=== PATIENT | female | born 1940 | race African-American/Black ===

== ENCOUNTER 2018-02-11 11:47 | Inpatient (IN) | payer MEDICARE, MEDICAID ==
[~2018-02-11] VITALS: Ht 162.6 cm; Wt 61.2 kg
[~2018-02-11 11:47] MED LIST: GLUCOPHAGE500 MG PO; XANAX XR3 MG PO
[2018-02-11] MEDS ORDERED: NS 1000ml 1,900 ML IVLG ONE (12:15)
[2018-02-11] MEDS ORDERED: Isovue-300 100ml vial INJ PRN (12:15)
[2018-02-11] MEDS ORDERED: Morphine Sulfate 4mg/ml Inj IVP ONE (12:45)
[2018-02-11 13:02] LABS: EOSINOPHILS % (AUTO) 1.1 % (0.0-3.0); HEMATOCRIT 33.3 % (37.0-47.0); HEMOGLOBIN 11.1 G/DL (12.0-16.0); LYMPHOCYTES % (AUTO) 20.1 % (20.0-45.0); MEAN CORPUSCULAR VOLUME 91 FL (80-99); NEUTROPHILS % (AUTO) 67.8 % (45.0-75.0); PLATELET COUNT 332 K/UL (150-450); RED BLOOD COUNT 3.66 M/UL (4.20-5.40); RED CELL DISTRIBUTION WIDTH 12.5 % (11.6-14.8); WHITE BLOOD COUNT 11.3 K/UL (4.8-10.8)
[2018-02-11 13:02] LABS: APPEARANCE,URINE CLEAR; BILIRUBIN, URINE NEGATIVE (NEGATIVE); GLUCOSE, URINE (UA) NEGATIVE (NEGATIVE); KETONES,URINE NEGATIVE (NEGATIVE); LEUKOCYTE ESTERASE ,URINE 1+ (NEGATIVE); NITRITE,URINE NEGATIVE (NEGATIVE); PH,URINE 6.5 (4.5-8.0); PROTEIN,URINE NEGATIVE (NEGATIVE); UROBILINOGEN,URINE 8 MG/DL (0.0-1.0)
--- NOTE | 2018-02-11 13:02 | Diagnostic Imaging Report ---
Indication: Dyspnea Comparison: 09/27/2013 A single view chest radiograph was obtained. Findings: Cardiomediastinal appearance is within normal limits for age. Pulmonary vascularity is appropriate. The diaphragmatic contour is smooth and costophrenic angles are sharp. No pleural effusions are identified. The bones are osteopenic. Impression: No acute findings
[2018-02-11 13:07] LABS: ANION GAP 6 mmol/L (5-15); BLOOD UREA NITROGEN 7 mg/dL (7-18); CALCIUM 9.2 MG/DL (8.5-10.1); CARBON DIOXIDE 32 MMOL/L (21-32); CHLORIDE 100 MMOL/L (98-107); CREATININE 0.8 MG/DL (0.55-1.30); POTASSIUM 3.2 MMOL/L (3.5-5.1); SODIUM 138 MMOL/L (136-145)
[2018-02-11 13:15] LABS: COLOR,URINE YELLOW
[2018-02-11 13:20] LABS: ALANINE AMINOTRANSFERASE 57 U/L (12-78); ALBUMIN 2.5 G/DL (3.4-5.0); ALBUMIN/GLOBULIN RATIO 0.5 (1.0-2.7); ALKALINE PHOSPHATASE 63 U/L (46-116); ASPARTATE AMINO TRANSFERASE 73 U/L (15-37); BILIRUBIN,TOTAL 1.5 MG/DL (0.2-1.0); CKMB 0.5 NG/ML (0.0-3.6); CREATINE KINASE 182 U/L (26-308)
[2018-02-11 13:22] LABS: BILIRUBIN,DIRECT 0.6 MG/DL (0.0-0.3)
[2018-02-11 14:36] VITALS: BP 117/60
--- NOTE | 2018-02-11 14:38 | Diagnostic Imaging Report ---
Indication: Abdominal pain Technique: Continuous helical transaxial imaging of the abdomen and pelvis was obtained from the lung bases to the pubic symphysis during intravenous contrast administration. Coronal 2-D reformats were also obtained. Study obtained in a Siemens sensation [address] Automatic Exposure Control was utilized. Total Dose length Product (DLP): 609.[address] Dose Index Volume (CTDIvol): 13.45 mGy Comparison: 02/25/2010 Findings: The lung bases are clear. There is a small stone in the lower pole the right kidney demonstrated. Aorta is moderately calcified. Cholecystectomy noted. The body and tail the pancreas is markedly atrophic. The head and uncinate process appear relatively normal in volume. There is no definite mass identified. Generally this configuration is concerning for carcinoma involving the head of the pancreas. However the configuration is unchanged from the last study performed 02/25/2010 and there is no identification of a mass. Mild periportal edema is noted nonspecific. There is no adrenal mass. The spleen is unremarkable. There is no adenopathy appreciated. Moderate formed stool noted within the colon. No free fluid seen. The uterus is not identified. There is a right total hip prosthesis. Resultant streak artifact limits evaluation. IMPRESSION: No acute findings appreciated. 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 Correlate clinically. Query if patient has had prior partial pancreatectomy. Atherosclerotic disease Status post cholecystectomy. Periportal edema nonspecific Obscured pelvis due to right hip prosthesis. Moderate fecal retention Apparent hysterectomy Tiny nonobstructive stone in the lower pole the right kidney. The CT scanner at [facility] is accredited by the [employer] and the scans are performed using dose optimization techniques as appropriate to a performed exam including Automatic Exposure control.
--- NOTE | 2018-02-11 15:13 | Emergency Room Report ---
History of Present Illness General Chief Complaint: Fever Source: Patient, EMS Present Illness HPI This patient presents from a halfway facility. She is status post right hip replacement after a hip fracture. She presents from the [facility] for uncontrolled right hip pain. There is also concern of fever at the halfway facility. Patient states that this fever comes and goes. She primarily has pain in her right hip. She denies cough or congestion. She denies headache or neck pain. She denies abdominal pain. She has no other complaints. Allergies: Coded Allergies: No Known Allergies (Verified , 06/27/09) Patient History Past Medical History: see triage record, old chart reviewed, DM, GA, CAD, CHF, psych hx Social History: Denies: smoking, alcohol use, drug use Reviewed Nursing Documentation: PMH: Agreed; PSxH: Agreed Nursing Documentation-PMH Past Medical History: No History, Except For Hx Cardiac Problems: Yes Hx Hypertension: Yes Hx Diabetes: Yes - 2000 Hx Cancer: No Hx Gastrointestinal Problems: Yes Hx Neurological Problems: No Review of Systems All Other Systems: negative except mentioned in HPI Physical Exam Vital Signs Date Time Temp Pulse Resp B/P (MAP) Pulse Ox O2 Delivery O2 Flow Rate FiO2 02/11/18 11:53 98.7 78 20 109/65 95 Room Air 98.8 Sp02 EP Interpretation: reviewed, normal General Appearance: no apparent distress, alert, GCS 15, non-toxic Head: normocephalic, atraumatic Eyes: bilateral eye normal inspection, bilateral eye PERRL ENT: hearing grossly normal, normal pharynx, no angioedema, normal voice Neck: full range of motion, supple/symm/no masses Respiratory: chest non-tender, lungs clear, normal breath sounds, no respiratory distress, no retraction, no accessory muscle use, speaking full sentences Cardiovascular #1: regular rate, rhythm, no edema Gastrointestinal: normal bowel sounds, non tender, soft, non-distended, no guarding, no rebound Rectal: deferred Musculoskeletal: other - Pain w/ ROM of R. hip. No obvious swelling or erythema. Neurologic: alert, oriented x3, responsive, motor strength/tone normal, sensory intact, speech normal Psychiatric: judgement/insight normal, memory normal, mood/affect normal, no suicidal/homicidal ideation Skin: normal color, no rash, warm/dry, well hydrated Medical Decision Making Diagnostic Impression: Primary Impression: Post-operative pain ER Course This patient has uncontrolled right hip pain. Possibly this is post op pain. There is report that this patient had fever at the halfway facility. However, the patient does not have a fever here in the emergency department. If the patient is spiking fever it is a possibility she could have an post op infection. However, there has not been any fever here in the emergency department. CT of the abdomen and pelvis shows no acute findings. This patient is admitted for further evaluation and postoperative pain control. Laboratory Tests Test 02/11/18 12:30 02/11/18 12:40 White Blood Count 11.3 K/UL (4.8-10.8) H Red Blood Count 3.66 M/UL (4.20-5.40) L Hemoglobin 11.1 G/DL (12.0-16.0) L Hematocrit 33.3 % (37.0-47.0) L Mean Corpuscular Volume 91 FL (80-99) Mean Corpuscular Hemoglobin 30.3 PG (27.0-31.0) Mean Corpuscular Hemoglobin Concent 33.3 G/DL (32.0-36.0) Red Cell Distribution Width 12.5 % (11.6-14.8) Platelet Count 332 K/UL (150-450) Mean Platelet Volume 6.0 FL (6.5-10.1) L Neutrophils (%) (Auto) 67.8 % (45.0-75.0) Lymphocytes (%) (Auto) 20.1 % (20.0-45.0) Monocytes (%) (Auto) 10.0 % (1.0-10.0) Eosinophils (%) (Auto) 1.1 % (0.0-3.0) Basophils (%) (Auto) 1.0 % (0.0-2.0) Sodium Level 138 MMOL/L (136-145) Potassium Level 3.2 MMOL/L (3.5-5.1) L Chloride Level 100 MMOL/L (98-107) Carbon Dioxide Level 32 MMOL/L (21-32) Anion Gap 6 mmol/L (5-15) Blood Urea Nitrogen 7 mg/dL (7-18) Creatinine 0.8 MG/DL (0.55-1.30) Estimate Glomerular Filtration Rate mL/min (>60) Glucose Level 128 MG/DL (74-106) H Lactic Acid Level 1.70 mmol/L (0.66-2.22) Calcium Level 9.2 MG/DL (8.5-10.1) Total Bilirubin 1.5 MG/DL (0.2-1.0) H Direct Bilirubin 0.6 MG/DL (0.0-0.3) H Aspartate Amino Transferase (AST) 73 U/L (15-37) H Alanine Aminotransferase (ALT) 57 U/L (12-78) Alkaline Phosphatase 63 U/L (46-116) Total Creatine Kinase 182 U/L (26-308) Creatine Kinase MB 0.5 NG/ML (0.0-3.6) Creatine Kinase MB Relative Index 0.2 Troponin I 0.000 ng/mL (0.000-0.056) Total Protein 8.0 G/DL (6.4-8.2) Albumin 2.5 G/DL (3.4-5.0) L Globulin 5.5 g/dL Albumin/Globulin Ratio 0.5 (1.0-2.7) L Urine Color Yellow Urine Appearance Clear Urine pH 6.5 (4.5-8.0) Urine Specific [place] 1.005 (1.005-1.035) Urine Protein Negative (NEGATIVE) Urine Glucose (UA) Negative (NEGATIVE) Urine Ketones Negative (NEGATIVE) Urine Occult Blood 1+ (NEGATIVE) H Urine Nitrite Negative (NEGATIVE) Urine Bilirubin Negative (NEGATIVE) Urine Urobilinogen 8 MG/DL (0.0-1.0) H Urine Leukocyte Esterase 1+ (NEGATIVE) H Urine RBC 2-4 /HPF (0 - 2) H Urine WBC 2-4 /HPF (0 - 2) Urine Squamous Epithelial Cells Few /LPF (NONE/OCC) Urine Bacteria Occasional /HPF (NONE) EKG Diagnostic Results Rate: normal Rhythm: NSR ST Segments: no acute changes Rhythm Strip Diag. Results EP Interpretation: yes Rate: 70's Rhythm: NSR, no PVC's, no ectopy Chest X-Ray Diagnostic Results Chest X-Ray Diagnostic Results : Chest X-Ray Ordered: Yes # of Views/Limited/Complete: 1 View Indication: Other EP Interpretation: Yes Interpretation: no consolidation, no effusion, no pneumothorax, no acute cardiopulmonary disease Impression: No acute disease Electronically Signed by: Ventura CT/MRI/US Diagnostic Results CT/MRI/US Diagnostic Results : Imaging Test Ordered: CT abd/pelvis Impression No acute findings. See official report. Last Vital Signs Date Time Temp Pulse Resp B/P (MAP) Pulse Ox O2 Delivery O2 Flow Rate FiO2 02/11/18 14:36 98.7 82 18 117/60 99 Room Air 98.7 Disposition: ADMITTED INPATIENT Condition: Stable Referrals: Phan Nix DO (PCP) NOÉ VENTURA D.O. February 11, 2018 15:13
[2018-02-11] MEDS ORDERED: Albuterol/Ipratropium 3ml neb HHN PRN (15:26)
[2018-02-11] MEDS ORDERED: Nitroglycerin Subl 0.4mg tab SL PRN (15:36)
[2018-02-11] MEDS: NovoLOG Insulin Flexpen SUBQ SCH ×2 (16:30→21:00)
[2018-02-11] MEDS ORDERED: Cefepime HCl 2 GM in D5W 110 ML IV SCH (17:00)
--- NOTE | 2018-02-11 17:51 | Consultation ---
History of Present Illness General Date patient seen: February 11, 2018 Chief Complaint: Fever Present Illness HPI 77 year old female with hx of HTN, DM, Hep C and Cirrhosis, [facility] for uncontrolled right hip pain. She is status post right hip replacement after a hip fracture. She also had an episode of fever at the prison facility. Patient states that this fever comes and goes. She is admitted for further evaluation. she looks comfortable and only c/o hip pain. Allergies: Coded Allergies: No Known Allergies (Verified , 06/27/09) Medication History Scheduled Amlodipine Besylate* (Amlodipine Besylate*), 10 MG ORAL DAILY, (Reported) Brimonidine Tartrate* (Alphagan*), 1 DROP BOTH EYES BID, (Reported) Buspirone HCl* (Buspirone HCl*), 10 MG ORAL THREE TIMES A DAY, (Reported) Citalopram Hydrobromide* (Celexa*), 40 MG ORAL DAILY, (Reported) Docusate Sodium* (Colace*), 100 MG ORAL DAILY, (Reported) Insulin Regular, Human (Humulin R), 0 SUBQ AC+HS, (Reported) Metformin Hcl* (Glucophage*), 500 MG PO BID, (Reported) Multivitamins* (Multivitamins*), 1 TAB ORAL DAILY, (Reported) Sennosides/Docusate Sodium (Senna Laxative Tablet), 2 EACH PO QHS, (Reported) Timolol Maleate (Timolol Maleate), 1 DROP BOTH EYES TWICE A DAY, (Reported) Scheduled PRN Bisacodyl (Dulcolax), 10 MG RC DAILY PRN for Constipation, (Reported) Hydrocodone Bit/Acetaminophen 5-325* ([place]ola 5-325*), 1 TAB ORAL Q4H PRN for For Pain, (Reported) Hydroxyzine Pamoate* (Vistaril*), 25 MG ORAL TID PRN for Restlessness, (Reported ) Ibuprofen* (Motrin*), 600 MG ORAL Q6H PRN for For Pain, (Reported) Magnesium Hydroxide* (Milk Of Magnesia*), 30 ML ORAL DAILY PRN for Constipation, (Reported) Na Phos,M-B/Na Phos,Di-Ba* (Fleet Enema*), 133 ML RECTAL every 2 days PRN for Constipation, (Reported) Miscellaneous Medications Alprazolam (Xanax Xr), 3 MG PO, (Reported) Patient History Healthcare decision maker Resuscitation status Advanced Directive on File Past Medical/Surgical History Past Medical/Surgical History: (1) 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 (2) Peptic ulcer disease Review of Systems All Other Systems: negative except mentioned in HPI Physical Exam General Appearance: WD/WN Lines, tubes and drains: peripheral, central line HEENT: normocephalic, atraumatic Neck: non-tender, normal alignment Respiratory/Chest: chest wall non-tender, lungs clear, normal breath sounds Breasts: no masses Cardiovascular/Chest: normal peripheral pulses Genitourinary/Rectal: normal genital exam, normal rectal exam Extremities: normal range of motion Last 24 Hour Vital Signs Date Time Temp Pulse Resp B/P (MAP) Pulse Ox O2 Delivery O2 Flow Rate FiO2 02/11/18 15:13 98.7 82 18 117/60 99 Room Air 98.7 02/11/18 14:36 98.7 82 18 117/60 99 Room Air 98.7 02/11/18 14:21 98.7 02/11/18 12:47 98.7 02/11/18 11:53 98.7 78 20 109/65 95 Room Air 98.8 Laboratory Tests Test 02/11/18 12:30 02/11/18 12:40 White Blood Count 11.3 K/UL (4.8-10.8) H Red Blood Count 3.66 M/UL (4.20-5.40) L Hemoglobin 11.1 G/DL (12.0-16.0) L Hematocrit 33.3 % (37.0-47.0) L Mean Corpuscular Volume 91 FL (80-99) Mean Corpuscular Hemoglobin 30.3 PG (27.0-31.0) Mean Corpuscular Hemoglobin Concent 33.3 G/DL (32.0-36.0) Red Cell Distribution Width 12.5 % (11.6-14.8) Platelet Count 332 K/UL (150-450) Mean Platelet Volume 6.0 FL (6.5-10.1) L Neutrophils (%) (Auto) 67.8 % (45.0-75.0) Lymphocytes (%) (Auto) 20.1 % (20.0-45.0) Monocytes (%) (Auto) 10.0 % (1.0-10.0) Eosinophils (%) (Auto) 1.1 % (0.0-3.0) Basophils (%) (Auto) 1.0 % (0.0-2.0) Sodium Level 138 MMOL/L (136-145) Potassium Level 3.2 MMOL/L (3.5-5.1) L Chloride Level 100 MMOL/L (98-107) Carbon Dioxide Level 32 MMOL/L (21-32) Anion Gap 6 mmol/L (5-15) Blood Urea Nitrogen 7 mg/dL (7-18) Creatinine 0.8 MG/DL (0.55-1.30) Estimat Glomerular Filtration Rate mL/min (>60) Glucose Level 128 MG/DL (74-106) H Lactic Acid Level 1.70 mmol/L (0.66-2.22) Calcium Level 9.2 MG/DL (8.5-10.1) Total Bilirubin 1.5 MG/DL (0.2-1.0) H Direct Bilirubin 0.6 MG/DL (0.0-0.3) H Aspartate Amino Transf (AST/SGOT) 73 U/L (15-37) H Alanine Aminotransferase (ALT/SGPT) 57 U/L (12-78) Alkaline Phosphatase 63 U/L (46-116) Total Creatine Kinase 182 U/L (26-308) Creatine Kinase MB 0.5 NG/ML (0.0-3.6) Creatine Kinase MB Relative Index 0.2 Troponin I 0.000 ng/mL (0.000-0.056) Total Protein 8.0 G/DL (6.4-8.2) Albumin 2.5 G/DL (3.4-5.0) L Globulin 5.5 g/dL Albumin/Globulin Ratio 0.5 (1.0-2.7) L Urine Color Yellow Urine Appearance Clear Urine pH 6.5 (4.5-8.0) Urine Specific [place] 1.005 (1.005-1.035) Urine Protein Negative (NEGATIVE) Urine Glucose (UA) Negative (NEGATIVE) Urine Ketones Negative (NEGATIVE) Urine Occult Blood 1+ (NEGATIVE) H Urine Nitrite Negative (NEGATIVE) Urine Bilirubin Negative (NEGATIVE) Urine Urobilinogen 8 MG/DL (0.0-1.0) H Urine Leukocyte Esterase 1+ (NEGATIVE) H Urine RBC 2-4 /HPF (0 - 2) H Urine WBC 2-4 /HPF (0 - 2) Urine Squamous Epithelial Cells Few /LPF (NONE/OCC) Urine Bacteria Occasional /HPF (NONE) Height (Feet): 5 Height (Inches): 5.00 Weight (Pounds): 140 Medications Current Medications Medications (Trade) Dose Ordered Sig/Darwin Route PRN Reason Start Time Stop Time Status Last Admin Dose Admin Acetaminophen (Tylenol) 650 mg Q4H PRN ORAL fever (TEMP>100.3) 02/11/18 15:36 03/13/18 15:35 Albuterol/ Ipratropium (Albuterol/ Ipratropium) 3 ml EVERY 4 HOURS PRN HHN Shortness of Breath 02/11/18 15:26 02/16/18 15:25 Cefepime HCl 2 gm/ Dextrose 110 ml @ 220 mls/hr Q12H IV 02/11/18 17:00 02/18/18 16:59 02/11/18 17:29 Dextrose (Dextrose 50%) 25 ml STAT PRN IV Hypoglycemia BS 60-69mg/dl 02/11/18 15:38 03/13/18 15:37 Dextrose (Dextrose 50%) 50 ml STAT PRN IV Hypoglycemia BS less than 60mg 02/11/18 15:38 03/13/18 15:37 Heparin Sodium (Porcine) (Heparin 5000 units/ml) 5,000 units EVERY 12 HOURS SUBQ 02/11/18 21:00 03/13/18 20:59 Insulin Aspart (NovoLOG) BEFORE MEALS AND HS SUBQ 02/11/18 16:30 03/13/18 16:29 Iopamidol (Isovue-300 100ml) 100 ml NOW PRN INJ Radiology Procedure 02/11/18 12:15 Nitroglycerin (Ntg) 0.4 mg STAT PRN SL Prn Chest Pain 02/11/18 15:36 03/13/18 15:35 Ondansetron HCl (Zofran) 4 mg Q6H PRN IVP Nausea & Vomiting 02/11/18 15:36 03/13/18 15:35 Polyethylene Glycol (Miralax) 17 gm DAILYPRN PRN ORAL Constipation 5/10/18 15:36 03/13/18 15:35 Potassium Chloride (K-Dur) 20 meq ONCE ORAL 02/11/18 17:30 02/11/18 19:00 02/11/18 17:41 Temazepam (Restoril) 15 mg HSPRN PRN ORAL Insomnia 02/11/18 21:00 02/18/18 20:59 Vancomycin HCl (Vanco rx to dose) 1 ea DAILY PRN MISC VANCO RX 02/11/18 15:45 03/13/18 15:44 Vancomycin HCl 1 gm/Dextrose 275 ml @ 183.3 mls/ hr Q24H IVPB 02/11/18 18:00 02/16/18 17:59 Assessment/Plan Problem List: (1) Fever ICD Codes: R50.9 - Fever, unspecified SNOMED: 086647429 (2) 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
[2018-02-11] MEDS: Miralax 17gm pkt ORAL PRN (17:58)
[2018-02-11] MEDS ORDERED: Vancomycin 1 GM in D5W 275 ML IVPB SCH (18:00)
[2018-02-11] MEDS ORDERED: HYDROcodone/Acetamin 10/325 tab ORAL PRN ×2 (18:02→20:30)
--- NOTE | 2018-02-11 18:04 | Consultation ---
History of Present Illness General Date patient seen: February 11, 2018 Time patient seen: 17:51 Chief Complaint: Fever Present Illness HPI 77 y/o F with hx of DM2, CAD/[place], CHF, HTN, SNF resident, s/p R hip replacement after hip fracture presents to ED on 02/11 with uncontrolled R hip pain and report of fever at SNF. Denies cough, congestion, SMITH, neck pain, abd pain. Afebrile here. Mild leukocytosis to 11. CXR and CTabd/p neg Allergies: Coded Allergies: No Known Allergies (Verified , 06/27/09) Medication History Scheduled Metformin Hcl* (Glucophage*), 500 MG PO BID, (Reported) Miscellaneous Medications Alprazolam (Xanax Xr), 3 MG PO, (Reported) Patient History Healthcare decision maker Resuscitation status Advanced Directive on File Patient History Narrative Pmhx: as above Shx: Denies: smoking, alcohol use, drug use Fhx: non contributory Review of Systems All Other Systems: negative except mentioned in HPI Physical Exam Physical Exam Narrative General Appearance: no apparent distress, alert HEENT: normocephalic, atraumatic, bilateral eye PERRL, normal pharynx Neck: full range of motion, supple/symm/no masses Respiratory: chest non-tender, lungs clear, normal breath sounds, no respiratory distress, no retraction, no accessory muscle use, speaking full sentences Cardiovascular regular rate, rhythm, no edema Gastrointestinal: normal bowel sounds, non tender, soft, non-distended, no guarding, no rebound Musculoskeletal: other - Pain w/ ROM of R. hip. No obvious swelling or erythema. R hip surgical incision healing, no signs of ifnection, no drainage Skin: normal color, no rash, warm/dry, well hydrated Last 24 Hour Vital Signs Date Time Temp Pulse Resp B/P (MAP) Pulse Ox O2 Delivery O2 Flow Rate FiO2 02/11/18 15:13 98.7 82 18 117/60 99 Room Air 98.7 02/11/18 14:36 98.7 82 18 117/60 99 Room Air 98.7 02/11/18 14:21 98.7 02/11/18 12:47 98.7 02/11/18 11:53 98.7 78 20 109/65 95 Room Air 98.8 Laboratory Tests Test 02/11/18 12:30 02/11/18 12:40 White Blood Count 11.3 K/UL (4.8-10.8) H Red Blood Count 3.66 M/UL (4.20-5.40) L Hemoglobin 11.1 G/DL (12.0-16.0) L Hematocrit 33.3 % (37.0-47.0) L Mean Corpuscular Volume 91 FL (80-99) Mean Corpuscular Hemoglobin 30.3 PG (27.0-31.0) Mean Corpuscular Hemoglobin Concent 33.3 G/DL (32.0-36.0) Red Cell Distribution Width 12.5 % (11.6-14.8) Platelet Count 332 K/UL (150-450) Mean Platelet Volume 6.0 FL (6.5-10.1) L Neutrophils (%) (Auto) 67.8 % (45.0-75.0) Lymphocytes (%) (Auto) 20.1 % (20.0-45.0) Monocytes (%) (Auto) 10.0 % (1.0-10.0) Eosinophils (%) (Auto) 1.1 % (0.0-3.0) Basophils (%) (Auto) 1.0 % (0.0-2.0) Sodium Level 138 MMOL/L (136-145) Potassium Level 3.2 MMOL/L (3.5-5.1) L Chloride Level 100 MMOL/L (98-107) Carbon Dioxide Level 32 MMOL/L (21-32) Anion Gap 6 mmol/L (5-15) Blood Urea Nitrogen 7 mg/dL (7-18) Creatinine 0.8 MG/DL (0.55-1.30) Estimat Glomerular Filtration Rate mL/min (>60) Glucose Level 128 MG/DL (74-106) H Lactic Acid Level 1.70 mmol/L (0.66-2.22) Calcium Level 9.2 MG/DL (8.5-10.1) Total Bilirubin 1.5 MG/DL (0.2-1.0) H Direct Bilirubin 0.6 MG/DL (0.0-0.3) H Aspartate Amino Transf (AST/SGOT) 73 U/L (15-37) H Alanine Aminotransferase (ALT/SGPT) 57 U/L (12-78) Alkaline Phosphatase 63 U/L (46-116) Total Creatine Kinase 182 U/L (26-308) Creatine Kinase MB 0.5 NG/ML (0.0-3.6) Creatine Kinase MB Relative Index 0.2 Troponin I 0.000 ng/mL (0.000-0.056) Total Protein 8.0 G/DL (6.4-8.2) Albumin 2.5 G/DL (3.4-5.0) L Globulin 5.5 g/dL Albumin/Globulin Ratio 0.5 (1.0-2.7) L Urine Color Yellow Urine Appearance Clear Urine pH 6.5 (4.5-8.0) Urine Specific [place] 1.005 (1.005-1.035) Urine Protein Negative (NEGATIVE) Urine Glucose (UA) Negative (NEGATIVE) Urine Ketones Negative (NEGATIVE) Urine Occult Blood 1+ (NEGATIVE) H Urine Nitrite Negative (NEGATIVE) Urine Bilirubin Negative (NEGATIVE) Urine Urobilinogen 8 MG/DL (0.0-1.0) H Urine Leukocyte Esterase 1+ (NEGATIVE) H Urine RBC 2-4 /HPF (0 - 2) H Urine WBC 2-4 /HPF (0 - 2) Urine Squamous Epithelial Cells Few /LPF (NONE/OCC) Urine Bacteria Occasional /HPF (NONE) Height (Feet): 5 Height (Inches): 5.00 Weight (Pounds): 140 Medications Current Medications Medications (Trade) Dose Ordered Sig/Darwin Route PRN Reason Start Time Stop Time Status Last Admin Dose Admin Acetaminophen (Tylenol) 650 mg Q4H PRN ORAL fever (TEMP>100.3) 02/11/18 15:36 03/13/18 15:35 Albuterol/ Ipratropium (Albuterol/ Ipratropium) 3 ml EVERY 4 HOURS PRN HHN Shortness of Breath 02/11/18 15:26 02/16/18 15:25 Cefepime HCl 2 gm/ Dextrose 110 ml @ 220 mls/hr Q12H IV 02/11/18 17:00 02/18/18 16:59 02/11/18 17:29 Dextrose (Dextrose 50%) 25 ml STAT PRN IV Hypoglycemia BS 60-69mg/dl 02/11/18 15:38 03/13/18 15:37 Dextrose (Dextrose 50%) 50 ml STAT PRN IV Hypoglycemia BS less than 60mg 02/11/18 15:38 03/13/18 15:37 Heparin Sodium (Porcine) (Heparin 5000 units/ml) 5,000 units EVERY 12 HOURS SUBQ 02/11/18 21:00 03/13/18 20:59 Insulin Aspart (NovoLOG) BEFORE MEALS AND HS SUBQ 02/11/18 16:30 03/13/18 16:29 Iopamidol (Isovue-300 100ml) 100 ml NOW PRN INJ Radiology Procedure 02/11/18 12:15 Nitroglycerin (Ntg) 0.4 mg STAT PRN SL Prn Chest Pain 02/11/18 15:36 03/13/18 15:35 Ondansetron HCl (Zofran) 4 mg Q6H PRN IVP Nausea & Vomiting 02/11/18 15:36 03/13/18 15:35 Polyethylene Glycol (Miralax) 17 gm DAILYPRN PRN ORAL Constipation 02/11/18 15:36 03/13/18 15:35 Potassium Chloride (K-Dur) 20 meq ONCE ORAL 02/11/18 17:30 02/11/18 19:00 02/11/18 17:41 Temazepam (Restoril) 15 mg HSPRN PRN ORAL Insomnia 02/11/18 21:00 02/18/18 20:59 Vancomycin HCl (Vanco rx to dose) 1 ea DAILY PRN MISC VANCO RX 02/11/18 15:45 03/13/18 15:44 Vancomycin HCl 1 gm/Dextrose 275 ml @ 183.3 mls/ hr Q24H IVPB 02/11/18 18:00 02/16/18 17:59 Assessment/Plan Assessment/Plan Abx: IV Vancomycin 02/11- Cefepime 02/11- Assessment: R hip pain Reported fever, none here Mild leukocytosis- suspect reactive- no signs or evidence of infection. Monitor for Surgical site infection. -CT abd/p: No acute findings appreciated. 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 Correlate clinically. Query if patient has had prior partial pancreatectomy. Atherosclerotic disease. Status post cholecystectomy. Periportal edema nonspecific. Obscured pelvis due to right hip prosthesis. Moderate fecal retention. Apparent hysterectomy. Tiny nonobstructive stone in the lower pole the right kidney. -CXR no acute findings -u/a wbc 2-4, nit neg, leuk +2 -Bcx p DM2 CAD/[place] CHF HTN SNF resident s/p R hip replacement after hip fracture Plan: -D/c empiriv IV Vanco and Cefepime #1 and monitor off abx; resume if febrile, worsening leukocytosis -V duplex BLE, R hip xray -may need CT or MRI imaging if persistent paint -f/u cx -Monitor CBC/BMP, temperatures -aspiration precautions -wound care/prevention per hospital protocol. Thank you for this consultation. Will continue to follow along with you. Discussed with Chelsea Escobar M.D. February 11, 2018 18:04
[2018-02-11 20:00] VITALS: BP 141/72
[2018-02-11] MEDS ORDERED: Morphine Sulfate 4mg/ml Inj IVP PRN (20:12)
[2018-02-11] MEDS: Morphine Sulfate 4mg/ml Inj IVP PRN (20:37)
[2018-02-11] MEDS: Heparin 5000 units/ml inj SUBQ SCH (21:00)
--- NOTE | 2018-02-11 21:15 | History and Physical Report ---
DATE OF ADMISSION: 02/11/2018 TIME SEN: At 3 p.m. CONSULTANTS: 1. Dr. De La Fuente. 2. Jt Morin M.D. 3. Marcela Carvajal M.D. 4. Shannon Pang M.D. CHIEF COMPLAINT: Fever, status post hip surgery, hip pain. BRIEF HISTORY: This is a 77-year-old female, who recently was hospitalized for right hip fracture and who has had surgery, this is about a week ago. The patient was discharged back to [facility], but currently developed some fever and acute pain in the right leg, came to [place], diagnosed as above, being admitted to the medical floor for further treatment. Currently, calm in bed, right hip pain moderate. No complaint. PAST MEDICAL HISTORY: Right hip fracture, status post surgery, diabetes, and hypertension. PAST SURGICAL HISTORY: Right hip. MEDICATIONS: Vancomycin, cefepime, insulin, Tylenol, Zofran, temazepam, and nitroglycerin. ALLERGIES: Denies. SOCIAL HISTORY: No smoking. No alcohol. No intravenous drug abuse. FAMILY HISTORY: Noncontributory. REVIEW OF SYSTEMS: No chest pain. Slight short of breath. No nausea, vomiting, or diarrhea. PHYSICAL EXAMINATION: GENERAL: Calm in bed, oriented x3, in slight distress. VITAL SIGNS: Temperature is 98 degrees, pulse 82, respiratory rate 18, and blood pressure 117/60. CARDIOVASCULAR: No murmur. LUNGS: Distant and clear. ABDOMEN: Bowel sounds positive. Nontender. Nondistended. EXTREMITIES: No cyanosis, clubbing, or edema. NEUROLOGIC: The patient moves all extremities, slightly weak . LABORATORY DATA: Labs at this time show white count 11.3, hemoglobin and hematocrit 11/33, otherwise CBC is normal. BMP shows potassium 3.2 and glucose 128, otherwise normal. Troponin 0.00. Albumin 2.5. Urinalysis show 1+ leukocyte esterase, otherwise normal. ASSESSMENT: 1. Fever. 2. UTI. 3. Shortness of breath. 4. Acute pain. 5. Anemia. 6. Right hip pain. 7. Diabetes. 8. Hypertension. 9. Depression. PLAN: 1. Continue previous medications. 2. Antibiotics per Infectious Disease. 3. OT/PT. 4. Dietary evaluation. 5. CBC and BMP in the morning. 6. Blood pressure, blood sugar, and pain control. 7. Dietary followup. 8. Dr. De La Fuente, Dr. Morin, Dr. Pang, Dr. Carvajal, and Dr. Torres to consult. 9. We will continue to follow this patient. Phan Nix D.O. DR: DOV JOB#: [id number] CC:
[2018-02-11 22:34] LABS: APPEARANCE,URINE CLEAR; BILIRUBIN, URINE NEGATIVE (NEGATIVE); GLUCOSE, URINE (UA) NEGATIVE (NEGATIVE); KETONES,URINE 3+ (NEGATIVE); LEUKOCYTE ESTERASE ,URINE NEGATIVE (NEGATIVE); NITRITE,URINE NEGATIVE (NEGATIVE); PH,URINE 6 (4.5-8.0); PROTEIN,URINE NEGATIVE (NEGATIVE); UROBILINOGEN,URINE 1 MG/DL (0.0-1.0)
[2018-02-11 22:35] LABS: COLOR,URINE YELLOW
[2018-02-12] MEDS ORDERED: TIMOPTIC 0.5%1 DROP BOTH EYES (00:20)
[2018-02-12] MEDS ORDERED: IBUPROFEN600 MG ORAL (00:20)
[2018-02-12] MEDS ORDERED: HUMULIN R100 UNIT/1 SUBQ (00:20)
[2018-02-12] MEDS ORDERED: MILK OF MA400 MG/51 ORAL (00:20)
[2018-02-12] MEDS ORDERED: FLEET ENEMA133 ML RECTAL (00:20)
[2018-02-12] MEDS ORDERED: VISTARIL50 MG ORAL (00:20)
[2018-02-12] MEDS ORDERED: MULTIVITAMINS1 EAC2 ORAL (00:20)
[2018-02-12] MEDS ORDERED: AMLODIPINE BESY10 MG ORAL (00:20)
[2018-02-12] MEDS ORDERED: COLACE100 MG ORAL (00:20)
[2018-02-12] MEDS ORDERED: BRIMONIDINE TART5 ML BOTH EYES (00:20)
[2018-02-12] MEDS ORDERED: BUSPIRONE HCL5 M2 ORAL (00:20)
[2018-02-12] MEDS ORDERED: DULCOLAX10 MG RC (00:20)
[2018-02-12] MEDS ORDERED: NORCO 5-325 TA1 EACH ORAL (00:20)
[2018-02-12] MEDS ORDERED: SENNA LAXATIVE1 EAC1 PO (00:20)
[2018-02-12] MEDS ORDERED: CELEXA20 MG ORAL (00:20)
[2018-02-12 00:51] VITALS: BP 134/66
[2018-02-12] MEDS: Morphine Sulfate 4mg/ml Inj IVP PRN ×5 (01:05→21:37)
[2018-02-12 04:00] VITALS: BP 125/68
[2018-02-12] MEDS ORDERED: LORazepam 0.5mg tab ORAL PRN (04:15)
[2018-02-12] MEDS: NovoLOG Insulin Flexpen SUBQ SCH ×4 (05:58→21:00)
[2018-02-12 08:00] VITALS: BP 114/64
[2018-02-12 08:31] LABS: BASOPHILS % (AUTO) 0.9 % (0.0-2.0); EOSINOPHILS % (AUTO) 1.6 % (0.0-3.0); HEMATOCRIT 28.7 % (37.0-47.0); LYMPHOCYTES % (AUTO) 17.4 % (20.0-45.0); MEAN CORPUSCULAR VOLUME 91 FL (80-99); MONOCYTES % (AUTO) 9.1 % (1.0-10.0); NEUTROPHILS % (AUTO) 70.9 % (45.0-75.0); PLATELET COUNT 260 K/UL (150-450); RED BLOOD COUNT 3.15 M/UL (4.20-5.40); RED CELL DISTRIBUTION WIDTH 12.3 % (11.6-14.8); WHITE BLOOD COUNT 10.3 K/UL (4.8-10.8)
[2018-02-12] MEDS: Citalopram 20mg Tab ORAL SCH (08:49)
[2018-02-12] MEDS: BusPIRone 5mg Tab ORAL SCH ×3 (08:50→18:02)
[2018-02-12] MEDS: Heparin 5000 units/ml inj SUBQ SCH ×2 (08:52→21:45)
[2018-02-12 09:07] LABS: ALANINE AMINOTRANSFERASE 47 U/L (12-78); ALBUMIN 2.2 G/DL (3.4-5.0); ALBUMIN/GLOBULIN RATIO 0.4 (1.0-2.7); ALKALINE PHOSPHATASE 58 U/L (46-116); ANION GAP 11 mmol/L (5-15); ASPARTATE AMINO TRANSFERASE 65 U/L (15-37); BILIRUBIN,TOTAL 1.1 MG/DL (0.2-1.0); BLOOD UREA NITROGEN 8 mg/dL (7-18); CALCIUM 8.5 MG/DL (8.5-10.1); CARBON DIOXIDE 24 MMOL/L (21-32); CHLORIDE 102 MMOL/L (98-107); CREATININE 0.7 MG/DL (0.55-1.30); POTASSIUM 3.2 MMOL/L (3.5-5.1); SODIUM 137 MMOL/L (136-145)
[2018-02-12 09:13] LABS: BILIRUBIN,DIRECT 0.4 MG/DL (0.0-0.3)
--- NOTE | 2018-02-12 09:40 | Consultation ---
History of Present Illness General Date patient seen: February 12, 2018 Chief Complaint: Present Illness Allergies: Coded Allergies: No Known Allergies (Verified , 06/27/09) Medication History Scheduled Amlodipine Besylate* (Amlodipine Besylate*), 10 MG ORAL DAILY, (Reported) Brimonidine Tartrate* (Alphagan*), 1 DROP BOTH EYES BID, (Reported) Buspirone HCl* (Buspirone HCl*), 10 MG ORAL THREE TIMES A DAY, (Reported) Citalopram Hydrobromide* (Celexa*), 40 MG ORAL DAILY, (Reported) Docusate Sodium* (Colace*), 100 MG ORAL DAILY, (Reported) Insulin Regular, Human (Humulin R), 0 SUBQ AC+HS, (Reported) Metformin Hcl* (Glucophage*), 500 MG PO BID, (Reported) Multivitamins* (Multivitamins*), 1 TAB ORAL DAILY, (Reported) Sennosides/Docusate Sodium (Senna Laxative Tablet), 2 EACH PO QHS, (Reported) Timolol Maleate (Timolol Maleate), 1 DROP BOTH EYES TWICE A DAY, (Reported) Scheduled PRN Bisacodyl (Dulcolax), 10 MG RC DAILY PRN for Constipation, (Reported) Hydrocodone Bit/Acetaminophen 5-325* (Cooks 5-325*), 1 TAB ORAL Q4H PRN for For Pain, (Reported) Hydroxyzine Pamoate* (Vistaril*), 25 MG ORAL TID PRN for Restlessness, (Reported ) Ibuprofen* (Motrin*), 600 MG ORAL Q6H PRN for For Pain, (Reported) Magnesium Hydroxide* (Milk Of Magnesia*), 30 ML ORAL DAILY PRN for Constipation, (Reported) Na Phos,M-B/Na Phos,Di-Ba* (Fleet Enema*), 133 ML RECTAL every 2 days PRN for Constipation, (Reported) Miscellaneous Medications Alprazolam (Xanax Xr), 3 MG PO, (Reported) Patient History Healthcare decision maker Resuscitation status Full Code Advanced Directive on File No Physical Exam Last 24 Hour Vital Signs Date Time Temp Pulse Resp B/P (MAP) Pulse Ox O2 Delivery O2 Flow Rate FiO2 02/12/18 08:00 98.8 85 16 114/64 98 Room Air 98.8 02/12/18 05:53 98.0 02/12/18 04:00 98.4 82 20 125/68 96 Room Air 98.4 02/12/18 01:35 98.0 02/12/18 01:05 98.0 02/12/18 00:51 98.0 76 24 134/66 98 Room Air 98.0 02/11/18 20:00 98.9 92 20 141/72 97 Room Air 98.9 02/11/18 19:12 98.7 02/11/18 15:13 98.7 82 18 117/60 99 Room Air 98.7 02/11/18 14:36 98.7 82 18 117/60 99 Room Air 98.7 02/11/18 14:21 98.7 02/11/18 12:47 98.7 02/11/18 11:53 98.7 78 20 109/65 95 Room Air 98.8 Intake and Output 02/11/18 02/12/18 19:00 07:00 Intake Total 100 ml Output Total 400 ml 1150 ml Balance -400 ml -1050 ml Intake Oral 100 ml Output Urine Total 400 ml 1150 ml # Bowel Movements 1 Laboratory Tests Test 02/11/18 12:30 02/11/18 12:40 02/11/18 22:00 02/12/18 07:15 White Blood Count 11.3 K/UL (4.8-10.8) H 10.3 K/UL (4.8-10.8) Red Blood Count 3.66 M/UL (4.20-5.40) L 3.15 M/UL (4.20-5.40) L Hemoglobin 11.1 G/DL (12.0-16.0) L 10.0 G/DL (12.0-16.0) L Hematocrit 33.3 % (37.0-47.0) L 28.7 % (37.0-47.0) L Mean Corpuscular Volume 91 FL (80-99) 91 FL (80-99) Mean Corpuscular Hemoglobin 30.3 PG (27.0-31.0) 31.7 PG (27.0-31.0) H Mean Corpuscular Hemoglobin Concent 33.3 G/DL (32.0-36.0) 34.8 G/DL (32.0-36.0) Red Cell Distribution Width 12.5 % (11.6-14.8) 12.3 % (11.6-14.8) Platelet Count 332 K/UL (150-450) 260 K/UL (150-450) Mean Platelet Volume 6.0 FL (6.5-10.1) L 5.9 FL (6.5-10.1) L Neutrophils (%) (Auto) 67.8 % (45.0-75.0) 70.9 % (45.0-75.0) Lymphocytes (%) (Auto) 20.1 % (20.0-45.0) 17.4 % (20.0-45.0) L Monocytes (%) (Auto) 10.0 % (1.0-10.0) 9.1 % (1.0-10.0) Eosinophils (%) (Auto) 1.1 % (0.0-3.0) 1.6 % (0.0-3.0) Basophils (%) (Auto) 1.0 % (0.0-2.0) 0.9 % (0.0-2.0) Sodium Level 138 MMOL/L (136-145) 137 MMOL/L (136-145) Potassium Level 3.2 MMOL/L (3.5-5.1) L 3.2 MMOL/L (3.5-5.1) L Chloride Level 100 MMOL/L (98-107) 102 MMOL/L (98-107) Carbon Dioxide Level 32 MMOL/L (21-32) 24 MMOL/L (21-32) Anion Gap 6 mmol/L (5-15) 11 mmol/L (5-15) Blood Urea Nitrogen 7 mg/dL (7-18) 8 mg/dL (7-18) Creatinine 0.8 MG/DL (0.55-1.30) 0.7 MG/DL (0.55-1.30) Estimat Glomerular Filtration Rate mL/min (>60) mL/min (>60) Glucose Level 128 MG/DL (74-106) H 100 MG/DL (74-106) Lactic Acid Level 1.70 mmol/L (0.66-2.22) Calcium Level 9.2 MG/DL (8.5-10.1) 8.5 MG/DL (8.5-10.1) Total Bilirubin 1.5 MG/DL (0.2-1.0) H 1.1 MG/DL (0.2-1.0) H Direct Bilirubin 0.6 MG/DL (0.0-0.3) H 0.4 MG/DL (0.0-0.3) H Aspartate Amino Transf (AST/SGOT) 73 U/L (15-37) H 65 U/L (15-37) H Alanine Aminotransferase (ALT/SGPT) 57 U/L (12-78) 47 U/L (12-78) Alkaline Phosphatase 63 U/L (46-116) 58 U/L (46-116) Total Creatine Kinase 182 U/L (26-308) Creatine Kinase MB 0.5 NG/ML (0.0-3.6) Creatine Kinase MB Relative Index 0.2 Troponin I 0.000 ng/mL (0.000-0.056) Total Protein 8.0 G/DL (6.4-8.2) 7.2 G/DL (6.4-8.2) Albumin 2.5 G/DL (3.4-5.0) L 2.2 G/DL (3.4-5.0) L Globulin 5.5 g/dL 5.0 g/dL Albumin/Globulin Ratio 0.5 (1.0-2.7) L 0.4 (1.0-2.7) L Urine Color Yellow Yellow Urine Appearance Clear Clear Urine pH 6.5 (4.5-8.0) 6 (4.5-8.0) Urine Specific [place] 1.005 (1.005-1.035) 1.005 (1.005-1.035) Urine Protein Negative (NEGATIVE) Negative (NEGATIVE) Urine Glucose (UA) Negative (NEGATIVE) Negative (NEGATIVE) Urine Ketones Negative (NEGATIVE) 3+ (NEGATIVE) H Urine Occult Blood 1+ (NEGATIVE) H 1+ (NEGATIVE) H Urine Nitrite Negative (NEGATIVE) Negative (NEGATIVE) Urine Bilirubin Negative (NEGATIVE) Negative (NEGATIVE) Urine Urobilinogen 8 MG/DL (0.0-1.0) H 1 MG/DL (0.0-1.0) H Urine Leukocyte Esterase 1+ (NEGATIVE) H Negative (NEGATIVE) Urine RBC 2-4 /HPF (0 - 2) H 2-4 /HPF (0 - 2) H Urine WBC 2-4 /HPF (0 - 2) 0-2 /HPF (0 - 2) Urine Squamous Epithelial Cells Few /LPF (NONE/OCC) None /LPF (NONE/OCC) Urine Bacteria Occasional /HPF (NONE) None /HPF (NONE) Height (Feet): 5 Height (Inches): 4.00 Weight (Pounds): 135 Medications Current Medications Medications (Trade) Dose Ordered Sig/Darwin Route PRN Reason Start Time Stop Time Status Last Admin Dose Admin Acetaminophen (Tylenol) 650 mg Q4H PRN ORAL fever (TEMP>100.3) 02/11/18 15:36 03/13/18 15:35 Acetaminophen/ Hydrocodone Bitart (Cooks 10) 1 tab EVERY 6 HOURS PRN ORAL Severe Breakthru Pain (>7) 02/11/18 20:40 02/18/18 20:39 Albuterol/ Ipratropium (Albuterol/ Ipratropium) 3 ml EVERY 4 HOURS PRN HHN Shortness of Breath 02/11/18 15:26 02/16/18 15:25 Buspirone HCl (Buspar) 10 mg THREE TIMES A DAY ORAL 02/12/18 09:00 03/14/18 08:59 02/12/18 08:50 Citalopram Hydrobromide (celeXA) 20 mg DAILY ORAL 02/12/18 09:00 03/14/18 08:59 02/12/18 08:49 Dextrose (Dextrose 50%) 25 ml STAT PRN IV Hypoglycemia BS 60-69mg/dl 02/11/18 15:38 03/13/18 15:37 Dextrose (Dextrose 50%) 50 ml STAT PRN IV Hypoglycemia BS less than 60mg 02/11/18 15:38 03/13/18 15:37 Gabapentin (Neurontin) 100 mg QHS ORAL 02/12/18 21:00 03/14/18 20:59 UNV Heparin Sodium (Porcine) (Heparin 5000 units/ml) 5,000 units EVERY 12 HOURS SUBQ 02/11/18 21:00 03/13/18 20:59 02/12/18 08:52 Insulin Aspart (NovoLOG) BEFORE MEALS AND HS SUBQ 02/11/18 16:30 03/13/18 16:29 Iopamidol (Isovue-300 100ml) 100 ml NOW PRN INJ Radiology Procedure 02/11/18 12:15 Lidocaine (Lidoderm 5% PATCH) 1 patch DAILY TDERMAL 02/12/18 09:15 03/14/18 09:14 UNV Lorazepam (Ativan) 0.5 mg Q6H PRN ORAL For Anxiety 02/12/18 04:15 02/19/18 04:14 02/12/18 04:35 Morphine Sulfate (Morphine Sulfate) 4 mg Q4H PRN IVP For Pain (PAIN SCALE 7-10) 02/11/18 20:30 02/18/18 20:11 02/12/18 05:53 Nitroglycerin (Ntg) 0.4 mg STAT PRN SL Prn Chest Pain 02/11/18 15:36 03/13/18 15:35 Ondansetron HCl (Zofran) 4 mg Q6H PRN IVP Nausea & Vomiting 02/11/18 15:36 03/13/18 15:35 Polyethylene Glycol (Miralax) 17 gm DAILYPRN PRN ORAL Constipation 02/11/18 15:36 03/13/18 15:35 02/11/18 17:58 Temazepam (Restoril) 15 mg HSPRN PRN ORAL Insomnia 02/11/18 21:00 02/18/18 20:59 Assessment/Plan Assessment/Plan (1) Right hip pain (2) Right hip fracture (3) S/p right hip replacement dictated XIMENA RICHARDSON February 12, 2018 09:40
[2018-02-12] MEDS ORDERED: Albuterol/Ipratropium 3ml neb HHN PRN ×2 (10:45)
--- NOTE | 2018-02-12 11:06 | Diagnostic Imaging Report ---
Indications: hip pain Findings: Two views of the right hip were obtained. A noncemented right hip bipolar hemiarthroplasty demonstrated. Alignment appears satisfactory on the single projection. Overlying skin deena noted. IMPRESSION: Status post of right hip replacement
[2018-02-12 12:00] VITALS: BP 127/72
--- NOTE | 2018-02-12 13:21 | Pulmonology Progress Note ---
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 (3) Peptic ulcer disease (4) Dehydration (5) Post-operative pain Assessment/Plan afebrile so far all cultures are pending check pt/ptt pain control symptomatic treatment Subjective ROS Limited/Unobtainable: No Constitutional: Reports: no symptoms HEENT: Repors: no symptoms Respiratory: Reports: no symptoms Allergies: Coded Allergies: No Known Allergies (Verified , 06/27/09) Objective Last 24 Hour Vital Signs Date Time Temp Pulse Resp B/P (MAP) Pulse Ox O2 Delivery O2 Flow Rate FiO2 02/12/18 12:00 98.6 89 17 127/72 95 Room Air 98.6 02/12/18 08:00 98.8 85 16 114/64 98 Room Air 98.8 02/12/18 05:53 98.0 02/12/18 04:00 98.4 82 20 125/68 96 Room Air 98.4 02/12/18 01:35 98.0 02/12/18 01:05 98.0 02/12/18 00:51 98.0 76 24 134/66 98 Room Air 98.0 02/11/18 20:00 98.9 92 20 141/72 97 Room Air 98.9 02/11/18 19:12 98.7 02/11/18 15:13 98.7 82 18 117/60 99 Room Air 98.7 02/11/18 14:36 98.7 82 18 117/60 99 Room Air 98.7 02/11/18 14:21 98.7 Intake and Output 02/11/18 02/12/18 19:00 07:00 Intake Total 100 ml Output Total 400 ml 1150 ml Balance -400 ml -1050 ml Intake Oral 100 ml Output Urine Total 400 ml 1150 ml # Bowel Movements 1 General Appearance: WD/WN HEENT: normocephalic, atraumatic Respiratory/Chest: chest wall non-tender, lungs clear Breasts: no masses Cardiovascular: normal peripheral pulses, normal rate Abdomen: normal bowel sounds, soft, non tender Genitourinary: normal external genitalia Extremities: no cyanosis Skin: no rash Laboratory Tests 02/11/18 22:00: Urine Color Yellow, Urine Appearance Clear, Urine pH 6, Urine Specific [place] 1.005, Urine Protein Negative, Urine Glucose (UA) Negative, Urine Ketones 3+H, Urine Occult Blood 1+H, Urine Nitrite Negative, Urine Bilirubin Negative, Urine Urobilinogen 1H, Urine Leukocyte Esterase Negative, Urine RBC 2-4H, Urine WBC 0- 2, Urine Squamous Epithelial Cells None, Urine Bacteria None 02/12/18 07:15: White Blood Count 10.3, Red Blood Count 3.15L, Hemoglobin 10.0L, Hematocrit 28.7L, Mean Corpuscular Volume 91, Mean Corpuscular Hemoglobin 31.7H, Mean Corpuscular Hemoglobin Concent 34.8, Red Cell Distribution Width 12.3, Platelet Count 260, Mean Platelet Volume 5.9L, Neutrophils (%) (Auto) 70.9, Lymphocytes ( %) (Auto) 17.4L, Monocytes (%) (Auto) 9.1, Eosinophils (%) (Auto) 1.6, Basophils (%) (Auto) 0.9, Sodium Level 137, Potassium Level 3.2L, Chloride Level 102, Carbon Dioxide Level 24, Anion Gap 11, Blood Urea Nitrogen 8, Creatinine 0.7, Estimat Glomerular Filtration Rate , Glucose Level 100, Calcium Level 8.5, Total Bilirubin 1.1H, Direct Bilirubin 0.4H, Aspartate Amino Transf ( AST/SGOT) 65H, Alanine Aminotransferase (ALT/SGPT) 47, Alkaline Phosphatase 58, Total Protein 7.2, Albumin 2.2L, Globulin 5.0, Albumin/Globulin Ratio 0.4L Current Medications Medications (Trade) Dose Ordered Sig/Darwin Route PRN Reason Start Time Stop Time Status Last Admin Dose Admin Acetaminophen (Tylenol) 650 mg Q4H PRN ORAL fever (TEMP>100.3) 02/11/18 15:36 03/13/18 15:35 Acetaminophen/ Hydrocodone Bitart ([place] [address]) 1 tab EVERY 6 HOURS PRN ORAL Severe Breakthru Pain (>7) 02/11/18 20:40 02/18/18 20:39 Albuterol/ Ipratropium (Albuterol/ Ipratropium) 3 ml Q4H PRN HHN Shortness of Breath 02/12/18 10:45 02/17/18 10:44 Buspirone HCl (Buspar) 10 mg THREE TIMES A DAY ORAL 02/12/18 09:00 03/14/18 08:59 02/12/18 08:50 Citalopram Hydrobromide (celeXA) 20 mg DAILY ORAL 02/12/18 09:00 03/14/18 08:59 02/12/18 08:49 Dextrose (Dextrose 50%) 25 ml STAT PRN IV Hypoglycemia BS 60-69mg/dl 02/11/18 15:38 03/13/18 15:37 Dextrose (Dextrose 50%) 50 ml STAT PRN IV Hypoglycemia BS less than 60mg 02/11/18 15:38 03/13/18 15:37 Gabapentin (Neurontin) 100 mg QHS ORAL 02/12/18 21:00 03/14/18 20:59 Heparin Sodium (Porcine) (Heparin 5000 units/ml) 5,000 units EVERY 12 HOURS SUBQ 02/11/18 21:00 03/13/18 20:59 02/12/18 08:52 Insulin Aspart (NovoLOG) BEFORE MEALS AND HS SUBQ 02/11/18 16:30 03/13/18 16:29 Iopamidol (Isovue-300 100ml) 100 ml NOW PRN INJ Radiology Procedure 02/11/18 12:15 Lidocaine (Lidoderm 5% PATCH) 1 patch DAILY TDERMAL 02/12/18 11:00 03/14/18 10:59 02/12/18 11:31 Lorazepam (Ativan) 0.5 mg Q6H PRN ORAL For Anxiety 02/12/18 04:15 02/19/18 04:14 02/12/18 04:35 Morphine Sulfate (Morphine Sulfate) 4 mg Q4H PRN IVP For Pain (PAIN SCALE 7-10) 02/11/18 20:30 02/18/18 20:11 02/12/18 10:54 Nitroglycerin (Ntg) 0.4 mg STAT PRN SL Prn Chest Pain 02/11/18 15:36 03/13/18 15:35 Ondansetron HCl (Zofran) 4 mg Q6H PRN IVP Nausea & Vomiting 02/11/18 15:36 03/13/18 15:35 Polyethylene Glycol (Miralax) 17 gm DAILYPRN PRN ORAL Constipation 02/11/18 15:36 03/13/18 15:35 02/11/18 17:58 Temazepam (Restoril) 15 mg HSPRN PRN ORAL Insomnia 02/11/18 21:00 02/18/18 20:59 Shannon Pang MD February 12, 2018 13:21
--- NOTE | 2018-02-12 13:33 | General Progress Note ---
Assessment/Plan Problem List: (1) UTI (urinary tract infection) ICD Codes: N39.0 - Urinary tract infection, site not specified SNOMED: 11258525 (2) Anemia ICD Codes: D64.9 - Anemia, unspecified SNOMED: 037120269 (3) SOB (shortness of breath) ICD Codes: R06.02 - Shortness of breath SNOMED: 188219432 (4) HTN (hypertension) ICD Codes: I10 - Essential (primary) hypertension SNOMED: 45824004 (5) Diabetes ICD Codes: E11.9 - Type 2 diabetes mellitus without complications SNOMED: 61409044 (6) Depressed ICD Codes: F32.9 - Major depressive disorder, single episode, unspecified SNOMED: 84914253 (7) Post-operative pain ICD Codes: G89.18 - Other acute postprocedural pain SNOMED: 065099874 (8) Dehydration (9) Fever ICD Codes: R50.9 - Fever, unspecified SNOMED: 581692521 Status: unchanged Assessment/Plan ot pt diet abx pain control cbc bmp am Subjective Constitutional: Reports: weakness Allergies: Coded Allergies: No Known Allergies (Verified , 06/27/09) All Systems: reviewed and negative except above Subjective eating calm in bed Objective Last 24 Hour Vital Signs Date Time Temp Pulse Resp B/P (MAP) Pulse Ox O2 Delivery O2 Flow Rate FiO2 02/12/18 12:00 98.6 89 17 127/72 95 Room Air 98.6 02/12/18 08:00 98.8 85 16 114/64 98 Room Air 98.8 02/12/18 05:53 98.0 02/12/18 04:00 98.4 82 20 125/68 96 Room Air 98.4 02/12/18 01:35 98.0 02/12/18 01:05 98.0 02/12/18 00:51 98.0 76 24 134/66 98 Room Air 98.0 02/11/18 20:00 98.9 92 20 141/72 97 Room Air 98.9 02/11/18 19:12 98.7 02/11/18 15:13 98.7 82 18 117/60 99 Room Air 98.7 02/11/18 14:36 98.7 82 18 117/60 99 Room Air 98.7 5/10/18 14:21 98.7 Intake and Output 02/11/18 02/12/18 19:00 07:00 Intake Total 100 ml Output Total 400 ml 1150 ml Balance -400 ml -1050 ml Intake Oral 100 ml Output Urine Total 400 ml 1150 ml # Bowel Movements 1 Laboratory Tests 02/11/18 22:00: Urine Color Yellow, Urine Appearance Clear, Urine pH 6, Urine Specific [place] 1.005, Urine Protein Negative, Urine Glucose (UA) Negative, Urine Ketones 3+H, Urine Occult Blood 1+H, Urine Nitrite Negative, Urine Bilirubin Negative, Urine Urobilinogen 1H, Urine Leukocyte Esterase Negative, Urine RBC 2-4H, Urine WBC 0- 2, Urine Squamous Epithelial Cells None, Urine Bacteria None 02/12/18 07:15: White Blood Count 10.3, Red Blood Count 3.15L, Hemoglobin 10.0L, Hematocrit 28.7L, Mean Corpuscular Volume 91, Mean Corpuscular Hemoglobin 31.7H, Mean Corpuscular Hemoglobin Concent 34.8, Red Cell Distribution Width 12.3, Platelet Count 260, Mean Platelet Volume 5.9L, Neutrophils (%) (Auto) 70.9, Lymphocytes ( %) (Auto) 17.4L, Monocytes (%) (Auto) 9.1, Eosinophils (%) (Auto) 1.6, Basophils (%) (Auto) 0.9, Sodium Level 137, Potassium Level 3.2L, Chloride Level 102, Carbon Dioxide Level 24, Anion Gap 11, Blood Urea Nitrogen 8, Creatinine 0.7, Estimat Glomerular Filtration Rate , Glucose Level 100, Calcium Level 8.5, Total Bilirubin 1.1H, Direct Bilirubin 0.4H, Aspartate Amino Transf ( AST/SGOT) 65H, Alanine Aminotransferase (ALT/SGPT) 47, Alkaline Phosphatase 58, Total Protein 7.2, Albumin 2.2L, Globulin 5.0, Albumin/Globulin Ratio 0.4L Height (Feet): 5 Height (Inches): 4.00 Weight (Pounds): 135 General Appearance: lethargic EENT: normal ENT inspection Neck: normal alignment Cardiovascular: normal peripheral pulses, normal rate, regular rhythm Respiratory/Chest: chest wall non-tender, lungs clear, normal breath sounds Abdomen: normal bowel sounds, non tender, soft Extremities: normal inspection Edema: no edema noted Arm (L), no edema noted Arm (R), no edema noted Leg (L), no edema noted Leg (R), no edema noted Pedal (L), no edema noted Pedal (R), no edema noted Generalized Neurologic: responsive, motor weakness Skin: normal pigmentation, warm/dry Phan Nix February 12, 2018 13:33
[2018-02-12] MEDS ORDERED: Ascorbic Acid 500mg tab ORAL SCH (14:45)
[2018-02-12 16:00] VITALS: BP 104/62
--- NOTE | 2018-02-12 16:00 | Consultation ---
DATE OF CONSULTATION: 02/12/2018 HISTORY OF PRESENT ILLNESS: This is a 77-year-old female patient. She is in the hospital at [facility]. The reason why she is in the hospital at [facility] is fever, status post hip surgery. Now, she has hip pain. Her attending has requested daily psychiatric consultation because she has increased depression and anxiety, worsened by stress of her medical illness. [facility] to get evaluated for both hip pain as well as anxiety and depression. MEDICAL HISTORY: Right hip fracture, status post surgery, diabetes, hypertension. ALLERGIES: No known drug allergies. SOCIAL HISTORY: Lives in Care Home. SUBSTANCE ABUSE HISTORY: Denies drug or alcohol use. FAMILY PSYCHIATRIC HISTORY: Denies. PSYCHIATRIC HISTORY: Major depressive disorder. MENTAL STATUS EXAMINATION: This is a 77-year-old female, appearance disheveled. Attitude irritable, agitated. Affect guarded and restricted. Intellect poor. Mood depressed, anxious. Motor activity, psychomotor agitation. Attention span is poor. Orientation x2. Speech is pressured. Thought process, disorganized and illogical. Thought content, auditory hallucinations and paranoid delusions. Insight and judgment is poor. DIAGNOSIS: Major depressive disorder, mild, recurrent, without psychotic features. PLAN: Plan for this patient treated with Celexa 20 mg a day, BuSpar 10 mg 2 times a day, and Ativan 0.5 mg every 6 hours p.r.n. anxiety and agitation. A 20 minutes of supportive psychotherapy was provided. Chart reviewed and discussed with staff. Seen and assessed in her room. I would like to thank, Dr. Phan Nix, for this interesting consultation. Juany Sullivan M.D. DR: DENISSE JOB#: [id number] CC:
[2018-02-12] MEDS ORDERED: metFORMIN 500mg tab ORAL SCH (16:30)
[2018-02-12] MEDS: Brimonidine 0.2% Opth Sol BOTH EYES SCH (17:49)
[2018-02-12] MEDS: Docusate 100mg cap ORAL SCH (17:58)
[2018-02-12] MEDS: Timolol 0.5% Op Soln 2.5ml BOTH EYES SCH (17:58)
--- NOTE | 2018-02-12 18:58 | Infectious Diseases Prog Note ---
Assessment/Plan Assessment/Plan Abx: IV Vancomycin 02/11- Cefepime 02/11- Assessment: R hip pain -xray R hip: A noncemented right hip bipolar hemiarthroplasty demonstrated. Alignment appears satisfactory on the single projection. Overlying skin deena noted. Reported fever, none here Mild leukocytosis- suspect reactive; resolved- no signs or evidence of infection. Monitor for Surgical site infection. -CT abd/p: No acute findings appreciated. 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 Correlate clinically. Query if patient has had prior partial pancreatectomy. Atherosclerotic disease. Status post cholecystectomy. Periportal edema nonspecific. Obscured pelvis due to right hip prosthesis. Moderate fecal retention. Apparent hysterectomy. Tiny nonobstructive stone in the lower pole the right kidney. -CXR no acute findings -u/a wbc 2-4, nit neg, leuk +2 -Bcx p DM2 CAD/[place] CHF HTN SNF resident s/p R hip replacement after hip fracture Plan: -Continue to monitor off abx; resume if febrile, worsening leukocytosis -02/11 SP IV Vanco and Cefepime #1 -f/u V duplex BLE -may need CT or MRI imaging if persistent pain -f/u cx -Monitor CBC/BMP, temperatures -aspiration precautions -wound care/prevention per hospital protocol. Thank you for this consultation. Will continue to follow along with you. Discussed with RN. Subjective Allergies: Coded Allergies: No Known Allergies (Verified , 06/27/09) Subjective afebrile leukocytosis resolved Objective Vital Signs Last 24 Hour Vital Signs Date Time Temp Pulse Resp B/P (MAP) Pulse Ox O2 Delivery O2 Flow Rate FiO2 02/12/18 16:00 97.8 89 18 104/62 99 Room Air 97.8 02/12/18 12:00 98.6 89 17 127/72 95 Room Air 98.6 02/12/18 08:00 98.8 85 16 114/64 98 Room Air 98.8 02/12/18 05:53 98.0 02/12/18 04:00 98.4 82 20 125/68 96 Room Air 98.4 02/12/18 01:35 98.0 02/12/18 01:05 98.0 02/12/18 00:51 98.0 76 24 134/66 98 Room Air 98.0 02/11/18 20:00 98.9 92 20 141/72 97 Room Air 98.9 02/11/18 19:12 98.7 Height (Feet): 5 Height (Inches): 4.00 Weight (Pounds): 135 Objective General Appearance: no apparent distress, alert HEENT: normocephalic, atraumatic, bilateral eye PERRL, normal pharynx Neck: full range of motion, supple/symm/no masses Respiratory: chest non-tender, lungs clear, normal breath sounds, no respiratory distress, no retraction, no accessory muscle use, speaking full sentences Cardiovascular regular rate, rhythm, no edema Gastrointestinal: normal bowel sounds, non tender, soft, non-distended, no guarding, no rebound Musculoskeletal: other - Pain w/ ROM of R. hip. No obvious swelling or erythema. R hip surgical incision healing, no signs of ifnection, no drainage Skin: normal color, no rash, warm/dry, well hydrated Laboratory Tests Test 02/11/18 22:00 02/12/18 07:15 Urine Color Yellow Urine Appearance Clear Urine pH 6 (4.5-8.0) Urine Specific [place] 1.005 (1.005-1.035) Urine Protein Negative (NEGATIVE) Urine Glucose (UA) Negative (NEGATIVE) Urine Ketones 3+ (NEGATIVE) H Urine Occult Blood 1+ (NEGATIVE) H Urine Nitrite Negative (NEGATIVE) Urine Bilirubin Negative (NEGATIVE) Urine Urobilinogen 1 MG/DL (0.0-1.0) H Urine Leukocyte Esterase Negative (NEGATIVE) Urine RBC 2-4 /HPF (0 - 2) H Urine WBC 0-2 /HPF (0 - 2) Urine Squamous Epithelial Cells None /LPF (NONE/OCC) Urine Bacteria None /HPF (NONE) White Blood Count 10.3 K/UL (4.8-10.8) Red Blood Count 3.15 M/UL (4.20-5.40) L Hemoglobin 10.0 G/DL (12.0-16.0) L Hematocrit 28.7 % (37.0-47.0) L Mean Corpuscular Volume 91 FL (80-99) Mean Corpuscular Hemoglobin 31.7 PG (27.0-31.0) H Mean Corpuscular Hemoglobin Concent 34.8 G/DL (32.0-36.0) Red Cell Distribution Width 12.3 % (11.6-14.8) Platelet Count 260 K/UL (150-450) Mean Platelet Volume 5.9 FL (6.5-10.1) L Neutrophils (%) (Auto) 70.9 % (45.0-75.0) Lymphocytes (%) (Auto) 17.4 % (20.0-45.0) L Monocytes (%) (Auto) 9.1 % (1.0-10.0) Eosinophils (%) (Auto) 1.6 % (0.0-3.0) Basophils (%) (Auto) 0.9 % (0.0-2.0) Sodium Level 137 MMOL/L (136-145) Potassium Level 3.2 MMOL/L (3.5-5.1) L Chloride Level 102 MMOL/L (98-107) Carbon Dioxide Level 24 MMOL/L (21-32) Anion Gap 11 mmol/L (5-15) Blood Urea Nitrogen 8 mg/dL (7-18) Creatinine 0.7 MG/DL (0.55-1.30) Estimat Glomerular Filtration Rate mL/min (>60) Glucose Level 100 MG/DL (74-106) Calcium Level 8.5 MG/DL (8.5-10.1) Total Bilirubin 1.1 MG/DL (0.2-1.0) H Direct Bilirubin 0.4 MG/DL (0.0-0.3) H Aspartate Amino Transf (AST/SGOT) 65 U/L (15-37) H Alanine Aminotransferase (ALT/SGPT) 47 U/L (12-78) Alkaline Phosphatase 58 U/L (46-116) Total Protein 7.2 G/DL (6.4-8.2) Albumin 2.2 G/DL (3.4-5.0) L Globulin 5.0 g/dL Albumin/Globulin Ratio 0.4 (1.0-2.7) L Current Medications Medications (Trade) Dose Ordered Sig/Darwin Route PRN Reason Start Time Stop Time Status Last Admin Dose Admin Acetaminophen (Tylenol) 650 mg Q4H PRN ORAL fever (TEMP>100.3) 02/11/18 15:36 03/13/18 15:35 Acetaminophen/ Hydrocodone Bitart ([place] 10) 1 tab EVERY 6 HOURS PRN ORAL Severe Breakthru Pain (>7) 02/11/18 20:40 02/18/18 20:39 Albuterol/ Ipratropium (Albuterol/ Ipratropium) 3 ml Q4H PRN HHN Shortness of Breath 02/12/18 10:45 02/17/18 10:44 Ascorbic Acid (Vitamin C) 500 mg DAILY ORAL 02/13/18 09:00 03/15/18 08:59 Brimonidine Tartrate (Alphagan) 1 drop BID BOTH EYES 02/12/18 18:00 03/14/18 17:59 02/12/18 17:49 Buspirone HCl (Buspar) 10 mg THREE TIMES A DAY ORAL 02/12/18 18:00 03/14/18 17:59 02/12/18 18:02 Citalopram Hydrobromide (celeXA) 20 mg DAILY ORAL 02/12/18 09:00 03/14/18 08:59 02/12/18 08:49 Dextrose (Dextrose 50%) 25 ml STAT PRN IV Hypoglycemia BS 60-69mg/dl 02/11/18 15:38 03/13/18 15:37 Dextrose (Dextrose 50%) 50 ml STAT PRN IV Hypoglycemia BS less than 60mg 02/11/18 15:38 03/13/18 15:37 Docusate Sodium (Colace) 100 mg TWICE A DAY ORAL 02/12/18 18:00 03/14/18 17:59 02/12/18 17:58 Gabapentin (Neurontin) 100 mg QHS ORAL 02/12/18 21:00 03/14/18 20:59 Heparin Sodium (Porcine) (Heparin 5000 units/ml) 5,000 units EVERY 12 HOURS SUBQ 02/11/18 21:00 03/13/18 20:59 02/12/18 08:52 Insulin Aspart (NovoLOG) BEFORE MEALS AND HS SUBQ 02/11/18 16:30 03/13/18 16:29 Lidocaine (Lidoderm 5% PATCH) 1 patch DAILY TDERMAL 02/12/18 11:00 03/14/18 10:59 02/12/18 11:31 Lorazepam (Ativan) 0.5 mg Q6H PRN ORAL For Anxiety 02/12/18 04:15 02/19/18 04:14 02/12/18 04:35 Metformin HCl (Glucophage) 500 mg BIAC ORAL 02/12/18 16:30 03/14/18 16:29 02/12/18 17:11 Morphine Sulfate (Morphine Sulfate) 4 mg Q4H PRN IVP For Pain (PAIN SCALE 7-10) 02/11/18 20:30 02/18/18 20:11 02/12/18 14:57 Multivitamins (Multivitamins) 1 tab DAILY ORAL 02/13/18 09:00 03/15/18 08:59 Nitroglycerin (Ntg) 0.4 mg STAT PRN SL Prn Chest Pain 02/11/18 15:36 03/13/18 15:35 Ondansetron HCl (Zofran) 4 mg Q6H PRN IVP Nausea & Vomiting 02/11/18 15:36 03/13/18 15:35 Polyethylene Glycol (Miralax) 17 gm DAILYPRN PRN ORAL Constipation 02/11/18 15:36 03/13/18 15:35 02/11/18 17:58 Temazepam (Restoril) 15 mg HSPRN PRN ORAL Insomnia 02/11/18 21:00 02/18/18 20:59 Timolol Maleate (Timoptic 0.5% Op Soln) 1 drop TWICE A DAY BOTH EYES 02/12/18 18:00 03/14/18 17:59 02/12/18 17:58 Chelsea Nolasco M.D. February 12, 2018 18:58
[2018-02-12 19:59] VITALS: BP 110/57
--- NOTE | 2018-02-12 21:30 | Consultation ---
DATE OF CONSULTATION: 02/12/2018 ORTHOPEDIC CONSULTATION CONSULTING PHYSICIAN: Lai De La Fuente M.D. CHIEF COMPLAINT: Right hip pain. HISTORY OF PRESENT ILLNESS: The patient is a pleasant female who I believe [facility] where she was diagnosed with right femoral neck fracture. She underwent right hip hemiarthroplasty and discharged to rehab. Yesterday, the rehab sent in for IV medication. Therefore, she was readmitted here for further care and recommendation due to intractable hip pain. PAST MEDICAL HISTORY: Reviewed per the intake chart. SURGICAL HISTORY: Reviewed per the intake chart. MEDICATION: Reviewed per the intake chart. PHYSICAL EXAMINATION: GENERAL: The patient is alert. She is resting comfortably at this time in bed. SKIN: Incision is clean, dry, and intact. EXTREMITIES: Posterior calf is soft. No palpable cord. DIAGNOSTIC DATA: CT scan of right hip series reviewed and showing implant in good position, hemiarthroplasty in place with slight increase in leg length. ASSESSMENT: 1. Status post right hip hemiarthroplasty. 2. Right hip pain. DISCUSSION: At this point, it was primarily normal postoperative pain. The patient has no signs of infection, dislocation, periprosthetic infection, arm fracture that would explain her symptomatology. At this point, I recommend adequate pain medication and to be weightbearing as tolerated. We will continue to monitor from clinical point of view and see how she does. Lai De La Fuente M.D. DR: Epifanio JOB#: [id number] CC: BRITNEY
--- NOTE | 2018-02-12 21:30 | Consultation ---
DATE OF CONSULTATION: 02/12/2018 PAIN MANAGEMENT CONSULTATION CONSULTING PHYSICIAN: Filemon Carvajal M.D. REFERRING PHYSICIAN: Phan Nix D.O. PHYSICIAN ROBOTICS TECHNICIAN: Livan Contreras CHIEF COMPLAINT: Right hip pain. HISTORY OF PRESENT ILLNESS: This is a 77-year-old female, who is being seen on the Med/Surg floor of [facility] for initial comprehensive pain management consultation. The patient reports that she had been residing in a half-way facility at [facility], was found on the floor in her bathroom after a slip and fall, was taken to another hospital where she had a right hip replacement and then was sent back to [facility] complaining of severe pain in her right hip and was taking Keystone 5mg with minimal pain relief. She was sent back to the hospital due to fever and severe pain. We were consulted so that the patient would have adequate pain control while here in the hospital. The patient is going to be seen by orthopedic surgeon. She is complaining of right foot weakness and acute footdrop. PAST MEDICAL HISTORY: Right hip fracture, diabetes mellitus, hypertension, and legally blind. PAST SURGICAL HISTORY: Right hip replacement. MEDICATIONS: Amlodipine, Algh[place]han, buspirone, Celexa, Colace, Humulin, Glucophage, multivitamin, senna, tramadol, Dulcolax, Keystone, Vistaril, and Motrin. ALLERGIES: No known drug allergies. SOCIAL HISTORY: Denies smoking tobacco, drinking alcohol, or IV drug abuse. REVIEW OF SYSTEMS: Denies rash, fever, chills, sweating, dizziness, drowsiness, blurred vision, sore throat, or change in her weight. No shortness of breath or chest pain. No nausea, vomiting, diarrhea, or blood in the stool or urine. No bowel or bladder incontinence. No dysuria. She is complaining of right hip pain. PHYSICAL EXAMINATION: GENERAL: Alert, awake, and oriented x3. VITAL SIGNS: Blood pressure 114/64, heart rate is 85, oxygen saturation 98%, respirations 16, and temperature 98.8 degrees Fahrenheit. HEENT: PERRLA. NECK: Range of motion is full in all directions. No tenderness to paracervical muscles. No adenopathy. LUNGS: Decreased breath sounds bilaterally. HEART: Regular. ABDOMEN: Benign. BACK: Range of motion is decreased in flexion and extension with tenderness to paraspinal muscles. No tenderness to trapezius or rhomboid muscles. EXTREMITIES: Upper extremities range of motion is full in all directions. Motor is intact. No cyanosis. No clubbing. No edema. Sensory is intact. Reflexes are not obtainable. No adenopathy. Lower extremity range of motion is decreased due to the patient's pain and condition. Right hip tenderness to palpation with bandages noted. Right footdrop seen. The left lower extremity range of motion is full in all directions. No cyanosis. No clubbing. No edema. Sensory is intact. Reflexes are not obtainable. No adenopathy. ASSESSMENT AND PLAN: This is a 77-year-old female with right hip pain and right hip fracture, status post right hip replacement. The patient will be continued on morphine 4 mg IV every 4 hours as needed for severe pain and Keystone 10/325 one tablet every 6 hours as needed for severe breakthrough pain. We will start the patient on Neurontin 100 mg capsule for nighttime. Lidoderm patch to be applied to the right hip at the site of pain 12 hours on and 12 hours off. The patient is going to be seen by an orthopedic surgeon, possible PT. The patient was discussed with Dr. Carvajal and Dr. Carvajal concurred. We will follow the patient. Thank you very much for the courtesy of this consultation. Filemon Carvajal M.D. KELLI Contreras DR: DYAN JOB#: [id number] CC: BRITNEY
[2018-02-13] VITALS: BP 114/63
--- NOTE | 2018-02-13 00:16 | Consultation ---
DATE OF CONSULTATION: 02/12/2018 ENDOCRINOLOGIC CONSULTATION CONSULTING PHYSICIAN: Abundio Nassar M.D. REFERRING PHYSICIAN: Phan Nix D.O. REASON FOR CONSULTATION: Diabetes management. HISTORY OF PRESENT ILLNESS: The patient is a pleasant 77-year-old female with history of type 2 diabetes. [facility]. She is status post right hip replacement after hip fracture and she presented from SNF for uncontrolled right hip pain and there was a concern of fever at the prison facility as well. PAST MEDICAL HISTORY: 1. Type 2 diabetes. 2. Hypertension. 3. Hepatitis C. 4. Cirrhosis. 5. Hip fracture. MEDICATIONS: Reviewed and reconciled. ALLERGIES TO MEDICATIONS: None. FAMILY HISTORY: Diabetes. SOCIAL HISTORY: No smoking, alcohol, or drug use. PHYSICAL EXAMINATION: GENERAL: She is legally blind. VITAL SIGNS: Blood pressure is 127/72, pulse 89, temperature 98.6, and respirations of 17. HEAD AND NECK: The patient is legally blind. Neck, no jugular venous distention. HEART: Regular. LUNGS: Clear. ABDOMEN: Positive bowel sounds. EXTREMITIES: No clubbing, cyanosis, or edema. LABORATORY VALUES: Sodium 137, potassium 3.2, chloride 102, bicarbonate 24, BUN 8, creatinine 0.7, and glucose of 100. WBC 10, hemoglobin 10, hematocrit 28.7, and platelets of 260. DIAGNOSES: 1. Hip pain after surgery, rule out infection. 2. Diabetes, out of control. 3. Hypertension. PLAN: 1. Resume metformin 500 mg b.i.d. 2. NovoLog insulin sliding scale before meals and at bedtime. 3. Blood glucose monitor before meals and at bedtime. 4. Further adjustment according to blood glucose values. 5. I will follow the patient closely during the hospital stay. Thank you, Dr. Nix, for the courtesy of this consultation. Abundio Nassar M.D. DR: ALL JOB#: [id number] CC:
[2018-02-13 04:00] VITALS: BP 124/62
[2018-02-13] MEDS: HYDROcodone/Acetamin 10/325 tab ORAL PRN (06:18)
[2018-02-13] MEDS: NovoLOG Insulin Flexpen SUBQ SCH ×4 (06:20→21:00)
[2018-02-13] MEDS ORDERED: metFORMIN 500mg tab ORAL SCH (06:30)
[2018-02-13] MEDS: Morphine Sulfate 4mg/ml Inj IVP PRN ×4 (06:45→20:57)
--- NOTE | 2018-02-13 07:39 | General Progress Note ---
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 SNOMED: 892177015 (2) Post-operative pain ICD Codes: G89.18 - Other acute postprocedural pain SNOMED: 544238133 (3) Diabetes ICD Codes: E11.9 - Type 2 diabetes mellitus without complications SNOMED: 71412759 (4) HTN (hypertension) ICD Codes: I10 - Essential (primary) hypertension SNOMED: 74046566 Assessment/Plan continue Metformin therapy continue NISS Subjective Allergies: Coded Allergies: No Known Allergies (Verified , 06/27/09) All Systems: reviewed and negative except above Subjective events noted Objective Last 24 Hour Vital Signs Date Time Temp Pulse Resp B/P (MAP) Pulse Ox O2 Delivery O2 Flow Rate FiO2 02/13/18 04:00 98.9 76 19 124/62 100 Room Air 98.9 02/13/18 00:00 99.2 82 18 114/63 98 99.2 02/12/18 22:07 97.9 02/12/18 21:37 97.9 02/12/18 19:59 97.9 78 18 110/57 99 97.9 02/12/18 16:00 97.8 89 18 104/62 99 Room Air 97.8 02/12/18 12:00 98.6 89 17 127/72 95 Room Air 98.6 02/12/18 08:00 98.8 85 16 114/64 98 Room Air 98.8 Intake and Output 02/12/18 02/13/18 19:00 07:00 Intake Total 240 ml Balance 240 ml Intake Oral 240 ml # Bowel Movements 1 Height (Feet): 5 Height (Inches): 4.00 Weight (Pounds): 135 General Appearance: no apparent distress Neck: normal alignment Cardiovascular: normal rate Respiratory/Chest: lungs clear Abdomen: normal bowel sounds Pelvis: normal external exam Objective Current Medications Medications (Trade) Dose Ordered Sig/Darwin Route PRN Reason Start Time Stop Time Status Last Admin Dose Admin Acetaminophen (Tylenol) 650 mg Q4H PRN ORAL fever (TEMP>100.3) 02/11/18 15:36 03/13/18 15:35 Acetaminophen/ Hydrocodone Bitart ([place] 10/325) 1 tab EVERY 6 HOURS PRN ORAL Severe Breakthru Pain (>7) 02/11/18 20:40 02/18/18 20:39 02/13/18 06:18 Albuterol/ Ipratropium (Albuterol/ Ipratropium) 3 ml Q4H PRN HHN Shortness of Breath 02/12/18 10:45 02/17/18 10:44 Ascorbic Acid (Vitamin C) 500 mg DAILY ORAL 02/13/18 09:00 03/15/18 08:59 Brimonidine Tartrate (Alphagan) 1 drop BID BOTH EYES 02/12/18 18:00 03/14/18 17:59 02/12/18 17:49 Buspirone HCl (Buspar) 10 mg THREE TIMES A DAY ORAL 02/12/18 18:00 03/14/18 17:59 02/12/18 18:02 Citalopram Hydrobromide (celeXA) 20 mg DAILY ORAL 02/12/18 09:00 03/14/18 08:59 02/12/18 08:49 Dextrose (Dextrose 50%) 25 ml STAT PRN IV Hypoglycemia BS 60-69mg/dl 02/11/18 15:38 03/13/18 15:37 Dextrose (Dextrose 50%) 50 ml STAT PRN IV Hypoglycemia BS less than 60mg 02/11/18 15:38 03/13/18 15:37 Docusate Sodium (Colace) 100 mg TWICE A DAY ORAL 02/12/18 18:00 03/14/18 17:59 02/12/18 17:58 Gabapentin (Neurontin) 100 mg QHS ORAL 02/12/18 21:00 03/14/18 20:59 02/12/18 21:37 Heparin Sodium (Porcine) (Heparin 5000 units/ml) 5,000 units EVERY 12 HOURS SUBQ 02/11/18 21:00 03/13/18 20:59 02/12/18 21:45 Insulin Aspart (NovoLOG) BEFORE MEALS AND HS SUBQ 02/11/18 16:30 03/13/18 16:29 Lidocaine (Lidoderm 5% PATCH) 1 patch DAILY TDERMAL 02/12/18 11:00 03/14/18 10:59 02/12/18 11:31 Lorazepam (Ativan) 0.5 mg Q6H PRN ORAL For Anxiety 02/12/18 04:15 02/19/18 04:14 02/12/18 04:35 Metformin HCl (Glucophage) 500 mg BIAC ORAL 02/13/18 06:30 03/15/18 06:29 02/13/18 06:45 Morphine Sulfate (Morphine Sulfate) 4 mg Q4H PRN IVP For Pain (PAIN SCALE 7-10) 02/11/18 20:30 02/18/18 20:11 02/13/18 06:45 Multivitamins (Multivitamins) 1 tab DAILY ORAL 02/13/18 09:00 03/15/18 08:59 Nitroglycerin (Ntg) 0.4 mg STAT PRN SL Prn Chest Pain 02/11/18 15:36 03/13/18 15:35 Ondansetron HCl (Zofran) 4 mg Q6H PRN IVP Nausea & Vomiting 02/11/18 15:36 03/13/18 15:35 Polyethylene Glycol (Miralax) 17 gm DAILYPRN PRN ORAL Constipation 02/11/18 15:36 03/13/18 15:35 02/11/18 17:58 Temazepam (Restoril) 15 mg HSPRN PRN ORAL Insomnia 02/11/18 21:00 02/18/18 20:59 Timolol Maleate (Timoptic 0.5% Op Soln) 1 drop TWICE A DAY BOTH EYES 02/12/18 18:00 03/14/18 17:59 02/12/18 17:58 Item Value Date Time Bedside Blood Glucose 117 mg/dl 02/13/18 0630 Bedside Blood Glucose 139 mg/dl H 02/12/18 2100 Bedside Blood Glucose 149 mg/dl H 02/12/18 1630 Bedside Blood Glucose 124 mg/dl H 02/12/18 1130 LAYLA AVERY February 13, 2018 07:39
[2018-02-13 08:00] VITALS: BP 102/62
--- NOTE | 2018-02-13 08:20 | General Progress Note ---
Assessment/Plan Problem List: (1) UTI (urinary tract infection) ICD Codes: N39.0 - Urinary tract infection, site not specified SNOMED: 83054463 (2) Anemia ICD Codes: D64.9 - Anemia, unspecified SNOMED: 360809781 (3) SOB (shortness of breath) ICD Codes: R06.02 - Shortness of breath SNOMED: 455974558 (4) HTN (hypertension) ICD Codes: I10 - Essential (primary) hypertension SNOMED: 95746547 (5) Diabetes ICD Codes: E11.9 - Type 2 diabetes mellitus without complications SNOMED: 19095325 (6) Depressed ICD Codes: F32.9 - Major depressive disorder, single episode, unspecified SNOMED: 41935371 (7) Post-operative pain ICD Codes: G89.18 - Other acute postprocedural pain SNOMED: 828108083 (8) Dehydration (9) Fever ICD Codes: R50.9 - Fever, unspecified SNOMED: 539343010 Status: unchanged Assessment/Plan ot pt diet abx pain control cbc bmp am dc plan if clear Subjective Constitutional: Reports: weakness Allergies: Coded Allergies: No Known Allergies (Verified , 06/27/09) All Systems: reviewed and negative except above Subjective sleepy calm in bed Objective Last 24 Hour Vital Signs Date Time Temp Pulse Resp B/P (MAP) Pulse Ox O2 Delivery O2 Flow Rate FiO2 02/13/18 04:00 98.9 76 19 124/62 100 Room Air 98.9 02/13/18 00:00 99.2 82 18 114/63 98 99.2 02/12/18 22:07 97.9 02/12/18 21:37 97.9 02/12/18 19:59 97.9 78 18 110/57 99 97.9 02/12/18 16:00 97.8 89 18 104/62 99 Room Air 97.8 02/12/18 12:00 98.6 89 17 127/72 95 Room Air 98.6 Intake and Output 02/12/18 02/13/18 19:00 07:00 Intake Total 240 ml Balance 240 ml Intake Oral 240 ml # Bowel Movements 1 Height (Feet): 5 Height (Inches): 4.00 Weight (Pounds): 135 General Appearance: lethargic EENT: normal ENT inspection Neck: normal alignment Cardiovascular: normal peripheral pulses, normal rate, regular rhythm Respiratory/Chest: chest wall non-tender, lungs clear, normal breath sounds Abdomen: normal bowel sounds, non tender, soft Extremities: normal inspection Edema: no edema noted Arm (L), no edema noted Arm (R), no edema noted Leg (L), no edema noted Leg (R), no edema noted Pedal (L), no edema noted Pedal (R), no edema noted Generalized Neurologic: motor weakness Skin: normal pigmentation, warm/dry Phan Nix DO February 13, 2018 08:20
[2018-02-13] MEDS: Brimonidine 0.2% Opth Sol BOTH EYES SCH ×2 (08:34→17:55)
[2018-02-13] MEDS: Citalopram 20mg Tab ORAL SCH (08:34)
[2018-02-13] MEDS ORDERED: Ascorbic Acid 500mg tab ORAL SCH (09:00)
[2018-02-13] MEDS: Timolol 0.5% Op Soln 2.5ml BOTH EYES SCH ×2 (10:48→18:05)
--- NOTE | 2018-02-13 11:18 | Infectious Diseases Prog Note ---
Assessment/Plan Assessment/Plan Assessment: afebrile Reported fever, none here Mild leukocytosis- suspect reactive; resolved- no signs or evidence of infection. Monitor for Surgical site infection. -CT abd/p: No acute findings appreciated. 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 Correlate clinically. Query if patient has had prior partial pancreatectomy. Atherosclerotic disease. Status post cholecystectomy. Periportal edema nonspecific. Obscured pelvis due to right hip prosthesis. Moderate fecal retention. Apparent hysterectomy. Tiny nonobstructive stone in the lower pole the right kidney. -CXR no acute findings -u/a wbc 2-4, nit neg, leuk +2 -Bcx p hx of Hep C R hip pain -xray R hip: A noncemented right hip bipolar hemiarthroplasty demonstrated. Alignment appears satisfactory on the single projection. Overlying skin deena noted. DM2 CAD/SC CHF HTN SNF resident s/p R hip replacement after hip fracture Plan: -Continue to monitor off abx; resume if febrile, worsening leukocytosis -/10 SP IV Vanco and Cefepime #1 -f/u V duplex BLE -may need CT or MRI imaging if persistent pain -f/u cx -Monitor CBC/BMP, temperatures -aspiration precautions -wound care/prevention per hospital protocol. Subjective Allergies: Coded Allergies: No Known Allergies (Verified , 06/27/09) Subjective afebrile Objective Vital Signs Last 24 Hour Vital Signs Date Time Temp Pulse Resp B/P (MAP) Pulse Ox O2 Delivery O2 Flow Rate FiO2 02/13/18 08:27 82 18 Room Air 02/13/18 08:00 97.1 86 20 102/62 99 Room Air 97.1 02/13/18 04:00 98.9 76 19 124/62 100 Room Air 98.9 02/13/18 00:00 99.2 82 18 114/63 98 99.2 02/12/18 22:07 97.9 02/12/18 21:37 97.9 02/12/18 19:59 97.9 78 18 110/57 99 97.9 02/12/18 16:00 97.8 89 18 104/62 99 Room Air 97.8 02/12/18 12:00 98.6 89 17 127/72 95 Room Air 98.6 Height (Feet): 5 Height (Inches): 4.00 Weight (Pounds): 135 HEENT: anicteric Respiratory/Chest: no respiratory distress Cardiovascular: regularly irregular Abdomen: soft, non tender Microbiology Date/Time Source Procedure Growth Status 02/11/18 12:40 Blood Blood Culture - Preliminary NO GROWTH AFTER 24 HOURS Resulted 02/11/18 12:30 Blood Blood Culture - Preliminary NO GROWTH AFTER 24 HOURS Resulted 02/11/18 14:30 Rectum VRE Culture - Final NO VANCOMYCIN RESISTANT ENTEROCOCCUS ... Complete Current Medications Medications (Trade) Dose Ordered Sig/Darwin Route PRN Reason Start Time Stop Time Status Last Admin Dose Admin Acetaminophen (Tylenol) 650 mg Q4H PRN ORAL fever (TEMP>100.3) 02/11/18 15:36 03/13/18 15:35 Acetaminophen/ Hydrocodone Bitart ([place] 10) 1 tab EVERY 6 HOURS PRN ORAL Severe Breakthru Pain (>7) 02/11/18 20:40 02/18/18 20:39 02/13/18 06:18 Albuterol/ Ipratropium (Albuterol/ Ipratropium) 3 ml Q4H PRN HHN Shortness of Breath 02/12/18 10:45 02/17/18 10:44 Ascorbic Acid (Vitamin C) 500 mg DAILY ORAL 02/13/18 09:00 03/15/18 08:59 02/13/18 08:34 Brimonidine Tartrate (Alphagan) 1 drop BID BOTH EYES 02/12/18 18:00 03/14/18 17:59 02/13/18 08:34 Buspirone HCl (Buspar) 10 mg THREE TIMES A DAY ORAL 02/12/18 18:00 03/14/18 17:59 02/12/18 18:02 Citalopram Hydrobromide (celeXA) 20 mg DAILY ORAL 02/12/18 09:00 03/14/18 08:59 02/13/18 08:34 Dextrose (Dextrose 50%) 25 ml STAT PRN IV Hypoglycemia BS 60-69mg/dl 02/11/18 15:38 03/13/18 15:37 Dextrose (Dextrose 50%) 50 ml STAT PRN IV Hypoglycemia BS less than 60mg 02/11/18 15:38 03/13/18 15:37 Docusate Sodium (Colace) 100 mg TWICE A DAY ORAL 02/12/18 18:00 03/14/18 17:59 02/12/18 17:58 Gabapentin (Neurontin) 100 mg QHS ORAL 02/12/18 21:00 03/14/18 20:59 02/12/18 21:37 Heparin Sodium (Porcine) (Heparin 5000 units/ml) 5,000 units EVERY 12 HOURS SUBQ 02/11/18 21:00 03/13/18 20:59 02/12/18 21:45 Insulin Aspart (NovoLOG) BEFORE MEALS AND HS SUBQ 02/11/18 16:30 03/13/18 16:29 Lidocaine (Lidoderm 5% PATCH) 1 patch DAILY TDERMAL 02/12/18 11:00 03/14/18 10:59 02/12/18 11:31 Lorazepam (Ativan) 0.5 mg Q6H PRN ORAL For Anxiety 02/12/18 04:15 02/19/18 04:14 02/12/18 04:35 Metformin HCl (Glucophage) 500 mg BIAC ORAL 02/13/18 06:30 03/15/18 06:29 02/13/18 06:45 Morphine Sulfate (Morphine Sulfate) 4 mg Q4H PRN IVP For Pain (PAIN SCALE 7-10) 02/11/18 20:30 02/18/18 20:11 02/13/18 06:45 Multivitamins (Multivitamins) 1 tab DAILY ORAL 02/13/18 09:00 03/15/18 08:59 02/13/18 08:34 Nitroglycerin (Ntg) 0.4 mg STAT PRN SL Prn Chest Pain 02/11/18 15:36 03/13/18 15:35 Ondansetron HCl (Zofran) 4 mg Q6H PRN IVP Nausea & Vomiting 02/11/18 15:36 03/13/18 15:35 Polyethylene Glycol (Miralax) 17 gm DAILYPRN PRN ORAL Constipation 02/11/18 15:36 03/13/18 15:35 02/11/18 17:58 Temazepam (Restoril) 15 mg HSPRN PRN ORAL Insomnia 02/11/18 21:00 02/18/18 20:59 Timolol Maleate (Timoptic 0.5% Op Soln) 1 drop TWICE A DAY BOTH EYES 02/12/18 18:00 03/14/18 17:59 02/13/18 10:48 Jt Morin MD February 13, 2018 11:18
[2018-02-13] MEDS: Docusate 100mg cap ORAL SCH ×2 (11:35→17:55)
[2018-02-13] MEDS: BusPIRone 5mg Tab ORAL SCH ×3 (11:36→17:55)
[2018-02-13] MEDS: Heparin 5000 units/ml inj SUBQ SCH ×2 (11:36→20:58)
[2018-02-13 12:00] VITALS: BP 108/65
[2018-02-13 12:32] LABS: BASOPHILS % (AUTO) 1.7 % (0.0-2.0); EOSINOPHILS % (AUTO) 1.9 % (0.0-3.0); HEMATOCRIT 30.5 % (37.0-47.0); HEMOGLOBIN 10.5 G/DL (12.0-16.0); LYMPHOCYTES % (AUTO) 21.8 % (20.0-45.0); MEAN CORPUSCULAR VOLUME 91 FL (80-99); NEUTROPHILS % (AUTO) 63.6 % (45.0-75.0); PLATELET COUNT 359 K/UL (150-450); RED BLOOD COUNT 3.35 M/UL (4.20-5.40); RED CELL DISTRIBUTION WIDTH 12.5 % (11.6-14.8); WHITE BLOOD COUNT 7.6 K/UL (4.8-10.8)
[2018-02-13 12:38] LABS: ANION GAP 7 mmol/L (5-15); BLOOD UREA NITROGEN 11 mg/dL (7-18); CALCIUM 9.1 MG/DL (8.5-10.1); CARBON DIOXIDE 30 MMOL/L (21-32); CHLORIDE 98 MMOL/L (98-107); CREATININE 0.9 MG/DL (0.55-1.30); POTASSIUM 3.5 MMOL/L (3.5-5.1); SODIUM 135 MMOL/L (136-145)
[2018-02-13 16:02] VITALS: BP 132/67
[2018-02-13] MEDS: metFORMIN 500mg tab ORAL SCH (16:28)
--- NOTE | 2018-02-13 17:15 | Progress Note ---
DATE: 02/13/2018 ADDENDUM The patient has been seen. 18 to 20 minutes of supportive psychotherapy provided. Juany Sullivan M.D. DR: DENISSE JOB#: [id number] CC:
[2018-02-13 20:00] VITALS: BP 115/63
--- NOTE | 2018-02-13 21:45 | Consultation ---
DATE OF CONSULTATION: 02/12/2018 PSYCHOTHERAPY CONSULTATION PROGRESS NOTE TREATING ATTENDING PHYSICIAN: Phan Nix D.O. HISTORY OF PRESENT ILLNESS: The patient is a 77-year-old female patient, admitted to the hospital for intractable hip pain. The patient was referred for psychotherapeutic services as she has been feeling depressed and slightly anxious. The patient was assessed by this clinician. The patient states that she has been having difficulty with her depression and anxiety and there is significant pain. She states that she has , however, the anxiety and depression fluctuate as a result of pain. She denies suicidal or homicidal thoughts of ideation. There are no auditory or visual hallucinations. PAST MEDICAL HISTORY: History of right hip fracture, status post surgery and diabetes. ALLERGIES: The patient has no known drug allergies. SUBSTANCE ABUSE HISTORY: There is no indication of alcohol use, illicit substance use, or smoking cigarettes. PSYCHIATRIC HISTORY: The patient has a history of depression and has been treated with psychotropic medications in the past. SOCIAL HISTORY: The patient is currently from [facility]. A 77-year-old female patient. . Financially sustained through [employer]. MENTAL STATUS EXAMINATION: The patient is alert and oriented to person and place. Mood is dysphoric. Affect blunted. Thought process, disorganized. Thought content, pain. She has poor attention and concentration. Poor insight, judgment, and impulse control. Denies suicidal or homicidal thoughts of ideation. DIAGNOSES: Sumner I Major depressive disorder, mild, recurrent, without psychotic features. Sumner II Deferred. Sumner III Per History and Physical. Sumner IV Psychosocial stressors are moderate. PLAN: This clinician assessed this patient. Provided the patient with reality orientation, supportive psychotherapy, and coping skills. Continue with behavioral management. This clinician has reviewed the patient's chart and discussed with the treatment team regarding treatment. Gricelda Hernandez PsyD. DR: MARQUEZ JOB#: [id number] CC:
--- NOTE | 2018-02-13 22:06 | Pulmonology Progress Note ---
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 (3) Peptic ulcer disease (4) Dehydration (5) Post-operative pain Assessment/Plan afebrile so far check electrolytes check pt/ptt pain control symptomatic treatment Subjective ROS Limited/Unobtainable: No Allergies: Coded Allergies: No Known Allergies (Verified , 06/27/09) Objective Last 24 Hour Vital Signs Date Time Temp Pulse Resp B/P (MAP) Pulse Ox O2 Delivery O2 Flow Rate FiO2 02/13/18 20:00 98.7 77 19 115/63 100 Room Air 98.7 02/13/18 16:02 97.7 75 20 132/67 96 Room Air 97.7 02/13/18 12:00 98.6 71 21 108/65 97 Room Air 98.6 02/13/18 08:27 82 18 Room Air 02/13/18 08:00 97.1 86 20 102/62 99 Room Air 97.1 02/13/18 04:00 98.9 76 19 124/62 100 Room Air 98.9 02/13/18 00:00 99.2 82 18 114/63 98 99.2 02/12/18 22:07 97.9 Intake and Output 02/12/18 02/13/18 19:00 07:00 Intake Total 240 ml Balance 240 ml Intake Oral 240 ml # Bowel Movements 1 General Appearance: no acute distress HEENT: normocephalic Respiratory/Chest: chest wall non-tender, lungs clear Breasts: no masses Cardiovascular: normal peripheral pulses, regularly irregular Abdomen: normal bowel sounds, soft, non tender Genitourinary: normal external genitalia Extremities: no clubbing Skin: no rash Microbiology Date/Time Source Procedure Growth Status 02/11/18 12:40 Blood Blood Culture - Preliminary NO GROWTH AFTER 24 HOURS Resulted 02/11/18 12:30 Blood Blood Culture - Preliminary NO GROWTH AFTER 24 HOURS Resulted 02/11/18 14:30 Rectum VRE Culture - Final NO VANCOMYCIN RESISTANT ENTEROCOCCUS ... Complete Laboratory Tests 02/13/18 12:10: White Blood Count 7.6, Red Blood Count 3.35L, Hemoglobin 10.5L, Hematocrit 30.5L , Mean Corpuscular Volume 91, Mean Corpuscular Hemoglobin 31.4H, Mean Corpuscular Hemoglobin Concent 34.5, Red Cell Distribution Width 12.5, Platelet Count 359, Mean Platelet Volume 6.2L, Neutrophils (%) (Auto) 63.6, Lymphocytes ( %) (Auto) 21.8, Monocytes (%) (Auto) 11.0H, Eosinophils (%) (Auto) 1.9, Basophils (%) (Auto) 1.7, Sodium Level 135L, Potassium Level 3.5, Chloride Level 98, Carbon Dioxide Level 30, Anion Gap 7, Blood Urea Nitrogen 11, Creatinine 0.9, Estimat Glomerular Filtration Rate , Glucose Level 124H, Calcium Level 9.1 Current Medications Medications (Trade) Dose Ordered Sig/Darwin Route PRN Reason Start Time Stop Time Status Last Admin Dose Admin Acetaminophen (Tylenol) 650 mg Q4H PRN ORAL fever (TEMP>100.3) 02/11/18 15:36 03/13/18 15:35 Acetaminophen/ Hydrocodone Bitart ([place] 10325) 1 tab EVERY 6 HOURS PRN ORAL Severe Breakthru Pain (>7) 02/11/18 20:40 02/18/18 20:39 02/13/18 06:18 Albuterol/ Ipratropium (Albuterol/ Ipratropium) 3 ml Q4H PRN HHN Shortness of Breath 02/12/18 10:45 02/17/18 10:44 Ascorbic Acid (Vitamin C) 500 mg DAILY ORAL 02/14/18 09:00 03/15/18 08:59 Brimonidine Tartrate (Alphagan) 1 drop BID BOTH EYES 02/12/18 18:00 03/14/18 17:59 02/13/18 17:55 Buspirone HCl (Buspar) 10 mg THREE TIMES A DAY ORAL 02/13/18 18:00 03/14/18 17:59 02/13/18 17:55 Citalopram Hydrobromide (celeXA) 20 mg DAILY ORAL 02/14/18 09:00 03/15/18 08:59 Dextrose (Dextrose 50%) 25 ml STAT PRN IV Hypoglycemia BS 60-69mg/dl 02/11/18 15:38 03/13/18 15:37 Dextrose (Dextrose 50%) 50 ml STAT PRN IV Hypoglycemia BS less than 60mg 02/11/18 15:38 03/13/18 15:37 Docusate Sodium (Colace) 100 mg TWICE A DAY ORAL 02/13/18 18:00 03/14/18 17:59 02/13/18 17:55 Gabapentin (Neurontin) 100 mg QHS ORAL 02/13/18 21:00 03/14/18 20:59 02/13/18 20:56 Heparin Sodium (Porcine) (Heparin 5000 units/ml) 5,000 units EVERY 12 HOURS SUBQ 02/13/18 21:00 03/14/18 20:59 02/13/18 20:58 Insulin Aspart (NovoLOG) BEFORE MEALS AND HS SUBQ 02/11/18 16:30 03/13/18 16:29 Lidocaine (Lidoderm 5% PATCH) 1 patch DAILY TDERMAL 02/14/18 09:00 03/14/18 08:59 Lorazepam (Ativan) 0.5 mg Q6H PRN ORAL For Anxiety 02/12/18 04:15 02/19/18 04:14 02/12/18 04:35 Metformin HCl (Glucophage) 500 mg BIAC ORAL 02/13/18 16:30 03/15/18 16:29 02/13/18 16:28 Morphine Sulfate (Morphine Sulfate) 4 mg Q4H PRN IVP For Pain (PAIN SCALE 7-10) 02/11/18 20:30 02/18/18 20:11 02/13/18 20:57 Multivitamins (Multivitamins) 1 tab DAILY ORAL 02/14/18 09:00 03/15/18 08:59 Nitroglycerin (Ntg) 0.4 mg STAT PRN SL Prn Chest Pain 02/11/18 15:36 03/13/18 15:35 Ondansetron HCl (Zofran) 4 mg Q6H PRN IVP Nausea & Vomiting 02/11/18 15:36 03/13/18 15:35 Polyethylene Glycol (Miralax) 17 gm DAILYPRN PRN ORAL Constipation 02/11/18 15:36 03/13/18 15:35 02/11/18 17:58 Temazepam (Restoril) 15 mg HSPRN PRN ORAL Insomnia 02/11/18 21:00 02/18/18 20:59 Timolol Maleate (Timoptic 0.5% Op Soln) 1 drop TWICE A DAY BOTH EYES 02/12/18 18:00 03/14/18 17:59 02/13/18 18:05 Shannon Pang MD February 13, 2018 22:06
--- NOTE | 2018-02-13 23:45 | Progress Note ---
DATE: 02/13/2018 HISTORY OF PRESENT ILLNESS: The patient is a 77-year-old female patient, still complaining of intractable pain and she has extreme mood lability and anxiety. Her mood lability is worsened by the stress of her chronic pain disorder. She neurologic condition where her pain could be extreme. This is causing high levels of anxiety, depression, and mood lability worsened by the stress of her medical illness and that is why, her attending has been continuing to request daily psychiatric followup. MEDICAL PROBLEMS: She states she has complaints of intractable pain severe pain. MENTAL STATUS EXAMINATION: This is a 77-year-old female. Appearance is disheveled. Attitude, irritable and agitated. Affect guarded and restricted. Intellect poor. Mood, depressed and anxious. Motor activity, psychomotor agitation. Attention span is poor. Orientation x2. Speech is low volume and slurred. Speech is pressured. Thought process, disorganized. Thought content, slight paranoia. Insight and judgment are poor. DIAGNOSIS: Major depressive disorder, mild, recurrent, without anxiety disorder. PLAN: Plan for this patient is to treat her with a medication regimen consisting of Celexa 20 mg daily, BuSpar 10 mg three times a day, Ativan 0.5 mg every 6 hours p.r.n. Chart reviewed and discussed with staff. Seen and assessed at bedside. The patient will continue to be followed throughout her hospital course. Juany Sullivan M.D. DR: DENISSE JOB#: [id number] CC:
[2018-02-14] VITALS: BP 105/58
[2018-02-14 04:00] VITALS: BP 118/62
[2018-02-14] MEDS: Morphine Sulfate 4mg/ml Inj IVP PRN ×5 (04:19→21:21)
[2018-02-14] MEDS: NovoLOG Insulin Flexpen SUBQ SCH ×4 (06:00→21:17)
[2018-02-14] MEDS: metFORMIN 500mg tab ORAL SCH ×2 (06:00→16:45)
--- NOTE | 2018-02-14 06:48 | General Progress Note ---
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 SNOMED: 367214622 (2) Post-operative pain ICD Codes: G89.18 - Other acute postprocedural pain SNOMED: 441527637 (3) Diabetes ICD Codes: E11.9 - Type 2 diabetes mellitus without complications SNOMED: 41854927 (4) HTN (hypertension) ICD Codes: I10 - Essential (primary) hypertension SNOMED: 09049483 Assessment/Plan continue Metformin therapy continue NISS Subjective Allergies: Coded Allergies: No Known Allergies (Verified , 06/27/09) All Systems: reviewed and negative except above Subjective events noted Objective Last 24 Hour Vital Signs Date Time Temp Pulse Resp B/P (MAP) Pulse Ox O2 Delivery O2 Flow Rate FiO2 02/14/18 04:00 98.4 73 19 118/62 98 Room Air 98.4 02/14/18 00:00 98.6 74 19 105/58 96 Room Air 98.6 02/13/18 20:00 98.7 77 19 115/63 100 Room Air 98.7 02/13/18 16:02 97.7 75 20 132/67 96 Room Air 97.7 02/13/18 12:00 98.6 71 21 108/65 97 Room Air 98.6 02/13/18 08:27 82 18 Room Air 02/13/18 08:00 97.1 86 20 102/62 99 Room Air 97.1 Intake and Output 02/13/18 02/14/18 19:00 07:00 Intake Total 720 ml Output Total 800 ml Balance -80 ml Intake Oral 720 ml Output Urine Total 800 ml Laboratory Tests 02/13/18 12:10: White Blood Count 7.6, Red Blood Count 3.35L, Hemoglobin 10.5L, Hematocrit 30.5L , Mean Corpuscular Volume 91, Mean Corpuscular Hemoglobin 31.4H, Mean Corpuscular Hemoglobin Concent 34.5, Red Cell Distribution Width 12.5, Platelet Count 359, Mean Platelet Volume 6.2L, Neutrophils (%) (Auto) 63.6, Lymphocytes ( %) (Auto) 21.8, Monocytes (%) (Auto) 11.0H, Eosinophils (%) (Auto) 1.9, Basophils (%) (Auto) 1.7, Sodium Level 135L, Potassium Level 3.5, Chloride Level 98, Carbon Dioxide Level 30, Anion Gap 7, Blood Urea Nitrogen 11, Creatinine 0.9, Estimat Glomerular Filtration Rate , Glucose Level 124H, Calcium Level 9.1 Height (Feet): 5 Height (Inches): 4.00 Weight (Pounds): 135 General Appearance: no apparent distress EENT: pale conjunctivae Neck: normal alignment Cardiovascular: normal rate Respiratory/Chest: normal breath sounds Abdomen: normal bowel sounds Objective Current Medications Medications (Trade) Dose Ordered Sig/Darwin Route PRN Reason Start Time Stop Time Status Last Admin Dose Admin Acetaminophen (Tylenol) 650 mg Q4H PRN ORAL fever (TEMP>100.3) 02/11/18 15:36 03/13/18 15:35 Acetaminophen/ Hydrocodone Bitart ([place] 10) 1 tab EVERY 6 HOURS PRN ORAL Severe Breakthru Pain (>7) 02/11/18 20:40 02/18/18 20:39 02/13/18 06:18 Albuterol/ Ipratropium (Albuterol/ Ipratropium) 3 ml Q4H PRN HHN Shortness of Breath 02/12/18 10:45 02/17/18 10:44 Ascorbic Acid (Vitamin C) 500 mg DAILY ORAL 02/14/18 09:00 03/15/18 08:59 Brimonidine Tartrate (Alphagan) 1 drop BID BOTH EYES 02/12/18 18:00 03/14/18 17:59 02/13/18 17:55 Buspirone HCl (Buspar) 10 mg THREE TIMES A DAY ORAL 02/13/18 18:00 03/14/18 17:59 02/13/18 17:55 Citalopram Hydrobromide (celeXA) 20 mg DAILY ORAL 02/14/18 09:00 03/15/18 08:59 Dextrose (Dextrose 50%) 25 ml STAT PRN IV Hypoglycemia BS 60-69mg/dl 02/11/18 15:38 03/13/18 15:37 Dextrose (Dextrose 50%) 50 ml STAT PRN IV Hypoglycemia BS less than 60mg 02/11/18 15:38 03/13/18 15:37 Docusate Sodium (Colace) 100 mg TWICE A DAY ORAL 02/13/18 18:00 03/14/18 17:59 02/13/18 17:55 Gabapentin (Neurontin) 100 mg QHS ORAL 02/13/18 21:00 03/14/18 20:59 02/13/18 20:56 Heparin Sodium (Porcine) (Heparin 5000 units/ml) 5,000 units EVERY 12 HOURS SUBQ 02/13/18 21:00 03/14/18 20:59 02/13/18 20:58 Insulin Aspart (NovoLOG) BEFORE MEALS AND HS SUBQ 02/11/18 16:30 03/13/18 16:29 Lidocaine (Lidoderm 5% PATCH) 1 patch DAILY TDERMAL 02/14/18 09:00 03/14/18 08:59 Lorazepam (Ativan) 0.5 mg Q6H PRN ORAL For Anxiety 02/12/18 04:15 02/19/18 04:14 02/12/18 04:35 Metformin HCl (Glucophage) 500 mg BIAC ORAL 02/13/18 16:30 03/15/18 16:29 02/14/18 06:00 Morphine Sulfate (Morphine Sulfate) 4 mg Q4H PRN IVP For Pain (PAIN SCALE 7-10) 02/11/18 20:30 02/18/18 20:11 02/14/18 04:19 Multivitamins (Multivitamins) 1 tab DAILY ORAL 02/14/18 09:00 03/15/18 08:59 Nitroglycerin (Ntg) 0.4 mg STAT PRN SL Prn Chest Pain 02/11/18 15:36 03/13/18 15:35 Ondansetron HCl (Zofran) 4 mg Q6H PRN IVP Nausea & Vomiting 02/11/18 15:36 03/13/18 15:35 Polyethylene Glycol (Miralax) 17 gm DAILYPRN PRN ORAL Constipation 02/11/18 15:36 03/13/18 15:35 02/11/18 17:58 Temazepam (Restoril) 15 mg HSPRN PRN ORAL Insomnia 02/11/18 21:00 02/18/18 20:59 02/13/18 22:54 Timolol Maleate (Timoptic 0.5% Op Soln) 1 drop TWICE A DAY BOTH EYES 02/12/18 18:00 03/14/18 17:59 5/12/18 18:05 Item Value Date Time Bedside Blood Glucose 114 mg/dl 02/14/18 0600 Bedside Blood Glucose 138 mg/dl H 02/13/18 2100 Bedside Blood Glucose 114 mg/dl 02/13/18 1626 Bedside Blood Glucose 144 mg/dl H 02/13/18 1130 Bedside Blood Glucose 117 mg/dl 02/13/18 0630 LAYLA AVERY February 14, 2018 06:48
[2018-02-14 08:00] VITALS: BP 111/64
--- NOTE | 2018-02-14 08:37 | General Progress Note ---
Assessment/Plan Problem List: (1) UTI (urinary tract infection) ICD Codes: N39.0 - Urinary tract infection, site not specified SNOMED: 73051426 (2) Anemia ICD Codes: D64.9 - Anemia, unspecified SNOMED: 604756558 (3) SOB (shortness of breath) ICD Codes: R06.02 - Shortness of breath SNOMED: 907191081 (4) HTN (hypertension) ICD Codes: I10 - Essential (primary) hypertension SNOMED: 71889009 (5) Diabetes ICD Codes: E11.9 - Type 2 diabetes mellitus without complications SNOMED: 83730877 (6) Depressed ICD Codes: F32.9 - Major depressive disorder, single episode, unspecified SNOMED: 92219974 (7) Post-operative pain ICD Codes: G89.18 - Other acute postprocedural pain SNOMED: 807581880 (8) Dehydration (9) Fever ICD Codes: R50.9 - Fever, unspecified SNOMED: 359734657 Status: unchanged Assessment/Plan ot pt diet abx pain control cbc bmp am dc plan if clear Subjective Constitutional: Reports: weakness Allergies: Coded Allergies: No Known Allergies (Verified , 06/27/09) All Systems: reviewed and negative except above Subjective sleepy calm in bed Objective Last 24 Hour Vital Signs Date Time Temp Pulse Resp B/P (MAP) Pulse Ox O2 Delivery O2 Flow Rate FiO2 02/14/18 04:00 98.4 73 19 118/62 98 Room Air 98.4 02/14/18 00:00 98.6 74 19 105/58 96 Room Air 98.6 02/13/18 20:00 98.7 77 19 115/63 100 Room Air 98.7 02/13/18 16:02 97.7 75 20 132/67 96 Room Air 97.7 02/13/18 12:00 98.6 71 21 108/65 97 Room Air 98.6 Intake and Output 02/13/18 02/14/18 19:00 07:00 Intake Total 720 ml 250 ml Output Total 800 ml 1150 ml Balance -80 ml -900 ml Intake Oral 720 ml 250 ml Output Urine Total 800 ml 1150 ml Laboratory Tests 02/13/18 12:10: White Blood Count 7.6, Red Blood Count 3.35L, Hemoglobin 10.5L, Hematocrit 30.5L , Mean Corpuscular Volume 91, Mean Corpuscular Hemoglobin 31.4H, Mean Corpuscular Hemoglobin Concent 34.5, Red Cell Distribution Width 12.5, Platelet Count 359, Mean Platelet Volume 6.2L, Neutrophils (%) (Auto) 63.6, Lymphocytes ( %) (Auto) 21.8, Monocytes (%) (Auto) 11.0H, Eosinophils (%) (Auto) 1.9, Basophils (%) (Auto) 1.7, Sodium Level 135L, Potassium Level 3.5, Chloride Level 98, Carbon Dioxide Level 30, Anion Gap 7, Blood Urea Nitrogen 11, Creatinine 0.9, Estimat Glomerular Filtration Rate , Glucose Level 124H, Calcium Level 9.1 Height (Feet): 5 Height (Inches): 4.00 Weight (Pounds): 135 General Appearance: lethargic EENT: normal ENT inspection Neck: normal alignment Cardiovascular: normal peripheral pulses, normal rate, regular rhythm Respiratory/Chest: chest wall non-tender, lungs clear, normal breath sounds Abdomen: normal bowel sounds, non tender, soft Extremities: normal inspection Edema: no edema noted Arm (L), no edema noted Arm (R), no edema noted Leg (L), no edema noted Leg (R), no edema noted Pedal (L), no edema noted Pedal (R), no edema noted Generalized Neurologic: motor weakness Skin: normal pigmentation, warm/dry Phan Nix DO February 14, 2018 08:37
[2018-02-14] MEDS: BusPIRone 5mg Tab ORAL SCH ×3 (09:00→18:17)
[2018-02-14] MEDS: Ascorbic Acid 500mg tab ORAL SCH (09:00)
[2018-02-14] MEDS: Brimonidine 0.2% Opth Sol BOTH EYES SCH ×2 (09:00→18:17)
[2018-02-14] MEDS ORDERED: Citalopram 20mg Tab ORAL SCH (09:00)
[2018-02-14] MEDS: Docusate 100mg cap ORAL SCH ×2 (09:00→18:17)
[2018-02-14] MEDS: Heparin 5000 units/ml inj SUBQ SCH ×2 (09:03→21:16)
[2018-02-14] MEDS: Citalopram Hydrobromide 10mg Tab ORAL SCH (09:47)
[2018-02-14] MEDS: Timolol 0.5% Op Soln 2.5ml BOTH EYES SCH ×2 (09:47→18:21)
--- NOTE | 2018-02-14 10:42 | General Progress Note ---
Assessment/Plan Assessment/Plan (1) Right hip pain (2) Right hip fracture (3) S/p right hip replacement Patient to be continued on Morphine and [place] Neurontin increased to 100mg TID. We will order Xray of Lumbar spine. D/w Dr. Carvajal and he concurred. Subjective Date patient seen: February 14, 2018 Time patient seen: 10:00 - am Allergies: Coded Allergies: No Known Allergies (Verified , 06/27/09) Subjective REVIEW OF SYSTEMS: Denies rash, fever, chills, sweating, dizziness, drowsiness, blurred vision, sore throat, or change in her weight. No shortness of breath or chest pain. No nausea, vomiting, diarrhea, or blood in the stool or urine. No bowel or bladder incontinence. No dysuria. She is complaining of right hip pain. SUBJECTIVE: Continues to c/o pain and reports that the Morphine had helped to reduce her pain. She will be seen by Neuro due to right foot drop. Has been seen by Dr. De La Fuente. Objective Last 24 Hour Vital Signs Date Time Temp Pulse Resp B/P (MAP) Pulse Ox O2 Delivery O2 Flow Rate FiO2 02/14/18 08:00 98.7 79 19 111/64 99 Room Air 98.7 02/14/18 04:00 98.4 73 19 118/62 98 Room Air 98.4 02/14/18 00:00 98.6 74 19 105/58 96 Room Air 98.6 02/13/18 20:00 98.7 77 19 115/63 100 Room Air 98.7 02/13/18 16:02 97.7 75 20 132/67 96 Room Air 97.7 02/13/18 12:00 98.6 71 21 108/65 97 Room Air 98.6 Intake and Output 02/13/18 02/14/18 19:00 07:00 Intake Total 720 ml 250 ml Output Total 800 ml 1150 ml Balance -80 ml -900 ml Intake Oral 720 ml 250 ml Output Urine Total 800 ml 1150 ml Laboratory Tests 02/13/18 12:10: White Blood Count 7.6, Red Blood Count 3.35L, Hemoglobin 10.5L, Hematocrit 30.5L , Mean Corpuscular Volume 91, Mean Corpuscular Hemoglobin 31.4H, Mean Corpuscular Hemoglobin Concent 34.5, Red Cell Distribution Width 12.5, Platelet Count 359, Mean Platelet Volume 6.2L, Neutrophils (%) (Auto) 63.6, Lymphocytes ( %) (Auto) 21.8, Monocytes (%) (Auto) 11.0H, Eosinophils (%) (Auto) 1.9, Basophils (%) (Auto) 1.7, Sodium Level 135L, Potassium Level 3.5, Chloride Level 98, Carbon Dioxide Level 30, Anion Gap 7, Blood Urea Nitrogen 11, Creatinine 0.9, Estimat Glomerular Filtration Rate , Glucose Level 124H, Calcium Level 9.1 Height (Feet): 5 Height (Inches): 4.00 Weight (Pounds): 135 Objective GENERAL: Alert, awake, and oriented x3. HEENT: PERRLA. NECK: Range of motion is full in all directions. No tenderness to paracervical muscles. No adenopathy. LUNGS: Decreased breath sounds bilaterally. HEART: Regular. ABDOMEN: Benign. BACK: Range of motion is decreased in flexion and extension with tenderness to paraspinal muscles. No tenderness to trapezius or rhomboid muscles. EXTREMITIES: Upper extremities range of motion is full in all directions. Motor is intact. No cyanosis. No clubbing. No edema. Sensory is intact. Reflexes are not obtainable. No adenopathy. Lower extremity range of motion is decreased due to the patient's pain and condition. Right hip tenderness to palpation with bandages noted. Right footdrop seen. The left lower extremity range of motion is full in all directions. No cyanosis. No clubbing. No edema. Sensory is intact. Reflexes are not obtainable. No adenopathy. XIMENA RICHARDSON February 14, 2018 10:42
[2018-02-14 11:25] LABS: BASOPHILS % (AUTO) 1.6 % (0.0-2.0); EOSINOPHILS % (AUTO) 1.8 % (0.0-3.0); HEMATOCRIT 27.9 % (37.0-47.0); HEMOGLOBIN 9.3 G/DL (12.0-16.0); LYMPHOCYTES % (AUTO) 21.8 % (20.0-45.0); MEAN CORPUSCULAR VOLUME 92 FL (80-99); MONOCYTES % (AUTO) 10.9 % (1.0-10.0); NEUTROPHILS % (AUTO) 63.9 % (45.0-75.0); PLATELET COUNT 343 K/UL (150-450); RED BLOOD COUNT 3.03 M/UL (4.20-5.40); RED CELL DISTRIBUTION WIDTH 12.8 % (11.6-14.8); WHITE BLOOD COUNT 7.3 K/UL (4.8-10.8)
[2018-02-14 11:36] LABS: ANION GAP 5 mmol/L (5-15); BLOOD UREA NITROGEN 11 mg/dL (7-18); CALCIUM 8.7 MG/DL (8.5-10.1); CARBON DIOXIDE 30 MMOL/L (21-32); CHLORIDE 100 MMOL/L (98-107); CREATININE 0.9 MG/DL (0.55-1.30); POTASSIUM 3.5 MMOL/L (3.5-5.1); SODIUM 135 MMOL/L (136-145)
[2018-02-14 12:00] VITALS: BP 102/51
[2018-02-14 16:00] VITALS: BP 110/70
[2018-02-14] MEDS: Miralax 17gm pkt ORAL PRN (18:17)
[2018-02-14 20:00] VITALS: BP 114/59
[2018-02-15] VITALS: BP 114/53
--- NOTE | 2018-02-15 00:45 | Progress Note ---
DATE: 02/14/2018 NOTE: POOR AUDIO SUBJECTIVE: The patient is a 77-year-old female patient with intractable pain. patient anxiety and depression. MENTAL STATUS EXAMINATION: This is a 77-year-old female. She is depressed and confused. Denies auditory or visual hallucinations or delusions. Thought process, linear and goal directed. depression and anxiety. Insight and judgment is fair. DIAGNOSIS: Major depressive disorder, mild, recurrent, without psychotic features. PLAN: Plan is to treat her with Celexa 20 mg a day, BuSpar 10 mg three times a day, and Ativan 0.5 mg q.6 h. p.r.n. An 18 to 20 minutes of supportive psychotherapy provided. Juany Sullivan M.D. DR: SUSAN JOB#: [id number] CC:
[2018-02-15 04:00] VITALS: BP 118/65
[2018-02-15] MEDS: Morphine Sulfate 4mg/ml Inj IVP PRN ×5 (05:07→22:05)
[2018-02-15] MEDS: metFORMIN 500mg tab ORAL SCH ×2 (05:08→16:30)
[2018-02-15] MEDS: NovoLOG Insulin Flexpen SUBQ SCH ×4 (06:30→20:34)
[2018-02-15 08:00] VITALS: BP 108/60
--- NOTE | 2018-02-15 08:00 | Progress Note ---
DATE: 02/15/2018 NOTE: "POOR AUDIO QUALITY" SUBJECTIVE: The patient is a 77-year-old female patient. She is status post hip pain. She has high levels of depression and anxiety pain and that is why, her attending has requested daily psychiatric consultation. MENTAL STATUS EXAMINATION: This is a 77-year-old female. Appearance is disheveled. Attitude irritable, agitated. Affect guarded and restricted. Intellect poor. Mood depressed, anxious. Motor activity, psychomotor agitation. Attention span is poor. Orientation x2. Speech is pressured. Thought process, disorganized and illogical. Thought content, auditory hallucinations and paranoid delusions. Insight and judgment is poor. DIAGNOSIS: Major depressive disorder, mild, recurrent, without psychotic features, rule out generalized anxiety disorder. PLAN: Continue treatment with antianxiety medications to help reduce depression and anxiety, 18-20 minutes of supportive psychotherapy provided. Chart reviewed and discussed with staff. Juany Sullivan M.D. : Pavithra JOB#: [id number] CC:
--- NOTE | 2018-02-15 08:11 | Physician Query ---
--------- THIS DOCUMENT IS A PERMANENT PART OF THE MEDICAL RECORD --------- PLEASE COMPLETE DOCUMENT BEFORE SIGNING Dear Dr. Nix Date: 02/15/2018 [employer] Name: Luis Cadena [employer] Phone No.: Exercise your independent professional judgment when responding to the query. Questions asked do not imply a particular answer is desired or expected. We greatly appreciate your clarification on this issue. CLINICAL DOCUMENTATION STATES: "Dehydration" documented in progress notes (02/12) CLINICAL FINDINGS SHOW: Albumin level since admission: 02/11/2018: Albumin 2.5 : Albumin 2.2 (Reference range 3.4-5.0) Please select the most appropriate option: [] Mild [] Moderate [] Protein/Calorie Malnutrition [] Protein Malnutrition >Serum albumin 2.8 to 3.4 g/dL or Pre-albumin 5 to 7 mg/dl (3) >Inadequate nutritional intake (1, 2, 3, 4) >NPO > 5 days >Weight loss: 5% in 1 month or 7.5% in 3 months or 10% in 6 months (1,3,4) >BMI 16 to 18.4 or Weight <90 of ideal body weight (1,2,3,4) [] Severe Malnutrition (Protein/Calorie) [] Severe Protein Malnutrition >Serum Albumin < 2.8 g/dL (1,2) >Lymphocytes < 1500/uL (2) >Inadequate nutritional intake3 , high stress e.g. major trauma, sepsis, pancreatitis, loco etc. >Decubitus ulcers (1,2) , skin breakdown(2), easy hair pluckability >Weight <80% standard for height (2) >Triceps skin fold <3 mm2 >Mid-arm muscle circumference <25 cm2 >Creatinine-height index <60% standard (2) _ [] Hypoalbuminemia [] Emancipated w/ Malnutrition [] Kwashi[place]or (rare in [place]) [] Marasmus [] Other [] Unable to determine [] Not Applicable Condition Present on Admission: [] Yes [] No [ ] Unable to determine Please also document in your Progress Notes and/or Discharge Summary and indicate if the condition was present on admission. M.D. References: 1 [facility] Board. (2007). Nutritional support strategy for protein -energy malnutrition in the elderly. Clinical Practice Guidelines. 2 Ashwin Kapadia (2011). Malnutrition and nutritional assessment. In Bruno Jimenez (18th Ed.) Royal's Principle of Internal Medicine ([phone]) [place], [place]: [facility] 3 Whitney Miller. (2001). Clinical Nutrition: Protein-energy malnutrition in the inpatient. [employer] Journal, vol. 165 no. 10 (pp. 6912- 4994 ). 4 Dave Gallo (2012). Geriactric Nutrition: Nutritional Issues in Older Adults. [email or web address]
[2018-02-15] MEDS: Docusate 100mg cap ORAL SCH ×2 (08:32→18:17)
[2018-02-15] MEDS: BusPIRone 5mg Tab ORAL SCH ×3 (08:33→18:17)
[2018-02-15] MEDS: Citalopram Hydrobromide 10mg Tab ORAL SCH (08:34)
[2018-02-15] MEDS: Ascorbic Acid 500mg tab ORAL SCH (08:34)
--- NOTE | 2018-02-15 08:45 | General Progress Note ---
Assessment/Plan Assessment/Plan (1) Right hip pain (2) Right hip fracture (3) S/p right hip replacement Patient to be continued on Neurontin Morphine and [place] Xray of Lumbar spine pending. D/w Dr. Carvajal and he concurred. Subjective Date patient seen: February 15, 2018 Time patient seen: 07:30 - am Allergies: Coded Allergies: No Known Allergies (Verified , 06/27/09) Subjective REVIEW OF SYSTEMS: Denies rash, fever, chills, sweating, dizziness, drowsiness, blurred vision, sore throat, or change in her weight. No shortness of breath or chest pain. No nausea, vomiting, diarrhea, or blood in the stool or urine. No bowel or bladder incontinence. No dysuria. She is complaining of right hip pain. SUBJECTIVE: Patient is in bed and c/o pain with movement tolerated on the Morphine and [place]. Xray pending. Objective Last 24 Hour Vital Signs Date Time Temp Pulse Resp B/P (MAP) Pulse Ox O2 Delivery O2 Flow Rate FiO2 02/15/18 04:00 97.6 72 29 118/65 100 Room Air 97.6 02/15/18 00:00 99.1 74 19 114/53 100 Room Air 99.1 02/14/18 20:01 77 18 Room Air 21 02/14/18 20:00 99.5 76 19 114/59 98 Room Air 99.5 02/14/18 16:00 99.0 82 18 110/70 97 Room Air 99.0 02/14/18 12:00 97.8 76 18 102/51 97 Room Air 97.8 02/14/18 10:23 69 16 Room Air Intake and Output 02/14/18 02/15/18 19:00 07:00 Output Total 1000 ml Balance -1000 ml Output Urine Total 1000 ml Laboratory Tests 02/14/18 10:50: White Blood Count 7.3, Red Blood Count 3.03L, Hemoglobin 9.3L, Hematocrit 27.9L , Mean Corpuscular Volume 92, Mean Corpuscular Hemoglobin 30.7, Mean Corpuscular Hemoglobin Concent 33.4, Red Cell Distribution Width 12.8, Platelet Count 343, Mean Platelet Volume 6.0L, Neutrophils (%) (Auto) 63.9, Lymphocytes ( %) (Auto) 21.8, Monocytes (%) (Auto) 10.9H, Eosinophils (%) (Auto) 1.8, Basophils (%) (Auto) 1.6, Sodium Level 135L, Potassium Level 3.5, Chloride Level 100, Carbon Dioxide Level 30, Anion Gap 5, Blood Urea Nitrogen 11, Creatinine 0.9, Estimat Glomerular Filtration Rate , Glucose Level 158H, Calcium Level 8.7 Height (Feet): 5 Height (Inches): 4.00 Weight (Pounds): 135 Objective GENERAL: Alert, awake, and oriented x3. HEENT: PERRLA. NECK: Range of motion is full in all directions. No tenderness to paracervical muscles. No adenopathy. LUNGS: Decreased breath sounds bilaterally. HEART: Regular. ABDOMEN: Benign. BACK: Range of motion is decreased in flexion and extension with tenderness to paraspinal muscles. No tenderness to trapezius or rhomboid muscles. EXTREMITIES: Upper extremities range of motion is full in all directions. Motor is intact. No cyanosis. No clubbing. No edema. Sensory is intact. Reflexes are not obtainable. No adenopathy. Lower extremity range of motion is decreased due to the patient's pain and condition. Right hip tenderness to palpation with bandages noted. Right footdrop seen. The left lower extremity range of motion is full in all directions. No cyanosis. No clubbing. No edema. Sensory is intact. Reflexes are not obtainable. No adenopathy. XIMENA RICHARDSON February 15, 2018 08:45
[2018-02-15] MEDS: Heparin 5000 units/ml inj SUBQ SCH ×2 (08:52→20:36)
[2018-02-15] MEDS: Brimonidine 0.2% Opth Sol BOTH EYES SCH ×2 (09:12→18:19)
[2018-02-15] MEDS: Timolol 0.5% Op Soln 2.5ml BOTH EYES SCH ×2 (09:12→18:19)
--- NOTE | 2018-02-15 10:18 | Infectious Diseases Prog Note ---
Assessment/Plan Assessment/Plan Assessment: afebrile Reported fever, none here Mild leukocytosis- suspect reactive; resolved- no signs or evidence of infection. Monitor for Surgical site infection. -CT abd/p: No acute findings appreciated. 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 Correlate clinically. Query if patient has had prior partial pancreatectomy. Atherosclerotic disease. Status post cholecystectomy. Periportal edema nonspecific. Obscured pelvis due to right hip prosthesis. Moderate fecal retention. Apparent hysterectomy. Tiny nonobstructive stone in the lower pole the right kidney. -CXR no acute findings -u/a wbc 2-4, nit neg, leuk +2 -Bcx p hx of Hep C R hip pain -xray R hip: A noncemented right hip bipolar hemiarthroplasty demonstrated. Alignment appears satisfactory on the single projection. Overlying skin deena noted. DM2 CAD/PA CHF HTN SNF resident s/p R hip replacement after hip fracture Plan: -Continue to monitor off abx; resume if febrile, worsening leukocytosis -5/10 SP IV Vanco and Cefepime #1 -f/u V duplex BLE -may need CT or MRI imaging if persistent pain -f/u cx -Monitor CBC/BMP, temperatures -aspiration precautions -wound care/prevention per hospital protocol. Subjective Constitutional: Denies: no symptoms, fever, chills, fatigue, anorexia, drenching sweats, other Allergies: Coded Allergies: No Known Allergies (Verified , 06/27/09) Subjective afebrile Objective Vital Signs Last 24 Hour Vital Signs Date Time Temp Pulse Resp B/P (MAP) Pulse Ox O2 Delivery O2 Flow Rate FiO2 02/15/18 09:37 76 18 Room Air 21 02/15/18 09:04 97.8 02/15/18 08:00 97.8 77 15 108/60 99 Room Air 97.8 02/15/18 04:00 97.6 72 29 118/65 100 Room Air 97.6 02/15/18 00:00 99.1 74 19 114/53 100 Room Air 99.1 02/14/18 20:01 77 18 Room Air 21 02/14/18 20:00 99.5 76 19 114/59 98 Room Air 99.5 02/14/18 16:00 99.0 82 18 110/70 97 Room Air 99.0 02/14/18 12:00 97.8 76 18 102/51 97 Room Air 97.8 02/14/18 10:23 69 16 Room Air Height (Feet): 5 Height (Inches): 4.00 Weight (Pounds): 135 HEENT: anicteric Respiratory/Chest: normal breath sounds Cardiovascular: regular rhythm Abdomen: no organomegaly Laboratory Tests Test 02/14/18 10:50 White Blood Count 7.3 K/UL (4.8-10.8) Red Blood Count 3.03 M/UL (4.20-5.40) L Hemoglobin 9.3 G/DL (12.0-16.0) L Hematocrit 27.9 % (37.0-47.0) L Mean Corpuscular Volume 92 FL (80-99) Mean Corpuscular Hemoglobin 30.7 PG (27.0-31.0) Mean Corpuscular Hemoglobin Concent 33.4 G/DL (32.0-36.0) Red Cell Distribution Width 12.8 % (11.6-14.8) Platelet Count 343 K/UL (150-450) Mean Platelet Volume 6.0 FL (6.5-10.1) L Neutrophils (%) (Auto) 63.9 % (45.0-75.0) Lymphocytes (%) (Auto) 21.8 % (20.0-45.0) Monocytes (%) (Auto) 10.9 % (1.0-10.0) H Eosinophils (%) (Auto) 1.8 % (0.0-3.0) Basophils (%) (Auto) 1.6 % (0.0-2.0) Sodium Level 135 MMOL/L (136-145) L Potassium Level 3.5 MMOL/L (3.5-5.1) Chloride Level 100 MMOL/L (98-107) Carbon Dioxide Level 30 MMOL/L (21-32) Anion Gap 5 mmol/L (5-15) Blood Urea Nitrogen 11 mg/dL (7-18) Creatinine 0.9 MG/DL (0.55-1.30) Estimat Glomerular Filtration Rate mL/min (>60) Glucose Level 158 MG/DL (74-106) H Calcium Level 8.7 MG/DL (8.5-10.1) Current Medications Medications (Trade) Dose Ordered Sig/Darwin Route PRN Reason Start Time Stop Time Status Last Admin Dose Admin Acetaminophen (Tylenol) 650 mg Q4H PRN ORAL fever (TEMP>100.3) 02/11/18 15:36 03/13/18 15:35 Acetaminophen/ Hydrocodone Bitart (Leggett ) 1 tab EVERY 6 HOURS PRN ORAL Severe Breakthru Pain (>7) 02/11/18 20:40 02/18/18 20:39 02/13/18 06:18 Albuterol/ Ipratropium (Albuterol/ Ipratropium) 3 ml Q4H PRN HHN Shortness of Breath 02/12/18 10:45 02/17/18 10:44 Ascorbic Acid (Vitamin C) 500 mg DAILY ORAL 02/14/18 09:00 03/15/18 08:59 02/15/18 08:34 Brimonidine Tartrate (Alphagan) 1 drop BID BOTH EYES 02/12/18 18:00 03/14/18 17:59 02/15/18 09:12 Buspirone HCl (Buspar) 10 mg THREE TIMES A DAY ORAL 02/13/18 18:00 03/14/18 17:59 02/15/18 08:33 Citalopram Hydrobromide (celeXA) 20 mg DAILY ORAL 02/14/18 10:00 03/16/18 09:59 02/15/18 08:34 Dextrose (Dextrose 50%) 25 ml STAT PRN IV Hypoglycemia BS 60-69mg/dl 02/11/18 15:38 03/13/18 15:37 Dextrose (Dextrose 50%) 50 ml STAT PRN IV Hypoglycemia BS less than 60mg 02/11/18 15:38 03/13/18 15:37 Docusate Sodium (Colace) 100 mg TWICE A DAY ORAL 02/13/18 18:00 03/14/18 17:59 02/15/18 08:32 Gabapentin (Neurontin) 100 mg TID ORAL 02/14/18 13:00 03/14/18 20:59 02/15/18 08:33 Heparin Sodium (Porcine) (Heparin 5000 units/ml) 5,000 units EVERY 12 HOURS SUBQ 02/13/18 21:00 03/14/18 20:59 02/15/18 08:52 Insulin Aspart (NovoLOG) BEFORE MEALS AND HS SUBQ 5/10/18 16:30 03/13/18 16:29 02/14/18 21:17 Lidocaine (Lidoderm 5% PATCH) 1 patch DAILY TDERMAL 02/14/18 09:00 03/14/18 08:59 02/15/18 08:35 Lorazepam (Ativan) 0.5 mg Q6H PRN ORAL For Anxiety 02/12/18 04:15 02/19/18 04:14 02/12/18 04:35 Metformin HCl (Glucophage) 500 mg BIAC ORAL 02/13/18 16:30 03/15/18 16:29 02/15/18 05:08 Morphine Sulfate (Morphine Sulfate) 4 mg Q4H PRN IVP For Pain (PAIN SCALE 7-10) 02/11/18 20:30 02/18/18 20:11 02/15/18 09:04 Multivitamins (Multivitamins) 1 tab DAILY ORAL 02/14/18 09:00 03/15/18 08:59 02/15/18 09:11 Nitroglycerin (Ntg) 0.4 mg STAT PRN SL Prn Chest Pain 02/11/18 15:36 03/13/18 15:35 Ondansetron HCl (Zofran) 4 mg Q6H PRN IVP Nausea & Vomiting 02/11/18 15:36 03/13/18 15:35 Polyethylene Glycol (Miralax) 17 gm DAILYPRN PRN ORAL Constipation 02/11/18 15:36 03/13/18 15:35 02/14/18 18:17 Temazepam (Restoril) 15 mg HSPRN PRN ORAL Insomnia 02/11/18 21:00 02/18/18 20:59 02/14/18 21:33 Timolol Maleate (Timoptic 0.5% Op Soln) 1 drop TWICE A DAY BOTH EYES 02/12/18 18:00 03/14/18 17:59 02/15/18 09:12 Jt Morin MD February 15, 2018 10:18
[2018-02-15 10:41] LABS: BASOPHILS % (AUTO) 0.9 % (0.0-2.0); HEMOGLOBIN 9.7 G/DL (12.0-16.0); LYMPHOCYTES % (AUTO) 21.3 % (20.0-45.0); MEAN CORPUSCULAR VOLUME 93 FL (80-99); MONOCYTES % (AUTO) 9.6 % (1.0-10.0); NEUTROPHILS % (AUTO) 66.3 % (45.0-75.0); PLATELET COUNT 382 K/UL (150-450); RED BLOOD COUNT 3.23 M/UL (4.20-5.40); RED CELL DISTRIBUTION WIDTH 13.1 % (11.6-14.8); WHITE BLOOD COUNT 7.8 K/UL (4.8-10.8)
[2018-02-15 11:05] LABS: ANION GAP 8 mmol/L (5-15); BLOOD UREA NITROGEN 10 mg/dL (7-18); CALCIUM 8.8 MG/DL (8.5-10.1); CARBON DIOXIDE 30 MMOL/L (21-32); CHLORIDE 100 MMOL/L (98-107); CREATININE 0.9 MG/DL (0.55-1.30); POTASSIUM 3.3 MMOL/L (3.5-5.1); SODIUM 138 MMOL/L (136-145)
[2018-02-15 12:00] VITALS: BP 90/50
--- NOTE | 2018-02-15 14:34 | Pulmonology Progress Note ---
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 (3) Peptic ulcer disease (4) Dehydration (5) Post-operative pain Assessment/Plan refused spinal xr yesterday, agreed today check electrolytes check pt/ptt pain control symptomatic treatment dc if xr negative Subjective ROS Limited/Unobtainable: No Constitutional: Reports: no symptoms HEENT: Repors: no symptoms Respiratory: Reports: no symptoms Allergies: Coded Allergies: No Known Allergies (Verified , 06/27/09) Objective Last 24 Hour Vital Signs Date Time Temp Pulse Resp B/P (MAP) Pulse Ox O2 Delivery O2 Flow Rate FiO2 02/15/18 13:41 97.5 02/15/18 13:11 97.5 02/15/18 12:00 97.5 69 14 90/50 98 Room Air 97.5 02/15/18 09:37 76 18 Room Air 21 02/15/18 09:04 97.8 02/15/18 08:00 97.8 77 15 108/60 99 Room Air 97.8 02/15/18 04:00 97.6 72 29 118/65 100 Room Air 97.6 02/15/18 00:00 99.1 74 19 114/53 100 Room Air 99.1 02/14/18 20:01 77 18 Room Air 21 02/14/18 20:00 99.5 76 19 114/59 98 Room Air 99.5 02/14/18 16:00 99.0 82 18 110/70 97 Room Air 99.0 Intake and Output 02/14/18 02/15/18 19:00 07:00 Output Total 1000 ml Balance -1000 ml Output Urine Total 1000 ml Objective General Appearance: no acute distress HEENT: normocephalic Respiratory/Chest: chest wall non-tender, lungs clear Breasts: no masses Cardiovascular: normal peripheral pulses, regularly irregular Abdomen: normal bowel sounds, soft, non tender Genitourinary: normal external genitalia Extremities: no clubbing Skin: no rash Laboratory Tests 02/15/18 10:10: White Blood Count 7.8, Red Blood Count 3.23L, Hemoglobin 9.7L, Hematocrit 30.0L , Mean Corpuscular Volume 93, Mean Corpuscular Hemoglobin 30.0, Mean Corpuscular Hemoglobin Concent 32.3, Red Cell Distribution Width 13.1, Platelet Count 382, Mean Platelet Volume 5.9L, Neutrophils (%) (Auto) 66.3, Lymphocytes ( %) (Auto) 21.3, Monocytes (%) (Auto) 9.6, Eosinophils (%) (Auto) 2.0, Basophils (%) (Auto) 0.9, Sodium Level 138, Potassium Level 3.3L, Chloride Level 100, Carbon Dioxide Level 30, Anion Gap 8, Blood Urea Nitrogen 10, Creatinine 0.9, Estimat Glomerular Filtration Rate , Glucose Level 134H, Calcium Level 8.8 Current Medications Medications (Trade) Dose Ordered Sig/Darwin Route PRN Reason Start Time Stop Time Status Last Admin Dose Admin Acetaminophen (Tylenol) 650 mg Q4H PRN ORAL fever (TEMP>100.3) 02/11/18 15:36 03/13/18 15:35 Acetaminophen/ Hydrocodone Bitart (Aroda 10) 1 tab EVERY 6 HOURS PRN ORAL Severe Breakthru Pain (>7) 02/11/18 20:40 02/18/18 20:39 02/13/18 06:18 Albuterol/ Ipratropium (Albuterol/ Ipratropium) 3 ml Q4H PRN HHN Shortness of Breath 02/12/18 10:45 02/17/18 10:44 Ascorbic Acid (Vitamin C) 500 mg DAILY ORAL 02/14/18 09:00 03/15/18 08:59 02/15/18 08:34 Brimonidine Tartrate (Alphagan) 1 drop BID BOTH EYES 02/12/18 18:00 03/14/18 17:59 02/15/18 09:12 Buspirone HCl (Buspar) 10 mg THREE TIMES A DAY ORAL 02/13/18 18:00 03/14/18 17:59 02/15/18 13:11 Citalopram Hydrobromide (celeXA) 20 mg DAILY ORAL 02/14/18 10:00 03/16/18 09:59 02/15/18 08:34 Dextrose (Dextrose 50%) 25 ml STAT PRN IV Hypoglycemia BS 60-69mg/dl 02/11/18 15:38 03/13/18 15:37 Dextrose (Dextrose 50%) 50 ml STAT PRN IV Hypoglycemia BS less than 60mg 02/11/18 15:38 03/13/18 15:37 Docusate Sodium (Colace) 100 mg TWICE A DAY ORAL 02/13/18 18:00 03/14/18 17:59 02/15/18 08:32 Gabapentin (Neurontin) 100 mg TID ORAL 02/14/18 13:00 03/14/18 20:59 02/15/18 13:10 Heparin Sodium (Porcine) (Heparin 5000 units/ml) 5,000 units EVERY 12 HOURS SUBQ 02/13/18 21:00 03/14/18 20:59 02/15/18 08:52 Insulin Aspart (NovoLOG) BEFORE MEALS AND HS SUBQ 02/11/18 16:30 03/13/18 16:29 02/14/18 21:17 Lidocaine (Lidoderm 5% PATCH) 1 patch DAILY TDERMAL 02/14/18 09:00 03/14/18 08:59 02/15/18 08:35 Lorazepam (Ativan) 0.5 mg Q6H PRN ORAL For Anxiety 02/12/18 04:15 02/19/18 04:14 02/12/18 04:35 Metformin HCl (Glucophage) 500 mg BIAC ORAL 02/13/18 16:30 03/15/18 16:29 02/15/18 05:08 Morphine Sulfate (Morphine Sulfate) 4 mg Q4H PRN IVP For Pain (PAIN SCALE 7-10) 02/11/18 20:30 02/18/18 20:11 02/15/18 13:11 Multivitamins (Multivitamins) 1 tab DAILY ORAL 02/14/18 09:00 03/15/18 08:59 02/15/18 09:11 Nitroglycerin (Ntg) 0.4 mg STAT PRN SL Prn Chest Pain 02/11/18 15:36 03/13/18 15:35 Ondansetron HCl (Zofran) 4 mg Q6H PRN IVP Nausea & Vomiting 02/11/18 15:36 03/13/18 15:35 Polyethylene Glycol (Miralax) 17 gm DAILYPRN PRN ORAL Constipation 02/11/18 15:36 03/13/18 15:35 02/14/18 18:17 Temazepam (Restoril) 15 mg HSPRN PRN ORAL Insomnia 02/11/18 21:00 02/18/18 20:59 02/14/18 21:33 Timolol Maleate (Timoptic 0.5% Op Soln) 1 drop TWICE A DAY BOTH EYES 02/12/18 18:00 03/14/18 17:59 02/15/18 09:12 Shannon Pang MD February 15, 2018 14:34
--- NOTE | 2018-02-15 15:01 | Diagnostic Imaging Report ---
Indication: Pain Technique: XRAY L Spine Ltd Comparison: Correlation made to images of the lumbar spine from CT of the abdomen and pelvis 02/11/2018 Findings: There are 5 nonrib-bearing lumbar-type vertebral bodies assuming 12 paired ribs. Lumbar lordosis is maintained. There is no evidence of acute fracture. No evidence suggest spondylolisthesis. There is very mild degenerative change. Some surgical clips noted projecting over the soft tissues of the hip. There is a right hip arthroplasty. IMPRESSION: No evidence of acute fracture or traumatic malalignment.
--- NOTE | 2018-02-15 15:50 | General Progress Note ---
Assessment/Plan Problem List: (1) UTI (urinary tract infection) ICD Codes: N39.0 - Urinary tract infection, site not specified SNOMED: 69094408 (2) Anemia ICD Codes: D64.9 - Anemia, unspecified SNOMED: 181339073 (3) SOB (shortness of breath) ICD Codes: R06.02 - Shortness of breath SNOMED: 096551900 (4) HTN (hypertension) ICD Codes: I10 - Essential (primary) hypertension SNOMED: 07283604 (5) Diabetes ICD Codes: E11.9 - Type 2 diabetes mellitus without complications SNOMED: 40048938 (6) Depressed ICD Codes: F32.9 - Major depressive disorder, single episode, unspecified SNOMED: 59073239 (7) Post-operative pain ICD Codes: G89.18 - Other acute postprocedural pain SNOMED: 618718449 (8) Dehydration (9) Fever ICD Codes: R50.9 - Fever, unspecified SNOMED: 080231058 Status: unchanged Assessment/Plan ot pt diet abx pain control dc plan if clear Subjective Constitutional: Reports: weakness Allergies: Coded Allergies: No Known Allergies (Verified , 06/27/09) All Systems: reviewed and negative except above Subjective sleepy calm in bed Objective Last 24 Hour Vital Signs Date Time Temp Pulse Resp B/P (MAP) Pulse Ox O2 Delivery O2 Flow Rate FiO2 02/15/18 13:41 97.5 02/15/18 13:11 97.5 02/15/18 12:00 97.5 69 14 90/50 98 Room Air 97.5 02/15/18 09:37 76 18 Room Air 21 02/15/18 09:04 97.8 02/15/18 08:00 97.8 77 15 108/60 99 Room Air 97.8 02/15/18 04:00 97.6 72 29 118/65 100 Room Air 97.6 02/15/18 00:00 99.1 74 19 114/53 100 Room Air 99.1 02/14/18 20:01 77 18 Room Air 21 02/14/18 20:00 99.5 76 19 114/59 98 Room Air 99.5 02/14/18 16:00 99.0 82 18 110/70 97 Room Air 99.0 Intake and Output 02/14/18 02/15/18 19:00 07:00 Output Total 1000 ml Balance -1000 ml Output Urine Total 1000 ml Laboratory Tests 02/15/18 10:10: White Blood Count 7.8, Red Blood Count 3.23L, Hemoglobin 9.7L, Hematocrit 30.0L , Mean Corpuscular Volume 93, Mean Corpuscular Hemoglobin 30.0, Mean Corpuscular Hemoglobin Concent 32.3, Red Cell Distribution Width 13.1, Platelet Count 382, Mean Platelet Volume 5.9L, Neutrophils (%) (Auto) 66.3, Lymphocytes ( %) (Auto) 21.3, Monocytes (%) (Auto) 9.6, Eosinophils (%) (Auto) 2.0, Basophils (%) (Auto) 0.9, Sodium Level 138, Potassium Level 3.3L, Chloride Level 100, Carbon Dioxide Level 30, Anion Gap 8, Blood Urea Nitrogen 10, Creatinine 0.9, Estimat Glomerular Filtration Rate , Glucose Level 134H, Calcium Level 8.8 Height (Feet): 5 Height (Inches): 4.00 Weight (Pounds): 135 General Appearance: lethargic EENT: normal ENT inspection Neck: normal alignment Cardiovascular: normal peripheral pulses, normal rate, regular rhythm Respiratory/Chest: chest wall non-tender, lungs clear, normal breath sounds Abdomen: normal bowel sounds, non tender, soft Extremities: normal inspection Edema: no edema noted Arm (L), no edema noted Arm (R), no edema noted Leg (L), no edema noted Leg (R), no edema noted Pedal (L), no edema noted Pedal (R), no edema noted Generalized Neurologic: responsive, motor weakness Skin: normal pigmentation, warm/dry Phan Nix DO February 15, 2018 15:50
[2018-02-15 16:00] VITALS: BP 136/66
[2018-02-15] MEDS ORDERED: ASCORBIC ACID500 MG ORAL (18:28)
[2018-02-15] MEDS ORDERED: CELEXA20 MG ORAL (18:29)
[2018-02-15] MEDS ORDERED: COLACE100 MG ORAL (18:30)
[2018-02-15] MEDS ORDERED: GABAPENTIN100 MG ORAL (18:30)
[2018-02-15] MEDS ORDERED: NOVOLOG100 UNIT/3 SUBQ (18:31)
[2018-02-15] MEDS ORDERED: LIDODERM700 M1 TOPIC (18:32)
[2018-02-15] MEDS ORDERED: METFORMIN HCL500 M1 ORAL (18:33)
[2018-02-15 20:00] VITALS: BP 115/56
[2018-02-15] MEDS: HYDROcodone/Acetamin 10/325 tab ORAL PRN (20:30)
[2018-02-15] MEDS: Miralax 17gm pkt ORAL PRN (20:30)
[2018-02-15] MEDS ORDERED: Lactulose 20gm/30ml UDC ORAL SCH (21:00)
[2018-02-15] MEDS ORDERED: Fleet's Enema 133ml RECTAL PRN (22:15)
[2018-02-15] MEDS ORDERED: FLEET ENEMA133 ML RECTAL (22:21)
--- NOTE | 2018-02-16 03:00 | Progress Note ---
DATE: 02/14/2018 NOTE: POOR AUDIO TREATING ATTENDING PHYSICIAN: Phan Nix D.O. SUBJECTIVE: The patient is a 77-year-old female patient. The patient has a history of depression. and is able to communicate . The patient is feeling slightly hopeless and depressed due to her current medical condition, however, states maintain positive attitude due to her current medical condition. MENTAL STATUS EXAMINATION: The patient is alert and oriented to person and place. Mood is dysphoric. Affect is blunted. Thought process is slightly disorganized with poor attention and concentration. PLAN: This clinician assessed this patient. Provided the patient with reality orientation, supportive psychotherapy. Encouraging the patient to participate in treatment milieu. Continue with behavioral management. This clinician has reviewed the patient's chart and discussed the treatment with treatment team. Gricelda Hernandez PsyD. DR: ERIC JOB#: [id number] CC:
--- NOTE | 2018-02-16 15:03 | Cardiology Report ---
APPROVED REPORT EKG Measurement Heart [id number] Normal sinus rhythm Nonspecific T wave abnormality Abnormal ECG
--- NOTE | 2018-02-17 05:01 | Progress Note ---
DATE: 02/15/2018 NOTE: POOR AUDIO PSYCHOTHERAPY CONSULTATION PROGRESS NOTE SUBJECTIVE: The patient is a 77-year-old female patient with a history of depression. The patient has been very helpless and dysphoric. Continues to remain in pain, however, has been very cooperative, states she has been laughable, but has bouts of confusion and disorganization, however, is redirectable and was able to . PLAN: This clinician assessed this patient and assessed the patient's mental status. Provide the patient with reality orientation and supportive psychotherapy. Encouraging the patient to participate in treatment milieu. Continue with behavioral management. This clinician has reviewed the patient's chart and discussed the treatment with treatment team. Gricelda Hernandez PsyD. DR: DEVON JOB#: [id number] CC:
--- NOTE | 2018-02-18 11:33 | Discharge Summary ---
Discharge Summary Discharge Summary Discharge Summary DATE OF ADMISSION: 02/11/2018 DATE OF DISCHARGE: 02/16/2018 CONSULTANTS: Dr. Shannon Hernandez [facility] H[facility] COURSE: Patient is a 77-year-old female, who was recently hospitalized for right hip fracture and had surgery, was discharged to [facility], developed fever and acute pain in the right leg. She was sent to ER for further evaluation. She has medical history significant for diabetes, coronary artery disease, CHF and hypertension. On evaluation at ED, patient had uncontrolled right hip pain. She was afebrile on evaluation. CT of the abdomen and pelvis showed no acute findings. Blood work showed WBC 11. Troponin was negative. EKG showed normal sinus rhythm with no acute changes. Chest x-ray showed no acute disease. She was evaluated for evaluation of fever. She underwent orthopedic evaluation. CT scan of the right hip series was reviewed, implant in good position, hemiarthroplasty in place with slight increase in leg length. There was no sign of infection, dislocation, periprosthetic infection. Recommend pain control and weightbearing as tolerated. She was seen by pain management and was given morphine 4 mg IV every 4 hours, [place] for severe breakthrough pain. She was started on Neurontin 100 mg daily at bedtime and Lidoderm patch topically. Neurontin was eventually increased to 3 times a day. Hip x-ray showed satisfactory alignment. Lumbar spine x-ray showed no acute evidence of fracture or traumatic malalignment. She has diabetes mellitus out of control. She was given insulin sliding scale and metformin 500 mg twice a day. She underwent psychiatric evaluation. She was diagnosed with major depressive disorder, mild and recurrent, without psychotic features. She was given Celexa 20 mg daily, BuSpar 10 mg 3 times a day and Ativan prn. She was given supportive psychotherapy. Patient had reported fever at the [facility]. No fever during hospitalization. She had mild leukocytosis, suspect reactive, resolved. There were no signs or evidence of infection. Surgical site with no infection. Urinalysis with 2-4 WBC, nitrite negative, leukocytes 2+. She was initially given IV vancomycin and cefepime at ED. She was seen by infectious disease specialist and was taken off antibiotic treatment and was monitored off antibiotics. Venous duplex of lower extremity was negative. Blood culture did not isolate any growth. Leukocytosis resolved. She was given potassium supplementation. She was eventually discharged back to [facility]. FINAL DIAGNOSES: Fever Postoperative pain Dehydration Recent right hip surgery Hypertension Diabetes mellitus out of control Major depressive disorder Hypokalemia Anemia Possible urinary tract infection Coronary artery disease CHF group home resident DISPOSITION: Patient was discharged to [facility]. DISCHARGE MEDICATIONS: Refer to Discharge Medication List. I have been assigned to dictate discharge summary on this account, and I was not involved in the patient's management. Gracy Ochoa NP February 18, 2018 11:33
--- NOTE | 2018-02-18 12:43 | Diagnostic Imaging Report ---
APPROVED REPORT CPT Code: 91255 Present Symptoms Comments: BILATERAL LEGS PAIN. BILATERAL: Imaging reveals a patent deep venous system bilaterally. There is no evidence of thrombus within the femoral, popliteal or tibial segments. The greater saphenous veins are also within normal limits. Doppler indicates normal spontaneous flow within these segments.
== END 2018-02-16 00:40 | DRG 948 ==
LOC: EDUNIT# 11:47 → EDBD 11:47 → EMR 13:02 → 4E 14:10 → EDBEDREQ 14:14 → 4E 15:28
DX: G89.18 Other acute postprocedural pain (principal); N39.0 Urinary tract infection, site not specified; F33.9 Major depressive disorder, recurrent, unspecified; M25.551 Pain in right hip; Z96.641 Presence of right artificial hip joint; D64.9 Anemia, unspecified; I11.0 Hypertensive heart disease with heart failure; I50.9 Heart failure, unspecified; B19.20 Unspecified viral hepatitis C without hepatic coma; R50.9 Fever, unspecified; E86.0 Dehydration; F32.9 Major depressive disorder, single episode, unspecified; E11.65 Type 2 diabetes mellitus with hyperglycemia; Z79.4 Long term (current) use of insulin; E87.6 Hypokalemia; I25.10 Atherosclerotic heart disease of native coronary artery without angina pectoris; I25.2 Old myocardial infarction; H54.8 Legal blindness, as defined in USA; K74.69 Other cirrhosis of liver; R06.02 Shortness of breath
CPT/HCPCS: 36415; 71045; 72020; 74177; 80048; 80053; 81001; 81003; 82248; 82550; 82553; 82962; 83605; 84484; 85025; 87040; 87081; 93005; 93970; 94664; 99285; J1815; J2405; J8499

== ENCOUNTER 2018-06-12 13:48 | Inpatient (IN) | payer MEDICARE, MEDICAID ==
[~2018-06-12] VITALS: Ht 162.6 cm; Wt 60.3 kg
[~2018-06-12 13:48] MED LIST changes: +AMLODIPINE BESY10 MG ORAL; +ASCORBIC ACID500 MG ORAL; +BRIMONIDINE TART5 ML BOTH EYES; +BUSPIRONE HCL5 M2 ORAL; +CELEXA20 MG ORAL; +COLACE100 MG ORAL; +DULCOLAX10 MG RC; +FLEET ENEMA133 ML RECTAL; +GABAPENTIN100 MG ORAL; +HUMULIN R100 UNIT/1 SUBQ; +IBUPROFEN600 MG ORAL; +LIDODERM700 M1 TOPIC; +METFORMIN HCL500 M1 ORAL; +MILK OF MA400 MG/51 ORAL; +MULTIVITAMINS1 EAC2 ORAL; +NORCO 5-325 TA1 EACH ORAL; +NOVOLOG100 UNIT/3 SUBQ; +SENNA LAXATIVE1 EAC1 PO; +TIMOPTIC 0.5%1 DROP BOTH EYES; +VISTARIL50 MG ORAL
[2018-06-12] MEDS ORDERED: Acetaminophen 650 MG SUPP RECTAL ONE (14:00)
--- NOTE | 2018-06-12 14:06 | Emergency Room Report ---
History of Present Illness General Chief Complaint: Fever Present Illness Allergies: Coded Allergies: No Known Allergies (Verified , 06/27/09) Patient History Past Medical History: see triage record, old chart reviewed Past Surgical History: other - reviewed per EMR Social History Narrative [facility] resident [facility] Now: No Nursing Documentation-[facility] Past Medical History: No History, Except For Hx Hypertension: Yes Hx Diabetes: Yes Hx Cancer: No Hx Neurological Problems: No Review of Systems All Other Systems: limited - frail patient gives limited hx Physical Exam Vital Signs Date Time Temp Pulse Resp B/P (MAP) Pulse Ox O2 Delivery O2 Flow Rate FiO2 06/12/18 13:42 102.0 94 16 113/58 91 Room Air 102.0 Sp02 EP Interpretation: reviewed, normal, abnormal General Appearance: no apparent distress, lethargic, other - very warm to touch , Chronically Ill Head: normocephalic, atraumatic Eyes: bilateral eye normal inspection, bilateral eye other - right eye opaque cataract left eye irregular large pupil ENT: hearing grossly normal, normal pharynx, no angioedema, normal voice, dry mucus membranes Neck: full range of motion, supple/symm/no masses Respiratory: no respiratory distress, no retraction, no accessory muscle use, decreased breath sounds, rales, speaking full sentences Cardiovascular #1: normal peripheral pulses, regular rate, rhythm, no edema, no gallop, no JVD, no murmur, no rub Cardiovascular #2: 2+ dorsalis pedis (R), 2+ dorsalis pedis (L) Gastrointestinal: normal bowel sounds, non tender, soft, non-distended, no guarding, no rebound Rectal: other - brown stool no decubitus ulcer Genitourinary: normal inspection, other - diaper full of stool Musculoskeletal: back normal Neurologic: responsive, speech normal Psychiatric: depressed affect Skin: normal color, no rash, warm/dry Medical Decision Making Diagnostic Impression: Primary Impression: UTI (urinary tract infection) Additional Impression: Fever ER Course ms. Brizuela presents with fever and reported hypoxia. repeat oxygen saturation 100 % on RA. No PNA on cxr. lactic 2. normal blood pressure. broad spectrum antibiotics initiated for UTI. Patient did tell nurse that she had abdominal pain. NO tenderness on examination. Do not suspect peritonitis. Dr. Nix PCP will admit EKG Diagnostic Results EKG Time: 14:02 Rate: normal, tachycardiac Rhythm: NSR Other Impression reate 96 bpm NSR nl axis nl intervals no ST elevation artifact present with wave baseline no gross ischemia Chest X-Ray Diagnostic Results Chest X-Ray Diagnostic Results : Chest X-Ray Ordered: Yes # of Views/Limited/Complete: 1 View Indication: Shortness of Breath PA Xray: Interpretation reviewed, by supervising MD Interpretation: no consolidation, no effusion, no pneumothorax Electronically Signed by: This image has been electronically signed by Dr. Yanelis Pro Last Vital Signs Date Time Temp Pulse Resp B/P (MAP) Pulse Ox O2 Delivery O2 Flow Rate FiO2 06/12/18 13:42 102.0 94 16 113/58 91 Room Air 102.0 Yanelis Pro MD Jun 12, 2018 14:06
[2018-06-12] MEDS: Cefepime HCl 2 GM in NS 110 ML IV SCH ×2 (14:27→22:00)
[2018-06-12 14:29] LABS: HEMOGLOBIN 13.3 G/DL (12.0-16.0); MEAN CORPUSCULAR VOLUME 93 FL (80-99); PLATELET COUNT 190 K/UL (150-450); RED BLOOD COUNT 4.28 M/UL (4.20-5.40); RED CELL DISTRIBUTION WIDTH 11.8 % (11.6-14.8); WHITE BLOOD COUNT 9.4 K/UL (4.8-10.8)
[2018-06-12 14:41] LABS: APPEARANCE,URINE SLIGHTLY CLOUDY; BILIRUBIN, URINE NEGATIVE (NEGATIVE); COLOR,URINE PALE YELLOW; GLUCOSE, URINE (UA) NEGATIVE (NEGATIVE); KETONES,URINE 2+ (NEGATIVE); LEUKOCYTE ESTERASE ,URINE 3+ (NEGATIVE); NITRITE,URINE POSITIVE (NEGATIVE); PH,URINE 6.5 (4.5-8.0); PROTEIN,URINE 1+ (NEGATIVE); UROBILINOGEN,URINE NORMAL MG/DL (0.0-1.0)
[2018-06-12 14:43] LABS: ANION GAP 9 mmol/L (5-15); BLOOD UREA NITROGEN 12 mg/dL (7-18); CALCIUM 10.1 MG/DL (8.5-10.1); CARBON DIOXIDE 28 MMOL/L (21-32); CHLORIDE 99 MMOL/L (98-107); CREATININE 1.1 MG/DL (0.55-1.30); POTASSIUM 3.7 MMOL/L (3.5-5.1); SODIUM 136 MMOL/L (136-145)
[2018-06-12 14:51] LABS: ALANINE AMINOTRANSFERASE 94 U/L (12-78); ALBUMIN 3.6 G/DL (3.4-5.0); ALBUMIN/GLOBULIN RATIO 0.7 (1.0-2.7); ALKALINE PHOSPHATASE 80 U/L (46-116); ASPARTATE AMINO TRANSFERASE 99 U/L (15-37)
--- NOTE | 2018-06-12 15:15 | Diagnostic Imaging Report ---
EXAM: XR Chest, 1 View CLINICAL HISTORY: SOB TECHNIQUE: Frontal view of the chest. COMPARISON: No relevant prior studies available. FINDINGS: Lungs: Minimal basilar scarring/atelectasis. No consolidation. Pleural space: Unremarkable. No pneumothorax. Heart: Unremarkable. No cardiomegaly. Mediastinum: Unremarkable. Bones/joints/soft tissues: Chest wall calcifications, potentially associated with breast implants IMPRESSION: Minimal basilar scarring/atelectasis. No consolidation.
[2018-06-12] MEDS ORDERED: Isovue-300 100ml vial INJ PRN (15:45)
[2018-06-12] MEDS ORDERED: Isovue-370 150ml vial INJ PRN (15:45)
[2018-06-12 16:04] VITALS: BP 147/79
[2018-06-12] MEDS ORDERED: LORAZEPAM1 MG ORAL (16:26)
[2018-06-12] MEDS ORDERED: CALCIUM 500 +1 EAC7 PO (16:28)
[2018-06-12] MEDS ORDERED: CRANBERRY400 MG PO (16:29)
[2018-06-12] MEDS ORDERED: DULCOLAX10 MG RC (16:29)
[2018-06-12] MEDS ORDERED: Fleet's Enema 133ml RECTAL PRN (16:45)
[2018-06-12] MEDS ORDERED: Albuterol/Ipratropium 3ml neb HHN PRN (16:45)
[2018-06-12] MEDS ORDERED: LEXAPRO5 MG ORAL (16:45)
[2018-06-12] MEDS ORDERED: Norco 5mg/325mg tab ORAL PRN (16:45)
[2018-06-12] MEDS ORDERED: Miralax 17gm pkt ORAL PRN (16:45)
[2018-06-12] MEDS ORDERED: TIMOPTIC 0.5%1 EACH OP (16:45)
[2018-06-12] MEDS ORDERED: Nitroglycerin Subl 0.4mg tab SL PRN (16:45)
[2018-06-12] MEDS ORDERED: Morphine Sulfate 2mg/ml Inj IVP PRN (16:45)
[2018-06-12] MEDS ORDERED: TRAMADOL HCL100 M2 ORAL (16:45)
[2018-06-12] MEDS ORDERED: VITAMIN C500 M1 ORAL (16:45)
[2018-06-12] MEDS ORDERED: ACETAMINOP160 MG/54 ORAL (16:45)
[2018-06-12] MEDS ORDERED: ACETAMINOPHEN500 MG ORAL (17:40)
[2018-06-12] MEDS ORDERED: ESCITALOPRAM OX10 MG ORAL (17:40)
[2018-06-12] MEDS ORDERED: ACETAMINOPHEN325 M1 ORAL (17:40)
[2018-06-12 17:48] VITALS: BP 136/79
[2018-06-12] MEDS ORDERED: Vancomycin 750mg/NS 250ml 250 ML IVPB SCH (18:00)
[2018-06-12] MEDS: Brimonidine 0.2% Opth Sol BOTH EYES SCH (18:00)
[2018-06-12] MEDS: Timolol 0.5% Op Soln 2.5ml BOTH EYES SCH (18:00)
[2018-06-12] MEDS: BusPIRone 5mg Tab ORAL SCH (18:32)
[2018-06-12 20:00] VITALS: BP 133/69
[2018-06-12] MEDS ORDERED: Cefepime HCl 2 GM in D5W 110 ML IV SCH (21:00)
[2018-06-12] MEDS: NovoLOG Insulin Flexpen SUBQ SCH (22:10)
[2018-06-12] MEDS: Heparin 5000 units/ml inj SUBQ SCH (22:11)
[2018-06-13] VITALS: BP 150/80
[2018-06-13 04:00] VITALS: BP 152/81
[2018-06-13] MEDS: NovoLOG Insulin Flexpen SUBQ SCH ×4 (06:30→21:07)
[2018-06-13 08:00] VITALS: BP 102/60
[2018-06-13 08:37] LABS: BASOPHILS % (AUTO) 0.2 % (0.0-2.0); HEMOGLOBIN 11.4 G/DL (12.0-16.0); LYMPHOCYTES % (AUTO) 10.4 % (20.0-45.0); MEAN CORPUSCULAR VOLUME 93 FL (80-99); MONOCYTES % (AUTO) 6.1 % (1.0-10.0); NEUTROPHILS % (AUTO) 83.2 % (45.0-75.0); PLATELET COUNT 145 K/UL (150-450); RED BLOOD COUNT 3.67 M/UL (4.20-5.40); RED CELL DISTRIBUTION WIDTH 11.8 % (11.6-14.8); WHITE BLOOD COUNT 16.7 K/UL (4.8-10.8)
[2018-06-13] MEDS: Timolol 0.5% Op Soln 2.5ml BOTH EYES SCH ×2 (08:53→17:18)
[2018-06-13] MEDS: Brimonidine 0.2% Opth Sol BOTH EYES SCH ×2 (08:53→17:18)
[2018-06-13] MEDS: BusPIRone 5mg Tab ORAL SCH ×3 (08:53→17:18)
[2018-06-13] MEDS: Citalopram Hydrobromide 10mg Tab ORAL SCH (08:53)
[2018-06-13] MEDS: Heparin 5000 units/ml inj SUBQ SCH ×2 (08:55→21:08)
[2018-06-13 10:32] LABS: ALANINE AMINOTRANSFERASE 75 U/L (12-78); ALBUMIN 2.9 G/DL (3.4-5.0); ALBUMIN/GLOBULIN RATIO 0.6 (1.0-2.7); ALKALINE PHOSPHATASE 55 U/L (46-116); ANION GAP 8 mmol/L (5-15); ASPARTATE AMINO TRANSFERASE 70 U/L (15-37); BILIRUBIN,TOTAL 1.1 MG/DL (0.2-1.0); BLOOD UREA NITROGEN 18 mg/dL (7-18); CALCIUM 9.1 MG/DL (8.5-10.1); CARBON DIOXIDE 26 MMOL/L (21-32); CHLORIDE 102 MMOL/L (98-107); CREATININE 1.4 MG/DL (0.55-1.30); SODIUM 136 MMOL/L (136-145)
[2018-06-13 10:45] LABS: BILIRUBIN,DIRECT 0.4 MG/DL (0.0-0.3)
[2018-06-13] MEDS: Meropenem 1 GM in NS 55 ML IVPB SCH ×2 (11:21→20:54)
[2018-06-13 12:00] VITALS: BP 100/56
[2018-06-13] MEDS ORDERED: LORazepam 1mg tab ORAL PRN ×2 (12:00→12:06)
--- NOTE | 2018-06-13 12:18 | Consultation ---
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 Workup revealed initially no leukocytosis, UA with evidence of UTI, lactic acid-2.0 , leukocytosis this am -16.7 mild anemia 11.4/34.0 stable electrolytes, creat up to 1.4 today elevated AST -99 and ALT- 94, Albumin 2.9 Patient admitted for further management Allergies: Coded Allergies: No Known Allergies (Verified , 06/27/09) Medication History Scheduled Amlodipine Besylate* (Amlodipine Besylate*), 10 MG ORAL DAILY, (Reported) Ascorbic Acid* (Vitamin C*), 500 MG ORAL DAILY, (Reported) Brimonidine Tartrate* (Alphagan*), 1 DROP BOTH EYES BID, (Reported) Buspirone HCl* (Buspirone HCl*), 10 MG ORAL THREE TIMES A DAY, (Reported) Calcium Carbonate/Vitamin D3 (Calcium 500 + Vit D3 400 Tab), 1 EACH PO DAILY, ( Reported) Citalopram Hydrobromide* (Celexa*), 20 MG ORAL DAILY, (Reported) Cranberry (Cranberry), 450 MG PO BID, (Reported) Docusate Sodium* (Colace*), 100 MG ORAL DAILY, (Reported) Escitalopram Oxalate (Escitalopram Oxalate*), 10 MG ORAL DAILY, (Reported) Gabapentin* (Gabapentin*), 100 MG ORAL THREE TIMES A DAY, (Reported) Lidocaine (Lidoderm), 1 PATCH TOPIC DAILY, (Reported) Metformin Hcl* (Metformin Hcl*), 500 MG ORAL BIDAC, (Reported) Multivitamins* (Multivitamins*), 1 TAB ORAL DAILY, (Reported) Timolol Maleate (Timolol Maleate), 1 DROP BOTH EYES TWICE A DAY, (Reported) Tramadol Hcl (Tramadol Hcl), 50 MG ORAL DAILY, (Reported) Scheduled PRN Acetaminophen* (Tylenol Extra Strength*), 1,000 MG ORAL Q4HR PRN for Moderate Pain (Pain Scale 4-6), (Reported) Acetaminophen* (Acetaminophen 325MG Tablet*), 650 MG ORAL Q4H PRN for Mild Pain (Pain Scale 1-3), (Reported) Bisacodyl (Dulcolax), 10 MG RC DAILY PRN for Constipation, (Reported) Hydrocodone Bit/Acetaminophen 5-325* ([place] 5-325*), 1 TAB ORAL Q4H PRN for For Pain, (Reported) Lorazepam* (Lorazepam*), 1 MG ORAL EVERY 6 HOURS PRN for For Anxiety, (Reported) Na Phos,M-B/Na Phos,Di-Ba* (Fleet Enema*), 133 ML RECTAL every 2 days PRN for Constipation, (Reported) Discontinued Medications Acetaminophen* (Acetaminophen*), 500 MG ORAL Q4HR PRN for Mild Pain/Temp > 100.5 , (Reported) Discontinued Reason: Prescription changed Acetaminophen* (Acetaminophen*), 325 MG ORAL Q4HR PRN for Mild Pain/Temp > 100.5 , (Reported) Discontinued Reason: Prescription changed Alprazolam (Xanax Xr), 3 MG PO, (Reported) Discontinued Reason: MD discontinued med Escitalopram Oxalate (Lexapro), 10 MG ORAL DAILY, (Reported) Discontinued Reason: Prescription changed Hydroxyzine Pamoate* (Vistaril*), 25 MG ORAL TID PRN for Restlessness, (Reported ) Discontinued Reason: MD discontinued med Ibuprofen* (Motrin*), 600 MG ORAL Q6H PRN for For Pain, (Reported) Discontinued Reason: MD discontinued med Insulin Aspart* (Novolog*), 0 SUBQ AC+HS, (Reported) Discontinued Reason: Pt stopped taking med Insulin Regular, Human (Humulin R), 0 SUBQ AC+HS, (Reported) Discontinued Reason: Pt stopped taking med Magnesium Hydroxide* (Milk Of Magnesia*), 30 ML ORAL DAILY PRN for Constipation, (Reported) Discontinued Reason: Pt stopped taking med Sennosides/Docusate Sodium (Senna Laxative Tablet), 2 EACH PO QHS, (Reported) Discontinued Reason: MD discontinued med Patient History History Provided By: Medical Record Healthcare decision maker Resuscitation status Full Code Advanced Directive on File No Past Medical/Surgical History Past Medical/Surgical History: (1) HTN (hypertension) (2) Diabetes (3) UTI (urinary tract infection) (4) 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 (5) Anxiety Review of Systems Eye: Reports: other - blindness bilateral ENT: Reports: no symptoms Respiratory: Reports: no symptoms Cardiovascular: Reports: other - HTN Gastrointestinal: Reports: other - hep C, cirrhosis Genitourinary: Reports: see HPI Psychiatric: Reports: other - anxiety Endocrine: Reports: other - diabetes Hematologic/Lymphatic: Reports: no symptoms ROS Narrative unable to obtain full ROS, patient a poor historian Physical Exam General Appearance: no apparent distress, other - frail elderly female Lines, tubes and drains: peripheral HEENT: normocephalic, atraumatic, anicteric Neck: supple Respiratory/Chest: lungs clear, no respiratory distress, no accessory muscle use Cardiovascular/Chest: normal rate, regular rhythm - SR on tele Abdomen: normal bowel sounds, non tender, soft Extremities: non-tender, no calf tenderness Neurologic: abnormal gait Last 24 Hour Vital Signs Date Time Temp Pulse Resp B/P (MAP) Pulse Ox O2 Delivery O2 Flow Rate FiO2 06/13/18 09:00 Room Air 06/13/18 08:53 69 102/60 06/13/18 08:00 69 18 Room Air 21 06/13/18 08:00 99.7 90 20 102/60 (74) 97 99.7 06/13/18 08:00 86 06/13/18 04:00 97.0 68 20 152/81 (104) 98 97.0 06/13/18 04:00 79 06/13/18 00:00 97.2 64 20 150/80 (103) 94 97.2 06/13/18 00:00 93 06/12/18 21:00 Room Air 06/12/18 20:00 97.2 83 20 133/69 (90) 98 97.2 06/12/18 20:00 103 06/12/18 18:30 98.6 06/12/18 18:00 102.0 06/12/18 17:48 102.0 101 20 136/79 (98) 97 102.0 06/12/18 17:40 Room Air 06/12/18 17:00 101.3 16 147/79 100 Room Air 101.3 06/12/18 16:04 101.3 16 147/79 100 Room Air 101.3 06/12/18 14:29 103.0 06/12/18 13:50 103.0 103.0 9/8/18 13:42 102.0 94 16 113/58 91 Room Air 102.0 Intake and Output 06/12/18 06/13/18 19:00 07:00 Intake Total 240 ml Output Total 200 ml Balance -200 ml 240 ml Intake Oral 240 ml Output Urine Total 200 ml # Voids 1 # Bowel Movements 1 Laboratory Tests Test 06/12/18 14:10 06/12/18 15:37 06/13/18 07:55 White Blood Count 9.4 K/UL (4.8-10.8) 16.7 K/UL (4.8-10.8) #H Red Blood Count 4.28 M/UL (4.20-5.40) 3.67 M/UL (4.20-5.40) L Hemoglobin 13.3 G/DL (12.0-16.0) 11.4 G/DL (12.0-16.0) L Hematocrit 40.0 % (37.0-47.0) 34.0 % (37.0-47.0) L Mean Corpuscular Volume 93 FL (80-99) 93 FL (80-99) Mean Corpuscular Hemoglobin 31.1 PG (27.0-31.0) H 31.1 PG (27.0-31.0) H Mean Corpuscular Hemoglobin Concent 33.3 G/DL (32.0-36.0) 33.5 G/DL (32.0-36.0) Red Cell Distribution Width 11.8 % (11.6-14.8) 11.8 % (11.6-14.8) Platelet Count 190 K/UL (150-450) 145 K/UL (150-450) L Mean Platelet Volume 6.8 FL (6.5-10.1) 7.8 FL (6.5-10.1) Neutrophils (%) (Auto) % (45.0-75.0) 83.2 % (45.0-75.0) H Lymphocytes (%) (Auto) % (20.0-45.0) 10.4 % (20.0-45.0) L Monocytes (%) (Auto) % (1.0-10.0) 6.1 % (1.0-10.0) Eosinophils (%) (Auto) % (0.0-3.0) 0.0 % (0.0-3.0) Basophils (%) (Auto) % (0.0-2.0) 0.2 % (0.0-2.0) Differential Total Cells Counted 100 Neutrophils % (Manual) 71 % (45-75) Lymphocytes % (Manual) 10 % (20-45) L Monocytes % (Manual) 1 % (1-10) Eosinophils % (Manual) 0 % (0-3) Basophils % (Manual) 0 % (0-2) Band Neutrophils 18 % (0-8) H Platelet Estimate Adequate Platelet Morphology Normal Red Blood Cell Morphology Normal Urine Color Pale yellow Urine Appearance Slightly cloudy Urine pH 6.5 (4.5-8.0) Urine Specific [place] 1.010 (1.005-1.035) Urine Protein 1+ (NEGATIVE) H Urine Glucose (UA) Negative (NEGATIVE) Urine Ketones 2+ (NEGATIVE) H Urine Blood 4+ (NEGATIVE) H Urine Nitrite Positive (NEGATIVE) H Urine Bilirubin Negative (NEGATIVE) Urine Urobilinogen Normal MG/DL (0.0-1.0) Urine Leukocyte Esterase 3+ (NEGATIVE) H Urine RBC 15-20 /HPF (0 - 2) H Urine WBC 20-30 /HPF (0 - 2) H Urine Squamous Epithelial Cells Occasional /LPF Urine Bacteria Many /HPF (NONE) H Sodium Level 136 MMOL/L (136-145) 136 MMOL/L (136-145) Potassium Level 3.7 MMOL/L (3.5-5.1) 4.0 MMOL/L (3.5-5.1) Chloride Level 99 MMOL/L (98-107) 102 MMOL/L (98-107) Carbon Dioxide Level 28 MMOL/L (21-32) 26 MMOL/L (21-32) Anion Gap 9 mmol/L (5-15) 8 mmol/L (5-15) Blood Urea Nitrogen 12 mg/dL (7-18) 18 mg/dL (7-18) Creatinine 1.1 MG/DL (0.55-1.30) 1.4 MG/DL (0.55-1.30) H Estimat Glomerular Filtration Rate mL/min (>60) mL/min (>60) Glucose Level 145 MG/DL (74-106) H 106 MG/DL (74-106) Lactic Acid Level 2.00 mmol/L (0.4-2.0) 1.90 mmol/L (0.66-2.22) Calcium Level 10.1 MG/DL (8.5-10.1) 9.1 MG/DL (8.5-10.1) Total Bilirubin 1.0 MG/DL (0.2-1.0) 1.1 MG/DL (0.2-1.0) H Aspartate Amino Transf (AST/SGOT) 99 U/L (15-37) H 70 U/L (15-37) H Alanine Aminotransferase (ALT/SGPT) 94 U/L (12-78) H 75 U/L (12-78) Alkaline Phosphatase 80 U/L (46-116) 55 U/L (46-116) Total Protein 9.1 G/DL (6.4-8.2) H 7.8 G/DL (6.4-8.2) Albumin 3.6 G/DL (3.4-5.0) 2.9 G/DL (3.4-5.0) L Globulin 5.5 g/dL 4.9 g/dL Albumin/Globulin Ratio 0.7 (1.0-2.7) L 0.6 (1.0-2.7) L Direct Bilirubin 0.4 MG/DL (0.0-0.3) H Microbiology Date/Time Source Procedure Growth Status 06/12/18 14:10 Blood Blood Culture - Preliminary Resulted 06/12/18 14:10 Straight Cath Urine Culture - Preliminary Gram Negative Bacillus 1 Resulted Height (Feet): 5 Height (Inches): 4.00 Weight (Pounds): 126 Medications Current Medications Medications (Trade) Dose Ordered Sig/Darwin Route PRN Reason Start Time Stop Time Status Last Admin Dose Admin Acetaminophen (Tylenol) 650 mg Q4H PRN ORAL fever 06/12/18 16:45 07/12/18 16:44 06/12/18 18:00 Acetaminophen/ Hydrocodone Bitart ([place] 5/325) 1 tab Q4H PRN ORAL Moderate Pain (Pain Scale 4-6) 06/12/18 16:45 06/19/18 16:44 Albuterol/ Ipratropium (Albuterol/ Ipratropium) 3 ml Q4H PRN HHN Shortness of Breath 06/12/18 16:45 06/17/18 16:44 Amlodipine Besylate (Norvasc) 10 mg DAILY ORAL 06/13/18 09:00 07/13/18 08:59 Barium Sulfate (Readi-Cat 2) 450 ml NOW PRN ORAL Radiology Procedure 06/12/18 15:45 06/14/18 15:42 Brimonidine Tartrate (Alphagan) 1 drop BID BOTH EYES 06/12/18 18:00 07/12/18 17:59 06/13/18 08:53 Buspirone HCl (Buspar) 10 mg THREE TIMES A DAY ORAL 06/12/18 18:00 07/12/18 17:59 06/13/18 08:53 Citalopram Hydrobromide (celeXA) 20 mg DAILY ORAL 06/13/18 09:00 07/13/18 08:59 06/13/18 08:53 Dextrose (Dextrose 50%) STAT PRN IV Hypoglycemia 06/12/18 16:45 07/12/18 16:44 Gabapentin (Neurontin) 100 mg THREE TIMES A DAY ORAL 06/12/18 18:00 07/12/18 17:59 06/13/18 08:53 Heparin Sodium (Porcine) (Heparin 5000 units/ml) 5,000 units EVERY 12 HOURS SUBQ 06/12/18 21:00 07/12/18 20:59 06/13/18 08:55 Insulin Aspart (NovoLOG) BEFORE MEALS AND HS SUBQ 06/12/18 21:00 07/12/18 20:59 06/13/18 11:30 Iopamidol (Isovue-300 100ml) 100 ml NOW PRN INJ Radiology Procedure 06/12/18 15:45 Iopamidol (Isovue-370 150ml) 150 ml NOW PRN INJ Radiology Procedure 06/12/18 15:45 06/14/18 15:45 Lorazepam (Ativan) 1 mg PRN PRN ORAL For Anxiety 06/13/18 12:00 06/20/18 11:59 UNV Meropenem 1 gm/ Sodium Chloride 55 ml @ 110 mls/hr EVERY 12 HOURS IVPB 06/13/18 11:00 06/18/18 10:59 06/13/18 11:21 Morphine Sulfate (Morphine Sulfate) 2 mg Q4H PRN IVP Moderate Pain (Pain Scale 4-6) 06/12/18 16:45 06/19/18 16:44 Nitroglycerin (Ntg) 0.4 mg Q5M PRN SL Prn Chest Pain 06/12/18 16:45 07/12/18 16:44 Ondansetron HCl (Zofran) 4 mg Q6H PRN IVP Nausea & Vomiting 06/12/18 16:45 07/12/18 16:44 Polyethylene Glycol (Miralax) 17 gm DAILYPRN PRN ORAL Constipation 06/12/18 16:45 07/12/18 16:44 Sodium Phosphate (Fleet's Sodium Phosl Enema) 133 ml Q12H PRN RECTAL Constipation 06/12/18 16:45 07/12/18 16:44 Temazepam (Restoril) 15 mg HSPRN PRN ORAL Insomnia 06/12/18 16:45 06/19/18 16:44 Timolol Maleate (Timoptic 0.5% Op Soln) 1 drop TWICE A DAY BOTH EYES 06/12/18 18:00 07/12/18 17:59 06/13/18 08:53 Assessment/Plan Assessment/Plan ASSESSMENT Sepsis with gram-negative bacteremia (likely secondary to UTI) UTI hypotension Transaminitis Liver cirrhosis due to hep C Acute kidney injury Hypertension Diabetes mellitus Blindness Mild anemia Probably protein calorie malnutrition Anxiety PLAN OF CARE Antibiotic urine cx + GNB, blood cx + GNR, bacteremia likely secondary to UTI ID follows IV fluids monitor renal parameters , electrolytes correct electrolytes prn and avoid nephrotoxic acute kidney injury probably due to sepsis monitor BP closely, IVF watch for early shock DVT prophylaxis O2 HHN prn BS management with SSI trend LFT, elevated LFT likely secondary to history of hepatitis C and cirrhosis PT/OT fall precautions bowel regimen resume eyedrops monitor HH with goal to keep Hgb above 7 dietary eval supportive care DNR/DNI status transfer to [facility] floor when BP stable case discussed and evaluated by supervising physician Katie Rose NP Jun 13, 2018 12:18
[2018-06-13 16:00] VITALS: BP 116/61
--- NOTE | 2018-06-13 19:15 | History and Physical Report ---
DATE OF ADMISSION: 06/12/2018 TIME SEEN: 8 a.m. ATTENDING PHYSICIAN: Phan Nix D.O. CONSULTANTS: 1. Jt Morin M.D. 2. Shannon Pang M.D. CHIEF COMPLAINT: Weakness, lethargy, confusion, UTI, and sepsis. BRIEF HISTORY: This is a 77-year-old female from [facility], presents to [facility] ER last night with increased confusion and lethargy. She was found to have UTI, sepsis, fever, and weakness and admitted to telemetry for further care. Currently, slightly anxious in bed, oriented x3, no acute distress. PAST MEDICAL HISTORY: Includes hypertension, diabetes, and cirrhosis due to hepatitis C. PAST SURGICAL HISTORY: Hip surgery. MEDICATIONS: Include Norvasc, Celexa, cefepime, NovoLog, Alphagan, buspirone, vancomycin, hydrocodone, IV fluids, Zofran, and temazepam. ALLERGIES: Denies. SOCIAL HISTORY: No smoking. No alcohol. No intravenous drug abuse. FAMILY HISTORY: Noncontributory. REVIEW OF SYSTEMS: No chest pain. Slight short of breath. No nausea, vomiting, or diarrhea. PHYSICAL EXAMINATION: GENERAL: Slightly anxious in bed, oriented x2, in no acute distress. VITAL SIGNS: Temperature 97 degrees, pulse 68, respirations 20, blood pressure 152/81. CARDIOVASCULAR: No murmur. LUNGS: Distant and clear. ABDOMEN: Bowel sounds positive. Nontender. Nondistended. EXTREMITIES: No cyanosis or edema. NEUROLOGIC: The patient moves all extremities slightly weak, especially lower extremities. LABORATORY AND DIAGNOSTIC DATA: Show CBC is normal. BMP shows glucose 145. AST 99 and ALT 94, otherwise normal. Urinalysis show 3+ leukocyte esterase, 4+ blood, 2+ ketone, and many urine bacteria. ASSESSMENT: 1. Urinary tract infection. 2. Weakness. 3. Sepsis. 4. Fever. 5. Shortness of breath. 6. Cirrhosis of liver. 7. Hepatitis C. 8. Diabetes. 9. Hypertension. PLAN: 1. O2 and pulmonary treatment as needed. 2. Antibiotics per Infectious Disease. 3. Blood pressure and blood sugar control. 4. OT, PT, and dietary followup. 5. CBC and BMP in the morning. Phan Nix D.O. DR: Romaine JOB#: [id number] CC:
[2018-06-13 20:00] VITALS: BP 118/60
[2018-06-14] VITALS: BP 109/58
[2018-06-14 04:00] VITALS: BP 112/62
[2018-06-14] MEDS: NovoLOG Insulin Flexpen SUBQ SCH ×4 (06:48→21:13)
[2018-06-14 07:40] LABS: BASOPHILS % (AUTO) 0.3 % (0.0-2.0); EOSINOPHILS % (AUTO) 0.5 % (0.0-3.0); HEMATOCRIT 31.8 % (37.0-47.0); HEMOGLOBIN 10.5 G/DL (12.0-16.0); LYMPHOCYTES % (AUTO) 14.3 % (20.0-45.0); MEAN CORPUSCULAR VOLUME 94 FL (80-99); NEUTROPHILS % (AUTO) 76.8 % (45.0-75.0); PLATELET COUNT 133 K/UL (150-450); RED CELL DISTRIBUTION WIDTH 11.9 % (11.6-14.8); WHITE BLOOD COUNT 11.4 K/UL (4.8-10.8)
[2018-06-14 08:00] VITALS: BP 146/94
[2018-06-14 08:11] LABS: ALANINE AMINOTRANSFERASE 60 U/L (12-78); ALBUMIN 2.6 G/DL (3.4-5.0); ALBUMIN/GLOBULIN RATIO 0.5 (1.0-2.7); ALKALINE PHOSPHATASE 58 U/L (46-116); ANION GAP 9 mmol/L (5-15); ASPARTATE AMINO TRANSFERASE 55 U/L (15-37); BILIRUBIN,TOTAL 1.1 MG/DL (0.2-1.0); BLOOD UREA NITROGEN 12 mg/dL (7-18); CALCIUM 9.2 MG/DL (8.5-10.1); CARBON DIOXIDE 25 MMOL/L (21-32); CHLORIDE 106 MMOL/L (98-107); CREATININE 0.9 MG/DL (0.55-1.30); POTASSIUM 3.4 MMOL/L (3.5-5.1); SODIUM 140 MMOL/L (136-145)
--- NOTE | 2018-06-14 08:29 | Consultation ---
History of Present Illness General Date patient seen: Jun 14, 2018 Chief Complaint: Fever Referring physician: dr Nix Reason for Consultation: Urosepsis Present Illness HPI Ms Brizuela is a 77 yo female who presented to the ED on 06/12/18 with confusion and lethargy. She was sent form her nuring home. In the ED she had sepsis with fever to 103 and a positive UA. She was alert and oriented at the time. ID was consulted for UTI Today she reports that she does not know what happened. She remembers being in her wheel chair and then waking up in the hospital. She monterroso not remember being ill. She does report that [facility] the [facility] that [place] not get changed as fast as she would like so she tend to hold her urine. She denies any fever, chill, dysuria, pain or SOB. PMHx HTN DM Hep C with cirrhosis PSHx Hip surgery SoxHx Lives at a nuring home No E/T/D FamHx DM and HTN Allergies: Coded Allergies: No Known Allergies (Verified , 06/27/09) Medication History Scheduled Amlodipine Besylate* (Amlodipine Besylate*), 10 MG ORAL DAILY, (Reported) Ascorbic Acid* (Vitamin C*), 500 MG ORAL DAILY, (Reported) Brimonidine Tartrate* (Alphagan*), 1 DROP BOTH EYES BID, (Reported) Buspirone HCl* (Buspirone HCl*), 10 MG ORAL THREE TIMES A DAY, (Reported) Calcium Carbonate/Vitamin D3 (Calcium 500 + Vit D3 400 Tab), 1 EACH PO DAILY, ( Reported) Citalopram Hydrobromide* (Celexa*), 20 MG ORAL DAILY, (Reported) Cranberry (Cranberry), 450 MG PO BID, (Reported) Docusate Sodium* (Colace*), 100 MG ORAL DAILY, (Reported) Escitalopram Oxalate (Escitalopram Oxalate*), 10 MG ORAL DAILY, (Reported) Gabapentin* (Gabapentin*), 100 MG ORAL THREE TIMES A DAY, (Reported) Lidocaine (Lidoderm), 1 PATCH TOPIC DAILY, (Reported) Metformin Hcl* (Metformin Hcl*), 500 MG ORAL BIDAC, (Reported) Multivitamins* (Multivitamins*), 1 TAB ORAL DAILY, (Reported) Timolol Maleate (Timolol Maleate), 1 DROP BOTH EYES TWICE A DAY, (Reported) Tramadol Hcl (Tramadol Hcl), 50 MG ORAL DAILY, (Reported) Scheduled PRN Acetaminophen* (Tylenol Extra Strength*), 1,000 MG ORAL Q4HR PRN for Moderate Pain (Pain Scale 4-6), (Reported) Acetaminophen* (Acetaminophen 325MG Tablet*), 650 MG ORAL Q4H PRN for Mild Pain (Pain Scale 1-3), (Reported) Bisacodyl (Dulcolax), 10 MG RC DAILY PRN for Constipation, (Reported) Hydrocodone Bit/Acetaminophen 5-325* ([place] 5-325*), 1 TAB ORAL Q4H PRN for For Pain, (Reported) Lorazepam* (Lorazepam*), 1 MG ORAL EVERY 6 HOURS PRN for For Anxiety, (Reported) Na Phos,M-B/Na Phos,Di-Ba* (Fleet Enema*), 133 ML RECTAL every 2 days PRN for Constipation, (Reported) Discontinued Medications Acetaminophen* (Acetaminophen*), 500 MG ORAL Q4HR PRN for Mild Pain/Temp > 100.5 , (Reported) Discontinued Reason: Prescription changed Acetaminophen* (Acetaminophen*), 325 MG ORAL Q4HR PRN for Mild Pain/Temp > 100.5 , (Reported) Discontinued Reason: Prescription changed Alprazolam (Xanax Xr), 3 MG PO, (Reported) Discontinued Reason: MD discontinued med Escitalopram Oxalate (Lexapro), 10 MG ORAL DAILY, (Reported) Discontinued Reason: Prescription changed Hydroxyzine Pamoate* (Vistaril*), 25 MG ORAL TID PRN for Restlessness, (Reported ) Discontinued Reason: MD discontinued med Ibuprofen* (Motrin*), 600 MG ORAL Q6H PRN for For Pain, (Reported) Discontinued Reason: MD discontinued med Insulin Aspart* (Novolog*), 0 SUBQ AC+HS, (Reported) Discontinued Reason: Pt stopped taking med Insulin Regular, Human (Humulin R), 0 SUBQ AC+HS, (Reported) Discontinued Reason: Pt stopped taking med Magnesium Hydroxide* (Milk Of Magnesia*), 30 ML ORAL DAILY PRN for Constipation, (Reported) Discontinued Reason: Pt stopped taking med Sennosides/Docusate Sodium (Senna Laxative Tablet), 2 EACH PO QHS, (Reported) Discontinued Reason: MD discontinued med Patient History Healthcare decision maker Resuscitation status Full Code Advanced Directive on File No Review of Systems All Other Systems: negative except mentioned in HPI Physical Exam Last 24 Hour Vital Signs Date Time Temp Pulse Resp B/P (MAP) Pulse Ox O2 Delivery O2 Flow Rate FiO2 06/14/18 04:00 97.7 70 18 112/62 (79) 98 97.7 06/14/18 04:00 73 06/14/18 00:00 86 06/14/18 00:00 97.5 80 18 109/58 (75) 97 97.5 06/13/18 23:01 97.3 06/13/18 22:31 101.5 06/13/18 21:00 Room Air 06/13/18 20:00 101.5 89 18 118/60 (79) 96 101.5 06/13/18 20:00 84 06/13/18 20:00 90 18 Room Air 21 06/13/18 16:00 101 06/13/18 16:00 97.7 97 18 116/61 (79) 96 97.7 06/13/18 12:00 97.2 92 17 100/56 (71) 92 97.2 06/13/18 12:00 86 06/13/18 09:00 Room Air 06/13/18 08:53 69 102/60 Intake and Output 06/13/18 06/14/18 19:00 07:00 Intake Total 845 ml 40 ml Balance 845 ml 40 ml Intake Oral 360 ml 40 ml IV Total 485 ml # Voids 3 2 # Bowel Movements 1 5 Laboratory Tests Test 06/14/18 07:15 White Blood Count 11.4 K/UL (4.8-10.8) H Red Blood Count 3.40 M/UL (4.20-5.40) L Hemoglobin 10.5 G/DL (12.0-16.0) L Hematocrit 31.8 % (37.0-47.0) L Mean Corpuscular Volume 94 FL (80-99) Mean Corpuscular Hemoglobin 31.0 PG (27.0-31.0) Mean Corpuscular Hemoglobin Concent 33.1 G/DL (32.0-36.0) Red Cell Distribution Width 11.9 % (11.6-14.8) Platelet Count 133 K/UL (150-450) L Mean Platelet Volume 7.2 FL (6.5-10.1) Neutrophils (%) (Auto) 76.8 % (45.0-75.0) H Lymphocytes (%) (Auto) 14.3 % (20.0-45.0) L Monocytes (%) (Auto) 8.0 % (1.0-10.0) Eosinophils (%) (Auto) 0.5 % (0.0-3.0) Basophils (%) (Auto) 0.3 % (0.0-2.0) Sodium Level Pending Potassium Level Pending Chloride Level Pending Carbon Dioxide Level Pending Blood Urea Nitrogen Pending Creatinine Pending Estimat Glomerular Filtration Rate Pending Glucose Level Pending Calcium Level Pending Total Bilirubin Pending Aspartate Amino Transf (AST/SGOT) Pending Alanine Aminotransferase (ALT/SGPT) Pending Alkaline Phosphatase Pending Total Protein Pending Albumin Pending Globulin Pending Height (Feet): 5 Height (Inches): 4.00 Weight (Pounds): 126 Medications Current Medications Medications (Trade) Dose Ordered Sig/Dawrin Route PRN Reason Start Time Stop Time Status Last Admin Dose Admin Acetaminophen (Tylenol) 650 mg Q4H PRN ORAL fever 06/12/18 16:45 07/12/18 16:44 06/13/18 22:31 Acetaminophen/ Hydrocodone Bitart ([place] 5/325) 1 tab Q4H PRN ORAL Moderate Pain (Pain Scale 4-6) 06/12/18 16:45 06/19/18 16:44 Albuterol/ Ipratropium (Albuterol/ Ipratropium) 3 ml Q4H PRN HHN Shortness of Breath 06/12/18 16:45 06/17/18 16:44 Amlodipine Besylate (Norvasc) 5 mg DAILY ORAL 06/14/18 09:00 07/13/18 08:59 Barium Sulfate (Readi-Cat 2) 450 ml NOW PRN ORAL Radiology Procedure 06/12/18 15:45 06/14/18 15:42 Brimonidine Tartrate (Alphagan) 1 drop BID BOTH EYES 06/12/18 18:00 07/12/18 17:59 06/13/18 17:18 Buspirone HCl (Buspar) 10 mg THREE TIMES A DAY ORAL 06/12/18 18:00 10/8/18 17:59 06/13/18 17:18 Citalopram Hydrobromide (celeXA) 20 mg DAILY ORAL 06/13/18 09:00 07/13/18 08:59 06/13/18 08:53 Dextrose (Dextrose 50%) STAT PRN IV Hypoglycemia 06/12/18 16:45 07/12/18 16:44 Gabapentin (Neurontin) 100 mg THREE TIMES A DAY ORAL 06/12/18 18:00 07/12/18 17:59 06/13/18 17:18 Heparin Sodium (Porcine) (Heparin 5000 units/ml) 5,000 units EVERY 12 HOURS SUBQ 06/12/18 21:00 07/12/18 20:59 06/13/18 21:08 Insulin Aspart (NovoLOG) BEFORE MEALS AND HS SUBQ 06/12/18 21:00 07/12/18 20:59 06/14/18 06:48 Iopamidol (Isovue-300 100ml) 100 ml NOW PRN INJ Radiology Procedure 06/12/18 15:45 Iopamidol (Isovue-370 150ml) 150 ml NOW PRN INJ Radiology Procedure 06/12/18 15:45 06/14/18 15:45 Lorazepam (Ativan) 1 mg Q6H PRN ORAL For Anxiety 06/13/18 12:06 06/20/18 12:05 06/13/18 12:53 Meropenem 1 gm/ Sodium Chloride 55 ml @ 110 mls/hr EVERY 12 HOURS IVPB 06/13/18 11:00 06/18/18 10:59 06/13/18 20:54 Morphine Sulfate (Morphine Sulfate) 2 mg Q4H PRN IVP Moderate Pain (Pain Scale 4-6) 06/12/18 16:45 06/19/18 16:44 Nitroglycerin (Ntg) 0.4 mg Q5M PRN SL Prn Chest Pain 06/12/18 16:45 07/12/18 16:44 Ondansetron HCl (Zofran) 4 mg Q6H PRN IVP Nausea & Vomiting 06/12/18 16:45 07/12/18 16:44 Polyethylene Glycol (Miralax) 17 gm DAILYPRN PRN ORAL Constipation 06/12/18 16:45 07/12/18 16:44 Sodium Chloride 1,000 ml @ 75 mls/hr [id number] IV 06/13/18 12:21 07/13/18 12:20 06/14/18 02:38 Sodium Phosphate (Fleet's Sodium Phosl Enema) 133 ml Q12H PRN RECTAL Constipation 06/12/18 16:45 07/12/18 16:44 Temazepam (Restoril) 15 mg HSPRN PRN ORAL Insomnia 06/12/18 16:45 06/19/18 16:44 Timolol Maleate (Timoptic 0.5% Op Soln) 1 drop TWICE A DAY BOTH EYES 06/12/18 18:00 07/12/18 17:59 06/13/18 17:18 Objective Narrative Gen: NAD, well appearing, alert HEENT: NCAT, MMM, EOMI, PERRL, No Oral lesion, no scleral icterus NECK: full range of motion, supple, no meningismus, No LAD, No JVD LUNGS: CTAB, No W/C, No Accessory muscle use CARDS: RRR, S1, S2, No M/R/G, ABD: Soft, NT, ND, No R/G, + BS, No HSM, No Masses : Deferred Ext: C/C/E, Pulses 2+ B/L (DP, Rad): NEURO: A/O x 4, Strength and Sensation Grossly intact PSYCH: mood/affect normal SKIN: warm/dry, No rashes, Assessment/Plan Assessment/Plan 77 yo female who presented to the ED on 06/12/18 with confusion and lethargy. Urosepeis - GNR UTI U/B Cx 06/12/18 - GNR Fever - Resolved Leukocytosis - Improving HTN DM Hep C with cirrhosis Plan Continue Cefepime #1 pending Cx D/C vancomycin f/u cultures Supportive care Thank you for this consult. We will continue to follow the patient during this hospitalization. Wicho Dash MD Jun 14, 2018 08:29
[2018-06-14 08:37] LABS: BILIRUBIN,DIRECT 0.4 MG/DL (0.0-0.3)
[2018-06-14] MEDS: Citalopram Hydrobromide 10mg Tab ORAL SCH (08:53)
[2018-06-14] MEDS: Brimonidine 0.2% Opth Sol BOTH EYES SCH ×2 (08:53→17:03)
[2018-06-14] MEDS: BusPIRone 5mg Tab ORAL SCH ×3 (08:53→17:04)
[2018-06-14] MEDS: Timolol 0.5% Op Soln 2.5ml BOTH EYES SCH ×2 (08:53→17:05)
[2018-06-14] MEDS: Heparin 5000 units/ml inj SUBQ SCH ×2 (08:54→21:00)
[2018-06-14] MEDS: Meropenem 1 GM in NS 55 ML IVPB SCH ×2 (08:56→21:12)
--- NOTE | 2018-06-14 11:15 | General Progress Note ---
Assessment/Plan Problem List: (1) Fever ICD Codes: R50.9 - Fever, unspecified SNOMED: 675975502 (2) Diabetes ICD Codes: E11.9 - Type 2 diabetes mellitus without complications SNOMED: 39796357 (3) HTN (hypertension) ICD Codes: I10 - Essential (primary) hypertension SNOMED: 85653940 (4) UTI (urinary tract infection) ICD Codes: N39.0 - Urinary tract infection, site not specified SNOMED: 22848702 (5) Anxiety ICD Codes: F41.9 - Anxiety disorder, unspecified SNOMED: 11025295 Status: stable, progressing Assessment/Plan ot pt diet abx cbc bmp am Subjective Constitutional: Reports: weakness Allergies: Coded Allergies: No Known Allergies (Verified , 06/27/09) All Systems: reviewed and negative except above Subjective awake feelng better Objective Last 24 Hour Vital Signs Date Time Temp Pulse Resp B/P (MAP) Pulse Ox O2 Delivery O2 Flow Rate FiO2 06/14/18 09:00 Room Air 06/14/18 08:53 73 143/77 06/14/18 08:11 71 18 Room Air 21 06/14/18 08:00 70 06/14/18 08:00 97.3 87 18 146/94 (111) 97 97.3 06/14/18 04:00 97.7 70 18 112/62 (79) 98 97.7 06/14/18 04:00 73 06/14/18 00:00 86 06/14/18 00:00 97.5 80 18 109/58 (75) 97 97.5 06/13/18 23:01 97.3 06/13/18 22:31 101.5 06/13/18 21:00 Room Air 06/13/18 20:00 101.5 89 18 118/60 (79) 96 101.5 06/13/18 20:00 84 06/13/18 20:00 90 18 Room Air 21 06/13/18 16:00 101 06/13/18 16:00 97.7 97 18 116/61 (79) 96 97.7 06/13/18 12:00 97.2 92 17 100/56 (71) 92 97.2 06/13/18 12:00 86 Intake and Output 06/13/18 06/14/18 19:00 07:00 Intake Total 845 ml 40 ml Balance 845 ml 40 ml Intake Oral 360 ml 40 ml IV Total 485 ml # Voids 3 2 # Bowel Movements 1 5 Laboratory Tests 06/14/18 07:15: White Blood Count 11.4H, Red Blood Count 3.40L, Hemoglobin 10.5L, Hematocrit 31.8L, Mean Corpuscular Volume 94, Mean Corpuscular Hemoglobin 31.0, Mean Corpuscular Hemoglobin Concent 33.1, Red Cell Distribution Width 11.9, Platelet Count 133L, Mean Platelet Volume 7.2, Neutrophils (%) (Auto) 76.8H, Lymphocytes (%) (Auto) 14.3L, Monocytes (%) (Auto) 8.0, Eosinophils (%) (Auto) 0.5, Basophils (%) (Auto) 0.3, Sodium Level 140, Potassium Level 3.4L, Chloride Level 106, Carbon Dioxide Level 25, Anion Gap 9, Blood Urea Nitrogen 12, Creatinine 0.9, Estimat Glomerular Filtration Rate , Glucose Level 120H, Calcium Level 9.2, Total Bilirubin 1.1H, Direct Bilirubin 0.4H, Aspartate Amino Transf (AST/SGOT) 55H, Alanine Aminotransferase (ALT/SGPT) 60, Alkaline Phosphatase 58, Total Protein 7.4, Albumin 2.6L, Globulin 4.8, Albumin/Globulin Ratio 0.5L Height (Feet): 5 Height (Inches): 4.00 Weight (Pounds): 126 General Appearance: alert EENT: normal ENT inspection Neck: normal alignment Cardiovascular: normal peripheral pulses, normal rate, regular rhythm Respiratory/Chest: chest wall non-tender, lungs clear, normal breath sounds Abdomen: normal bowel sounds, non tender, soft Extremities: normal inspection Edema: no edema noted Arm (L), no edema noted Arm (R), no edema noted Leg (L), no edema noted Leg (R), no edema noted Pedal (L), no edema noted Pedal (R), no edema noted Generalized Neurologic: responsive, motor weakness Skin: normal pigmentation, warm/dry Phan Nix DO Jun 14, 2018 11:15
--- NOTE | 2018-06-14 11:32 | Pulmonology Progress Note ---
Assessment/Plan Assessment/Plan ASSESSMENT Sepsis with gram-negative bacteremia (likely secondary to UTI) UTI with E coli hypotension -improving Transaminitis Liver cirrhosis due to hep C Acute kidney injury Hypertension Diabetes mellitus Blindness Mild anemia Probably protein calorie malnutrition Anxiety PLAN OF CARE Antibiotic urine cx + E coli , blood cx + GNR, bacteremia likely secondary to UTI ID follows IV fluids monitor renal parameters , electrolytes correct electrolytes prn and avoid nephrotoxic acute kidney injury probably due to sepsis , resolved monitor BP closely, IVF BP better DVT prophylaxis O2 HHN prn BS management with SSI trend LFT, elevated LFT likely secondary to history of hepatitis C and cirrhosis PT/OT fall precautions bowel regimen resume eyedrops monitor HH with goal to keep Hgb above 7 dietary eval supportive care DNR/DNI status transfer to MS floor transfer to MS floor when BP stable Subjective Allergies: Coded Allergies: No Known Allergies (Verified , 06/27/09) Subjective fever last night, currently afebrile leukocytosis trending down creat down to normal K-3.4 BP stable Objective Last 24 Hour Vital Signs Date Time Temp Pulse Resp B/P (MAP) Pulse Ox O2 Delivery O2 Flow Rate FiO2 06/14/18 09:00 Room Air 06/14/18 08:53 73 143/77 06/14/18 08:11 71 18 Room Air 21 06/14/18 08:00 70 06/14/18 08:00 97.3 87 18 146/94 (111) 97 97.3 06/14/18 04:00 97.7 70 18 112/62 (79) 98 97.7 06/14/18 04:00 73 06/14/18 00:00 86 06/14/18 00:00 97.5 80 18 109/58 (75) 97 97.5 06/13/18 23:01 97.3 06/13/18 22:31 101.5 06/13/18 21:00 Room Air 06/13/18 20:00 101.5 89 18 118/60 (79) 96 101.5 06/13/18 20:00 84 06/13/18 20:00 90 18 Room Air 21 06/13/18 16:00 101 06/13/18 16:00 97.7 97 18 116/61 (79) 96 97.7 06/13/18 12:00 97.2 92 17 100/56 (71) 92 97.2 06/13/18 12:00 86 Intake and Output 06/13/18 06/14/18 19:00 07:00 Intake Total 845 ml 40 ml Balance 845 ml 40 ml Intake Oral 360 ml 40 ml IV Total 485 ml # Voids 3 2 # Bowel Movements 1 5 Objective General Appearance: no apparent distress, awake, responsive, frail elderly female Lines, tubes and drains: peripheral HEENT: normocephalic, atraumatic, anicteric Neck: supple Respiratory/Chest: lungs clear, no respiratory distress, no accessory muscle use Cardiovascular/Chest: normal rate, regular rhythm - SR on tele Abdomen: normal bowel sounds, non tender, soft Extremities: non-tender, no calf tenderness Neurologic: abnormal gait Microbiology Date/Time Source Procedure Growth Status 06/12/18 15:31 Blood Blood Culture - Preliminary NO GROWTH AFTER 24 HOURS Resulted 06/12/18 14:10 Blood Blood Culture - Preliminary Gram Negative Bacillus 1 Resulted 06/12/18 14:10 Nasal Nares MRSA Culture - Final Staphylococcus Aureus - Mrsa Complete 06/12/18 14:10 Straight Cath Urine Culture - Final Escherichia Coli Complete 06/12/18 14:10 Rectum VRE Culture - Final NO VANCOMYCIN RESISTANT ENTEROCOCCUS ... Complete 06/12/18 14:10 Rectum - Final NO CARBAPENEM-RESISTANT ENTEROBACTERI... Complete Laboratory Tests 06/14/18 07:15: White Blood Count 11.4H, Red Blood Count 3.40L, Hemoglobin 10.5L, Hematocrit 31.8L, Mean Corpuscular Volume 94, Mean Corpuscular Hemoglobin 31.0, Mean Corpuscular Hemoglobin Concent 33.1, Red Cell Distribution Width 11.9, Platelet Count 133L, Mean Platelet Volume 7.2, Neutrophils (%) (Auto) 76.8H, Lymphocytes (%) (Auto) 14.3L, Monocytes (%) (Auto) 8.0, Eosinophils (%) (Auto) 0.5, Basophils (%) (Auto) 0.3, Sodium Level 140, Potassium Level 3.4L, Chloride Level 106, Carbon Dioxide Level 25, Anion Gap 9, Blood Urea Nitrogen 12, Creatinine 0.9, Estimat Glomerular Filtration Rate , Glucose Level 120H, Calcium Level 9.2, Total Bilirubin 1.1H, Direct Bilirubin 0.4H, Aspartate Amino Transf (AST/SGOT) 55H, Alanine Aminotransferase (ALT/SGPT) 60, Alkaline Phosphatase 58, Total Protein 7.4, Albumin 2.6L, Globulin 4.8, Albumin/Globulin Ratio 0.5L Current Medications Medications (Trade) Dose Ordered Sig/Darwin Route PRN Reason Start Time Stop Time Status Last Admin Dose Admin Acetaminophen (Tylenol) 650 mg Q4H PRN ORAL fever 06/12/18 16:45 07/12/18 16:44 06/13/18 22:31 Acetaminophen/ Hydrocodone Bitart ([place] 5/325) 1 tab Q4H PRN ORAL Moderate Pain (Pain Scale 4-6) 06/12/18 16:45 06/19/18 16:44 Albuterol/ Ipratropium (Albuterol/ Ipratropium) 3 ml Q4H PRN HHN Shortness of Breath 06/12/18 16:45 06/17/18 16:44 Amlodipine Besylate (Norvasc) 5 mg DAILY ORAL 06/14/18 09:00 07/13/18 08:59 06/14/18 08:53 Barium Sulfate (Readi-Cat 2) 450 ml NOW PRN ORAL Radiology Procedure 06/12/18 15:45 06/14/18 15:42 Brimonidine Tartrate (Alphagan) 1 drop BID BOTH EYES 06/12/18 18:00 07/12/18 17:59 06/14/18 08:53 Buspirone HCl (Buspar) 10 mg THREE TIMES A DAY ORAL 06/12/18 18:00 07/12/18 17:59 06/14/18 08:53 Citalopram Hydrobromide (celeXA) 20 mg DAILY ORAL 06/13/18 09:00 07/13/18 08:59 06/14/18 08:53 Dextrose (Dextrose 50%) STAT PRN IV Hypoglycemia 06/12/18 16:45 07/12/18 16:44 Gabapentin (Neurontin) 100 mg THREE TIMES A DAY ORAL 06/12/18 18:00 07/12/18 17:59 06/14/18 08:53 Heparin Sodium (Porcine) (Heparin 5000 units/ml) 5,000 units EVERY 12 HOURS SUBQ 06/12/18 21:00 07/12/18 20:59 06/13/18 21:08 Insulin Aspart (NovoLOG) BEFORE MEALS AND HS SUBQ 06/12/18 21:00 07/12/18 20:59 06/14/18 06:48 Iopamidol (Isovue-300 100ml) 100 ml NOW PRN INJ Radiology Procedure 06/12/18 15:45 Iopamidol (Isovue-370 150ml) 150 ml NOW PRN INJ Radiology Procedure 06/12/18 15:45 06/14/18 15:45 Lorazepam (Ativan) 1 mg Q6H PRN ORAL For Anxiety 06/13/18 12:06 06/20/18 12:05 06/13/18 12:53 Meropenem 1 gm/ Sodium Chloride 55 ml @ 110 mls/hr EVERY 12 HOURS IVPB 06/13/18 11:00 06/18/18 10:59 06/14/18 08:56 Morphine Sulfate (Morphine Sulfate) 2 mg Q4H PRN IVP Moderate Pain (Pain Scale 4-6) 06/12/18 16:45 06/19/18 16:44 Nitroglycerin (Ntg) 0.4 mg Q5M PRN SL Prn Chest Pain 06/12/18 16:45 07/12/18 16:44 Ondansetron HCl (Zofran) 4 mg Q6H PRN IVP Nausea & Vomiting 06/12/18 16:45 07/12/18 16:44 Polyethylene Glycol (Miralax) 17 gm DAILYPRN PRN ORAL Constipation 06/12/18 16:45 07/12/18 16:44 Sodium Chloride 1,000 ml @ 75 mls/hr [id number] IV 06/13/18 12:21 07/13/18 12:20 06/14/18 02:38 Sodium Phosphate (Fleet's Sodium Phosl Enema) 133 ml Q12H PRN RECTAL Constipation 06/12/18 16:45 07/12/18 16:44 Temazepam (Restoril) 15 mg HSPRN PRN ORAL Insomnia 06/12/18 16:45 06/19/18 16:44 Timolol Maleate (Timoptic 0.5% Op Soln) 1 drop TWICE A DAY BOTH EYES 06/12/18 18:00 07/12/18 17:59 06/14/18 08:53 Katie Rose CHAIN SPLITTER Jun 14, 2018 11:32
[2018-06-14 12:00] VITALS: BP 129/72
--- NOTE | 2018-06-14 13:15 | Consultation ---
DATE OF CONSULTATION: 06/13/2018 NOTE: "VERY POOR AUDIO QUALITY" INITIAL PSYCHIATRIC EVALUATION CONSULTING PHYSICIAN: Juany Sullivan M.D. REFERRING PHYSICIAN: Phan Nix D.O. HISTORY OF PRESENT ILLNESS: The patient is a 77-year-old female patient. She is admitted to [facility] secondary to fever of unknown origin. She is very confused with high levels of anxiety and depression. She only states that she is thinking she is going to soon and she wants to write a will to her family and friends before she passes. she states that multiple times throughout the interview and she is convinced that she may pass the patient she does not seem to be in she states she has been having perseverating thoughts about causing her to be tearful. ALLERGIES: She has no known drug allergies. SOCIAL HISTORY: Lives in a private residence. Financially supported by [employer] and Medicare. SUBSTANCE ABUSE HISTORY: Denies any use of drug or alcohol use. PSYCHIATRIC HISTORY: Major depressive disorder. MEDICATIONS: Her psychotropic medications on admission, this patient is currently on Celexa 20 mg daily and Ativan 1 mg every 6 hours p.r.n. for agitation. STRENGTHS: She is motivated to get better . WEAKNESSES: Minimal support system. MENTAL STATUS EXAMINATION: This is a 77-year-old female patient. Appearance is disheveled. Attitude, irritable and agitated. Affect, guarded and restricted. Intellect poor. Mood depressed and anxious. Motor activity, psychomotor agitation. Attention span is poor. Orientation x2. Speech is pressured. Thought process, disorganized and illogical. Thought content, slight paranoia. Insight and judgment is poor. DIAGNOSIS: Major depressive disorder, severe, recurrent without psychotic features, rule out pseudodementia. PLAN: My plan for this patient, I am going to. her Celexa to 40 mg daily. I am going to add Neurontin mg three times a day to reduce anxiety. Provided 20 minutes of cognitive behavioral therapy. During the cognitive behavioral therapy session, we identified automatic negative thoughts and used techniques of cognitive behavioral therapy to transform negative thoughts to more positive thoughts to reduce depression and anxiety. That was 20-minute session. I would like to thank Dr. Phan Nix for this interesting consultation. I will be happy to follow this patient with you throughout the hospital course. Chart reviewed. Discussed with staff. Seen and assessed at bedside. Juany Sullivan M.D. DR: Pavithra JOB#: [id number] CC:
--- NOTE | 2018-06-14 13:30 | Progress Note ---
DATE: 06/14/2018 NOTE: POOR AUDIO SUBJECTIVE: This is a 77-year-old female patient, who had fever, confusion, disorganized thought process, bipolar disorder, mood lability. She has got no logical plan for her own self care. interview. That is why, her attending has requested daily psychiatric consultation. the patient's depression and anxiety. MENTAL STATUS EXAMINATION: This is a 77-year-old female patient. Appearance disheveled. Attitude, irritable and agitated. Affect, guarded and restricted. Intellect poor. Mood is depressed and anxious. Motor activity, psychomotor agitation. Attention span is poor. Orientation x2. Speech is pressured. Thought process, disorganized and illogical. Insight and judgment is poor. DIAGNOSIS: Major depressive disorder, severe, recurrent without psychotic features, rule out pseudodementia. PLAN: I am going to treat the patient with 40 mg a day, Neurontin 300 mg a day. Provided 20 minutes of cognitive behavior therapy by identifying her automatic negative thoughts and help her to convert those negative thoughts to more positive thoughts. . Juany Sullivan M.D. DR: SUSAN JOB#: [id number] CC:
[2018-06-14] MEDS ORDERED: Nitroglycerin Subl 0.4mg tab SL PRN (14:30)
[2018-06-14] MEDS ORDERED: Albuterol/Ipratropium 3ml neb HHN PRN (15:00)
[2018-06-14] MEDS ORDERED: Fleet's Enema 133ml RECTAL PRN (15:00)
[2018-06-14] MEDS ORDERED: Norco 5mg/325mg tab ORAL PRN (15:00)
[2018-06-14] MEDS ORDERED: Miralax 17gm pkt ORAL PRN (15:00)
[2018-06-14] MEDS ORDERED: Isovue-300 100ml vial INJ PRN (15:45)
[2018-06-14] MEDS ORDERED: Isovue-370 150ml vial INJ PRN (15:45)
[2018-06-14 16:27] VITALS: BP 117/70
[2018-06-14] MEDS: LORazepam 1mg tab ORAL PRN (17:55)
[2018-06-14 20:00] VITALS: BP 112/62
[2018-06-15] VITALS: BP 130/65
--- NOTE | 2018-06-15 00:15 | Consultation ---
DATE OF CONSULTATION: 06/13/2018 NOTE: POOR AUDIO PSYCHOTHERAPY CONSULTATION PROGRESS NOTE CONSULTING PHYSICIAN: Gricelda Hernandez PsyD. TREATING ATTENDING PHYSICIAN: Phan Nix D.O. HISTORY: This is a 77-year-old female patient from [facility]. The patient was admitted to the hospital for weakness, continued lethargy, and UTI. This patient has a mental illness including depression and confusion. For this reason, the patient is referred for psychotherapeutic services. This clinician assessed this patient. The patient and that she has many negative family relationships and the patient states that she has been feeling very depressed and states she always forgets as she does not want to . PAST MEDICAL HISTORY: Includes a history of hypertension, cirrhosis due to hepatitis, and diabetes. ALLERGIES: The patient has no known drug allergies. SUBSTANCE ABUSE HISTORY: The patient denies history of alcohol use, illicit substance use, or smoking. PSYCHIATRIC HISTORY: The patient has a history of depression, has been treated with psychotropic medications in the past. SOCIAL HISTORY: The patient is a 77-year-old female patient from [facility], financially sustained through [employer]. MENTAL STATUS EXAMINATION: The patient is alert and oriented to person, place, and time. Her mood is dysphoric. Affect blunted. Thought process, disorganized. Thought content, confused. She has poor attention and concentration. Poor insight, judgment, and impulse control. DIAGNOSIS: AXIS I: Major depressive disorder, recurrent and moderate, without psychotic features. PLAN: Provided the patient with supportive psychotherapy, reality orientation, . Encouraging the patient to participate in treatment milieu. Continue with behavioral management. This clinician has reviewed the patient's chart and discussed the treatment with treatment team. Gricelda Hernandez PsyD. DR: ERIC JOB#: [id number] CC:
[2018-06-15 04:00] VITALS: BP 131/66
[2018-06-15] MEDS: NovoLOG Insulin Flexpen SUBQ SCH ×4 (06:30→21:11)
[2018-06-15 06:48] LABS: BASOPHILS % (AUTO) 1.2 % (0.0-2.0); EOSINOPHILS % (AUTO) 0.7 % (0.0-3.0); HEMATOCRIT 31.7 % (37.0-47.0); HEMOGLOBIN 10.4 G/DL (12.0-16.0); LYMPHOCYTES % (AUTO) 18.5 % (20.0-45.0); MEAN CORPUSCULAR VOLUME 94 FL (80-99); MONOCYTES % (AUTO) 10.8 % (1.0-10.0); NEUTROPHILS % (AUTO) 68.9 % (45.0-75.0); PLATELET COUNT 135 K/UL (150-450); RED BLOOD COUNT 3.39 M/UL (4.20-5.40); RED CELL DISTRIBUTION WIDTH 11.8 % (11.6-14.8); WHITE BLOOD COUNT 6.9 K/UL (4.8-10.8)
[2018-06-15 06:52] LABS: ANION GAP 6 mmol/L (5-15); BLOOD UREA NITROGEN 6 mg/dL (7-18); CALCIUM 9.3 MG/DL (8.5-10.1); CARBON DIOXIDE 26 MMOL/L (21-32); CHLORIDE 105 MMOL/L (98-107); CREATININE 0.7 MG/DL (0.55-1.30); POTASSIUM 3.4 MMOL/L (3.5-5.1); SODIUM 137 MMOL/L (136-145)
--- NOTE | 2018-06-15 07:30 | Consultation ---
DATE OF CONSULTATION: 06/15/2018 CONSULTING PHYSICIAN: Juany Sullivan M.D. HISTORY OF PRESENT ILLNESS: This is a 77-year-old female patient with altered mental status and confusion. She still has some high levels of anxiety, depression, and mood lability, worsened by stress of her medical illness. That is why her attending physician has requested daily psychiatric consultation. MENTAL STATUS EXAMINATION: This is a 77-year-old female. Appearance is disheveled. Attitude, irritable and agitated. Affect, guarded and restricted. Intellect poor. Mood depressed and anxious. Motor activity, psychomotor agitation. Attention span is poor. Orientation x2. Speech is pressured. Thought process, disorganized and illogical. Thought content, auditory hallucinations and paranoid delusions. Insight and judgment are poor. PLAN: As far as the plans for this patient, I am going to titrate her up with Neurontin 300 mg three times a day because she is complaining of high levels of anxiety and syncope, appears to be very mood labile. Also, continue BuSpar 10 mg 3 times a day. Provided with 20 minutes of cognitive behavior therapy. We identified her automatic negative thoughts and helped her to convert those to more positive thoughts to reduce depression and anxiety and encourage her to interact appropriately with staff and other patients. I am going to continue her on Celexa 20 mg for depression and anxiety. I am going to titrate that up to a dose of 40 mg daily. Provided 20 minutes of cognitive behavior therapy. We identified automatic negative thoughts and helped her to convert those to more positive thoughts. Chart was reviewed. Discussed with staff. Seen and assessed at bedside. Juany Sullivan M.D. DR: LUPE JOB#: [id number] CC:
[2018-06-15 08:00] VITALS: BP 119/69
--- NOTE | 2018-06-15 08:20 | Infectious Diseases Prog Note ---
Assessment/Plan Assessment/Plan 77 yo female who presented to the ED on 06/12/18 with confusion and lethargy. Urosepeis - GNR UTI U/B Cx 06/12/18 - GNR Fever - Resolved Leukocytosis - Improving HTN DM Hep C with cirrhosis Plan Start Ceftriaxone #10/15 (End date 06/25/18) - Could switch to oral Bactrim one D/C D/C Meropenem #2 06/13 SP Cefepime #1 06/13 SP vancomycin Monitor CBC and temps Supportive care We will continue to follow the patient during this hospitalization. Subjective Allergies: Coded Allergies: No Known Allergies (Verified , 06/27/09) Subjective Patient aferbile No acute event No complaints today Objective Vital Signs Last 24 Hour Vital Signs Date Time Temp Pulse Resp B/P (MAP) Pulse Ox O2 Delivery O2 Flow Rate FiO2 06/15/18 04:00 99.5 74 18 131/66 (87) 98 99.5 06/15/18 00:00 98.0 71 18 130/65 (86) 97 98.0 06/14/18 21:00 Room Air 06/14/18 20:00 98.8 69 18 112/62 (79) 100 98.8 06/14/18 20:00 87 18 Room Air 21 06/14/18 16:27 97.6 71 18 117/70 (86) 99 97.6 06/14/18 14:56 Room Air 06/14/18 12:00 97.3 69 18 129/72 (91) 99 97.3 06/14/18 12:00 71 06/14/18 09:00 Room Air 06/14/18 08:53 73 143/77 Height (Feet): 5 Height (Inches): 4.00 Weight (Pounds): 126 Objective Gen: NAD, well appearing, alert HEENT: NCAT, MMM, EOMI, no scleral icterus LUNGS: CTAB, No W/C, CARDS: RRR, S1, S2, No M/R/G, ABD: Soft, NT, ND, No R/G, + BS Ext: C/C/E, Pulses 2+ B/L (DP, Rad): NEURO: A/O x 4, Strength and Sensation Grossly intact Microbiology Date/Time Source Procedure Growth Status 06/12/18 15:31 Blood Blood Culture - Preliminary NO GROWTH AFTER 48 HOURS Resulted 06/12/18 14:10 Blood Blood Culture - Final Escherichia Coli Complete 06/12/18 14:10 Nasal Nares MRSA Culture - Final Staphylococcus Aureus - Mrsa Complete 06/12/18 14:10 Straight Cath Urine Culture - Final Escherichia Coli Complete 06/12/18 14:10 Rectum VRE Culture - Final NO VANCOMYCIN RESISTANT ENTEROCOCCUS ... Complete 06/12/18 14:10 Rectum - Final NO CARBAPENEM-RESISTANT ENTEROBACTERI... Complete Laboratory Tests Test 06/15/18 05:35 White Blood Count 6.9 K/UL (4.8-10.8) Red Blood Count 3.39 M/UL (4.20-5.40) L Hemoglobin 10.4 G/DL (12.0-16.0) L Hematocrit 31.7 % (37.0-47.0) L Mean Corpuscular Volume 94 FL (80-99) Mean Corpuscular Hemoglobin 30.6 PG (27.0-31.0) Mean Corpuscular Hemoglobin Concent 32.7 G/DL (32.0-36.0) Red Cell Distribution Width 11.8 % (11.6-14.8) Platelet Count 135 K/UL (150-450) L Mean Platelet Volume 7.7 FL (6.5-10.1) Neutrophils (%) (Auto) 68.9 % (45.0-75.0) Lymphocytes (%) (Auto) 18.5 % (20.0-45.0) L Monocytes (%) (Auto) 10.8 % (1.0-10.0) H Eosinophils (%) (Auto) 0.7 % (0.0-3.0) Basophils (%) (Auto) 1.2 % (0.0-2.0) Sodium Level 137 MMOL/L (136-145) Potassium Level 3.4 MMOL/L (3.5-5.1) L Chloride Level 105 MMOL/L (98-107) Carbon Dioxide Level 26 MMOL/L (21-32) Anion Gap 6 mmol/L (5-15) Blood Urea Nitrogen 6 mg/dL (7-18) L Creatinine 0.7 MG/DL (0.55-1.30) Estimat Glomerular Filtration Rate mL/min (>60) Glucose Level 99 MG/DL (74-106) Calcium Level 9.3 MG/DL (8.5-10.1) Current Medications Medications (Trade) Dose Ordered Sig/Darwin Route PRN Reason Start Time Stop Time Status Last Admin Dose Admin Acetaminophen (Tylenol) 650 mg Q4H PRN ORAL T>100.5 06/14/18 15:00 07/12/18 14:59 Acetaminophen/ Hydrocodone Bitart ([place] 5/325) 1 tab Q4H PRN ORAL Moderate Pain (Pain Scale 4-6) 06/14/18 15:00 06/19/18 14:59 Albuterol/ Ipratropium (Albuterol/ Ipratropium) 3 ml Q4H PRN HHN Shortness of Breath 06/14/18 15:00 06/17/18 14:59 Amlodipine Besylate (Norvasc) 5 mg DAILY ORAL 06/15/18 09:00 07/13/18 08:59 Barium Sulfate (Readi-Cat 2) 450 ml NOW PRN ORAL Radiology Procedure 06/14/18 15:45 06/16/18 15:42 Brimonidine Tartrate (Alphagan) 1 drop BID BOTH EYES 06/14/18 18:00 07/12/18 17:59 06/14/18 17:03 Buspirone HCl (Buspar) 10 mg THREE TIMES A DAY ORAL 06/14/18 18:00 07/12/18 17:59 06/14/18 17:04 Citalopram Hydrobromide (celeXA) 40 mg DAILY ORAL 06/15/18 09:00 07/13/18 08:59 Dextrose (Dextrose 50%) 25 ml PRN IV hypoglycemia 06/14/18 14:45 07/14/18 14:44 Dextrose (Dextrose 50%) 50 ml PRN IV hypoglycemia 06/14/18 14:45 07/14/18 14:44 Gabapentin (Neurontin) 300 mg THREE TIMES A DAY ORAL 06/15/18 09:00 07/12/18 17:59 Heparin Sodium (Porcine) (Heparin 5000 units/ml) 5,000 units EVERY 12 HOURS SUBQ 06/14/18 21:00 07/12/18 20:59 Insulin Aspart (NovoLOG) BEFORE MEALS AND HS SUBQ 06/14/18 16:30 07/12/18 20:59 06/14/18 21:13 Iopamidol (Isovue-300 100ml) 100 ml NOW PRN INJ Radiology Procedure 06/14/18 15:45 06/16/18 15:44 Iopamidol (Isovue-370 150ml) 150 ml NOW PRN INJ Radiology Procedure 06/14/18 15:45 06/16/18 15:45 Lorazepam (Ativan) 1 mg Q6H PRN ORAL For Anxiety 06/14/18 15:00 06/20/18 14:59 06/14/18 17:55 Meropenem 1 gm/ Sodium Chloride 55 ml @ 110 mls/hr EVERY 12 HOURS IVPB 06/14/18 21:00 06/18/18 10:59 06/14/18 21:12 Morphine Sulfate (Morphine Sulfate) 2 mg Q4H PRN IVP Severe Pain (Pain Scale 7-10) 06/14/18 15:00 06/19/18 14:59 Nitroglycerin (Ntg) 0.4 mg Q5M PRN SL Prn Chest Pain 06/14/18 14:30 07/12/18 16:44 Ondansetron HCl (Zofran) 4 mg Q6H PRN IVP Nausea & Vomiting 06/14/18 15:00 07/12/18 14:59 Polyethylene Glycol (Miralax) 17 gm DAILYPRN PRN ORAL Constipation 06/14/18 15:00 07/12/18 14:59 Sodium Chloride 1,000 ml @ 75 mls/hr [id number] IV 06/14/18 14:30 07/13/18 12:20 06/15/18 02:54 Sodium Phosphate (Fleet's Sodium Phosl Enema) 133 ml Q12H PRN RECTAL Constipation 06/14/18 15:00 07/12/18 14:59 Temazepam (Restoril) 15 mg HSPRN PRN ORAL Insomnia 06/14/18 21:00 06/19/18 20:59 Timolol Maleate (Timoptic 0.5% Op Soln) 1 drop TWICE A DAY BOTH EYES 06/14/18 18:00 07/12/18 17:59 06/14/18 17:05 Wicho Dash MD Jun 15, 2018 08:20
[2018-06-15] MEDS: Citalopram Hydrobromide 10mg Tab ORAL SCH ×2 (08:49→09:00)
[2018-06-15] MEDS: Meropenem 1 GM in NS 55 ML IVPB SCH (08:49)
[2018-06-15] MEDS: BusPIRone 5mg Tab ORAL SCH ×4 (08:50→17:56)
[2018-06-15] MEDS: Timolol 0.5% Op Soln 2.5ml BOTH EYES SCH ×2 (08:51→18:03)
[2018-06-15] MEDS: Brimonidine 0.2% Opth Sol BOTH EYES SCH ×2 (08:59→17:57)
[2018-06-15] MEDS: Heparin 5000 units/ml inj SUBQ SCH ×2 (09:00→21:00)
[2018-06-15] MEDS ORDERED: Citalopram Hydrobromide 10mg Tab ORAL SCH (09:00)
[2018-06-15] MEDS: Morphine Sulfate 2mg/ml Inj IVP PRN ×2 (09:10→13:45)
[2018-06-15] MEDS: cefTRIAXone 1 GM in D5W 55 ML IVPB SCH (11:46)
[2018-06-15 12:00] VITALS: BP 116/67
--- NOTE | 2018-06-15 13:00 | Pulmonology Progress Note ---
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 (4) Diabetes (5) Anemia Assessment/Plan on ceftriaxone check electrolytes K supplement symptomatic treatment dvt prophylaxis Subjective ROS Limited/Unobtainable: No Constitutional: Reports: no symptoms HEENT: Repors: no symptoms Respiratory: Reports: no symptoms Allergies: Coded Allergies: No Known Allergies (Verified , 06/27/09) Objective Last 24 Hour Vital Signs Date Time Temp Pulse Resp B/P (MAP) Pulse Ox O2 Delivery O2 Flow Rate FiO2 06/15/18 12:00 97.5 68 20 116/67 (83) 98 97.5 06/15/18 09:00 Room Air 06/15/18 09:00 77 119/69 06/15/18 08:05 93 18 Room Air 21 06/15/18 08:00 98.1 77 20 119/69 (86) 98 98.1 06/15/18 04:00 99.5 74 18 131/66 (87) 98 99.5 06/15/18 00:00 98.0 71 18 130/65 (86) 97 98.0 06/14/18 21:00 Room Air 06/14/18 20:00 98.8 69 18 112/62 (79) 100 98.8 06/14/18 20:00 87 18 Room Air 21 06/14/18 16:27 97.6 71 18 117/70 (86) 99 97.6 06/14/18 14:56 Room Air Intake and Output 06/14/18 06/15/18 19:00 07:00 Intake Total 585 ml 900 ml Balance 585 ml 900 ml Intake Oral 360 ml IV Total 225 ml 900 ml # Voids 3 # Bowel Movements 2 3 General Appearance: no acute distress HEENT: normocephalic Respiratory/Chest: chest wall non-tender, normal breath sounds Abdomen: normal bowel sounds, no scars Extremities: no clubbing Skin: no lesions Microbiology Date/Time Source Procedure Growth Status 06/12/18 15:31 Blood Blood Culture - Preliminary NO GROWTH AFTER 48 HOURS Resulted 06/12/18 14:10 Blood Blood Culture - Final Escherichia Coli Complete 06/12/18 14:10 Nasal Nares MRSA Culture - Final Staphylococcus Aureus - Mrsa Complete 06/12/18 14:10 Straight Cath Urine Culture - Final Escherichia Coli Complete 06/12/18 14:10 Rectum VRE Culture - Final NO VANCOMYCIN RESISTANT ENTEROCOCCUS ... Complete 06/12/18 14:10 Rectum - Final NO CARBAPENEM-RESISTANT ENTEROBACTERI... Complete Laboratory Tests 06/15/18 05:35: White Blood Count 6.9, Red Blood Count 3.39L, Hemoglobin 10.4L, Hematocrit 31.7L , Mean Corpuscular Volume 94, Mean Corpuscular Hemoglobin 30.6, Mean Corpuscular Hemoglobin Concent 32.7, Red Cell Distribution Width 11.8, Platelet Count 135L, Mean Platelet Volume 7.7, Neutrophils (%) (Auto) 68.9, Lymphocytes ( %) (Auto) 18.5L, Monocytes (%) (Auto) 10.8H, Eosinophils (%) (Auto) 0.7, Basophils (%) (Auto) 1.2, Sodium Level 137, Potassium Level 3.4L, Chloride Level 105, Carbon Dioxide Level 26, Anion Gap 6, Blood Urea Nitrogen 6L, Creatinine 0.7, Estimat Glomerular Filtration Rate , Glucose Level 99, Calcium Level 9.3 Current Medications Medications (Trade) Dose Ordered Sig/Darwin Route PRN Reason Start Time Stop Time Status Last Admin Dose Admin Acetaminophen (Tylenol) 650 mg Q4H PRN ORAL T>100.5 06/14/18 15:00 07/12/18 14:59 Acetaminophen/ Hydrocodone Bitart ([place] 5/325) 1 tab Q4H PRN ORAL Moderate Pain (Pain Scale 4-6) 06/14/18 15:00 06/19/18 14:59 Albuterol/ Ipratropium (Albuterol/ Ipratropium) 3 ml Q4H PRN HHN Shortness of Breath 06/14/18 15:00 06/17/18 14:59 Amlodipine Besylate (Norvasc) 5 mg DAILY ORAL 06/15/18 09:00 07/13/18 08:59 Barium Sulfate (Readi-Cat 2) 450 ml NOW PRN ORAL Radiology Procedure 06/14/18 15:45 06/16/18 15:42 Brimonidine Tartrate (Alphagan) 1 drop BID BOTH EYES 06/14/18 18:00 07/12/18 17:59 06/15/18 08:59 Buspirone HCl (Buspar) 10 mg THREE TIMES A DAY ORAL 06/14/18 18:00 07/12/18 17:59 06/14/18 17:04 Ceftriaxone Sodium 1 gm/ Dextrose 55 ml @ 110 mls/hr DAILY IVPB 06/15/18 11:00 06/22/18 10:59 06/15/18 11:46 Citalopram Hydrobromide (celeXA) 40 mg DAILY ORAL 06/15/18 09:00 07/13/18 08:59 Dextrose (Dextrose 50%) 25 ml PRN IV hypoglycemia 06/14/18 14:45 07/14/18 14:44 Dextrose (Dextrose 50%) 50 ml PRN IV hypoglycemia 06/14/18 14:45 07/14/18 14:44 Gabapentin (Neurontin) 300 mg THREE TIMES A DAY ORAL 06/15/18 09:00 07/12/18 17:59 Heparin Sodium (Porcine) (Heparin 5000 units/ml) 5,000 units EVERY 12 HOURS SUBQ 06/14/18 21:00 07/12/18 20:59 Insulin Aspart (NovoLOG) BEFORE MEALS AND HS SUBQ 06/14/18 16:30 07/12/18 20:59 06/15/18 11:46 Iopamidol (Isovue-300 100ml) 100 ml NOW PRN INJ Radiology Procedure 06/14/18 15:45 06/16/18 15:44 Iopamidol (Isovue-370 150ml) 150 ml NOW PRN INJ Radiology Procedure 06/14/18 15:45 06/16/18 15:45 Lorazepam (Ativan) 1 mg Q6H PRN ORAL For Anxiety 06/14/18 15:00 06/20/18 14:59 06/14/18 17:55 Morphine Sulfate (Morphine Sulfate) 2 mg Q4H PRN IVP Severe Pain (Pain Scale 7-10) 06/14/18 15:00 06/19/18 14:59 06/15/18 09:10 Nitroglycerin (Ntg) 0.4 mg Q5M PRN SL Prn Chest Pain 06/14/18 14:30 07/12/18 16:44 Ondansetron HCl (Zofran) 4 mg Q6H PRN IVP Nausea & Vomiting 06/14/18 15:00 07/12/18 14:59 Polyethylene Glycol (Miralax) 17 gm DAILYPRN PRN ORAL Constipation 06/14/18 15:00 07/12/18 14:59 Sodium Chloride 1,000 ml @ 75 mls/hr [id number] IV 06/14/18 14:30 07/13/18 12:20 06/15/18 02:54 Sodium Phosphate (Fleet's Sodium Phosl Enema) 133 ml Q12H PRN RECTAL Constipation 06/14/18 15:00 07/12/18 14:59 Temazepam (Restoril) 15 mg HSPRN PRN ORAL Insomnia 06/14/18 21:00 06/19/18 20:59 Timolol Maleate (Timoptic 0.5% Op Soln) 1 drop TWICE A DAY BOTH EYES 06/14/18 18:00 07/12/18 17:59 06/15/18 08:51 Shannon Pang MD Jun 15, 2018 13:00
--- NOTE | 2018-06-15 14:47 | General Progress Note ---
Assessment/Plan Problem List: (1) Fever ICD Codes: R50.9 - Fever, unspecified SNOMED: 301770465 (2) Diabetes ICD Codes: E11.9 - Type 2 diabetes mellitus without complications SNOMED: 73548690 (3) HTN (hypertension) ICD Codes: I10 - Essential (primary) hypertension SNOMED: 54878075 (4) UTI (urinary tract infection) ICD Codes: N39.0 - Urinary tract infection, site not specified SNOMED: 16955183 (5) Anxiety ICD Codes: F41.9 - Anxiety disorder, unspecified SNOMED: 00540058 Status: stable, progressing Assessment/Plan ot pt diet abx cbc bmp am dc plan Subjective Constitutional: Reports: weakness Allergies: Coded Allergies: No Known Allergies (Verified , 06/27/09) All Systems: reviewed and negative except above Subjective sl gen pain Objective Last 24 Hour Vital Signs Date Time Temp Pulse Resp B/P (MAP) Pulse Ox O2 Delivery O2 Flow Rate FiO2 06/15/18 12:00 97.5 68 20 116/67 (83) 98 97.5 06/15/18 09:00 Room Air 06/15/18 09:00 77 119/69 06/15/18 08:05 93 18 Room Air 21 06/15/18 08:00 98.1 77 20 119/69 (86) 98 98.1 06/15/18 04:00 99.5 74 18 131/66 (87) 98 99.5 06/15/18 00:00 98.0 71 18 130/65 (86) 97 98.0 06/14/18 21:00 Room Air 06/14/18 20:00 98.8 69 18 112/62 (79) 100 98.8 06/14/18 20:00 87 18 Room Air 21 06/14/18 16:27 97.6 71 18 117/70 (86) 99 97.6 06/14/18 14:56 Room Air Intake and Output 06/14/18 06/15/18 19:00 07:00 Intake Total 585 ml 900 ml Balance 585 ml 900 ml Intake Oral 360 ml IV Total 225 ml 900 ml # Voids 3 # Bowel Movements 2 3 Laboratory Tests 06/15/18 05:35: White Blood Count 6.9, Red Blood Count 3.39L, Hemoglobin 10.4L, Hematocrit 31.7L , Mean Corpuscular Volume 94, Mean Corpuscular Hemoglobin 30.6, Mean Corpuscular Hemoglobin Concent 32.7, Red Cell Distribution Width 11.8, Platelet Count 135L, Mean Platelet Volume 7.7, Neutrophils (%) (Auto) 68.9, Lymphocytes ( %) (Auto) 18.5L, Monocytes (%) (Auto) 10.8H, Eosinophils (%) (Auto) 0.7, Basophils (%) (Auto) 1.2, Sodium Level 137, Potassium Level 3.4L, Chloride Level 105, Carbon Dioxide Level 26, Anion Gap 6, Blood Urea Nitrogen 6L, Creatinine 0.7, Estimat Glomerular Filtration Rate , Glucose Level 99, Calcium Level 9.3 Height (Feet): 5 Height (Inches): 4.00 Weight (Pounds): 126 General Appearance: lethargic EENT: normal ENT inspection Neck: normal alignment Cardiovascular: normal peripheral pulses, normal rate, regular rhythm Respiratory/Chest: chest wall non-tender, lungs clear, normal breath sounds Abdomen: normal bowel sounds, non tender, soft Extremities: normal inspection Edema: no edema noted Arm (L), no edema noted Arm (R), no edema noted Leg (L), no edema noted Leg (R), no edema noted Pedal (L), no edema noted Pedal (R), no edema noted Generalized Neurologic: responsive, motor weakness Skin: normal pigmentation, warm/dry Phan Nix DO Jun 15, 2018 14:47
--- NOTE | 2018-06-15 14:51 | Cardiology Report ---
APPROVED REPORT EKG Measurement Heart [id number] Normal sinus rhythm with sinus arrhythmia T wave abnormality, consider anterior ischemia Abnormal ECG
[2018-06-15 16:00] VITALS: BP 128/77
[2018-06-15] MEDS: LORazepam 1mg tab ORAL PRN (16:41)
[2018-06-15 19:47] VITALS: BP 106/58
--- NOTE | 2018-06-15 22:15 | Consultation ---
DATE OF CONSULTATION: 06/15/2018 HEMATOLOGY/ONCOLOGY CONSULTATION CONSULTING PHYSICIAN: Jr Loredo M.D. REQUESTING PHYSICIAN: Phan Nix D.O. REASON FOR CONSULTATION: Evaluation of thrombocytopenia and anemia. IDENTIFICATION DATA: Dear Dr. Phan Nix, This is a pleasant 77-year-old female with history of hepatitis C, cirrhosis, hypertension, and diabetes, at this time presents from [facility] for increasing lethargy and confusion, noted to have urinary tract infection, sepsis, fevers, chills, and weakness noted. Hematology Service was consulted for further evaluation and treatment given ongoing anemia as well as thrombocytopenia. PAST MEDICAL HISTORY: Hypertension, diabetes, hepatitis C, and cirrhosis. PAST SURGICAL HISTORY: Hip surgery. ALLERGIES: No known drug allergies. SOCIAL HISTORY: Lives in a jail. No alcohol, tobacco, or illicit drug use. FAMILY HISTORY: Diabetes and hypertension. REVIEW OF SYSTEMS: CONSTITUTIONAL: No fever, chills, or night sweats. SKIN: No rashes, bumps, or itching. HEENT: No headache, hearing, or visual changes. BREASTS: No lumps, pain, or discharge. PULMONARY: No cough, sputum, or shortness of breath. GASTROINTESTINAL: No nausea, vomiting, or diarrhea. GENITOURINARY: No dysuria, frequency, or urgency. MUSCULOSKELETAL: No joint swelling, muscle pain, or trauma. PHYSICAL EXAMINATION: VITAL SIGNS: Reviewed. GENERAL: No acute distress. PULMONARY: Decreased breath sounds. CARDIOVASCULAR: Regular rate. No S3 or S4. ABDOMEN: Soft, nontender, and nondistended. EXTREMITIES: No cyanosis, swelling, or edema. LABORATORY DATA: WBC of 6.9, hemoglobin 10.4, and platelet count 135,000. IMAGING: Reviewed. Chest x-ray reviewed. Minimal basilar scarring noted. ASSESSMENT AND RECOMMENDATIONS: 1. Pancytopenia secondary to underlying cirrhosis. 2. Hepatitis C. Outpatient management per the patient. Has been treated before for hepatitis C. 3. Anemia due to underlying chronic disease. Continue to closely monitor for improvement. Currently, stable. 4. Diabetes mellitus. A1c goal less than 7. 5. Gram-negative bacteremia. Seen by ID Service. 6. Recurrent major depressive disorder. Psychotherapy as per Psychiatry and Psychology. 7. Protein-calorie malnutrition. 8. Hepatitis C. 9. Liver cirrhosis. . I appreciate the consultation. Jr Loredo M.D. DR: SHAWNA JOB#: [id number] CC:
--- NOTE | 2018-06-16 00:15 | Progress Note ---
DATE: 06/14/2018 NOTE: POOR AUDIO PSYCHOTHERAPY CONSULTATION PROGRESS NOTE TREATING ATTENDING PHYSICIAN: Phan Nix D.O. SUBJECTIVE: This patient is a 77-year-old female patient from [facility]. The patient has history of major depression. This patient . The patient was also discussed the possible problems including disability and . She denies suicidal or homicidal thoughts of ideation. disorganized thought process. PLAN: Provide the patient with cognitive behavioral intervention. coping skills. Continue with behavioral management. This clinician has reviewed the patient's chart and discussed with the treatment with treatment team. Gricelda Hernandez PsyD. DR: Alan JOB#: [id number] CC:
[2018-06-16 00:30] VITALS: BP 112/56
[2018-06-16] MEDS: Morphine Sulfate 2mg/ml Inj IVP PRN ×4 (02:34→22:28)
[2018-06-16 04:25] VITALS: BP 113/70
[2018-06-16] MEDS: NovoLOG Insulin Flexpen SUBQ SCH ×4 (06:19→20:47)
[2018-06-16 06:33] LABS: HEMOGLOBIN 9.7 G/DL (12.0-16.0); MEAN CORPUSCULAR VOLUME 94 FL (80-99); PLATELET COUNT 125 K/UL (150-450); RED BLOOD COUNT 3.18 M/UL (4.20-5.40); WHITE BLOOD COUNT 4.6 K/UL (4.8-10.8)
[2018-06-16 07:14] LABS: ALANINE AMINOTRANSFERASE 96 U/L (12-78); ALBUMIN 2.6 G/DL (3.4-5.0); ALBUMIN/GLOBULIN RATIO 0.6 (1.0-2.7); ALKALINE PHOSPHATASE 75 U/L (46-116); ANION GAP 8 mmol/L (5-15); ASPARTATE AMINO TRANSFERASE 109 U/L (15-37); BILIRUBIN,TOTAL 0.5 MG/DL (0.2-1.0); BLOOD UREA NITROGEN 10 mg/dL (7-18); CALCIUM 8.9 MG/DL (8.5-10.1); CARBON DIOXIDE 25 MMOL/L (21-32); CHLORIDE 108 MMOL/L (98-107); CREATININE 0.7 MG/DL (0.55-1.30); PHOSPHORUS 2.1 MG/DL (2.5-4.9); POTASSIUM 4.3 MMOL/L (3.5-5.1); SODIUM 141 MMOL/L (136-145)
[2018-06-16 08:00] VITALS: BP 139/71
[2018-06-16] MEDS: BusPIRone 5mg Tab ORAL SCH ×3 (08:55→17:35)
[2018-06-16] MEDS: Citalopram Hydrobromide 10mg Tab ORAL SCH (08:56)
[2018-06-16] MEDS: Timolol 0.5% Op Soln 2.5ml BOTH EYES SCH ×2 (08:56→17:42)
[2018-06-16] MEDS: Heparin 5000 units/ml inj SUBQ SCH ×2 (09:00→20:48)
[2018-06-16] MEDS: Brimonidine 0.2% Opth Sol BOTH EYES SCH ×2 (09:07→17:36)
[2018-06-16] MEDS: cefTRIAXone 1 GM in D5W 55 ML IVPB SCH (09:07)
--- NOTE | 2018-06-16 10:11 | Infectious Diseases Prog Note ---
Assessment/Plan Assessment/Plan 77 yo female who presented to the ED on 06/12/18 with confusion and lethargy. Urosepeis - GNR UTI -06/12/18 U/B Cx - E. coli - 06/13/18 BCx 1/2 - GNR Fever - Resolving Leukocytosis - Improving HTN DM Hep C with cirrhosis Plan Start Ceftriaxone #11/15 (End date 06/25/18) - Could switch to oral Bactrim once D/C D/C Meropenem #2 06/13 SP Cefepime #1 06/13 SP vancomycin Monitor CBC and temps f/u Blood Cx Supportive care We will continue to follow the patient during this hospitalization. Subjective Allergies: Coded Allergies: No Known Allergies (Verified , 06/27/09) Subjective Patient with low grade fever yesterday afternoon No complaints today Objective Vital Signs Last 24 Hour Vital Signs Date Time Temp Pulse Resp B/P (MAP) Pulse Ox O2 Delivery O2 Flow Rate FiO2 06/16/18 09:14 74 18 Room Air 21 06/16/18 08:58 76 139/71 06/16/18 08:00 97.4 76 19 139/71 (93) 100 97.4 06/16/18 04:25 97.0 69 19 113/70 (84) 100 97.0 06/16/18 00:30 97.3 68 16 112/56 (74) 98 97.3 06/15/18 21:00 Room Air 06/15/18 20:59 87 18 Room Air 21 06/15/18 19:47 97.7 66 17 106/58 (74) 96 97.7 06/15/18 17:12 99.0 06/15/18 16:00 100.2 71 20 128/77 (94) 98 100.2 06/15/18 12:00 97.5 68 20 116/67 (83) 98 97.5 Height (Feet): 5 Height (Inches): 4.00 Weight (Pounds): 133 Objective Gen: NAD, alert HEENT: NCAT, MMM, EOMI, no scleral icterus LUNGS: CTAB, No W/C, CARDS: RRR, S1, S2, No M/R/G, ABD: Soft, NT, ND, No R/G, + BS Ext: C/C/E, Pulses 2+ B/L (DP, Rad): NEURO: A/O x 3, Strength and Sensation grossly intact Laboratory Tests Test 06/16/18 05:30 White Blood Count 4.6 K/UL (4.8-10.8) L Red Blood Count 3.18 M/UL (4.20-5.40) L Hemoglobin 9.7 G/DL (12.0-16.0) L Hematocrit 30.0 % (37.0-47.0) L Mean Corpuscular Volume 94 FL (80-99) Mean Corpuscular Hemoglobin 30.5 PG (27.0-31.0) Mean Corpuscular Hemoglobin Concent 32.3 G/DL (32.0-36.0) Red Cell Distribution Width 12.0 % (11.6-14.8) Platelet Count 125 K/UL (150-450) L Mean Platelet Volume 7.6 FL (6.5-10.1) Neutrophils (%) (Auto) % (45.0-75.0) Lymphocytes (%) (Auto) % (20.0-45.0) Monocytes (%) (Auto) % (1.0-10.0) Eosinophils (%) (Auto) % (0.0-3.0) Basophils (%) (Auto) % (0.0-2.0) Differential Total Cells Counted 100 Neutrophils % (Manual) 42 % (45-75) L Lymphocytes % (Manual) 31 % (20-45) Monocytes % (Manual) 27 % (1-10) H Eosinophils % (Manual) 0 % (0-3) Basophils % (Manual) 0 % (0-2) Band Neutrophils 0 % (0-8) Platelet Estimate Decreased L Platelet Morphology Normal Hypochromasia 2+ Anisocytosis 1+ Spherocytes 1+ Sodium Level 141 MMOL/L (136-145) Potassium Level 4.3 MMOL/L (3.5-5.1) Chloride Level 108 MMOL/L (98-107) H Carbon Dioxide Level 25 MMOL/L (21-32) Anion Gap 8 mmol/L (5-15) Blood Urea Nitrogen 10 mg/dL (7-18) Creatinine 0.7 MG/DL (0.55-1.30) Estimat Glomerular Filtration Rate mL/min (>60) Glucose Level 144 MG/DL (74-106) H Calcium Level 8.9 MG/DL (8.5-10.1) Phosphorus Level 2.1 MG/DL (2.5-4.9) L Magnesium Level 1.2 MG/DL (1.8-2.4) L Total Bilirubin 0.5 MG/DL (0.2-1.0) Aspartate Amino Transf (AST/SGOT) 109 U/L (15-37) H Alanine Aminotransferase (ALT/SGPT) 96 U/L (12-78) H Alkaline Phosphatase 75 U/L (46-116) Total Protein 7.3 G/DL (6.4-8.2) Albumin 2.6 G/DL (3.4-5.0) L Globulin 4.7 g/dL Albumin/Globulin Ratio 0.6 (1.0-2.7) L Current Medications Medications (Trade) Dose Ordered Sig/Darwin Route PRN Reason Start Time Stop Time Status Last Admin Dose Admin Acetaminophen (Tylenol) 650 mg Q4H PRN ORAL T>100.5 06/14/18 15:00 07/12/18 14:59 06/15/18 16:42 Acetaminophen/ Hydrocodone Bitart ([place] 5/325) 1 tab Q4H PRN ORAL Moderate Pain (Pain Scale 4-6) 06/14/18 15:00 06/19/18 14:59 Albuterol/ Ipratropium (Albuterol/ Ipratropium) 3 ml Q4H PRN HHN Shortness of Breath 06/14/18 15:00 06/17/18 14:59 Amlodipine Besylate (Norvasc) 5 mg DAILY ORAL 06/15/18 09:00 07/13/18 08:59 06/16/18 08:58 Barium Sulfate (Readi-Cat 2) 450 ml NOW PRN ORAL Radiology Procedure 06/14/18 15:45 06/16/18 15:42 Brimonidine Tartrate (Alphagan) 1 drop BID BOTH EYES 06/14/18 18:00 07/12/18 17:59 06/16/18 09:07 Buspirone HCl (Buspar) 10 mg THREE TIMES A DAY ORAL 06/14/18 18:00 07/12/18 17:59 06/16/18 08:55 Ceftriaxone Sodium 1 gm/ Dextrose 55 ml @ 110 mls/hr DAILY IVPB 06/15/18 11:00 06/22/18 10:59 06/16/18 09:07 Citalopram Hydrobromide (celeXA) 40 mg DAILY ORAL 06/15/18 09:00 07/13/18 08:59 06/16/18 08:56 Dextrose (Dextrose 50%) 25 ml PRN IV hypoglycemia 06/14/18 14:45 07/14/18 14:44 Dextrose (Dextrose 50%) 50 ml PRN IV hypoglycemia 06/14/18 14:45 07/14/18 14:44 Gabapentin (Neurontin) 300 mg THREE TIMES A DAY ORAL 06/15/18 09:00 07/12/18 17:59 06/16/18 08:56 Heparin Sodium (Porcine) (Heparin 5000 units/ml) 5,000 units EVERY 12 HOURS SUBQ 06/14/18 21:00 07/12/18 20:59 Insulin Aspart (NovoLOG) BEFORE MEALS AND HS SUBQ 06/14/18 16:30 07/12/18 20:59 06/16/18 06:19 Iopamidol (Isovue-300 100ml) 100 ml NOW PRN INJ Radiology Procedure 06/14/18 15:45 06/16/18 15:44 Iopamidol (Isovue-370 150ml) 150 ml NOW PRN INJ Radiology Procedure 06/14/18 15:45 06/16/18 15:45 Lorazepam (Ativan) 1 mg Q6H PRN ORAL For Anxiety 06/14/18 15:00 06/20/18 14:59 06/15/18 16:41 Morphine Sulfate (Morphine Sulfate) 2 mg Q4H PRN IVP Severe Pain (Pain Scale 7-10) 06/14/18 15:00 06/19/18 14:59 06/16/18 02:34 Nitroglycerin (Ntg) 0.4 mg Q5M PRN SL Prn Chest Pain 06/14/18 14:30 07/12/18 16:44 Ondansetron HCl (Zofran) 4 mg Q6H PRN IVP Nausea & Vomiting 06/14/18 15:00 07/12/18 14:59 Polyethylene Glycol (Miralax) 17 gm DAILYPRN PRN ORAL Constipation 06/14/18 15:00 07/12/18 14:59 Sodium Chloride 1,000 ml @ 75 mls/hr [id number] IV 06/14/18 14:30 07/13/18 12:20 06/16/18 06:14 Sodium Phosphate (Fleet's Sodium Phosl Enema) 133 ml Q12H PRN RECTAL Constipation 06/14/18 15:00 07/12/18 14:59 Temazepam (Restoril) 15 mg HSPRN PRN ORAL Insomnia 06/14/18 21:00 06/19/18 20:59 Timolol Maleate (Timoptic 0.5% Op Soln) 1 drop TWICE A DAY BOTH EYES 06/14/18 18:00 07/12/18 17:59 06/16/18 08:56 Wicho Dash MD Jun 16, 2018 10:11
[2018-06-16 12:00] VITALS: BP 118/65
--- NOTE | 2018-06-16 12:55 | Pulmonology Progress Note ---
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 (4) Diabetes (5) Anemia Assessment/Plan on ceftriaxone check electrolytes K supplement symptomatic treatment dvt prophylaxis blood culture from 06/13 still positive continue abx as per ID check electrolytes. Subjective ROS Limited/Unobtainable: No Constitutional: Reports: no symptoms HEENT: Repors: no symptoms Respiratory: Reports: no symptoms Cardiovascular: Reports: no symptoms Allergies: Coded Allergies: No Known Allergies (Verified , 06/27/09) Objective Last 24 Hour Vital Signs Date Time Temp Pulse Resp B/P (MAP) Pulse Ox O2 Delivery O2 Flow Rate FiO2 06/16/18 12:00 97.3 67 20 118/65 (82) 100 97.3 06/16/18 09:14 74 18 Room Air 21 06/16/18 09:00 Room Air 06/16/18 08:58 76 139/71 06/16/18 08:00 97.4 76 19 139/71 (93) 100 97.4 06/16/18 04:25 97.0 69 19 113/70 (84) 100 97.0 06/16/18 00:30 97.3 68 16 112/56 (74) 98 97.3 06/15/18 21:00 Room Air 06/15/18 20:59 87 18 Room Air 21 06/15/18 19:47 97.7 66 17 106/58 (74) 96 97.7 06/15/18 17:12 99.0 06/15/18 16:00 100.2 71 20 128/77 (94) 98 100.2 Intake and Output 06/15/18 06/16/18 19:00 07:00 Intake Total 1875 ml 825 ml Output Total 3 ml Balance 1872 ml 825 ml Intake Oral 1240 ml IV Total 635 ml 825 ml Output Urine Total 3 ml # Voids 3 # Bowel Movements 1 1 General Appearance: cachetic HEENT: normocephalic, atraumatic Respiratory/Chest: chest wall non-tender, lungs clear Cardiovascular: normal peripheral pulses, normal rate Abdomen: normal bowel sounds, soft, non tender Genitourinary: normal external genitalia Extremities: no cyanosis, no clubbing Skin: no rash 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 Laboratory Tests 06/16/18 05:30: White Blood Count 4.6L, Red Blood Count 3.18L, Hemoglobin 9.7L, Hematocrit 30.0L , Mean Corpuscular Volume 94, Mean Corpuscular Hemoglobin 30.5, Mean Corpuscular Hemoglobin Concent 32.3, Red Cell Distribution Width 12.0, Platelet Count 125L, Mean Platelet Volume 7.6, Neutrophils (%) (Auto) , Lymphocytes (%) ( Auto) , Monocytes (%) (Auto) , Eosinophils (%) (Auto) , Basophils (%) (Auto) , Differential Total Cells Counted 100, Neutrophils % (Manual) 42L, Lymphocytes % (Manual) 31, Monocytes % (Manual) 27H, Eosinophils % (Manual) 0, Basophils % ( Manual) 0, Band Neutrophils 0, Platelet Estimate DecreasedL, Platelet Morphology Normal, Hypochromasia 2+, Anisocytosis 1+, Spherocytes 1+, Sodium Level 141, Potassium Level 4.3, Chloride Level 108H, Carbon Dioxide Level 25, Anion Gap 8, Blood Urea Nitrogen 10, Creatinine 0.7, Estimat Glomerular Filtration Rate , Glucose Level 144H, Calcium Level 8.9, Phosphorus Level 2.1L, Magnesium Level 1.2L, Total Bilirubin 0.5, Aspartate Amino Transf (AST/SGOT) 109H, Alanine Aminotransferase (ALT/SGPT) 96H, Alkaline Phosphatase 75, Total Protein 7.3, Albumin 2.6L, Globulin 4.7, Albumin/Globulin Ratio 0.6L Current Medications Medications (Trade) Dose Ordered Sig/Darwin Route PRN Reason Start Time Stop Time Status Last Admin Dose Admin Acetaminophen (Tylenol) 650 mg Q4H PRN ORAL T>100.5 06/14/18 15:00 07/12/18 14:59 06/15/18 16:42 Acetaminophen/ Hydrocodone Bitart ([place] 5/325) 1 tab Q4H PRN ORAL Moderate Pain (Pain Scale 4-6) 06/14/18 15:00 06/19/18 14:59 Albuterol/ Ipratropium (Albuterol/ Ipratropium) 3 ml Q4H PRN HHN Shortness of Breath 06/14/18 15:00 06/17/18 14:59 Amlodipine Besylate (Norvasc) 5 mg DAILY ORAL 06/15/18 09:00 07/13/18 08:59 06/16/18 08:58 Barium Sulfate (Readi-Cat 2) 450 ml NOW PRN ORAL Radiology Procedure 06/14/18 15:45 06/16/18 15:42 Brimonidine Tartrate (Alphagan) 1 drop BID BOTH EYES 06/14/18 18:00 07/12/18 17:59 06/16/18 09:07 Buspirone HCl (Buspar) 10 mg THREE TIMES A DAY ORAL 06/14/18 18:00 07/12/18 17:59 06/16/18 08:55 Ceftriaxone Sodium 1 gm/ Dextrose 55 ml @ 110 mls/hr DAILY IVPB 06/15/18 11:00 06/22/18 10:59 06/16/18 09:07 Citalopram Hydrobromide (celeXA) 40 mg DAILY ORAL 06/15/18 09:00 07/13/18 08:59 06/16/18 08:56 Dextrose (Dextrose 50%) 25 ml PRN IV hypoglycemia 06/14/18 14:45 07/14/18 14:44 Dextrose (Dextrose 50%) 50 ml PRN IV hypoglycemia 06/14/18 14:45 07/14/18 14:44 Gabapentin (Neurontin) 300 mg THREE TIMES A DAY ORAL 06/15/18 09:00 07/12/18 17:59 06/16/18 08:56 Heparin Sodium (Porcine) (Heparin 5000 units/ml) 5,000 units EVERY 12 HOURS SUBQ 06/14/18 21:00 07/12/18 20:59 Insulin Aspart (NovoLOG) BEFORE MEALS AND HS SUBQ 06/14/18 16:30 07/12/18 20:59 06/16/18 11:34 Iopamidol (Isovue-300 100ml) 100 ml NOW PRN INJ Radiology Procedure 06/14/18 15:45 06/16/18 15:44 Iopamidol (Isovue-370 150ml) 150 ml NOW PRN INJ Radiology Procedure 06/14/18 15:45 06/16/18 15:45 Lorazepam (Ativan) 1 mg Q6H PRN ORAL For Anxiety 06/14/18 15:00 06/20/18 14:59 06/15/18 16:41 Morphine Sulfate (Morphine Sulfate) 2 mg Q4H PRN IVP Severe Pain (Pain Scale 7-10) 06/14/18 15:00 06/19/18 14:59 06/16/18 10:25 Nitroglycerin (Ntg) 0.4 mg Q5M PRN SL Prn Chest Pain 06/14/18 14:30 07/12/18 16:44 Ondansetron HCl (Zofran) 4 mg Q6H PRN IVP Nausea & Vomiting 06/14/18 15:00 07/12/18 14:59 Polyethylene Glycol (Miralax) 17 gm DAILYPRN PRN ORAL Constipation 06/14/18 15:00 07/12/18 14:59 Sodium Chloride 1,000 ml @ 75 mls/hr [id number] IV 06/14/18 14:30 07/13/18 12:20 06/16/18 06:14 Sodium Phosphate (Fleet's Sodium Phosl Enema) 133 ml Q12H PRN RECTAL Constipation 06/14/18 15:00 07/12/18 14:59 Temazepam (Restoril) 15 mg HSPRN PRN ORAL Insomnia 06/14/18 21:00 06/19/18 20:59 Timolol Maleate (Timoptic 0.5% Op Soln) 1 drop TWICE A DAY BOTH EYES 06/14/18 18:00 07/12/18 17:59 06/16/18 08:56 Shannon Pang MD Jun 16, 2018 12:55
--- NOTE | 2018-06-16 14:05 | General Progress Note ---
Assessment/Plan Problem List: (1) Fever ICD Codes: R50.9 - Fever, unspecified SNOMED: 185664426 (2) Diabetes ICD Codes: E11.9 - Type 2 diabetes mellitus without complications SNOMED: 76534264 (3) HTN (hypertension) ICD Codes: I10 - Essential (primary) hypertension SNOMED: 92291283 (4) UTI (urinary tract infection) ICD Codes: N39.0 - Urinary tract infection, site not specified SNOMED: 38368358 (5) Anxiety ICD Codes: F41.9 - Anxiety disorder, unspecified SNOMED: 75550728 Status: stable, progressing Assessment/Plan ot pt diet abx cbc bmp am dc plan snf Subjective Constitutional: Reports: weakness Allergies: Coded Allergies: No Known Allergies (Verified , 06/27/09) All Systems: reviewed and negative except above Subjective sleepy calm Objective Last 24 Hour Vital Signs Date Time Temp Pulse Resp B/P (MAP) Pulse Ox O2 Delivery O2 Flow Rate FiO2 06/16/18 12:00 97.3 67 20 118/65 (82) 100 97.3 06/16/18 09:14 74 18 Room Air 21 06/16/18 09:00 Room Air 06/16/18 08:58 76 139/71 06/16/18 08:00 97.4 76 19 139/71 (93) 100 97.4 06/16/18 04:25 97.0 69 19 113/70 (84) 100 97.0 06/16/18 00:30 97.3 68 16 112/56 (74) 98 97.3 06/15/18 21:00 Room Air 06/15/18 20:59 87 18 Room Air 21 06/15/18 19:47 97.7 66 17 106/58 (74) 96 97.7 06/15/18 17:12 99.0 06/15/18 16:00 100.2 71 20 128/77 (94) 98 100.2 Intake and Output 06/15/18 06/16/18 19:00 07:00 Intake Total 1875 ml 825 ml Output Total 3 ml Balance 1872 ml 825 ml Intake Oral 1240 ml IV Total 635 ml 825 ml Output Urine Total 3 ml # Voids 3 # Bowel Movements 1 1 Laboratory Tests 06/16/18 05:30: White Blood Count 4.6L, Red Blood Count 3.18L, Hemoglobin 9.7L, Hematocrit 30.0L , Mean Corpuscular Volume 94, Mean Corpuscular Hemoglobin 30.5, Mean Corpuscular Hemoglobin Concent 32.3, Red Cell Distribution Width 12.0, Platelet Count 125L, Mean Platelet Volume 7.6, Neutrophils (%) (Auto) , Lymphocytes (%) ( Auto) , Monocytes (%) (Auto) , Eosinophils (%) (Auto) , Basophils (%) (Auto) , Differential Total Cells Counted 100, Neutrophils % (Manual) 42L, Lymphocytes % (Manual) 31, Monocytes % (Manual) 27H, Eosinophils % (Manual) 0, Basophils % ( Manual) 0, Band Neutrophils 0, Platelet Estimate DecreasedL, Platelet Morphology Normal, Hypochromasia 2+, Anisocytosis 1+, Spherocytes 1+, Sodium Level 141, Potassium Level 4.3, Chloride Level 108H, Carbon Dioxide Level 25, Anion Gap 8, Blood Urea Nitrogen 10, Creatinine 0.7, Estimat Glomerular Filtration Rate , Glucose Level 144H, Calcium Level 8.9, Phosphorus Level 2.1L, Magnesium Level 1.2L, Total Bilirubin 0.5, Aspartate Amino Transf (AST/SGOT) 109H, Alanine Aminotransferase (ALT/SGPT) 96H, Alkaline Phosphatase 75, Total Protein 7.3, Albumin 2.6L, Globulin 4.7, Albumin/Globulin Ratio 0.6L Height (Feet): 5 Height (Inches): 4.00 Weight (Pounds): 133 General Appearance: lethargic EENT: normal ENT inspection Neck: normal alignment Cardiovascular: normal peripheral pulses, normal rate, regular rhythm Respiratory/Chest: chest wall non-tender, lungs clear, normal breath sounds Abdomen: normal bowel sounds, non tender, soft Extremities: normal inspection Edema: no edema noted Arm (L), no edema noted Arm (R), no edema noted Leg (L), no edema noted Leg (R), no edema noted Pedal (L), no edema noted Pedal (R), no edema noted Generalized Neurologic: motor weakness Skin: normal pigmentation, warm/dry Phan Nix DO Jun 16, 2018 14:05
[2018-06-16 16:00] VITALS: BP 120/70
[2018-06-16 20:00] VITALS: BP 106/52
--- NOTE | 2018-06-16 20:30 | Consultation ---
DATE OF CONSULTATION: 06/16/2018 CONSULTING PHYSICIAN: Juany Sullivan M.D. HISTORY: The patient is a 77-year-old female patient. She has a history of fever. She also has altered mental status, agitation, high levels of anxiety. The reason why she is in the hospital was fever and possible . She has increased mood lability, tearfulness and confusion, that is why her attending physician has requested daily psychiatric consultation for this patient. MENTAL STATUS EXAMINATION: The patient is a 77-year-old female. Appearance is disheveled. Attitude, irritable and agitated. Affect, guarded and restricted. Intellect poor. Mood depressed and anxious. Motor activity, psychomotor agitation. Attention span is poor. Orientation x2. Speech is pressured. Thought process, disorganized and illogical. Thought content, no auditory hallucinations or paranoid delusions. Insight and judgement is poor. 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 PLAN: Treat him with Neurontin 300 mg three times a day, BuSpar 10 mg three times a day, Zoloft 25 mg daily, Ativan 1 mg every 6 hours p.r.n. anxiety and agitation. Provided 20 minutes of supportive psychotherapy. Chart reviewed. Discussed with staff. Seen and assessed at bedside. A 20 minutes of cognitive behavioral therapy is provided this morning where I identified automatic negative thoughts and helped teach her techniques to convert those negative thoughts to more positive thinking and 20 minutes of psychotic behavioral therapy as well as Neurontin 300 mg 3 times a day, BuSpar 10 mg three times a day, Ativan 1 every 6 hours p.r.n. anxiety and agitation, Zoloft 25 mg daily. Chart reviewed. Discussed with staff. . Again, 20 minutes of cognitive behavioral therapy was provided. Chart reviewed. Discussed with staff. Seen and assessed at bedside. Juany Sullivan M.D. DR: SUSU JOB#: [id number] CC:
[2018-06-17] VITALS: BP 121/68
[2018-06-17 04:00] VITALS: BP 137/84
[2018-06-17] MEDS: NovoLOG Insulin Flexpen SUBQ SCH ×2 (05:57→12:30)
[2018-06-17 07:15] LABS: HEMATOCRIT 30.8 % (37.0-47.0); HEMOGLOBIN 10.4 G/DL (12.0-16.0); LYMPHOCYTES % (AUTO) 40.2 % (20.0-45.0); MEAN CORPUSCULAR VOLUME 92 FL (80-99); MONOCYTES % (AUTO) 13.9 % (1.0-10.0); NEUTROPHILS % (AUTO) 42.9 % (45.0-75.0); PLATELET COUNT 149 K/UL (150-450); RED BLOOD COUNT 3.34 M/UL (4.20-5.40); RED CELL DISTRIBUTION WIDTH 11.6 % (11.6-14.8); WHITE BLOOD COUNT 6.5 K/UL (4.8-10.8)
[2018-06-17 07:46] LABS: ALANINE AMINOTRANSFERASE 88 U/L (12-78); ALBUMIN 2.7 G/DL (3.4-5.0); ALBUMIN/GLOBULIN RATIO 0.6 (1.0-2.7); ALKALINE PHOSPHATASE 73 U/L (46-116); ANION GAP 3 mmol/L (5-15); ASPARTATE AMINO TRANSFERASE 91 U/L (15-37); BILIRUBIN,TOTAL 0.4 MG/DL (0.2-1.0); BLOOD UREA NITROGEN 8 mg/dL (7-18); CARBON DIOXIDE 31 MMOL/L (21-32); CHLORIDE 106 MMOL/L (98-107); CREATININE 0.7 MG/DL (0.55-1.30); PHOSPHORUS 2.7 MG/DL (2.5-4.9); POTASSIUM 3.9 MMOL/L (3.5-5.1); SODIUM 140 MMOL/L (136-145)
[2018-06-17 08:00] VITALS: BP 140/70
[2018-06-17] MEDS: Timolol 0.5% Op Soln 2.5ml BOTH EYES SCH (08:25)
[2018-06-17] MEDS: Citalopram Hydrobromide 10mg Tab ORAL SCH (08:26)
[2018-06-17] MEDS: cefTRIAXone 1 GM in D5W 55 ML IVPB SCH (08:26)
[2018-06-17] MEDS: BusPIRone 5mg Tab ORAL SCH ×2 (08:26→12:27)
[2018-06-17] MEDS: Brimonidine 0.2% Opth Sol BOTH EYES SCH (08:26)
[2018-06-17] MEDS: Heparin 5000 units/ml inj SUBQ SCH (08:27)
[2018-06-17] MEDS: Morphine Sulfate 2mg/ml Inj IVP PRN ×2 (08:28→12:27)
--- NOTE | 2018-06-17 09:15 | Infectious Diseases Prog Note ---
Assessment/Plan Assessment/Plan 77 yo female who presented to the ED on 06/12/18 with confusion and lethargy. Urosepeis - GNR UTI -06/12/18 U/B Cx - E. coli - 06/13/18 BCx 1/2 - E. coli Fever - Resolving Leukocytosis - Resolved HTN DM Hep C with cirrhosis Plan Start Ceftriaxone #3/ (End date 06/25/18) D/C Meropenem #2 06/13 SP Cefepime #1 06/13 SP vancomycin Monitor CBC and temps Supportive care We will continue to follow the patient during this hospitalization. Subjective Allergies: Coded Allergies: No Known Allergies (Verified , 06/27/09) Subjective Patient Afebile Pleasant no new complaints today Objective Vital Signs Last 24 Hour Vital Signs Date Time Temp Pulse Resp B/P (MAP) Pulse Ox O2 Delivery O2 Flow Rate FiO2 06/17/18 08:26 69 140/70 06/17/18 04:00 97.9 67 19 137/84 (101) 100 97.9 06/17/18 00:00 98.0 71 19 121/68 (85) 100 98.0 06/16/18 21:00 Room Air 06/16/18 20:00 98.4 67 20 106/52 (70) 97 98.4 06/16/18 19:55 64 20 Room Air 21 06/16/18 16:00 99.5 64 20 120/70 (87) 100 99.5 06/16/18 12:00 97.3 67 20 118/65 (82) 100 97.3 Height (Feet): 5 Height (Inches): 4.00 Weight (Pounds): 133 Objective Gen: NAD, alert, thin woman HEENT: NCAT, MMM, EOMI, no scleral icterus LUNGS: CTAB, No W/C, CARDS: RRR, S1, S2, No M/R/G, ABD: Soft, NT, ND, No R/G, + BS Ext: C/C/E, Pulses 2+ B/L (DP, Rad): NEURO: A/O x 3, Strength and Sensation grossly intact Laboratory Tests Test 06/17/18 06:00 06/17/18 08:10 White Blood Count 6.5 K/UL (4.8-10.8) Red Blood Count 3.34 M/UL (4.20-5.40) L Hemoglobin 10.4 G/DL (12.0-16.0) L Hematocrit 30.8 % (37.0-47.0) L Mean Corpuscular Volume 92 FL (80-99) Mean Corpuscular Hemoglobin 31.2 PG (27.0-31.0) H Mean Corpuscular Hemoglobin Concent 33.8 G/DL (32.0-36.0) Red Cell Distribution Width 11.6 % (11.6-14.8) Platelet Count 149 K/UL (150-450) L Mean Platelet Volume 7.5 FL (6.5-10.1) Neutrophils (%) (Auto) 42.9 % (45.0-75.0) L Lymphocytes (%) (Auto) 40.2 % (20.0-45.0) Monocytes (%) (Auto) 13.9 % (1.0-10.0) H Eosinophils (%) (Auto) 2.0 % (0.0-3.0) Basophils (%) (Auto) 1.0 % (0.0-2.0) Sodium Level 140 MMOL/L (136-145) Potassium Level 3.9 MMOL/L (3.5-5.1) Chloride Level 106 MMOL/L (98-107) Carbon Dioxide Level 31 MMOL/L (21-32) Anion Gap 3 mmol/L (5-15) L Blood Urea Nitrogen 8 mg/dL (7-18) Creatinine 0.7 MG/DL (0.55-1.30) Estimat Glomerular Filtration Rate mL/min (>60) Glucose Level 109 MG/DL (74-106) H Calcium Level 9.0 MG/DL (8.5-10.1) Phosphorus Level 2.7 MG/DL (2.5-4.9) Magnesium Level 1.2 MG/DL (1.8-2.4) L Total Bilirubin 0.4 MG/DL (0.2-1.0) Aspartate Amino Transf (AST/SGOT) 91 U/L (15-37) H Alanine Aminotransferase (ALT/SGPT) 88 U/L (12-78) H Alkaline Phosphatase 73 U/L (46-116) C-Reactive Protein, Quantitative 2.6 mg/dL (0.00-0.90) H Total Protein 7.6 G/DL (6.4-8.2) Albumin 2.7 G/DL (3.4-5.0) L Globulin 4.9 g/dL Albumin/Globulin Ratio 0.6 (1.0-2.7) L Erythrocyte Sedimentation Rate Pending Current Medications Medications (Trade) Dose Ordered Sig/Darwin Route PRN Reason Start Time Stop Time Status Last Admin Dose Admin Acetaminophen (Tylenol) 650 mg Q4H PRN ORAL T>100.5 06/14/18 15:00 07/12/18 14:59 06/15/18 16:42 Acetaminophen/ Hydrocodone Bitart (Parnell 5/325) 1 tab Q4H PRN ORAL Moderate Pain (Pain Scale 4-6) 06/14/18 15:00 06/19/18 14:59 Albuterol/ Ipratropium (Albuterol/ Ipratropium) 3 ml Q4H PRN HHN Shortness of Breath 06/14/18 15:00 06/17/18 14:59 Amlodipine Besylate (Norvasc) 5 mg DAILY ORAL 06/15/18 09:00 07/13/18 08:59 06/17/18 08:26 Brimonidine Tartrate (Alphagan) 1 drop BID BOTH EYES 06/14/18 18:00 07/12/18 17:59 06/17/18 08:26 Buspirone HCl (Buspar) 10 mg THREE TIMES A DAY ORAL 06/14/18 18:00 07/12/18 17:59 06/17/18 08:26 Ceftriaxone Sodium 1 gm/ Dextrose 55 ml @ 110 mls/hr DAILY IVPB 06/15/18 11:00 06/22/18 10:59 06/17/18 08:26 Citalopram Hydrobromide (celeXA) 40 mg DAILY ORAL 06/15/18 09:00 07/13/18 08:59 06/17/18 08:26 Dextrose (Dextrose 50%) 25 ml PRN IV hypoglycemia 06/14/18 14:45 07/14/18 14:44 Dextrose (Dextrose 50%) 50 ml PRN IV hypoglycemia 06/14/18 14:45 07/14/18 14:44 Gabapentin (Neurontin) 300 mg THREE TIMES A DAY ORAL 06/15/18 09:00 07/12/18 17:59 06/17/18 08:26 Heparin Sodium (Porcine) (Heparin 5000 units/ml) 5,000 units EVERY 12 HOURS SUBQ 06/14/18 21:00 07/12/18 20:59 06/16/18 20:48 Insulin Aspart (NovoLOG) BEFORE MEALS AND HS SUBQ 06/14/18 16:30 07/12/18 20:59 06/16/18 20:47 Lorazepam (Ativan) 1 mg Q6H PRN ORAL For Anxiety 06/14/18 15:00 06/20/18 14:59 06/15/18 16:41 Morphine Sulfate (Morphine Sulfate) 2 mg Q4H PRN IVP Severe Pain (Pain Scale 7-10) 06/14/18 15:00 06/19/18 14:59 06/17/18 08:28 Nitroglycerin (Ntg) 0.4 mg Q5M PRN SL Prn Chest Pain 06/14/18 14:30 07/12/18 16:44 Ondansetron HCl (Zofran) 4 mg Q6H PRN IVP Nausea & Vomiting 06/14/18 15:00 07/12/18 14:59 Polyethylene Glycol (Miralax) 17 gm DAILYPRN PRN ORAL Constipation 06/14/18 15:00 07/12/18 14:59 Sodium Chloride 1,000 ml @ 75 mls/hr [id number] IV 06/14/18 14:30 07/13/18 12:20 06/17/18 08:28 Sodium Phosphate (Fleet's Sodium Phosl Enema) 133 ml Q12H PRN RECTAL Constipation 06/14/18 15:00 07/12/18 14:59 Temazepam (Restoril) 15 mg HSPRN PRN ORAL Insomnia 06/14/18 21:00 06/19/18 20:59 Timolol Maleate (Timoptic 0.5% Op Soln) 1 drop TWICE A DAY BOTH EYES 06/14/18 18:00 07/12/18 17:59 06/17/18 08:25 Wicho Dash MD Jun 17, 2018 09:15
--- NOTE | 2018-06-17 11:10 | General Progress Note ---
Assessment/Plan Assessment/Plan ASSESSMENT AND RECOMMENDATIONS: 1. Pancytopenia secondary to underlying cirrhosis. with a history of C --> Does have anemia and will evaluate with potential iron deficiency --> DRE likely will check blood 2. Hepatitis C. Outpatient management per the patient. Has been treated before for hepatitis C. --> oupatient management and treatment 3. Anemia due to underlying chronic disease. Continue to closely monitor for improvement. Currently, stable. 4. Diabetes mellitus. A1c goal less than 7. 5. Gram-negative bacteremia. Seen by ID Service. 6. Recurrent major depressive disorder. Psychotherapy as per Psychiatry and Psychology. 7. Protein-calorie malnutrition. 8. Hepatitis C. 9. Liver cirrhosis. I appreciate the consultation. Subjective Constitutional: Denies: no symptoms, chills, diaphoresis, fever, malaise, weakness, other HEENT: Denies: no symptoms, eye pain, blurred vision, tearing, double vision, ear pain, ear discharge, nose pain, nose congestion, throat pain, throat swelling, mouth pain, mouth swelling, other Cardiovascular: Denies: no symptoms, chest pain, edema, irregular heart rate, lightheadedness, palpitations, syncope, other Respiratory: Denies: no symptoms, cough, orthopnea, shortness of breath, SOB with excertion, SOB at rest, sputum, stridor, wheezing, other Gastrointestinal/Abdominal: Denies: no symptoms, abdomen distended, abdominal pain, black stools, tarry stools, blood in stool, constipated, diarrhea, difficulty swallowing, nausea, poor appetite, poor fluid intake, rectal bleeding , vomiting, other Genitourinary: Denies: no symptoms, burning, discharge, frequency, flank pain, hematuria, incontinence, pain, urgency, other Neurologic/Psychiatric: Denies: no symptoms, anxiety, depressed, emotional problems, headache, numbness, paresthesia, pre-existing deficit, seizure, tingling, tremors, weakness, other Endocrine: Denies: no symptoms, excessive sweating, flushing, intolerance to cold, intolerance to heat, increased hunger, increased thirst, increased urine, unexplained weight gain, unexplained weight loss, other Allergies: Coded Allergies: No Known Allergies (Verified , 06/27/09) Subjective no fevers, no chills, no night sweats, counts stable Objective Last 24 Hour Vital Signs Date Time Temp Pulse Resp B/P (MAP) Pulse Ox O2 Delivery O2 Flow Rate FiO2 06/17/18 09:00 Room Air 06/17/18 08:26 69 140/70 06/17/18 08:00 97.7 69 20 140/70 (93) 98 97.7 06/17/18 04:00 97.9 67 19 137/84 (101) 100 97.9 06/17/18 00:00 98.0 71 19 121/68 (85) 100 98.0 06/16/18 21:00 Room Air 06/16/18 20:00 98.4 67 20 106/52 (70) 97 98.4 06/16/18 19:55 64 20 Room Air 21 06/16/18 16:00 99.5 64 20 120/70 (87) 100 99.5 06/16/18 12:00 97.3 67 20 118/65 (82) 100 97.3 Intake and Output 06/16/18 06/17/18 19:00 07:00 Intake Total 1430 ml 945 ml Output Total 800 ml 550 ml Balance 630 ml 395 ml Intake Oral 550 ml 120 ml IV Total 880 ml 825 ml Output Urine Total 800 ml 550 ml # Bowel Movements 1 Laboratory Tests 06/17/18 06:00: White Blood Count 6.5, Red Blood Count 3.34L, Hemoglobin 10.4L, Hematocrit 30.8L , Mean Corpuscular Volume 92, Mean Corpuscular Hemoglobin 31.2H, Mean Corpuscular Hemoglobin Concent 33.8, Red Cell Distribution Width 11.6, Platelet Count 149L, Mean Platelet Volume 7.5, Neutrophils (%) (Auto) 42.9L, Lymphocytes (%) (Auto) 40.2, Monocytes (%) (Auto) 13.9H, Eosinophils (%) (Auto) 2.0, Basophils (%) (Auto) 1.0, Sodium Level 140, Potassium Level 3.9, Chloride Level 106, Carbon Dioxide Level 31, Anion Gap 3L, Blood Urea Nitrogen 8, Creatinine 0.7, Estimat Glomerular Filtration Rate , Glucose Level 109H, Calcium Level 9.0 , Phosphorus Level 2.7, Magnesium Level 1.2L, Total Bilirubin 0.4, Aspartate Amino Transf (AST/SGOT) 91H, Alanine Aminotransferase (ALT/SGPT) 88H, Alkaline Phosphatase 73, C-Reactive Protein, Quantitative 2.6H, Total Protein 7.6, Albumin 2.7L, Globulin 4.9, Albumin/Globulin Ratio 0.6L 06/17/18 08:10: Erythrocyte Sedimentation Rate 83H Height (Feet): 5 Height (Inches): 4.00 Weight (Pounds): 133 General Appearance: no apparent distress EENT: TMs normal Neck: supple Cardiovascular: normal peripheral pulses Respiratory/Chest: chest wall non-tender Abdomen: non tender Extremities: non-tender Edema: 1+ Leg (L), 1+ Leg (R) Edema: moderate edema Skin: warm/dry Jr Loredo MD Jun 17, 2018 11:10
[2018-06-17 11:26] LABS: % IRON SATURATION 23 % (15-50); IRON 66 ug/dL (50-175); TOTAL IRON BINDING CAPACITY 290 ug/dL (250-450)
[2018-06-17 11:58] LABS: FERRITIN 284 NG/ML (8-388); LACTATE DEHYDROGENASE 258 U/L (81-234)
[2018-06-17 12:00] VITALS: BP 128/79
--- NOTE | 2018-06-17 12:35 | General Progress Note ---
Assessment/Plan Problem List: (1) Fever ICD Codes: R50.9 - Fever, unspecified SNOMED: 618472985 (2) Diabetes ICD Codes: E11.9 - Type 2 diabetes mellitus without complications SNOMED: 19893651 (3) HTN (hypertension) ICD Codes: I10 - Essential (primary) hypertension SNOMED: 81213743 (4) UTI (urinary tract infection) ICD Codes: N39.0 - Urinary tract infection, site not specified SNOMED: 76254972 (5) Anxiety ICD Codes: F41.9 - Anxiety disorder, unspecified SNOMED: 49123397 Status: stable, progressing Assessment/Plan ot pt diet abx dc to snf Subjective Constitutional: Reports: weakness Allergies: Coded Allergies: No Known Allergies (Verified , 06/27/09) All Systems: reviewed and negative except above Subjective sleepy calm Objective Last 24 Hour Vital Signs Date Time Temp Pulse Resp B/P (MAP) Pulse Ox O2 Delivery O2 Flow Rate FiO2 06/17/18 09:00 Room Air 06/17/18 08:26 69 140/70 06/17/18 08:00 97.7 69 20 140/70 (93) 98 97.7 06/17/18 04:00 97.9 67 19 137/84 (101) 100 97.9 06/17/18 00:00 98.0 71 19 121/68 (85) 100 98.0 06/16/18 21:00 Room Air 06/16/18 20:00 98.4 67 20 106/52 (70) 97 98.4 06/16/18 19:55 64 20 Room Air 21 06/16/18 16:00 99.5 64 20 120/70 (87) 100 99.5 Intake and Output 06/16/18 06/17/18 19:00 07:00 Intake Total 1430 ml 945 ml Output Total 800 ml 550 ml Balance 630 ml 395 ml Intake Oral 550 ml 120 ml IV Total 880 ml 825 ml Output Urine Total 800 ml 550 ml # Bowel Movements 1 Laboratory Tests 06/17/18 06:00: White Blood Count 6.5, Red Blood Count 3.34L, Hemoglobin 10.4L, Hematocrit 30.8L , Mean Corpuscular Volume 92, Mean Corpuscular Hemoglobin 31.2H, Mean Corpuscular Hemoglobin Concent 33.8, Red Cell Distribution Width 11.6, Platelet Count 149L, Mean Platelet Volume 7.5, Neutrophils (%) (Auto) 42.9L, Lymphocytes (%) (Auto) 40.2, Monocytes (%) (Auto) 13.9H, Eosinophils (%) (Auto) 2.0, Basophils (%) (Auto) 1.0, Differential Total Cells Counted 100, Neutrophils % ( Manual) 47, Lymphocytes % (Manual) 36, Monocytes % (Manual) 15H, Eosinophils % ( Manual) 2, Basophils % (Manual) 0, Band Neutrophils 0, Platelet Estimate Adequate, Platelet Morphology Normal, Polychromasia 1+, Hypochromasia 1+, Sodium Level 140, Potassium Level 3.9, Chloride Level 106, Carbon Dioxide Level 31, Anion Gap 3L, Blood Urea Nitrogen 8, Creatinine 0.7, Estimat Glomerular Filtration Rate , Glucose Level 109H, Calcium Level 9.0, Phosphorus Level 2.7, Magnesium Level 1.2L, Total Bilirubin 0.4, Aspartate Amino Transf (AST/SGOT) 91H , Alanine Aminotransferase (ALT/SGPT) 88H, Alkaline Phosphatase 73, C-Reactive Protein, Quantitative 2.6H, Total Protein 7.6, Albumin 2.7L, Globulin 4.9, Albumin/Globulin Ratio 0.6L 06/17/18 08:10: Erythrocyte Sedimentation Rate 83H, Reticulocyte Count 0.8, Sickle Cell Screen [ Pending], Hemoglobin A [Pending], Hemoglobin A2 [Pending], Hemoglobin C [Pending ], Hemoglobin F () [Pending], Hemoglobin S [Pending], Variant Hemoglobin [ Pending], Hemoglobin Electrophoresis Interp [Pending], Hemoglobin Interpretation [Pending], Hemoglobin Solubility [Pending], Iron Level 66, Total Iron Binding Capacity 290, Percent Iron Saturation 23, Unsaturated Iron Binding 224, Ferritin 284, Lactate Dehydrogenase 258H, Thyroid Stimulating Hormone (TSH ) 1.725 Height (Feet): 5 Height (Inches): 4.00 Weight (Pounds): 133 General Appearance: alert EENT: normal ENT inspection Neck: normal alignment Cardiovascular: normal peripheral pulses, normal rate, regular rhythm Respiratory/Chest: chest wall non-tender, lungs clear, normal breath sounds Abdomen: normal bowel sounds, non tender, soft Extremities: normal inspection Edema: no edema noted Arm (L), no edema noted Arm (R), no edema noted Leg (L), no edema noted Leg (R), no edema noted Pedal (L), no edema noted Pedal (R), no edema noted Generalized Neurologic: responsive, motor weakness Skin: normal pigmentation, warm/dry Phan Nix DO Jun 17, 2018 12:35
[2018-06-17] MEDS ORDERED: NORVASC5 MG ORAL (13:08)
[2018-06-17] MEDS ORDERED: CEFTRIAXONE1 G2 IV (13:09)
[2018-06-17] MEDS ORDERED: CELEXA40 MG ORAL (13:09)
[2018-06-17] MEDS ORDERED: NOVOLOG100 UNITS1 (13:11)
[2018-06-17] MEDS ORDERED: NEURONTIN300 MG ORAL (13:11)
[2018-06-17] MEDS ORDERED: IPRATROPIU0.2 MG/1 M HHN (13:11)
[2018-06-17] MEDS ORDERED: RESTORIL15 MG ORAL (13:13)
--- NOTE | 2018-06-17 13:39 | Pulmonology Progress Note ---
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 Subjective ROS Limited/Unobtainable: No Constitutional: Reports: no symptoms HEENT: Repors: no symptoms Respiratory: Reports: no symptoms Allergies: Coded Allergies: No Known Allergies (Verified , 06/27/09) Objective Last 24 Hour Vital Signs Date Time Temp Pulse Resp B/P (MAP) Pulse Ox O2 Delivery O2 Flow Rate FiO2 06/17/18 12:00 97.7 64 18 128/79 (95) 99 97.7 06/17/18 09:00 Room Air 06/17/18 08:26 69 140/70 06/17/18 08:00 97.7 69 20 140/70 (93) 98 97.7 06/17/18 04:00 97.9 67 19 137/84 (101) 100 97.9 06/17/18 00:00 98.0 71 19 121/68 (85) 100 98.0 06/16/18 21:00 Room Air 06/16/18 20:00 98.4 67 20 106/52 (70) 97 98.4 06/16/18 19:55 64 20 Room Air 21 06/16/18 16:00 99.5 64 20 120/70 (87) 100 99.5 Intake and Output 06/16/18 06/17/18 19:00 07:00 Intake Total 1430 ml 945 ml Output Total 800 ml 550 ml Balance 630 ml 395 ml Intake Oral 550 ml 120 ml IV Total 880 ml 825 ml Output Urine Total 800 ml 550 ml # Bowel Movements 1 General Appearance: WD/WN HEENT: normocephalic, anicteric Respiratory/Chest: chest wall non-tender, normal breath sounds Cardiovascular: normal peripheral pulses, normal rate Abdomen: normal bowel sounds, no organomegaly Genitourinary: normal external genitalia Extremities: no cyanosis Skin: no rash Laboratory Tests 06/17/18 06:00: White Blood Count 6.5, Red Blood Count 3.34L, Hemoglobin 10.4L, Hematocrit 30.8L , Mean Corpuscular Volume 92, Mean Corpuscular Hemoglobin 31.2H, Mean Corpuscular Hemoglobin Concent 33.8, Red Cell Distribution Width 11.6, Platelet Count 149L, Mean Platelet Volume 7.5, Neutrophils (%) (Auto) 42.9L, Lymphocytes (%) (Auto) 40.2, Monocytes (%) (Auto) 13.9H, Eosinophils (%) (Auto) 2.0, Basophils (%) (Auto) 1.0, Differential Total Cells Counted 100, Neutrophils % ( Manual) 47, Lymphocytes % (Manual) 36, Monocytes % (Manual) 15H, Eosinophils % ( Manual) 2, Basophils % (Manual) 0, Band Neutrophils 0, Platelet Estimate Adequate, Platelet Morphology Normal, Polychromasia 1+, Hypochromasia 1+, Sodium Level 140, Potassium Level 3.9, Chloride Level 106, Carbon Dioxide Level 31, Anion Gap 3L, Blood Urea Nitrogen 8, Creatinine 0.7, Estimat Glomerular Filtration Rate , Glucose Level 109H, Calcium Level 9.0, Phosphorus Level 2.7, Magnesium Level 1.2L, Total Bilirubin 0.4, Aspartate Amino Transf (AST/SGOT) 91H , Alanine Aminotransferase (ALT/SGPT) 88H, Alkaline Phosphatase 73, C-Reactive Protein, Quantitative 2.6H, Total Protein 7.6, Albumin 2.7L, Globulin 4.9, Albumin/Globulin Ratio 0.6L 06/17/18 08:10: Erythrocyte Sedimentation Rate 83H, Reticulocyte Count 0.8, Sickle Cell Screen [ Pending], Hemoglobin A [Pending], Hemoglobin A2 [Pending], Hemoglobin C [Pending ], Hemoglobin F () [Pending], Hemoglobin S [Pending], Variant Hemoglobin [ Pending], Hemoglobin Electrophoresis Interp [Pending], Hemoglobin Interpretation [Pending], Hemoglobin Solubility [Pending], Iron Level 66, Total Iron Binding Capacity 290, Percent Iron Saturation 23, Unsaturated Iron Binding 224, Ferritin 284, Lactate Dehydrogenase 258H, Thyroid Stimulating Hormone (TSH ) 1.725 Current Medications Medications (Trade) Dose Ordered Sig/Darwin Route PRN Reason Start Time Stop Time Status Last Admin Dose Admin Acetaminophen (Tylenol) 650 mg Q4H PRN ORAL T>100.5 06/14/18 15:00 07/12/18 14:59 06/15/18 16:42 Acetaminophen/ Hydrocodone Bitart ([place] 5/325) 1 tab Q4H PRN ORAL Moderate Pain (Pain Scale 4-6) 06/14/18 15:00 06/19/18 14:59 Albuterol/ Ipratropium (Albuterol/ Ipratropium) 3 ml Q4H PRN HHN Shortness of Breath 06/14/18 15:00 06/17/18 14:59 Amlodipine Besylate (Norvasc) 5 mg DAILY ORAL 06/15/18 09:00 07/13/18 08:59 06/17/18 08:26 Brimonidine Tartrate (Alphagan) 1 drop BID BOTH EYES 06/14/18 18:00 07/12/18 17:59 06/17/18 08:26 Buspirone HCl (Buspar) 10 mg THREE TIMES A DAY ORAL 06/14/18 18:00 07/12/18 17:59 06/17/18 12:27 Ceftriaxone Sodium 1 gm/ Dextrose 55 ml @ 110 mls/hr DAILY IVPB 06/15/18 11:00 06/22/18 10:59 06/17/18 08:26 Citalopram Hydrobromide (celeXA) 40 mg DAILY ORAL 06/15/18 09:00 07/13/18 08:59 06/17/18 08:26 Dextrose (Dextrose 50%) 25 ml PRN IV hypoglycemia 06/14/18 14:45 07/14/18 14:44 Dextrose (Dextrose 50%) 50 ml PRN IV hypoglycemia 06/14/18 14:45 07/14/18 14:44 Gabapentin (Neurontin) 300 mg THREE TIMES A DAY ORAL 06/15/18 09:00 07/12/18 17:59 06/17/18 12:27 Heparin Sodium (Porcine) (Heparin 5000 units/ml) 5,000 units EVERY 12 HOURS SUBQ 06/14/18 21:00 07/12/18 20:59 06/16/18 20:48 Insulin Aspart (NovoLOG) BEFORE MEALS AND HS SUBQ 06/14/18 16:30 07/12/18 20:59 06/17/18 12:30 Lorazepam (Ativan) 1 mg Q6H PRN ORAL For Anxiety 06/14/18 15:00 06/20/18 14:59 06/15/18 16:41 Morphine Sulfate (Morphine Sulfate) 2 mg Q4H PRN IVP Severe Pain (Pain Scale 7-10) 06/14/18 15:00 06/19/18 14:59 06/17/18 12:27 Nitroglycerin (Ntg) 0.4 mg Q5M PRN SL Prn Chest Pain 06/14/18 14:30 07/12/18 16:44 Ondansetron HCl (Zofran) 4 mg Q6H PRN IVP Nausea & Vomiting 06/14/18 15:00 07/12/18 14:59 Polyethylene Glycol (Miralax) 17 gm DAILYPRN PRN ORAL Constipation 06/14/18 15:00 07/12/18 14:59 Sodium Chloride 1,000 ml @ 75 mls/hr [id number] IV 06/14/18 14:30 07/13/18 12:20 06/17/18 08:28 Sodium Phosphate (Fleet's Sodium Phosl Enema) 133 ml Q12H PRN RECTAL Constipation 06/14/18 15:00 07/12/18 14:59 Temazepam (Restoril) 15 mg HSPRN PRN ORAL Insomnia 06/14/18 21:00 06/19/18 20:59 Timolol Maleate (Timoptic 0.5% Op Soln) 1 drop TWICE A DAY BOTH EYES 06/14/18 18:00 07/12/18 17:59 06/17/18 08:25 Shannon Pang MD Jun 17, 2018 13:39
[2018-06-17] MEDS ORDERED: Tubing IV Secondary IV ONE (16:00)
[2018-06-17] MEDS: LORazepam 1mg tab ORAL PRN (16:09)
--- NOTE | 2018-06-17 21:00 | Consultation ---
DATE OF CONSULTATION: 06/17/2018 CONSULTING PHYSICIAN: Juany Sullivan M.D. HISTORY: The patient is a 77-year-old female patient with fever. She does have altered mental status confusion, high levels of anxiety, and depression worsened by stress of her mental illness. That is why her attending has requested daily psychiatric consultation. MENTAL STATUS EXAMINATION: This is a 77-year-old female. Appearance disheveled. Attitude, irritable and agitated. Affect, guarded and restricted. Intellect poor. Mood depressed and anxious. Motor activity, psychomotor agitation. Attention span is poor. Oriented x2. Speech is low volume. Thought process, disorganized and illogical. Thought content, presents with paranoia. Insight and judgment are poor. DIAGNOSIS: Major depressive disorder, moderate to severe without psychotic features. PLAN: Treat with mg three times a day, Ativan as needed 1 mg, mg three times a day, Zoloft 25 mg daily. Provided 18-20 minutes of cognitive behavioral therapy to identify this patient's automatic negative thoughts and I will teach him the techniques to convert his negative thoughts to more positive thoughts to reduce depression and suicidality. Chart reviewed. Discussed with staff. Seen and assessed in her room. Juany Sullivan M.D. DR: SUSU JOB#: [id number] CC:
--- NOTE | 2018-06-18 12:19 | Discharge Summary ---
Discharge Summary Discharge Summary _ DATE OF ADMISSION: 06/13/2018 DATE OF DISCHARGE: 06/17/2018 CONSULTANTS: Dr. Juany Hernandez PsyD [facility] COURSE: Patient is a 77-year-old female, from [facility], presented to ER due to increased confusion and lethargy. She has history of hypertension, diabetes and cirrhosis due to hepatitis C. On evaluation at ED, she was found to be febrile, temperature 102. Blood work did not show any leukocytosis. Urinalysis showed 20-30 WBC, 15-20 RBC, 3+ leukocyte esterase, positive nitrite. Chest x-ray showed minimal basilar scarring/atelectasis. Lactic acid was 5. She was then admitted for sepsis and UTI. She was seen by ID specialist. She was given cefepime pending culture results. Urine culture showed growth of Escherichia coli. Blood culture growing gram- negative rods. Cefepime was discontinued. She was given meropenem which was eventually discontinued and was switched to ceftriaxone. She had anemia and thrombocytopenia. Him manager pricing was consulted. Pancytopenia was secondary to underlying cirrhosis and hepatitis C. Anemia workup showed normal iron and ferritin levels. Anemia was due to underlying chronic disease. She was irritable and agitated. She was seen by psychiatrist. She was diagnosed with major depressive disorder. She was given Celexa, BuSpar and Neurontin. She was placed on Ativan when necessary. Fever resolved. Emphasized ptosis resolved. Repeat blood culture was positive for Escherichia coli. Patient will need to continue with ceftriaxone. End of treatment 06/25/2018. Patient was discharged to SNF. 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 DISCHARGE MEDICATIONS: Refer to Discharge Medication List. I have been assigned to dictate discharge summary on this account, and I was not involved in the patient's management. Gracy Ochoa NP Jun 18, 2018 12:19
--- NOTE | 2018-06-19 | Consultation ---
DATE OF CONSULTATION: 06/17/2018 NOTE: POOR AUDIO PSYCHOTHERAPY CONSULTATION PROGRESS NOTE CONSULTING PHYSICIAN: Gricelda Hernandez PsyD. TREATING ATTENDING PHYSICIAN: Phan Nix D.O. HISTORY OF PRESENT ILLNESS: This patient is a 77-year-old female patient from [facility]. The patient remains and reporting as confused, disorganized, helpless, and poorly motivated. The patient has been very thought process, has poor frustration tolerance. The patient was reminiscing about her past and talking extensively of her past history, states that she has continued to . The patient is forgetful and . MENTAL STATUS EXAMINATION: The patient is alert and oriented to person and place. Mood is . Affect is . Thought process, disorganized. Provided reality orientation and supportive psychotherapy. Continue . Gricelda Hernandez PsyD. DR: CHRISTY JOB#: [id number] CC:
== END 2018-06-17 16:25 | DRG 872 ==
LOC: EDBD 13:48 → EMR 14:40 → 2E 14:44 → EDBEDREQ 14:58 → 2E 06-13 12:00 → 4E 06-14 14:35
DX: A41.9 Sepsis, unspecified organism (principal); N39.0 Urinary tract infection, site not specified; D61.818 Other pancytopenia; E46 Unspecified protein-calorie malnutrition; N17.9 Acute kidney failure, unspecified; F33.9 Major depressive disorder, recurrent, unspecified; B19.20 Unspecified viral hepatitis C without hepatic coma; K74.60 Unspecified cirrhosis of liver; E11.9 Type 2 diabetes mellitus without complications; I10 Essential (primary) hypertension; B96.20 Unspecified Escherichia coli [E. coli] as the cause of diseases classified elsewhere; F41.9 Anxiety disorder, unspecified; D63.8 Anemia in other chronic diseases classified elsewhere; Z66 Do not resuscitate; H54.7 Unspecified visual loss
CPT/HCPCS: 36415; 71045; 80048; 80053; 81003; 82248; 82728; 82962; 83020; 83036; 83540; 83550; 83605; 83615; 83735; 84100; 84443; 85007; 85025; 85044; 85060; 85651; 85660; 86140; 87040; 87081; 87086; 87181; 93005; 94664; 96361; 96365; 96368; 97802; 97803; 99285; J1815; J8499

== ENCOUNTER 2018-10-08 17:46 | Emergency (ER) | payer MEDICARE, MEDICAID ==
[~2018-10-08] VITALS: Ht 162.6 cm; Wt 61.2 kg
[~2018-10-08 17:46] MED LIST changes: +ACETAMINOP160 MG/54 ORAL; +ACETAMINOPHEN325 M1 ORAL; +ACETAMINOPHEN500 MG ORAL; +CALCIUM 500 +1 EAC7 PO; +CEFTRIAXONE1 G2 IV; +CELEXA40 MG ORAL; +CRANBERRY400 MG PO; +ESCITALOPRAM OX10 MG ORAL; +IPRATROPIU0.2 MG/1 M HHN; +LEXAPRO5 MG ORAL; +LORAZEPAM1 MG ORAL; +NEURONTIN300 MG ORAL; +NORVASC5 MG ORAL; +NOVOLOG100 UNITS1; +RESTORIL15 MG ORAL; +TIMOPTIC 0.5%1 EACH OP; +TRAMADOL HCL100 M2 ORAL; +VITAMIN C500 M1 ORAL
[2018-10-08] MEDS ORDERED: VITAMIN C500 M1 ORAL (17:57)
[2018-10-08] MEDS ORDERED: METFORMIN HCL500 M3 ORAL (17:57)
[2018-10-08] MEDS ORDERED: CRANBERRY450 M5 PO (17:57)
[2018-10-08] MEDS ORDERED: VITAMIN D400 INTLU ORAL (17:57)
[2018-10-08 17:58] VITALS: BP 125/76
[2018-10-08] MEDS: Morphine Sulfate 4mg/ml Inj (IV/IM USE ONLY) IVP ONE (18:26)
[2018-10-08 18:38] LABS: EOSINOPHILS % (AUTO) 0.9 % (0.0-3.0); HEMATOCRIT 32.8 % (37.0-47.0); HEMOGLOBIN 10.6 G/DL (12.0-16.0); LYMPHOCYTES % (AUTO) 40.9 % (20.0-45.0); MEAN CORPUSCULAR VOLUME 99 FL (80-99); MONOCYTES % (AUTO) 12.7 % (1.0-10.0); NEUTROPHILS % (AUTO) 43.5 % (45.0-75.0); PLATELET COUNT 166 K/UL (150-450); RED BLOOD COUNT 3.31 M/UL (4.20-5.40); RED CELL DISTRIBUTION WIDTH 12.5 % (11.6-14.8); WHITE BLOOD COUNT 4.6 K/UL (4.8-10.8)
[2018-10-08 18:39] LABS: ANION GAP 9 mmol/L (5-15); BLOOD UREA NITROGEN 14 mg/dL (7-18); CALCIUM 9.2 MG/DL (8.5-10.1); CARBON DIOXIDE 27 MMOL/L (21-32); CHLORIDE 103 MMOL/L (98-107); CREATININE 1.1 MG/DL (0.55-1.30); POTASSIUM 4.2 MMOL/L (3.5-5.1); SODIUM 139 MMOL/L (136-145)
[2018-10-08 18:44] LABS: ALANINE AMINOTRANSFERASE 88 U/L (12-78); ALBUMIN/GLOBULIN RATIO 0.7 (1.0-2.7); ALKALINE PHOSPHATASE 98 U/L (46-116); ASPARTATE AMINO TRANSFERASE 93 U/L (15-37); BILIRUBIN,TOTAL 0.5 MG/DL (0.2-1.0)
[2018-10-08 21:34] VITALS: BP 132/65
--- NOTE | 2018-10-08 22:08 | Emergency Room Report ---
History of Present Illness General Chief Complaint: Multiple Trauma/Fall Source: Patient, Medical Record, EMS Present Illness HPI 78-year-old female presents ED for evaluation. Complaining of right-sided pain. Started a few [place] Coming from half-way facility. Complaining of right-sided hip pain and leg pain and headache. States she is status post hip replacement. Pain is sharp, 9 out of 10, nonradiating. Denies any other injuries. No other aggravating relieving factors. Denies any other associated symptoms Allergies: Coded Allergies: No Known Allergies (Verified , 06/27/09) Patient History Past Medical History: DM, HTN Past Surgical History: other - R DARIN Pertinent Family History: none Social History: Denies: smoking, alcohol use, drug use Now: No Immunizations: UTD Reviewed Nursing Documentation: PMH: Agreed; PSxH: Agreed Nursing Documentation-PMH Hx Cardiac Problems: No Hx Hypertension: Yes Hx Diabetes: Yes Hx Cancer: No Hx Gastrointestinal Problems: No Hx Neurological Problems: No Review of Systems All Other Systems: negative except mentioned in HPI Physical Exam Vital Signs Date Time Temp Pulse Resp B/P (MAP) Pulse Ox O2 Delivery O2 Flow Rate FiO2 10/08/18 17:48 98.8 76 18 129/81 95 Room Air Sp02 EP Interpretation: reviewed, normal General Appearance: no apparent distress, alert, GCS 15, non-toxic Head: normocephalic 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 ENT: normal ENT inspection Neck: normal inspection Respiratory: normal inspection Cardiovascular #1: normal inspection Gastrointestinal: normal inspection Rectal: deferred Genitourinary: no CVA tenderness Musculoskeletal: tender - R hip Neurologic: alert, oriented x3, responsive, motor strength/tone normal, sensory intact, speech normal Psychiatric: normal inspection Skin: normal inspection Lymphatic: normal inspection Medical Decision Making Diagnostic Impression: Primary Impression: Hip pain Qualified Codes: M25.551 - Pain in right hip Additional Impression: Fall Qualified Codes: W19.XXXA - Unspecified fall, initial encounter ER Course Hospital Course 78 yo F presents to ED c/o R hip pain s/p fall. Differential diagnoses include: fx, dislocation, contusion Clinical course Patient placed on stretcher. on environmental monitoring specialist. After initial history and physical I ordered labs, multiple imaging studies, pain meds labs reviewed- no leukocytosis, Hb/Hct stable, electrolytes ok CT Brain - unremarkable CT Pelvis- no fx, surgical hardware in place Xray of femur and knee no acute fx DVT study of RLE negative On reassessment pain is improved. Discussed findings with patient. Safe for discharge back to half-way facility. Discussed with PMD Dr. Boyd Higgins I feel this is a highly complex case requiring extensive working including EKG/Rhythm strip, Xray/CT/US, Blood/urine lab work, repeat exams while in ED, and administration of strong opiates/narcotics for pain control, admission to hospital or close patient follow up. Diagnosis - hip pain, fall Stable and discharged to SNF. Followup with PMD. Return to ED if symptoms recur or worsen Labs Test 10/08/18 18:13 White Blood Count 4.6 K/UL (4.8-10.8) Red Blood Count 3.31 M/UL (4.20-5.40) Hemoglobin 10.6 G/DL (12.0-16.0) Hematocrit 32.8 % (37.0-47.0) Mean Corpuscular Volume 99 FL (80-99) Mean Corpuscular Hemoglobin 32.0 PG (27.0-31.0) Mean Corpuscular Hemoglobin Concent 32.3 G/DL (32.0-36.0) Red Cell Distribution Width 12.5 % (11.6-14.8) Platelet Count 166 K/UL (150-450) Mean Platelet Volume 7.4 FL (6.5-10.1) Neutrophils (%) (Auto) 43.5 % (45.0-75.0) Lymphocytes (%) (Auto) 40.9 % (20.0-45.0) Monocytes (%) (Auto) 12.7 % (1.0-10.0) Eosinophils (%) (Auto) 0.9 % (0.0-3.0) Basophils (%) (Auto) 2.0 % (0.0-2.0) Sodium Level 139 MMOL/L (136-145) Potassium Level 4.2 MMOL/L (3.5-5.1) Chloride Level 103 MMOL/L (98-107) Carbon Dioxide Level 27 MMOL/L (21-32) Anion Gap 9 mmol/L (5-15) Blood Urea Nitrogen 14 mg/dL (7-18) Creatinine 1.1 MG/DL (0.55-1.30) Estimat Glomerular Filtration Rate mL/min (>60) Glucose Level 127 MG/DL (74-106) Calcium Level 9.2 MG/DL (8.5-10.1) Total Bilirubin 0.5 MG/DL (0.2-1.0) Aspartate Amino Transf (AST/SGOT) 93 U/L (15-37) Alanine Aminotransferase (ALT/SGPT) 88 U/L (12-78) Alkaline Phosphatase 98 U/L (46-116) Total Protein 7.5 G/DL (6.4-8.2) Albumin 3.0 G/DL (3.4-5.0) Globulin 4.5 g/dL Albumin/Globulin Ratio 0.7 (1.0-2.7) Other X-Ray Diagnostic Results Other X-Ray Diagnostic Results #1: X-Ray ordered: R femur # of Views/Limited Vs Complete: 3 View Indication: Pain EP Interpretation: Yes Interpretation: no dislocation, no soft tissue swelling, no fractures Impression: No acute disease Electronically Signed by: Electronically signed by Marv Mitchell MD Other X-Ray Diagnostic Results #2: X-Ray ordered: R knee # of Views/Limited Vs Complete: 3 View Indication: Pain EP Interpretation: Yes Interpretation: no dislocation, no soft tissue swelling, no fractures Impression: No acute disease Electronically Signed by: Electronically signed by Marv Mitchell MD CT/MRI/US Diagnostic Results CT/MRI/US Diagnostic Results #1: Imaging Test Ordered: CT HEad Impression no acute process CT/MRI/US Diagnostic Results #2: Imaging Test Ordered: CT Pelvis Impression no fx. s/p R hip replacement. CT/MRI/US Diagnostic Results #3: Imaging Test Ordered: Venous Duplex RLE Impression no dvt Last Vital Signs Date Time Temp Pulse Resp B/P (MAP) Pulse Ox O2 Delivery O2 Flow Rate FiO2 10/08/18 17:58 98.7 78 18 125/76 96 Room Air Status: improved Disposition: XFER SNF Condition: Stable Patient Instructions: Hip Pain Marv Mitchell MD Oct 08, 2018 22:07
--- NOTE | 2018-10-09 15:52 | Diagnostic Imaging Report ---
EXAM: XR Right Knee, 3 views CLINICAL HISTORY: PAIN TECHNIQUE: Three views of the right knee. COMPARISON: No relevant prior studies available. FINDINGS: Bones/joints: No acute fracture. Moderate Degenerative changes and chondrocalcinosis. Soft tissues: No radiodense foreign body. Soft tissue swelling IMPRESSION: No acute fracture.
--- NOTE | 2018-10-09 15:52 | Diagnostic Imaging Report ---
EXAM: XR Right Femur, 2 Views CLINICAL HISTORY: PAIN TECHNIQUE: Frontal and lateral views of the right femur. COMPARISON: No relevant prior studies available. FINDINGS: Bones/joints: Right hip replacement. No fracture in the prosthesis or the femur. Soft tissues: No radiodense foreign body. IMPRESSION: No fracture in the prosthesis or the femur.
--- NOTE | 2018-10-09 15:52 | Diagnostic Imaging Report ---
EXAM: CT Head Without Intravenous Contrast CLINICAL HISTORY: H/A TECHNIQUE: Axial computed tomography images of the head/brain without intravenous contrast. CTDI is 70.38 mGy and DLP is 1362 mGy-cm. One or more of the following dose reduction techniques were used: automated exposure control, adjustment of the mA and/or kV according to patient size, use of iterative reconstruction technique. COMPARISON: No relevant prior studies available. FINDINGS: Brain: No hemorrhage. No edema. Involutional changes with small vessel disease. Ventricles: No ventriculomegaly. Bones/joints: No acute fracture. Soft tissues: Unremarkable. Sinuses: No acute sinusitis. Mastoid air cells: No mastoid effusion. IMPRESSION: No acute intracranial process.
--- NOTE | 2018-10-09 15:52 | Diagnostic Imaging Report ---
EXAM: US Duplex Right Lower Extremity Veins CLINICAL HISTORY: PAIN TECHNIQUE: Real-time duplex ultrasound scan of the right lower extremity veins integrating B-mode two-dimensional vascular structure, Doppler spectral analysis, color flow Doppler imaging and compression. COMPARISON: No relevant prior studies available. FINDINGS: Deep veins: Unremarkable. No DVT in the visualized common femoral, femoral, proximal deep femoral or popliteal veins. The veins demonstrate normal color flow, are normally compressible, with normal phasic flow and/or augmentation response. Superficial veins: No thrombus in the visualized segments of the greater saphenous vein. Soft tissues: No acute findings. IMPRESSION: No DVT demonstrated.
--- NOTE | 2018-10-09 15:52 | Diagnostic Imaging Report ---
EXAM: CT Pelvis Without Intravenous Contrast CLINICAL HISTORY: H/A. Pain TECHNIQUE: Axial computed tomography images of the pelvis without intravenous contrast. CTDI is 12.29 mGy and DLP is 449 mGy-cm. One or more of the following dose reduction techniques were used: automated exposure control, adjustment of the mA and/or kV according to patient size, use of iterative reconstruction technique. COMPARISON: No relevant prior studies available. FINDINGS: Intraperitoneal space: Unremarkable. Bladder: Unremarkable. Reproductive: Hysterectomy. Bones/joints: Right hip replacement without evidence of fracture or dislocation. Soft tissues: Unremarkable. IMPRESSION: Right hip replacement without evidence of fracture or dislocation.
== END 2018-10-08 21:34 ==
LOC: EDUNIT# 17:46 → EDBD 17:46 → EMR 19:09
DX: M25.551 Pain in right hip (principal); E11.9 Type 2 diabetes mellitus without complications; I10 Essential (primary) hypertension; W01.0XXA Fall on same level from slipping, tripping and stumbling without subsequent striking against object, initial encounter; Y93.9 Activity, unspecified; Y92.520 Airport as the place of occurrence of the external cause
CPT/HCPCS: 36415; 70450; 72192; 73552; 73562; 80053; 85025; 93971; 96374; 99284; J2270

== ENCOUNTER 2019-04-28 17:13 | Inpatient (IN) | payer MEDICARE, MEDICAID ==
[~2019-04-28] VITALS: Ht 162.6 cm; Wt 62.6 kg
[~2019-04-28 17:13] MED LIST changes: +CRANBERRY450 M5 PO; +METFORMIN HCL500 M3 ORAL; +VITAMIN D400 INTLU ORAL
[2019-04-28 17:18] VITALS: BP 132/88
--- NOTE | 2019-04-28 17:22 | NUR ---
ED Nurse Note: Pt BIBA from [facility] s/p fall out of bed around 1500 today. Pt was trying to reach for her cell phone, fell down and hit L side of head. Bump noted on L forehead, no bleeding. Pain 8/10 chadwick. Reports no LOC. AOx4, VSS chadwick. Will cont to monitor.
--- NOTE | 2019-04-28 17:24 | Emergency Room Report ---
History of Present Illness General Chief Complaint: Multiple Trauma/Fall Source: Medical Record Present Illness HPI She is a 78-year-old female who presented after a fall onto her head. Patient reportedly had been seated in a wheelchair. She attempted to retrieve an object from on the floor and subsequently fell out of the wheelchair and hit her head. She denies any definite loss of consciousness. She reports having pain to the forehead currently. She denies any neck or back pain currently. She had prior history of hip surgery and had been noted to be able to ambulate with assistance intermittently. She apparently has had falls in the past. Allergies: Coded Allergies: No Known Allergies (Verified , 06/27/09) Patient History Past Medical History: see triage record Reviewed Nursing Documentation: PMH: Agreed; PSxH: Agreed Nursing Documentation-PMH Past Medical History: No History, Except For Hx Cardiac Problems: No Hx Hypertension: Yes Hx Diabetes: Yes Hx Cancer: No Hx Gastrointestinal Problems: No Hx Neurological Problems: No Review of Systems All Other Systems: negative except mentioned in HPI Physical Exam Vital Signs Date Time Temp Pulse Resp B/P (MAP) Pulse Ox O2 Delivery O2 Flow Rate FiO2 04/28/19 17:13 98.2 64 14 135/83 (100) 96 Room Air Sp02 EP Interpretation: reviewed, normal General Appearance: normal inspection, well appearing, no apparent distress, alert, GCS 15 Head: other - forehead soft tissue swelling ENT: normal ENT inspection, hearing grossly normal, normal voice Neck: normal inspection, full range of motion, supple, no bony tend Respiratory: normal inspection, lungs clear, normal breath sounds, no respiratory distress, no retraction, no wheezing Cardiovascular #1: regular rate, rhythm, no edema Gastrointestinal: normal inspection, normal bowel sounds, non tender, soft, no guarding, no hernia Genitourinary: no CVA tenderness Musculoskeletal: normal inspection, back normal, normal range of motion Neurologic: normal inspection, alert, oriented x3, responsive, forming tube selector III-XII nml as tested, speech normal Psychiatric: normal inspection, judgement/insight normal, mood/affect normal Medical Decision Making Diagnostic Impression: Primary Impression: Fall Additional Impressions: Forehead contusion Cervical arthritis ER Course Patient presented after a fall. Differential diagnosis include was not limited to head injury, cervical spine fracture, intracranial hemorrhage among others. CT imaging of the head and cervical spine was ordered to the patient's recent fall and advanced age. CT of the head read by radiology showed no evidence of acute intracranial hemorrhage or fracture. CT of cervical spine showed degenerative changes without evidence of acute fracture or malalignment. Patient was given medications for pain. She was advised to follow-up with her primary care physician. Last Vital Signs Date Time Temp Pulse Resp B/P (MAP) Pulse Ox O2 Delivery O2 Flow Rate FiO2 04/28/19 17:19 60 15 Room Air 04/28/19 17:18 98.2 132/88 97 Status: improved Disposition: HOME, SELF-CARE Jon Coronado MD Apr 28, 2019 17:24
[2019-04-28] MEDS ORDERED: Acetaminophen 500mg (ES) tab ORAL ONE (17:30)
--- NOTE | 2019-04-28 17:30 | NUR ---
ED Nurse Note: Pt down to CT for imaging.
--- NOTE | 2019-04-28 18:08 | Diagnostic Imaging Report ---
Indications: Headache Technique: Spiral acquisitions obtained through the brain. Angled axial and coronal 5 x 5 mm slices were reconstructed. Total dose length product 1591.59 mGycm. CTDI vol(s) 70.38,12.35 mGy. Dose reduction achieved using automated exposure control Comparison: 10/08/2018 Findings: There is age-related enlargement of the ventricles and extra-axial CSF spaces. There is periventricular deep white matter low-attenuation, consistent with chronic microvascular ischemic change. No acute intracranial hemorrhage nor edema, mass effect, nor midline shift. There is evidence of prior surgery to the left orbit. The visualized sinuses are clear. The calvarium is intact. No significant interim change Impression: Chronic and age-related changes. Negative for acute intracranial bleed or mass effect The CT scanner at [facility] is accredited by the [employer] and the scans are performed using protocols designed to limit radiation exposure to as low as reasonably achievable to attain images of sufficient resolution adequate for diagnostic evaluation.
--- NOTE | 2019-04-28 18:10 | Diagnostic Imaging Report ---
Indication: Neck pain after fall onto head Technique: Spiral acquisitions obtained through the cervical spine. No IV contrast utilized. Multiplanar reconstructions were generated. Total dose length product 1591.59 mGycm. CTDIvol(s) 70.38,12.35 mGy. Dose reduction achieved using automated exposure control. Comparison: none Findings: There is slight reversal of the normal cervical lordosis. Otherwise normal bony alignment. No prevertebral soft tissue swelling. Vertebral body heights are preserved. No acute fractures. There is discontinuity of the junction between the lamina and lateral mass of C1 on the right, but this appears to be chronic or congenital/developmental. At C2-3, there mild is broad-based posterior disc protrusion. This results in borderline narrowing of the spinal canal, probably does not impinge significantly upon the cord. The disc space and neural foramina are preserved. At C3-4, mild broad-based disc protrusion and short pedicles result in mild narrowing of the spinal canal. There may be slight impingement upon the anterior aspect of the cord. The neural foramina are preserved. The disc spaces preserved. At C4-5, there is mild degenerative disc narrowing. Posterior disc bulge/osteophyte complex results in moderate narrowing the spinal canal. This is exacerbated by short pedicles. There is moderate neural foraminal stenosis on the right. At C5-6, posterior osteophyte and disc bulge complex results in moderate narrowing the spinal canal, likely impingement on the right side of the cord. There is severe bilateral neural foraminal stenosis. There is moderate degenerative disc narrowing. At the remaining disc levels, no significant disc bulge or protrusion, spinal stenosis, or neural foraminal stenosis. The included lung apices are clear. 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 The CT scanner at [facility] is accredited by the [employer] and the scans are performed using protocols designed to limit radiation exposure to as low as reasonably achievable to attain images of sufficient resolution adequate for diagnostic evaluation.
--- NOTE | 2019-04-28 18:33 | NUR ---
ED Nurse Note: MAXX Iglesias, at [facility] informed that patient will be returning.
[2019-04-28 18:49] VITALS: BP 160/67
--- NOTE | 2019-04-28 19:01 | NUR ---
HAND-OFF: Report given to MAXX Gonsales.
--- NOTE | 2019-04-28 19:02 | NUR ---
ED Nurse Note: Received report from MAXX Joy. Patient in bed resting. VSS. Bed is in lowest position. safety measures ensured. will continue to monitor.
[2019-04-28] MEDS ORDERED: Morphine Sulfate 2mg/ml Inj(IV/IM USE ONLY) IVP ONE (19:15)
[2019-04-28 19:57] LABS: BASOPHILS % (AUTO) 1.7 % (0.0-2.0); EOSINOPHILS % (AUTO) 0.6 % (0.0-3.0); HEMATOCRIT 34.1 % (37.0-47.0); HEMOGLOBIN 11.3 G/DL (12.0-16.0); LYMPHOCYTES % (AUTO) 37.7 % (20.0-45.0); MEAN CORPUSCULAR VOLUME 97 FL (80-99); MONOCYTES % (AUTO) 8.7 % (1.0-10.0); NEUTROPHILS % (AUTO) 51.3 % (45.0-75.0); PLATELET COUNT 170 K/UL (150-450); RED BLOOD COUNT 3.49 M/UL (4.20-5.40); RED CELL DISTRIBUTION WIDTH 11.5 % (11.6-14.8); WHITE BLOOD COUNT 5.2 K/UL (4.8-10.8)
[2019-04-28 20:07] LABS: ANION GAP 6 mmol/L (5-15); BLOOD UREA NITROGEN 10 mg/dL (7-18); CALCIUM 9.6 MG/DL (8.5-10.1); CARBON DIOXIDE 30 MMOL/L (21-32); CHLORIDE 104 MMOL/L (98-107); CREATININE 0.7 MG/DL (0.55-1.30); POTASSIUM 5.3 MMOL/L (3.5-5.1); SODIUM 140 MMOL/L (136-145)
[2019-04-28 20:11] LABS: ALANINE AMINOTRANSFERASE 73 U/L (12-78); ALBUMIN 3.2 G/DL (3.4-5.0); ALBUMIN/GLOBULIN RATIO 0.7 (1.0-2.7); ALKALINE PHOSPHATASE 72 U/L (46-116); ASPARTATE AMINO TRANSFERASE 103 U/L (15-37); BILIRUBIN,TOTAL 0.6 MG/DL (0.2-1.0)
[2019-04-28] MEDS ORDERED: Miralax 17gm pkt ORAL PRN (20:15)
[2019-04-28] MEDS ORDERED: Zolpidem 5mg tab ORAL PRN (20:15)
[2019-04-28] MEDS ORDERED: LORazepam Inj 2mg/ml 1ml IV PRN (20:15)
[2019-04-28] MEDS: NovoLOG Insulin Flexpen SUBQ SCH (21:00)
--- NOTE | 2019-04-28 21:00 | NUR ---
ED Nurse Note: pt brought up to [facility] room 420-1. Report given to MAXX Patten. Patient VSS. No acute distress noted.
--- NOTE | 2019-04-28 21:10 | NUR ---
NURSE NOTES: ADMITTED 77 YEAR OLD FEMALE TO ROOM 420 BED 1 VIA GURNEY FROM EMERGENCY DEPARTMENT WITH DIAGNOSIS WEAKNESS, FAILURE TO THRIVE, CERVICAL STENOSIS, UNDER THE CARE OF DR. FREDDIE BOOTH. PATIENT AWAKE, ALERT/ORIENTED X4, VERBALLY RESPONSIVE, DENIES PAIN. NO SIGNS AND SYMPTOMS OF ACUTE CARDIO RESPIRATORY DISTRESS/SHORTNESS OF BREATH, NO PERIPHERAL EDEMA NOTED. CONTINENT OF B/B, BATHROOM PRIVILEGES WITH ASSISTANCE, ENCOURAGED PATIENT TO UTILIZE CALL LIGHT FOR ASSISTANCE, VERBALIZED UNDERSTANDING. ORIENTATED PATIENT TO ROOM/ENVIRONMENT. SIDE RAILS UP X3/BED IN LOWEST POSITION FOR SAFETY. CALL LIGHT WITHIN REACH AT ALL TIMES. NAD.
[2019-04-28 21:25] VITALS: BP 143/76
[2019-04-28] MEDS: Heparin 5000 units/ml inj SUBQ SCH (22:27)
[2019-04-28] MEDS: Morphine Sulfate 2mg/ml Inj(IV/IM USE ONLY) IVP PRN (23:59)
[2019-04-29] VITALS: BP 110/69
[2019-04-29] MEDS ORDERED: CALCIUM 500 +1 EAC7 PO (00:39)
[2019-04-29] MEDS ORDERED: VISTARIL25 M1 PO (01:01)
[2019-04-29] MEDS ORDERED: MOM30 ML ORAL (01:01)
[2019-04-29] MEDS ORDERED: TIMOPTIC 0.5%1 DROP BOTH EYES (01:01)
[2019-04-29] MEDS ORDERED: LEXAPRO5 MG ORAL (01:01)
[2019-04-29] MEDS ORDERED: VITAMIN C500 M1 ORAL (01:01)
[2019-04-29] MEDS ORDERED: CRANBERRY500 M4 PO (01:01)
[2019-04-29] MEDS ORDERED: COLACE100 MG ORAL (01:01)
[2019-04-29] MEDS ORDERED: FLEET ENEMA133 ML RECTAL (01:01)
[2019-04-29] MEDS ORDERED: TRAMADOL HCL50 MG ORAL (01:01)
[2019-04-29] MEDS ORDERED: LAMICTAL25 MG ORAL (01:01)
[2019-04-29 04:00] VITALS: BP 141/72
--- NOTE | 2019-04-29 06:18 | NUR ---
NURSE NOTES: RESTED WELL, NO SIGNIFICANT CHANGE OF CONDITION NOTED THROUGHOUT THE NIGHT. SAFETY MAINTAINED. NAD.
[2019-04-29] MEDS: NovoLOG Insulin Flexpen SUBQ SCH ×2 (06:30→11:51)
[2019-04-29 06:36] LABS: BASOPHILS % (AUTO) 0.5 % (0.0-2.0); EOSINOPHILS % (AUTO) 0.8 % (0.0-3.0); HEMATOCRIT 33.9 % (37.0-47.0); HEMOGLOBIN 11.1 G/DL (12.0-16.0); LYMPHOCYTES % (AUTO) 42.8 % (20.0-45.0); MEAN CORPUSCULAR VOLUME 99 FL (80-99); MONOCYTES % (AUTO) 10.1 % (1.0-10.0); NEUTROPHILS % (AUTO) 45.8 % (45.0-75.0); PLATELET COUNT 171 K/UL (150-450); RED BLOOD COUNT 3.43 M/UL (4.20-5.40); RED CELL DISTRIBUTION WIDTH 11.6 % (11.6-14.8); WHITE BLOOD COUNT 4.8 K/UL (4.8-10.8)
[2019-04-29 07:01] LABS: ALANINE AMINOTRANSFERASE 74 U/L (12-78); ALBUMIN 3.4 G/DL (3.4-5.0); ALBUMIN/GLOBULIN RATIO 0.8 (1.0-2.7); ALKALINE PHOSPHATASE 81 U/L (46-116); ANION GAP 8 mmol/L (5-15); ASPARTATE AMINO TRANSFERASE 89 U/L (15-37); BILIRUBIN,TOTAL 0.6 MG/DL (0.2-1.0); BLOOD UREA NITROGEN 9 mg/dL (7-18); CALCIUM 9.3 MG/DL (8.5-10.1); CARBON DIOXIDE 29 MMOL/L (21-32); CHLORIDE 102 MMOL/L (98-107); CHOLESTEROL 152 MG/DL (< 200); CREATININE 0.8 MG/DL (0.55-1.30); HDL CHOLESTEROL 66 MG/DL (40-60); POTASSIUM 3.7 MMOL/L (3.5-5.1); SODIUM 139 MMOL/L (136-145); TRIGLYCERIDES 86 MG/DL (30-150)
--- NOTE | 2019-04-29 07:30 | NUR ---
HAND-OFF: Report given to MAXX RUSSO.
--- NOTE | 2019-04-29 07:54 | NUR ---
NURSE NOTES: Received report from TRINO Orellana. Pt in bed, awake, legally blind, talkative, asking for pain medications, discussed pain mediations schedule, no respiratory distress noted, bed in lowest position, call light within reach.
[2019-04-29 08:00] VITALS: BP 110/60
[2019-04-29] MEDS: BusPIRone 5mg Tab ORAL SCH ×2 (08:04→11:49)
[2019-04-29] MEDS: Morphine Sulfate 2mg/ml Inj(IV/IM USE ONLY) IVP PRN ×2 (08:09→15:40)
[2019-04-29] MEDS: Heparin 5000 units/ml inj SUBQ SCH (08:12)
--- NOTE | 2019-04-29 08:12 | NUR ---
NURSE NOTES: Dr. Loredo evaluated pt, RN discussed pt's home medication of Metformin no being reordered. Dr. Loredo explained to pt that at [facility] [place] is on insulin but will only get it if she needs it and he will evaluated the home medication list.
--- NOTE | 2019-04-29 08:59 | General Progress Note ---
Assessment/Plan Assessment/Plan: (1) Cervical DDD (2) Cervical Spondylosis (3) Right hip pain h/o THR Patient will be continued on Morphine D/w Dr. Carvajal and he concurred. Subjective Date patient seen: Apr 29, 2019 Time patient seen: 08:00 - am Constitutional: Reports: weakness HEENT: Reports: no symptoms Cardiovascular: Reports: no symptoms Respiratory: Reports: no symptoms Gastrointestinal/Abdominal: Reports: no symptoms Genitourinary: Reports: no symptoms Neurologic/Psychiatric: Reports: weakness Endocrine: Reports: no symptoms Hematologic/Lymphatic: Reports: no symptoms Allergies: Coded Allergies: HORSERADISH (Verified Allergy, Unknown, Rash, 04/28/19) Subjective Patient is a known patient from prior admission now admitted due to weakness and failure to thrive. She explains that her pain has been in her neck after slipping out of her bed in [facility]. CT scan showed was reviewed. Started on Morphine 1mg IV Q4H PRN severe pain which has helped reduce her pain. Objective Last 24 Hour Vital Signs Date Time Temp Pulse Resp B/P (MAP) Pulse Ox O2 Delivery O2 Flow Rate FiO2 04/29/19 08:03 68 141/72 04/29/19 08:00 99.3 71 16 110/60 (77) 95 04/29/19 04:00 97.4 68 16 141/72 (95) 96 04/29/19 00:29 98.1 04/29/19 00:00 98.1 61 18 110/69 (83) 96 04/28/19 21:25 97.9 84 18 143/76 (98) 96 04/28/19 21:20 Room Air 04/28/19 21:00 97.8 20 129/76 97 Room Air 04/28/19 18:49 98.2 55 20 160/67 98 Room Air 04/28/19 17:19 60 15 Room Air 04/28/19 17:18 98.2 60 15 132/88 97 Room Air 04/28/19 17:13 98.2 64 14 135/83 (100) 96 Room Air Intake and Output 04/28/19 04/29/19 18:59 06:59 Intake Total 300 ml Balance 300 ml Intake Oral 300 ml # Voids 3 Laboratory Tests 04/28/19 19:40: White Blood Count 5.2, Red Blood Count 3.49L, Hemoglobin 11.3L, Hematocrit 34.1L , Mean Corpuscular Volume 97, Mean Corpuscular Hemoglobin 32.3H, Mean Corpuscular Hemoglobin Concent 33.2, Red Cell Distribution Width 11.5L, Platelet Count 170, Mean Platelet Volume 6.6, Neutrophils (%) (Auto) 51.3, Lymphocytes (%) (Auto) 37.7, Monocytes (%) (Auto) 8.7, Eosinophils (%) (Auto) 0.6, Basophils (%) (Auto) 1.7, Sodium Level 140, Potassium Level 5.3H, Chloride Level 104, Carbon Dioxide Level 30, Anion Gap 6, Blood Urea Nitrogen 10, Creatinine 0.7, Estimat Glomerular Filtration Rate , Glucose Level 118H, Calcium Level 9.6, Total Bilirubin 0.6, Aspartate Amino Transf (AST/SGOT) 103H, Alanine Aminotransferase (ALT/SGPT) 73, Alkaline Phosphatase 72, Total Protein 8.0, Albumin 3.2L, Globulin 4.8, Albumin/Globulin Ratio 0.7L 04/29/19 05:15: White Blood Count 4.8, Red Blood Count 3.43L, Hemoglobin 11.1L, Hematocrit 33.9L , Mean Corpuscular Volume 99, Mean Corpuscular Hemoglobin 32.2H, Mean Corpuscular Hemoglobin Concent 32.7, Red Cell Distribution Width 11.6, Platelet Count 171, Mean Platelet Volume 6.8, Neutrophils (%) (Auto) 45.8, Lymphocytes (% ) (Auto) 42.8, Monocytes (%) (Auto) 10.1H, Eosinophils (%) (Auto) 0.8, Basophils (%) (Auto) 0.5, Sodium Level 139, Potassium Level 3.7, Chloride Level 102, Carbon Dioxide Level 29, Anion Gap 8, Blood Urea Nitrogen 9, Creatinine 0.8 , Estimat Glomerular Filtration Rate , Glucose Level 121H, Calcium Level 9.3, Total Bilirubin 0.6, Aspartate Amino Transf (AST/SGOT) 89H, Alanine Aminotransferase (ALT/SGPT) 74, Alkaline Phosphatase 81, Total Protein 7.5, Albumin 3.4, Globulin 4.1, Albumin/Globulin Ratio 0.8L, Triglycerides Level 86, Cholesterol Level 152, LDL Cholesterol 80, HDL Cholesterol 66H, Cholesterol/HDL Ratio 2.3L Height (Feet): 5 Height (Inches): 4.00 Weight (Pounds): 138 General Appearance: no apparent distress, alert EENT: PERRL/EOMI, normal ENT inspection Neck: non-tender, normal alignment Cardiovascular: normal rate, regular rhythm Respiratory/Chest: lungs clear, normal breath sounds Abdomen: soft, tender Extremities: non-tender Edema: trace edema Neurologic: alert, oriented x 3 Skin: normal pigmentation Objective Procedure: CT C Spine no Contrast No acute fracture or malalignment. Straightening of the normal cervical lordosis. Degenerative changes. 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 Kiran Diggs Apr 29, 2019 08:59
--- NOTE | 2019-04-29 09:13 | History & Physical ---
History and Physical History & Physicial IM H&P Covering for Dr. Nix DOS: 04/29/19 RFA: Weakness fatigue, fall, ftt ID 78-year-old female who presented after a fall onto her head. Patient reportedly had been seated in a wheelchair. She attempted to retrieve an object from on the floor and subsequently fell out of the wheelchair and hit her head. She denies any definite loss of consciousness. She reports having pain to the forehead currently. She denies any neck or back pain currently. She had prior history of hip surgery and had been noted to be able to ambulate with assistance intermittently. She apparently has had falls in the past. Seen by pain management at this time and have seen her before in 2018 admission, pls review notes that time as well. Coded Allergies: No Known Allergies (Verified , 06/27/09) Past Medical History: see triage record Reviewed Nursing Documentation: PMH: Agreed; PSxH: Agreed Past Medical History: No History, Except For Hx Cardiac Problems: No Hx Hypertension: Yes Hx Diabetes: Yes Hx Cancer: No Hx Gastrointestinal Problems: No Hx Neurological Problems: No Review of Systems All Other Systems: negative except mentioned in HPI Physical Exam Vital Signs Date Time Temp Pulse Resp B/P (MAP) Pulse Ox O2 Delivery O2 Flow Rate FiO2 04/28/19 17:13 98.2 64 14 135/83 (100) 96 Room Air Vitals: reviewed, normal Gen: normal inspection, well appearing, no apparent distress, alert, GCS 15 Head: other - forehead soft tissue swelling ENT: normal ENT inspection, hearing grossly normal, normal voice Neck: normal inspection, full range of motion, supple, no bony tend Respiratory: normal inspection, lungs clear, normal breath sounds, no respiratory distress, no retraction, no wheezing Cv: regular rate, rhythm, no edema Gi: normal inspection, normal bowel sounds, non tender, soft, no guarding, no hernia Gu: no CVA tenderness Msk: normal inspection, back normal, normal range of motion Labs: Laboratory Tests Test 04/28/19 19:40 04/29/19 05:15 White Blood Count 5.2 K/UL (4.8-10.8) 4.8 K/UL (4.8-10.8) Red Blood Count 3.49 M/UL (4.20-5.40) L 3.43 M/UL (4.20-5.40) L Hemoglobin 11.3 G/DL (12.0-16.0) L 11.1 G/DL (12.0-16.0) L Hematocrit 34.1 % (37.0-47.0) L 33.9 % (37.0-47.0) L Mean Corpuscular Volume 97 FL (80-99) 99 FL (80-99) Mean Corpuscular Hemoglobin 32.3 PG (27.0-31.0) H 32.2 PG (27.0-31.0) H Mean Corpuscular Hemoglobin Concent 33.2 G/DL (32.0-36.0) 32.7 G/DL (32.0-36.0) Red Cell Distribution Width 11.5 % (11.6-14.8) L 11.6 % (11.6-14.8) Platelet Count 170 K/UL (150-450) 171 K/UL (150-450) Mean Platelet Volume 6.6 FL (6.5-10.1) 6.8 FL (6.5-10.1) Neutrophils (%) (Auto) 51.3 % (45.0-75.0) 45.8 % (45.0-75.0) Lymphocytes (%) (Auto) 37.7 % (20.0-45.0) 42.8 % (20.0-45.0) Monocytes (%) (Auto) 8.7 % (1.0-10.0) 10.1 % (1.0-10.0) H Eosinophils (%) (Auto) 0.6 % (0.0-3.0) 0.8 % (0.0-3.0) Basophils (%) (Auto) 1.7 % (0.0-2.0) 0.5 % (0.0-2.0) Sodium Level 140 MMOL/L (136-145) 139 MMOL/L (136-145) Potassium Level 5.3 MMOL/L (3.5-5.1) H 3.7 MMOL/L (3.5-5.1) Chloride Level 104 MMOL/L (98-107) 102 MMOL/L (98-107) Carbon Dioxide Level 30 MMOL/L (21-32) 29 MMOL/L (21-32) Anion Gap 6 mmol/L (5-15) 8 mmol/L (5-15) Blood Urea Nitrogen 10 mg/dL (7-18) 9 mg/dL (7-18) Creatinine 0.7 MG/DL (0.55-1.30) 0.8 MG/DL (0.55-1.30) Estimat Glomerular Filtration Rate mL/min (>60) mL/min (>60) Glucose Level 118 MG/DL (74-106) H 121 MG/DL (74-106) H Calcium Level 9.6 MG/DL (8.5-10.1) 9.3 MG/DL (8.5-10.1) Total Bilirubin 0.6 MG/DL (0.2-1.0) 0.6 MG/DL (0.2-1.0) Aspartate Amino Transf (AST/SGOT) 103 U/L (15-37) H 89 U/L (15-37) H Alanine Aminotransferase (ALT/SGPT) 73 U/L (12-78) 74 U/L (12-78) Alkaline Phosphatase 72 U/L (46-116) 81 U/L (46-116) Total Protein 8.0 G/DL (6.4-8.2) 7.5 G/DL (6.4-8.2) Albumin 3.2 G/DL (3.4-5.0) L 3.4 G/DL (3.4-5.0) Globulin 4.8 g/dL 4.1 g/dL Albumin/Globulin Ratio 0.7 (1.0-2.7) L 0.8 (1.0-2.7) L Triglycerides Level 86 MG/DL (30-150) Cholesterol Level 152 MG/DL (< 200) LDL Cholesterol 80 mg/dL (<100) HDL Cholesterol 66 MG/DL (40-60) H Cholesterol/HDL Ratio 2.3 (3.3-4.4) L Assessment and Recs: # Forehead contusion -- Fall CT imaging of the head and cervical spine was ordered to the patient's recent fall and advanced age. CT of the head read by radiology showed no evidence of acute intracranial hemorrhage or fracture. --> pain management has been consulted --> pain meds started on prn basis --> noted on imaging to have cervical arthritis # Pancytopenia secondary to underlying cirrhosis. with a history of C --> Does have anemia and will evaluate with potential iron deficiency --> DRE likely will check blood # Hepatitis C. Outpatient management per the patient. --> Has been treated before for hepatitis C. --> oupatient management and treatment # Anemia due to underlying chronic disease. --> Continue to closely monitor for improvement. Currently, stable. --> hgb goal >7 # Diabetes mellitus. --> A1c goal less than 7. --> per endo recs # Recurrent major depressive disorder. --> Psychotherapy as per Psychiatry and Psychology. # Protein-calorie malnutrition. # Hepatitis C. # Liver cirrhosis. Appreciate corporate health consultant recs Jr Loredo MD Apr 29, 2019 09:13
[2019-04-29 12:00] VITALS: BP 115/63
--- NOTE | 2019-04-29 14:01 | Consultation ---
History of Present Illness General Date patient seen: Apr 29, 2019 Chief Complaint: Multiple Trauma/Fall Present Illness HPI She is a 78-year-old female with hx of DM, cirrhosis, skilled nursing resident presented to ER after a fall onto her head. She attempted to retrieve her cell phone from on the floor and subsequently fell out of the wheelchair and hit her head. She denies any definite loss of consciousness. She reports having pain to the forehead currently. She denies any neck or back pain currently. She had CT of head and C spine which were negative. [place] [facility] [place]. Allergies: Coded Allergies: HORSERADISH (Verified Allergy, Unknown, Rash, 04/28/19) Medication History Scheduled Amlodipine Besylate (Norvasc), 5 MG ORAL DAILY, (Reported) Ascorbic Acid* (Vitamin C*), 500 MG ORAL DAILY, (Reported) Buspirone HCl* (Buspirone HCl*), 10 MG ORAL THREE TIMES A DAY, (Reported) Calcium Carbonate/Vitamin D3 (Calcium 500 + Vit D3 400 Tab), 1 EACH PO DAILY, ( Reported) Cranberry Extract (Cranberry), 450 MG PO TWICE A DAY, (Reported) Docusate Sodium* (Colace*), 100 MG ORAL TWICE A DAY, (Reported) Escitalopram Oxalate (Lexapro), 5 MG ORAL DAILY, (Reported) Gabapentin (Neurontin), 300 MG ORAL THREE TIMES A DAY, (Reported) Hydroxyzine Pamoate (Vistaril), 25 MG PO EVERY 6 HOURS, (Reported) Lamotrigine* (Lamictal*), 25 MG ORAL TWICE A DAY, (Reported) Magnesium Hydroxide (Milk of Magnesia), 30 ML ORAL QHS, (Reported) Metformin Hcl (Metformin Hcl Er), 500 MG ORAL DAILY, (Reported) Timolol Maleate (Timolol Maleate), 1 DROP BOTH EYES TWICE A DAY, (Reported) Scheduled PRN Na Phos,M-B/Na Phos,Di-Ba* (Fleet Enema*), 133 ML RECTAL Q2 DAYS PRN PRN for Constipation, (Reported) Tramadol Hcl* (Ultram*), 50 MG ORAL Q6H PRN for Severe Pain (Pain Scale 7-10), ( Reported) Miscellaneous Medications Insulin Aspart (Novolog Flexpen), (Reported) Discontinued Medications Acetaminophen* (Acetaminophen 325MG Tablet*), 650 MG ORAL Q4H PRN for Mild Pain (Pain Scale 1-3), (Reported) Discontinued Reason: Therapy completed Ascorbic Acid* (Vitamin C*), 500 MG ORAL DAILY, (Reported) Discontinued Reason: Therapy completed Bisacodyl (Dulcolax), 10 MG RC DAILY PRN for Constipation, (Reported) Discontinued Reason: Therapy completed Brimonidine Tartrate* (Alphagan*), 1 DROP BOTH EYES BID, (Reported) Discontinued Reason: Therapy completed Ceftriaxone Sodium (Ceftriaxone), 1 GM IV DAILY, (Reported) Discontinued Reason: Therapy completed Citalopram Hydrobromide (Celexa), 40 MG ORAL DAILY, (Reported) Discontinued Reason: Therapy completed Cranberry Fruit (Cranberry), 450 MG PO, (Reported) Discontinued Reason: Therapy completed Docusate Sodium* (Colace*), 100 MG ORAL DAILY, (Reported) Discontinued Reason: Therapy completed Hydrocodone Bit/Acetaminophen 5-325* (Mears 5-325*), 1 TAB ORAL Q4H PRN for For Pain, (Reported) Discontinued Reason: Therapy completed Ipratropium [place] 0.5MG/2.5ML (Ipratropium [place] 0.5MG/2.5ML), 0.5 MG HHN Q6H PRN for Shortness of Breath, (Reported) Discontinued Reason: Therapy completed Lorazepam* (Lorazepam*), 1 MG ORAL EVERY 6 HOURS PRN for For Anxiety, (Reported) Discontinued Reason: Therapy completed Na Phos,M-B/Na Phos,Di-Ba* (Fleet Enema*), 133 ML RECTAL every 2 days PRN for Constipation, (Reported) Discontinued Reason: Therapy completed Temazepam* (Restoril*), 15 MG ORAL BEDTIME PRN for Insomnia, (Reported) Discontinued Reason: Therapy completed Timolol Maleate (Timolol Maleate), 1 DROP BOTH EYES TWICE A DAY, (Reported) Discontinued Reason: Therapy completed Tramadol Hcl (Tramadol Hcl), 50 MG ORAL DAILY, (Reported) Discontinued Reason: Therapy completed Vitamin D (Vitamin D3), 400 UNITS ORAL DAILY, (Reported) Discontinued Reason: Therapy completed Patient History Healthcare decision maker TIN MELENDEZ MOSETTA R Resuscitation status Full Code Advanced Directive on File No Past Medical/Surgical History Past Medical/Surgical History: (1) Degenerative arthritis of cervical spine (2) Anemia (3) 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 (4) HTN (hypertension) (5) Diabetes Review of Systems All Other Systems: negative except mentioned in HPI Physical Exam General Appearance: WD/WN Lines, tubes and drains: peripheral HEENT: normocephalic Neck: non-tender Respiratory/Chest: chest wall non-tender Cardiovascular/Chest: normal rate Genitourinary/Rectal: normal genital exam Last 24 Hour Vital Signs Date Time Temp Pulse Resp B/P (MAP) Pulse Ox O2 Delivery O2 Flow Rate FiO2 04/29/19 12:00 97.3 71 16 115/63 (80) 94 04/29/19 09:00 Room Air 04/29/19 08:39 97.4 04/29/19 08:38 97.4 04/29/19 08:03 68 141/72 04/29/19 08:00 99.3 71 16 110/60 (77) 95 04/29/19 04:00 97.4 68 16 141/72 (95) 96 04/29/19 00:00 98.1 61 18 110/69 (83) 96 04/28/19 21:25 97.9 84 18 143/76 (98) 96 04/28/19 21:20 Room Air 04/28/19 21:00 97.8 20 129/76 97 Room Air 04/28/19 18:49 98.2 55 20 160/67 98 Room Air 04/28/19 17:19 60 15 Room Air 04/28/19 17:18 98.2 60 15 132/88 97 Room Air 04/28/19 17:13 98.2 64 14 135/83 (100) 96 Room Air Intake and Output 04/28/19 04/29/19 19:00 07:00 Intake Total 300 ml Balance 300 ml Intake Oral 300 ml # Voids 3 Laboratory Tests Test 04/28/19 19:40 04/29/19 05:15 White Blood Count 5.2 K/UL (4.8-10.8) 4.8 K/UL (4.8-10.8) Red Blood Count 3.49 M/UL (4.20-5.40) L 3.43 M/UL (4.20-5.40) L Hemoglobin 11.3 G/DL (12.0-16.0) L 11.1 G/DL (12.0-16.0) L Hematocrit 34.1 % (37.0-47.0) L 33.9 % (37.0-47.0) L Mean Corpuscular Volume 97 FL (80-99) 99 FL (80-99) Mean Corpuscular Hemoglobin 32.3 PG (27.0-31.0) H 32.2 PG (27.0-31.0) H Mean Corpuscular Hemoglobin Concent 33.2 G/DL (32.0-36.0) 32.7 G/DL (32.0-36.0) Red Cell Distribution Width 11.5 % (11.6-14.8) L 11.6 % (11.6-14.8) Platelet Count 170 K/UL (150-450) 171 K/UL (150-450) Mean Platelet Volume 6.6 FL (6.5-10.1) 6.8 FL (6.5-10.1) Neutrophils (%) (Auto) 51.3 % (45.0-75.0) 45.8 % (45.0-75.0) Lymphocytes (%) (Auto) 37.7 % (20.0-45.0) 42.8 % (20.0-45.0) Monocytes (%) (Auto) 8.7 % (1.0-10.0) 10.1 % (1.0-10.0) H Eosinophils (%) (Auto) 0.6 % (0.0-3.0) 0.8 % (0.0-3.0) Basophils (%) (Auto) 1.7 % (0.0-2.0) 0.5 % (0.0-2.0) Sodium Level 140 MMOL/L (136-145) 139 MMOL/L (136-145) Potassium Level 5.3 MMOL/L (3.5-5.1) H 3.7 MMOL/L (3.5-5.1) Chloride Level 104 MMOL/L (98-107) 102 MMOL/L (98-107) Carbon Dioxide Level 30 MMOL/L (21-32) 29 MMOL/L (21-32) Anion Gap 6 mmol/L (5-15) 8 mmol/L (5-15) Blood Urea Nitrogen 10 mg/dL (7-18) 9 mg/dL (7-18) Creatinine 0.7 MG/DL (0.55-1.30) 0.8 MG/DL (0.55-1.30) Estimat Glomerular Filtration Rate mL/min (>60) mL/min (>60) Glucose Level 118 MG/DL (74-106) H 121 MG/DL (74-106) H Calcium Level 9.6 MG/DL (8.5-10.1) 9.3 MG/DL (8.5-10.1) Total Bilirubin 0.6 MG/DL (0.2-1.0) 0.6 MG/DL (0.2-1.0) Aspartate Amino Transf (AST/SGOT) 103 U/L (15-37) H 89 U/L (15-37) H Alanine Aminotransferase (ALT/SGPT) 73 U/L (12-78) 74 U/L (12-78) Alkaline Phosphatase 72 U/L (46-116) 81 U/L (46-116) Total Protein 8.0 G/DL (6.4-8.2) 7.5 G/DL (6.4-8.2) Albumin 3.2 G/DL (3.4-5.0) L 3.4 G/DL (3.4-5.0) Globulin 4.8 g/dL 4.1 g/dL Albumin/Globulin Ratio 0.7 (1.0-2.7) L 0.8 (1.0-2.7) L Triglycerides Level 86 MG/DL (30-150) Cholesterol Level 152 MG/DL (< 200) LDL Cholesterol 80 mg/dL (<100) HDL Cholesterol 66 MG/DL (40-60) H Cholesterol/HDL Ratio 2.3 (3.3-4.4) L Height (Feet): 5 Height (Inches): 4.00 Weight (Pounds): 138 Medications Current Medications Medications (Trade) Dose Ordered Sig/Darwin Route PRN Reason Start Time Stop Time Status Last Admin Dose Admin Acetaminophen (Tylenol) 650 mg Q4H PRN ORAL fever 04/28/19 20:15 05/28/19 20:14 04/29/19 08:08 Amlodipine Besylate (Norvasc) 5 mg DAILY ORAL 04/29/19 09:00 05/29/19 08:59 04/29/19 08:03 Buspirone HCl (Buspar) 10 mg THREE TIMES A DAY ORAL 04/29/19 09:00 05/29/19 08:59 04/29/19 11:49 Dextrose (Dextrose 50%) 25 ml Q30M PRN IV Hypoglycemia 04/28/19 20:15 05/28/19 20:14 Dextrose (Dextrose 50%) 50 ml Q30M PRN IV Hypoglycemia 04/28/19 20:15 05/28/19 20:14 Gabapentin (Neurontin) 300 mg THREE TIMES A DAY ORAL 04/29/19 09:00 05/29/19 08:59 04/29/19 11:49 Heparin Sodium (Porcine) (Heparin 5000 units/ml) 5,000 units EVERY 12 HOURS SUBQ 04/28/19 21:00 05/28/19 20:59 04/28/19 22:27 Insulin Aspart (NovoLOG) BEFORE MEALS AND HS SUBQ 04/28/19 21:00 05/28/19 20:59 04/29/19 11:51 Lorazepam (Ativan 2mg/ml 1ml) 0.5 mg Q4H PRN IV For Anxiety 04/28/19 20:15 05/05/19 20:14 Morphine Sulfate (Morphine Sulfate) 1 mg Q4H PRN IVP For Pain 04/28/19 20:15 05/05/19 20:14 04/29/19 08:09 Ondansetron HCl (Zofran) 4 mg Q6H PRN IVP Nausea & Vomiting 04/28/19 20:15 05/28/19 20:14 Polyethylene Glycol (Miralax) 17 gm HSPRN PRN ORAL Constipation 04/28/19 20:15 05/28/19 20:14 Zolpidem Tartrate (Ambien) 5 mg HSPRN PRN ORAL Insomnia 04/28/19 20:15 05/05/19 20:14 Assessment/Plan Problem List: (1) Acute encephalopathy ICD Codes: G93.40 - Encephalopathy, unspecified SNOMED: 23698973, 700660674 (2) Cervical arthritis ICD Codes: M47.812 - Spondylosis without myelopathy or radiculopathy, cervical region SNOMED: 988659603 (3) Anemia ICD Codes: D64.9 - Anemia, unspecified SNOMED: 787376919 (4) 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 ICD Codes: B18.2 - 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 SNOMED: 261585714 (5) HTN (hypertension) ICD Codes: I10 - Essential (primary) hypertension SNOMED: 63445074 (6) Diabetes ICD Codes: E11.9 - Type 2 diabetes mellitus without complications SNOMED: 94069292 (7) History of cholelithiasis ICD Codes: Z87.19 - History of cholelithiasis SNOMED: 543630849 Assessment/Plan: pain management f/u Pain recommendations sliding scale diabetic diet dvt prophylaxi.s Shannon Pang MD Apr 29, 2019 14:01
--- NOTE | 2019-04-29 14:49 | NUR ---
*-* DISCHARGE PLANNED *-* PATIENT IS DISCHARGED TO: [facility], [facility]
--- NOTE | 2019-04-29 15:17 | NUR ---
NURSE NOTES: RN Completed all DC paperwork, no belongings list found in chart. Confirmed with pt that all belongings are accounted for
[2019-04-29 16:00] VITALS: BP 112/64
--- NOTE | 2019-04-29 16:32 | NUR ---
NURSE NOTES: Pt discharged home with all belongings. IV removed ID band removed. Pt stable for discharge
--- NOTE | 2019-04-29 17:09 | NUR ---
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 98.3 HR 64 RR 14 B/P 135/83 K 5.[address]= NO ACUTE INTRACRANIAL CHANGES CT L-SPINE= NO FRACTURES IS: MORPHINE IV TYLENOL PO ADMITTED TO MED/SURG MED/SURG STATUS DCP RETURN TO SNF
--- NOTE | 2019-04-30 11:52 | Discharge Summary ---
Discharge Summary Discharge Summary _ DATE OF ADMISSION: 04/28/2019 DATE OF DISCHARGE: 04/29/2019 DISCHARGED BY: Dr. Shannon Pang ADMITTING MD: Dr. Phan Nix CONSULTANTS: Dr. Shannon Loredo [facility] COURSE: Patient is a 78-year-old female who presented to ED after a fall onto her head. Patient reportedly was seated in a wheelchair. She attempted to retrieve an object from the floor and subsequently fell out of the wheelchair and hit her head. She denied any loss of consciousness. She reported pain to the forehead. She denied any neck or back pain. She had a prior history of hip surgery and had falls in the past. On evaluation at ED, vital signs were stable. Blood work did not show any leukocytosis. Hemoglobin 11, hematocrit 34. Potassium was slightly elevated to 5.3. CT of the head read by radiologist showed no evidence of acute intracranial hemorrhage or fracture. CT of cervical spine showed degenerative changes without evidence of acute fracture or malalignment. She was given pain medications. She was admitted for evaluation of head contusion secondary to fall. She was admitted to medical floor. mobile marketing specialist was consulted. She was given morphine for pain. Blood glucose was monitored. She was placed on insulin sliding scale. She was given DVT prophylaxis. Patient had a history of pancytopenia and anemia. Current platelet levels were stable. Hemoglobin and hematocrit were stable. Vital signs were stable. Blood work stable. Due to rapid improvement in patient symptoms, she was discharged back to custodial the following day. FINAL DIAGNOSES: Forehead contusion secondary to fall Acute encephalopathy Cervical arthritis Anemia due to underlying chronic disease 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 Hypertension Type 2 diabetes mellitus History of cholelithiasis cirrhosis History of pancytopenia secondary to underlying Protein calorie malnutrition DISPOSITION: Patient was discharged to a SNF. DISCHARGE MEDICATIONS: Refer to Discharge Medication List. I have been assigned to complete a discharge summary on this account, I was not involved with the patient's management.--NISA Rangel Jacqueline Robles NP Apr 30, 2019 11:52
== END 2019-04-29 16:33 | DRG 605 ==
LOC: EDBD 17:13 → EMR 17:25 → EDBEDREQ 19:14 → 4E 20:41
DX: S00.83XA Contusion of other part of head, initial encounter (principal); D61.818 Other pancytopenia; F33.9 Major depressive disorder, recurrent, unspecified; E46 Unspecified protein-calorie malnutrition; G93.40 Encephalopathy, unspecified; W05.0XXA Fall from non-moving wheelchair, initial encounter; Y92.009 Unspecified place in unspecified non-institutional (private) residence as the place of occurrence of the external cause; K74.69 Other cirrhosis of liver; B19.20 Unspecified viral hepatitis C without hepatic coma; I10 Essential (primary) hypertension; Z91.81 History of falling; E11.9 Type 2 diabetes mellitus without complications; D63.8 Anemia in other chronic diseases classified elsewhere; M46.82 Other specified inflammatory spondylopathies, cervical region; M50.30 Other cervical disc degeneration, unspecified cervical region; Z96.641 Presence of right artificial hip joint
CPT/HCPCS: 36415; 70450; 72125; 80053; 80061; 82962; 85025; 87081; 96374; 99285; J1815

== ENCOUNTER 2019-06-10 02:36 | Inpatient (IN) | payer MEDICARE, MEDICAID ==
[~2019-06-10] VITALS: Ht 162.6 cm; Wt 61.2 kg
[~2019-06-10 02:36] MED LIST changes: +CRANBERRY500 M4 PO; +LAMICTAL25 MG ORAL; +MOM30 ML ORAL; +TRAMADOL HCL50 MG ORAL; +VISTARIL25 M1 PO
[2019-06-10 03:12] LABS: BASOPHILS % (AUTO) 1.3 % (0.0-2.0); EOSINOPHILS % (AUTO) 0.5 % (0.0-3.0); HEMATOCRIT 35.9 % (37.0-47.0); HEMOGLOBIN 12.2 G/DL (12.0-16.0); LYMPHOCYTES % (AUTO) 32.1 % (20.0-45.0); MEAN CORPUSCULAR VOLUME 97 FL (80-99); MONOCYTES % (AUTO) 13.6 % (1.0-10.0); NEUTROPHILS % (AUTO) 52.5 % (45.0-75.0); PLATELET COUNT 205 K/UL (150-450); RED BLOOD COUNT 3.71 M/UL (4.20-5.40); RED CELL DISTRIBUTION WIDTH 11.9 % (11.6-14.8); WHITE BLOOD COUNT 5.9 K/UL (4.8-10.8)
[2019-06-10 03:15] VITALS: BP 156/95
[2019-06-10 03:27] LABS: ANION GAP 11 mmol/L (5-15); BLOOD UREA NITROGEN 20 mg/dL (7-18); CALCIUM 9.5 MG/DL (8.5-10.1); CARBON DIOXIDE 24 MMOL/L (21-32); CHLORIDE 106 MMOL/L (98-107); CREATININE 0.8 MG/DL (0.55-1.30); POTASSIUM 5.8 MMOL/L (3.5-5.1); SODIUM 141 MMOL/L (136-145)
[2019-06-10 03:29] LABS: INR 1.1 (0.9-1.1)
[2019-06-10] MEDS ORDERED: Morphine Sulfate 2mg/ml Inj(IV/IM USE ONLY) IVP ONE (03:30)
[2019-06-10 03:56] LABS: ALANINE AMINOTRANSFERASE 66 U/L (12-78); ALBUMIN 3.4 G/DL (3.4-5.0); ALBUMIN/GLOBULIN RATIO 0.6 (1.0-2.7); ALKALINE PHOSPHATASE 96 U/L (46-116); ASPARTATE AMINO TRANSFERASE 106 U/L (15-37); BILIRUBIN,TOTAL 0.7 MG/DL (0.2-1.0); CKMB 0.6 NG/ML (0.0-3.6); CREATINE KINASE 192 U/L (26-308)
[2019-06-10 04:50] LABS: ANION GAP 9 mmol/L (5-15); BLOOD UREA NITROGEN 17 mg/dL (7-18); CALCIUM 9.2 MG/DL (8.5-10.1); CARBON DIOXIDE 26 MMOL/L (21-32); CHLORIDE 105 MMOL/L (98-107); CREATININE 0.8 MG/DL (0.55-1.30); POTASSIUM 3.9 MMOL/L (3.5-5.1); SODIUM 139 MMOL/L (136-145)
--- NOTE | 2019-06-10 05:33 | Emergency Room Report ---
History of Present Illness General Chief Complaint: Chest Pain Source: Patient, Medical Record Present Illness HPI Patient is a 78-year-old female presented after increased chest discomfort. She reports of increased tightness to the center of her chest. She denies any prior cardiac history. She had prior history of cirrhosis. She reports having a prior history of ocular disease and states that she become increasingly anxious due to missing appointments with her primary care physician. She denies any productive cough. She had not been having any vomiting or diarrhea. She denies any bloody stools. Patient states that she had recently left a half-way facility and is currently in assisted living. Allergies: Coded Allergies: HORSERADISH (Verified Allergy, Unknown, Rash, 04/28/19) Patient History Past Medical History: see triage record Reviewed Nursing Documentation: PMH: Agreed; PSxH: Agreed Nursing Documentation-PMH Hx Cardiac Problems: Yes - SHORTNESS OF BREATH Hx Hypertension: Yes Hx Diabetes: Yes Hx Cancer: No Hx Gastrointestinal Problems: Yes - PEPTIC ULCER DISEASE Hx Dialysis: No - Heaptitis C., Cirrohosis of liver, Hx Neurological Problems: No Hx Dementia: Yes - UNSPECIFIED DEMENTIA WITHOUT BEHAVIORAL DISTURBANCE Hx Headaches: Yes Review of Systems All Other Systems: negative except mentioned in HPI Physical Exam Vital Signs Date Time Temp Pulse Resp B/P (MAP) Pulse Ox O2 Delivery O2 Flow Rate FiO2 06/10/19 02:38 98.2 96 18 151/89 (109) 96 Room Air General Appearance: no apparent distress, alert, GCS 15, non-toxic, Chronically Ill ENT: hearing grossly normal, uvula midline Neck: limited range of motion Respiratory: lungs clear, normal breath sounds, no rhonchi Cardiovascular #1: normal inspection, regular rate, rhythm, no edema Gastrointestinal: normal inspection, normal bowel sounds, non tender Musculoskeletal: decreased range of motion Neurologic: normal inspection, alert, responsive, hydroponics grower III-XII nml as tested Psychiatric: normal inspection Medical Decision Making Diagnostic Impression: Primary Impression: Nonspecific chest pain Additional Impression: Cirrhosis ER Course Patient presented for chest pain. Differential diagnosis included but was not limited to acute coronary syndrome, pulmonary embolism, pneumonia, aortic dissection, shingles, pneumothorax, aortic dissection, esophageal rupture, pericarditis. Because of complexity of patient's case laboratory tests and imaging studies were ordered. EKG interpreted by me showed normal sinus rhythm without acute ST or T wave changes. Patient was noted to have chest x-ray one view interpreted by me which showed normal cardiac size without evident infiltrate. Patient was noted to have some chest discomfort which is unclear of etiology. Patient was noted to have prior history of cirrhosis and I think aspirin at this time may be detrimental due to prior history of cirrhosis as well as peptic ulcer disease. Patient was discussed with Dr. Phan Nix for inpatient management due to primary care physician. Labs Test 06/10/19 03:00 06/10/19 04:29 White Blood Count 5.9 K/UL (4.8-10.8) Red Blood Count 3.71 M/UL (4.20-5.40) Hemoglobin 12.2 G/DL (12.0-16.0) Hematocrit 35.9 % (37.0-47.0) Mean Corpuscular Volume 97 FL (80-99) Mean Corpuscular Hemoglobin 32.8 PG (27.0-31.0) Mean Corpuscular Hemoglobin Concent 33.8 G/DL (32.0-36.0) Red Cell Distribution Width 11.9 % (11.6-14.8) Platelet Count 205 K/UL (150-450) Mean Platelet Volume 7.4 FL (6.5-10.1) Neutrophils (%) (Auto) 52.5 % (45.0-75.0) Lymphocytes (%) (Auto) 32.1 % (20.0-45.0) Monocytes (%) (Auto) 13.6 % (1.0-10.0) Eosinophils (%) (Auto) 0.5 % (0.0-3.0) Basophils (%) (Auto) 1.3 % (0.0-2.0) Prothrombin Time 11.3 SEC (9.30-11.50) Prothromb Time International Ratio 1.1 (0.9-1.1) Activated Partial Thromboplast Time 30 SEC (23-33) Total Bilirubin 0.7 MG/DL (0.2-1.0) Aspartate Amino Transf (AST/SGOT) 106 U/L (15-37) Alanine Aminotransferase (ALT/SGPT) 66 U/L (12-78) Alkaline Phosphatase 96 U/L (46-116) Total Creatine Kinase 192 U/L (26-308) Creatine Kinase MB 0.6 NG/ML (0.0-3.6) Creatine Kinase MB Relative Index 0.3 Pro-B-Type Natriuretic Peptide 99 pg/mL (0-125) Total Protein 8.7 G/DL (6.4-8.2) Albumin 3.4 G/DL (3.4-5.0) Globulin 5.3 g/dL Albumin/Globulin Ratio 0.6 (1.0-2.7) Lipase 124 U/L (73-393) Sodium Level 139 MMOL/L (136-145) Potassium Level 3.9 MMOL/L (3.5-5.1) Chloride Level 105 MMOL/L (98-107) Carbon Dioxide Level 26 MMOL/L (21-32) Anion Gap 9 mmol/L (5-15) Blood Urea Nitrogen 17 mg/dL (7-18) Creatinine 0.8 MG/DL (0.55-1.30) Estimat Glomerular Filtration Rate mL/min (>60) Glucose Level 127 MG/DL (74-106) Calcium Level 9.2 MG/DL (8.5-10.1) EKG Diagnostic Results Rate: normal - 79 Rhythm: NSR ST Segments: no acute changes Last Vital Signs Date Time Temp Pulse Resp B/P (MAP) Pulse Ox O2 Delivery O2 Flow Rate FiO2 06/10/19 03:15 76 18 Room Air 06/10/19 03:15 98.2 156/95 100 Status: improved Disposition: ADMITTED INPATIENT Condition: Stable Referrals: Phan Nix DO (PCP) Jon Coronado MD Jun 10, 2019 05:33
[2019-06-10 06:30] VITALS: BP 140/83
[2019-06-10] MEDS ORDERED: Nitroglycerin Subl 0.4mg tab SL PRN (07:15)
[2019-06-10] MEDS ORDERED: traMADol 50mg tab ORAL PRN (07:15)
[2019-06-10] MEDS ORDERED: dilTIAZem HCl 25mg/5ml Inj IV PRN (07:15)
[2019-06-10] MEDS ORDERED: Miralax 17gm pkt ORAL PRN (07:15)
[2019-06-10] MEDS ORDERED: Enalaprilat 2.5mg/2ml Inj IV PRN (07:15)
[2019-06-10] MEDS ORDERED: Albuterol/Ipratropium 3ml neb HHN PRN (07:15)
[2019-06-10 08:00] VITALS: BP 154/90
[2019-06-10] MEDS: Aspirin Baby 81mg ORAL SCH (09:52)
[2019-06-10] MEDS: BusPIRone 5mg Tab ORAL SCH ×3 (09:52→17:49)
--- NOTE | 2019-06-10 11:09 | Diagnostic Imaging Report ---
Indication: Chest pain Comparison: 06/12/2018 A single view chest radiograph was obtained. Findings: No definite infiltrate or pulmonary vascular congestion identified. The heart is enlarged. The aorta is mildly enlarged consistent with atherosclerotic vascular disease. The bones are osteopenic. Impression: No acute disease
--- NOTE | 2019-06-10 11:29 | Consultation ---
History of Present Illness General Date patient seen: Jun 10, 2019 Chief Complaint: Chest Pain Present Illness HPI 78-year-old female with hx of liver cirrhosis, secondary to Hep C, DM, depression presented presented to ER with CC of chest discomfort. She reports of increased tightness to the center of her chest. She denies any productive cough. Patient states that she had recently left a [facility] facility and is currently in assisted living. Allergies: Coded Allergies: HORSERADISH (Verified Allergy, Unknown, Rash, 04/28/19) Medication History Scheduled Amlodipine Besylate (Norvasc), 5 MG ORAL DAILY, (Reported) Ascorbic Acid* (Vitamin C*), 500 MG ORAL DAILY, (Reported) Buspirone HCl* (Buspirone HCl*), 10 MG ORAL THREE TIMES A DAY, (Reported) Calcium Carbonate/Vitamin D3 (Calcium 500 + Vit D3 400 Tab), 1 EACH PO DAILY, ( Reported) Cranberry Extract (Cranberry), 450 MG PO TWICE A DAY, (Reported) Docusate Sodium* (Colace*), 100 MG ORAL TWICE A DAY, (Reported) Escitalopram Oxalate (Lexapro), 5 MG ORAL DAILY, (Reported) Gabapentin (Neurontin), 300 MG ORAL THREE TIMES A DAY, (Reported) Hydroxyzine Pamoate (Vistaril), 25 MG PO EVERY 6 HOURS, (Reported) Lamotrigine* (Lamictal*), 25 MG ORAL TWICE A DAY, (Reported) Magnesium Hydroxide (Milk of Magnesia), 30 ML ORAL QHS, (Reported) Metformin Hcl (Metformin Hcl Er), 500 MG ORAL DAILY, (Reported) Timolol Maleate (Timolol Maleate), 1 DROP BOTH EYES TWICE A DAY, (Reported) Scheduled PRN Na Phos,M-B/Na Phos,Di-Ba* (Fleet Enema*), 133 ML RECTAL Q2 DAYS PRN PRN for Constipation, (Reported) Tramadol Hcl* (Ultram*), 50 MG ORAL Q6H PRN for Severe Pain (Pain Scale 7-10), ( Reported) Miscellaneous Medications Insulin Aspart (Novolog Flexpen), (Reported) Patient History Healthcare decision maker Resuscitation status Full Code Advanced Directive on File Past Medical/Surgical History Past Medical/Surgical History: (1) History of cholelithiasis (2) Peptic ulcer disease (3) Diabetes (4) HTN (hypertension) (5) 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 (6) Degenerative arthritis of cervical spine Review of Systems All Other Systems: negative except mentioned in HPI Physical Exam General Appearance: thin Lines, tubes and drains: peripheral HEENT: normocephalic, atraumatic Neck: non-tender, supple Respiratory/Chest: chest wall non-tender, lungs clear, normal breath sounds, no respiratory distress Cardiovascular/Chest: normal peripheral pulses, normal rate Abdomen: normal bowel sounds, non tender Genitourinary/Rectal: normal genital exam Extremities: normal range of motion Skin Exam: normal pigmentation Neurologic: advisor consultant II-XII grossly normal Last 24 Hour Vital Signs Date Time Temp Pulse Resp B/P (MAP) Pulse Ox O2 Delivery O2 Flow Rate FiO2 06/10/19 09:51 80 154/90 06/10/19 09:00 Room Air 06/10/19 08:00 97.4 83 16 154/90 (111) 98 06/10/19 07:45 Room Air 06/10/19 06:30 72 06/10/19 06:30 97.0 77 18 140/83 (102) 99 06/10/19 06:20 98.2 76 18 158/77 97 Room Air 06/10/19 03:15 76 18 Room Air 06/10/19 03:15 98.2 76 18 156/95 100 Room Air 06/10/19 02:38 98.2 96 18 151/89 (109) 96 Room Air Intake and Output 06/09/19 06/10/19 18:59 06:59 Intake Total 10 ml Balance 10 ml Intake IV Total 10 ml Laboratory Tests Test 06/10/19 03:00 06/10/19 04:29 White Blood Count 5.9 K/UL (4.8-10.8) Red Blood Count 3.71 M/UL (4.20-5.40) L Hemoglobin 12.2 G/DL (12.0-16.0) Hematocrit 35.9 % (37.0-47.0) L Mean Corpuscular Volume 97 FL (80-99) Mean Corpuscular Hemoglobin 32.8 PG (27.0-31.0) H Mean Corpuscular Hemoglobin Concent 33.8 G/DL (32.0-36.0) Red Cell Distribution Width 11.9 % (11.6-14.8) Platelet Count 205 K/UL (150-450) Mean Platelet Volume 7.4 FL (6.5-10.1) Neutrophils (%) (Auto) 52.5 % (45.0-75.0) Lymphocytes (%) (Auto) 32.1 % (20.0-45.0) Monocytes (%) (Auto) 13.6 % (1.0-10.0) H Eosinophils (%) (Auto) 0.5 % (0.0-3.0) Basophils (%) (Auto) 1.3 % (0.0-2.0) Prothrombin Time 11.3 SEC (9.30-11.50) Prothromb Time International Ratio 1.1 (0.9-1.1) Activated Partial Thromboplast Time 30 SEC (23-33) Sodium Level 141 MMOL/L (136-145) 139 MMOL/L (136-145) Potassium Level 5.8 MMOL/L (3.5-5.1) H 3.9 MMOL/L (3.5-5.1) Chloride Level 106 MMOL/L (98-107) 105 MMOL/L (98-107) Carbon Dioxide Level 24 MMOL/L (21-32) 26 MMOL/L (21-32) Anion Gap 11 mmol/L (5-15) 9 mmol/L (5-15) Blood Urea Nitrogen 20 mg/dL (7-18) H 17 mg/dL (7-18) Creatinine 0.8 MG/DL (0.55-1.30) 0.8 MG/DL (0.55-1.30) Estimat Glomerular Filtration Rate mL/min (>60) mL/min (>60) Glucose Level 139 MG/DL (74-106) H 127 MG/DL (74-106) H Calcium Level 9.5 MG/DL (8.5-10.1) 9.2 MG/DL (8.5-10.1) Total Bilirubin 0.7 MG/DL (0.2-1.0) Aspartate Amino Transf (AST/SGOT) 106 U/L (15-37) H Alanine Aminotransferase (ALT/SGPT) 66 U/L (12-78) Alkaline Phosphatase 96 U/L (46-116) Total Creatine Kinase 192 U/L (26-308) Creatine Kinase MB 0.6 NG/ML (0.0-3.6) Creatine Kinase MB Relative Index 0.3 Troponin I 0.000 ng/mL (0.000-0.056) 0.000 ng/mL (0.000-0.056) Pro-B-Type Natriuretic Peptide 99 pg/mL (0-125) Total Protein 8.7 G/DL (6.4-8.2) H Albumin 3.4 G/DL (3.4-5.0) Globulin 5.3 g/dL Albumin/Globulin Ratio 0.6 (1.0-2.7) L Lipase 124 U/L (73-393) Height (Feet): 5 Height (Inches): 4.00 Weight (Pounds): 135 Medications Current Medications Medications (Trade) Dose Ordered Sig/Darwin Route PRN Reason Start Time Stop Time Status Last Admin Dose Admin Acetaminophen (Tylenol) 650 mg Q4H PRN ORAL FEVER 06/10/19 07:15 07/10/19 07:14 Albuterol/ Ipratropium (Albuterol/ Ipratropium) 3 ml Q4H PRN HHN Shortness of Breath 06/10/19 07:15 06/15/19 07:14 Amlodipine Besylate (Norvasc) 5 mg DAILY ORAL 06/10/19 09:00 07/10/19 08:59 06/10/19 09:51 Aspirin (ASA) 162 mg DAILY ORAL 06/10/19 09:00 07/10/19 08:59 06/10/19 09:52 Buspirone HCl (Buspar) 10 mg THREE TIMES A DAY ORAL 06/10/19 09:00 07/10/19 08:59 06/10/19 09:52 Dextrose (Dextrose 50%) 25 ml Q30M PRN IV Hypoglycemia 06/10/19 07:15 07/10/19 07:14 Dextrose (Dextrose 50%) 50 ml Q30M PRN IV Hypoglycemia 06/10/19 07:15 07/10/19 07:14 Diltiazem HCl (Cardizem) 10 mg EVERY HOUR PRN IV heart rate more than 120, 06/10/19 07:15 07/10/19 07:14 Enalaprilat (Vasotec) 2.5 mg Q6H PRN IV sbp more than 160 06/10/19 07:15 07/10/19 07:14 Escitalopram Oxalate (Lexapro) 5 mg DAILY ORAL 06/10/19 09:00 07/10/19 08:59 06/10/19 09:53 Gabapentin (Neurontin) 300 mg THREE TIMES A DAY ORAL 06/10/19 09:00 07/10/19 08:59 06/10/19 09:52 Heparin Sodium (Porcine) (Heparin 5000 units/ml) 5,000 units EVERY 8 HOURS SUBQ 06/10/19 14:00 07/10/19 13:59 Insulin Aspart (NovoLOG) BEFORE MEALS AND HS SUBQ 06/10/19 11:30 07/10/19 11:29 Lamotrigine (LaMICtal) 25 mg TWICE A DAY ORAL 06/10/19 09:00 07/10/19 08:59 06/10/19 09:52 Morphine Sulfate (Morphine Sulfate) 2 mg Q4H PRN IVP severe Pain (Pain Scale 7-10) 06/10/19 07:15 06/17/19 07:14 Nitroglycerin (Ntg) 0.4 mg Q5M PRN SL Prn Chest Pain 06/10/19 07:15 07/10/19 07:14 Ondansetron HCl (Zofran) 4 mg Q6H PRN IVP Nausea & Vomiting 06/10/19 07:15 07/10/19 07:14 Pantoprazole (Protonix) 40 mg DAILY ORAL 06/10/19 09:00 07/10/19 08:59 06/10/19 09:52 Polyethylene Glycol (Miralax) 17 gm DAILYPRN PRN ORAL Constipation 06/10/19 07:15 07/10/19 07:14 Temazepam (Restoril) 15 mg HSPRN PRN ORAL Insomnia 06/10/19 07:15 06/17/19 07:14 Tramadol HCl (Ultram) 50 mg Q6H PRN ORAL Severe Pain (Pain Scale 7-10) 06/10/19 07:15 06/17/19 07:14 Assessment/Plan Problem List: (1) ACS (acute coronary syndrome) ICD Codes: I24.9 - Acute ischemic heart disease, unspecified SNOMED: 089182973 (2) HTN (hypertension) ICD Codes: I10 - Essential (primary) hypertension SNOMED: 03036406 (3) Diabetes ICD Codes: E11.9 - Type 2 diabetes mellitus without complications SNOMED: 20501673 (4) History of cholelithiasis ICD Codes: Z87.19 - History of cholelithiasis SNOMED: 029551685 (5) Degenerative arthritis of cervical spine ICD Codes: M47.812 - Spondylosis without myelopathy or radiculopathy, cervical region SNOMED: 423904323 (6) 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 ICD Codes: B18.2 - 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 SNOMED: 826877200 Assessment/Plan: serial ekg, troponin, echo sliding scale, diabetic diet monitor BP symptomatic treatment dvt prophylaxis. Shannon Pang MD Jun 10, 2019 11:29
[2019-06-10 12:00] VITALS: BP 133/80
[2019-06-10] MEDS: NovoLOG Insulin Flexpen SUBQ SCH ×3 (12:24→21:15)
--- NOTE | 2019-06-10 12:32 | Cardiac Electrophysiology PN ---
Subjective Subjective Patient seen and examined and DW RN [id number] Objective Last 24 Hour Vital Signs Date Time Temp Pulse Resp B/P (MAP) Pulse Ox O2 Delivery O2 Flow Rate FiO2 06/10/19 09:51 80 154/90 06/10/19 09:00 Room Air 06/10/19 08:00 97.4 83 16 154/90 (111) 98 06/10/19 07:45 Room Air 06/10/19 06:30 72 06/10/19 06:30 97.0 77 18 140/83 (102) 99 06/10/19 06:20 98.2 76 18 158/77 97 Room Air 06/10/19 03:15 76 18 Room Air 06/10/19 03:15 98.2 76 18 156/95 100 Room Air 06/10/19 02:38 98.2 96 18 151/89 (109) 96 Room Air Intake and Output 06/09/19 06/10/19 18:59 06:59 Intake Total 10 ml Balance 10 ml Intake IV Total 10 ml Laboratory Tests Test 06/10/19 03:00 06/10/19 04:29 White Blood Count 5.9 K/UL (4.8-10.8) Red Blood Count 3.71 M/UL (4.20-5.40) L Hemoglobin 12.2 G/DL (12.0-16.0) Hematocrit 35.9 % (37.0-47.0) L Mean Corpuscular Volume 97 FL (80-99) Mean Corpuscular Hemoglobin 32.8 PG (27.0-31.0) H Mean Corpuscular Hemoglobin Concent 33.8 G/DL (32.0-36.0) Red Cell Distribution Width 11.9 % (11.6-14.8) Platelet Count 205 K/UL (150-450) Mean Platelet Volume 7.4 FL (6.5-10.1) Neutrophils (%) (Auto) 52.5 % (45.0-75.0) Lymphocytes (%) (Auto) 32.1 % (20.0-45.0) Monocytes (%) (Auto) 13.6 % (1.0-10.0) H Eosinophils (%) (Auto) 0.5 % (0.0-3.0) Basophils (%) (Auto) 1.3 % (0.0-2.0) Prothrombin Time 11.3 SEC (9.30-11.50) Prothromb Time International Ratio 1.1 (0.9-1.1) Activated Partial Thromboplast Time 30 SEC (23-33) Sodium Level 141 MMOL/L (136-145) 139 MMOL/L (136-145) Potassium Level 5.8 MMOL/L (3.5-5.1) H 3.9 MMOL/L (3.5-5.1) Chloride Level 106 MMOL/L (98-107) 105 MMOL/L (98-107) Carbon Dioxide Level 24 MMOL/L (21-32) 26 MMOL/L (21-32) Anion Gap 11 mmol/L (5-15) 9 mmol/L (5-15) Blood Urea Nitrogen 20 mg/dL (7-18) H 17 mg/dL (7-18) Creatinine 0.8 MG/DL (0.55-1.30) 0.8 MG/DL (0.55-1.30) Estimat Glomerular Filtration Rate mL/min (>60) mL/min (>60) Glucose Level 139 MG/DL (74-106) H 127 MG/DL (74-106) H Calcium Level 9.5 MG/DL (8.5-10.1) 9.2 MG/DL (8.5-10.1) Total Bilirubin 0.7 MG/DL (0.2-1.0) Aspartate Amino Transf (AST/SGOT) 106 U/L (15-37) H Alanine Aminotransferase (ALT/SGPT) 66 U/L (12-78) Alkaline Phosphatase 96 U/L (46-116) Total Creatine Kinase 192 U/L (26-308) Creatine Kinase MB 0.6 NG/ML (0.0-3.6) Creatine Kinase MB Relative Index 0.3 Troponin I 0.000 ng/mL (0.000-0.056) 0.000 ng/mL (0.000-0.056) Pro-B-Type Natriuretic Peptide 99 pg/mL (0-125) Total Protein 8.7 G/DL (6.4-8.2) H Albumin 3.4 G/DL (3.4-5.0) Globulin 5.3 g/dL Albumin/Globulin Ratio 0.6 (1.0-2.7) L Lipase 124 U/L (73-393) Petey Spring MD Jun 10, 2019 12:32
[2019-06-10] MEDS ORDERED: Lexiscan 0.4mg/5ml syringe IV SCH (12:45)
[2019-06-10] MEDS ORDERED: Lexiscan 0.4mg/5ml syringe IV ONE (12:45)
--- NOTE | 2019-06-10 13:18 | Cardiology Report ---
APPROVED REPORT EXAM: Two-dimensional and M-mode echocardiogram with Doppler and color Doppler. INDICATION Left ventricular function M-Mode DIMENSIONS IVSd1.2 (0.7-1.1cm)Left Atrium (MM)2.7 (1.6-4.0cm) LVDd3.2 (3.5-5.6cm)Aortic Root2.2 (2.0-3.7cm) PWd1.1 (0.7-1.1cm)Aortic Cusp Exc.1.5 (1.5-2.0cm) LVDs2.1 (2.5-4.0cm) PWs1.2 cm Normal left ventricular chamber size, systolic function and wall motion. Left ventricular ejection fraction estimated to be 60-65%. Mild left ventricular hypertrophy by 2-D. No evidence of pericardial effusion. All other cardiac chamber sizes are within normal limits. Focal aortic valve sclerosis with adequate cusp excursion. Thickened mitral valve leaflets with normal excursion. Mitral annulus and aortic root calcification. Normal pulmonic valve structure. Normal tricuspid valve structure. IVC at normal size with physiologic collapse. A color flow and spectral Doppler study was performed and revealed: Trace aortic regurgitation. Trace mitral regurgitation. Mitral diastolic velocities suggest reduced left ventricular relaxation c/w mild LV diastolic dysfunction (Grade I). Mild tricuspid regurgitation. Tricuspid systolic velocities suggests peak right ventricular systolic pressure of 38 mmHg, consistent with mild pulmonary hypertension. Mild pulmonic regurgitation present.
[2019-06-10] MEDS: Heparin 5000 units/ml inj SUBQ SCH ×2 (14:51→21:13)
[2019-06-10 16:00] VITALS: BP 109/68
--- NOTE | 2019-06-10 16:00 | History and Physical Report ---
DATE OF ADMISSION: 06/10/2019 TIME SEEN: 9 a.m. CONSULTANTS: 1. Shannon Pang M.D. 2. Petey Spring M.D. 3. Rashaun Lopez M.D. CHIEF COMPLAINT: Chest pain, weakness, lethargy. BRIEF HISTORY: This is a 78-year-old female, who lives at a board and care facility, who presented to [place] ER with above-mentioned diagnosis, intermittent chest pain, dull for about a week. No loss of consciousness. Slight dizzy. Slightly weak. Slight short of breath. The patient came to [place], diagnosed as above, admitted to telemetry for further care. Currently, slightly anxious in bed, slight chest pain. Slight short of breath. No complaint. REVIEW OF SYSTEMS: Slight chest pain. Slight short of breath. No nausea, vomiting, or diarrhea. PAST MEDICAL HISTORY: Includes diabetes, hypertension, and cirrhosis. PAST SURGICAL HISTORY: Abdominal surgery and right hip surgery. ALLERGIES: Denies. MEDICATIONS: Include heparin, insulin, amlodipine, gabapentin, Lamictal, tramadol, pantoprazole, nitroglycerin, morphine, Zofran, enalapril, and diltiazem. SOCIAL HISTORY: No smoking. No alcohol. No intravenous drug abuse. FAMILY HISTORY: Noncontributory. PHYSICAL EXAMINATION: GENERAL: Slightly anxious in bed, oriented x3, in no acute distress. VITAL SIGNS: Show temperature is 97 degrees, pulse 77, respirations 18, and blood pressure 140/83. CARDIOVASCULAR: No murmurs. LUNGS: Poor exchange. ABDOMEN: Bowel sounds distant. EXTREMITIES: No cyanosis or edema. NEUROLOGIC: The patient moves all extremities, slightly weak. LABORATORY AND DIAGNOSTIC DATA: Labs at this time show CBC is normal. BMP shows glucose 127, otherwise BMP is normal. INR is 1.1. ASSESSMENT: . PLAN: 1. Blood pressure, blood sugar, and pain control. 2. Dietary followup. 3. Troponin q.8 h. x3. 4. EKG in a.m. 5. evaluation. 6. Continue to follow the patient. 7. CBC and BMP in the morning. 8. PT and dietary evaluation. Phan Nix D.O. DR: FAREED JOB#: [id number] CC:
--- NOTE | 2019-06-10 17:00 | Consultation ---
DATE OF CONSULTATION: 06/10/2019 CARDIOLOGY CONSULTATION CONSULTING PHYSICIAN: Petey Spring M.D. REFERRING PHYSICIAN: Phan Nix D.O. REASON FOR CONSULTATION: Chest pain. HISTORY OF PRESENT ILLNESS: The patient is a 78-year-old lady with history of hypertension, hepatitis C, cirrhosis, and depression, presented to the emergency room with complaint of chest discomfort. Chest discomfort is in the lower chest. The patient denies nausea, vomiting, or diaphoresis. The patient is currently in assisted living. The patient also has some abdominal discomfort. Cardiology consultation was obtained for further evaluation and management. REVIEW OF SYSTEMS: Negative other than what was mentioned in the history of present illness. PAST MEDICAL HISTORY: As mentioned above. FAMILY HISTORY: Noncontributory. SOCIAL HISTORY: She lives in assisted living. Does not smoke or drink alcohol. MEDICATIONS: Per reconciliation. PHYSICAL EXAMINATION: VITAL SIGNS: Show blood pressure 154/90, pulse 80, respirations 18, and temperature 97.4. HEAD AND NECK: Showed no JVD or carotid bruits. LUNGS: Clear. CARDIOVASCULAR: Shows regular, S1 and S2 with no gallop or murmur. ABDOMEN: Soft. EXTREMITIES: No pitting edema. LABORATORY AND DIAGNOSTIC DATA: Her labs show white count of 5.9, hematocrit 12.2, hematocrit 36, and platelet count 205,000. Sodium 139, potassium 3.9, BUN 17, creatinine 0.8, and glucose 127. INR is 1.1. ASSESSMENT AND PLAN: 1. Atypical chest pain. The patient is already ruled out for myocardial infarction by cardiac enzymes. I will repeat the EKG for further evaluation. The patient also undergone echocardiogram and preliminary report shows ejection fraction of 60% to 65%. 2. Hypertension. Continue amlodipine 5 mg daily. The patient is already started on p.r.n. IV Vasotec and diltiazem, but most likely the patient would not need put the patient on p.r.n. p.o. clonidine. 3. Hepatitis C and cirrhosis. 4. Diabetes, on metformin. Thank you very much for allowing me to participate in the care of this patient. Please do not hesitate to contact me for any questions regarding my evaluation. Petey Spring M.D. DR: FABIOLA JOB#: [id number] CC:
[2019-06-10 20:00] VITALS: BP 135/65
[2019-06-11] VITALS: BP 131/80
[2019-06-11 04:00] VITALS: BP 144/78
[2019-06-11] MEDS: Heparin 5000 units/ml inj SUBQ SCH ×3 (05:55→21:26)
[2019-06-11] MEDS: NovoLOG Insulin Flexpen SUBQ SCH ×4 (05:56→21:23)
--- NOTE | 2019-06-11 06:56 | Pulmonology Progress Note ---
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 Assessment/Plan no more chest pain telemetry noted monitor BP stress study ordered bp controlled Subjective ROS Limited/Unobtainable: No Constitutional: Reports: no symptoms Respiratory: Reports: no symptoms Allergies: Coded Allergies: HORSERADISH (Verified Allergy, Unknown, Rash, 04/28/19) Objective Last 24 Hour Vital Signs Date Time Temp Pulse Resp B/P (MAP) Pulse Ox O2 Delivery O2 Flow Rate FiO2 06/11/19 04:00 97.8 70 19 144/78 (100) 98 06/11/19 04:00 74 06/11/19 00:00 73 06/11/19 00:00 97.7 68 19 131/80 (97) 97 06/10/19 21:00 Room Air 06/10/19 20:00 71 06/10/19 20:00 96.3 72 19 135/65 (88) 96 06/10/19 16:00 73 06/10/19 16:00 97.2 70 18 109/68 (82) 99 06/10/19 12:00 66 06/10/19 12:00 98.4 81 14 133/80 (97) 96 06/10/19 09:51 80 154/90 06/10/19 09:00 Room Air 06/10/19 08:00 80 06/10/19 08:00 97.4 83 16 154/90 (111) 98 06/10/19 07:45 Room Air Intake and Output 06/10/19 06/11/19 19:00 07:00 Intake Total 800 ml 120 ml Balance 800 ml 120 ml Intake Oral 800 ml 120 ml # Voids 3 2 General Appearance: WD/WN HEENT: normocephalic, atraumatic Respiratory/Chest: chest wall non-tender, lungs clear Cardiovascular: normal peripheral pulses, normal rate Abdomen: normal bowel sounds, soft, non tender Genitourinary: normal external genitalia Extremities: no cyanosis Skin: no rash 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 Laboratory Tests 06/10/19 13:45: Troponin I 0.000 Current Medications Medications (Trade) Dose Ordered Sig/Darwin Route PRN Reason Start Time Stop Time Status Last Admin Dose Admin Acetaminophen (Tylenol) 650 mg Q4H PRN ORAL FEVER 06/10/19 07:15 07/10/19 07:14 Albuterol/ Ipratropium (Albuterol/ Ipratropium) 3 ml Q4H PRN HHN Shortness of Breath 06/10/19 07:15 06/15/19 07:14 Amlodipine Besylate (Norvasc) 5 mg DAILY ORAL 06/10/19 09:00 07/10/19 08:59 06/10/19 09:51 Aspirin (ASA) 162 mg DAILY ORAL 06/10/19 09:00 07/10/19 08:59 06/10/19 09:52 Buspirone HCl (Buspar) 10 mg THREE TIMES A DAY ORAL 06/10/19 09:00 07/10/19 08:59 06/10/19 17:49 Clonidine HCl (Catapres Tab) 0.1 mg Q2H PRN ORAL SBP>170 06/10/19 12:45 07/10/19 12:44 Dextrose (Dextrose 50%) 25 ml Q30M PRN IV Hypoglycemia 06/10/19 07:15 07/10/19 07:14 Dextrose (Dextrose 50%) 50 ml Q30M PRN IV Hypoglycemia 06/10/19 07:15 07/10/19 07:14 Diltiazem HCl (Cardizem) 10 mg EVERY HOUR PRN IV heart rate more than 120, 06/10/19 07:15 07/10/19 07:14 Enalaprilat (Vasotec) 2.5 mg Q6H PRN IV sbp more than 160 06/10/19 07:15 07/10/19 07:14 Escitalopram Oxalate (Lexapro) 5 mg DAILY ORAL 06/10/19 09:00 07/10/19 08:59 06/10/19 09:53 Gabapentin (Neurontin) 300 mg THREE TIMES A DAY ORAL 06/10/19 09:00 07/10/19 08:59 06/10/19 17:49 Heparin Sodium (Porcine) (Heparin 5000 units/ml) 5,000 units EVERY 8 HOURS SUBQ 06/10/19 14:00 07/10/19 13:59 06/11/19 05:55 Insulin Aspart (NovoLOG) BEFORE MEALS AND HS SUBQ 06/10/19 11:30 07/10/19 11:29 06/11/19 05:56 Lamotrigine (LaMICtal) 25 mg TWICE A DAY ORAL 06/10/19 09:00 07/10/19 08:59 06/10/19 17:49 Morphine Sulfate (Morphine Sulfate) 2 mg Q4H PRN IVP severe Pain (Pain Scale 7-10) 06/10/19 07:15 06/17/19 07:14 Nitroglycerin (Ntg) 0.4 mg Q5M PRN SL Prn Chest Pain 06/10/19 07:15 07/10/19 07:14 Ondansetron HCl (Zofran) 4 mg Q6H PRN IVP Nausea & Vomiting 06/10/19 07:15 07/10/19 07:14 Pantoprazole (Protonix) 40 mg DAILY ORAL 06/10/19 09:00 07/10/19 08:59 06/10/19 09:52 Polyethylene Glycol (Miralax) 17 gm DAILYPRN PRN ORAL Constipation 06/10/19 07:15 07/10/19 07:14 Temazepam (Restoril) 15 mg HSPRN PRN ORAL Insomnia 06/10/19 07:15 06/17/19 07:14 Tramadol HCl (Ultram) 50 mg Q6H PRN ORAL Severe Pain (Pain Scale 7-10) 06/10/19 07:15 06/17/19 07:14 Shannon Pang MD Jun 11, 2019 06:56
[2019-06-11 08:00] VITALS: BP 125/73
[2019-06-11 08:08] LABS: BASOPHILS % (AUTO) 0.6 % (0.0-2.0); EOSINOPHILS % (AUTO) 0.9 % (0.0-3.0); HEMATOCRIT 34.3 % (37.0-47.0); LYMPHOCYTES % (AUTO) 34.5 % (20.0-45.0); MEAN CORPUSCULAR VOLUME 100 FL (80-99); MONOCYTES % (AUTO) 13.6 % (1.0-10.0); NEUTROPHILS % (AUTO) 50.4 % (45.0-75.0); PLATELET COUNT 187 K/UL (150-450); RED BLOOD COUNT 3.45 M/UL (4.20-5.40); RED CELL DISTRIBUTION WIDTH 12.3 % (11.6-14.8); WHITE BLOOD COUNT 4.5 K/UL (4.8-10.8)
[2019-06-11 08:23] LABS: INR 1.1 (0.9-1.1)
[2019-06-11 08:33] LABS: ANION GAP 9 mmol/L (5-15); BLOOD UREA NITROGEN 16 mg/dL (7-18); CARBON DIOXIDE 27 MMOL/L (21-32); CHLORIDE 108 MMOL/L (98-107); CREATININE 0.8 MG/DL (0.55-1.30); POTASSIUM 4.5 MMOL/L (3.5-5.1); SODIUM 144 MMOL/L (136-145)
--- NOTE | 2019-06-11 08:33 | Hematology/Onc Progress Note ---
Assessment/Plan Assessment/Plan 1. Pancytopenia secondary to underlying cirrhosis. with a history of C from prior admission, hx cirrhosis again --> Does have anemia and will evaluate with potential iron deficiency (get iron panel, ferritin) --> hgb goal is >7, tranfuse as needed --> have ordered us abd, has been >6mo --> consider afp as needed, hcc screening --> trend wbc 5.9-->4.5 2. Hepatitis C. Outpatient management per the patient. Has been treated before for hepatitis C. --> outpatient management and treatment --> viral load as needed --> smear reviewed, no hemolysis 3. Anemia due to underlying chronic disease. --> Continue to closely monitor for improvement. Currently, stable. 4. Diabetes mellitus. A1c goal less than 7. 5. HTN with sbp goal <150 --> per cards 6. Recurrent major depressive disorder. Psychotherapy as per Psychiatry and Psychology. 7. Protein-calorie malnutrition. 8. Hepatitis C. 9. Liver cirrhosis. 10. Electrolyte abnml --> per renal Greatly appreciate consultation. Subjective Constitutional: Denies: no symptoms, chills, fever, malaise, weakness, other HEENT: Denies: no symptoms, eye pain, blurred vision, tearing, double vision, ear pain, ear discharge, nose pain, nose congestion, throat pain, throat swelling, mouth pain, mouth swelling, other Cardiovascular: Denies: no symptoms, chest pain, edema, irregular heart rate, lightheadedness, palpitations, syncope, other Respiratory: Denies: no symptoms, cough, shortness of breath, SOB with excertion, SOB at rest, sputum, wheezing, other Gastrointestinal/Abdominal: Denies: no symptoms, abdomen distended, abdominal pain, black stools, tarry stools, blood in stool, constipated, diarrhea, difficulty swallowing, nausea, poor appetite, poor fluid intake, rectal bleeding , vomiting, other Genitourinary: Denies: no symptoms, burning, discharge, frequency, flank pain, hematuria, incontinence, pain, urgency, other Neurologic/Psychiatric: Denies: no symptoms, anxiety, depressed, emotional problems, headache, numbness, paresthesia, pre-existing deficit, seizure, tingling, tremors, weakness, other Allergies: Coded Allergies: HORSERADISH (Verified Allergy, Unknown, Rash, 04/28/19) Subjective 06/11: remains somewhat lethargic, labs reviewed, wbc is lower Objective Objective Current Medications Medications (Trade) Dose Ordered Sig/Darwin Route PRN Reason Start Time Stop Time Status Last Admin Dose Admin Acetaminophen (Tylenol) 650 mg Q4H PRN ORAL FEVER 06/10/19 07:15 07/10/19 07:14 Albuterol/ Ipratropium (Albuterol/ Ipratropium) 3 ml Q4H PRN HHN Shortness of Breath 06/10/19 07:15 06/15/19 07:14 Amlodipine Besylate (Norvasc) 5 mg DAILY ORAL 06/10/19 09:00 07/10/19 08:59 06/10/19 09:51 Aspirin (ASA) 162 mg DAILY ORAL 06/10/19 09:00 07/10/19 08:59 06/10/19 09:52 Buspirone HCl (Buspar) 10 mg THREE TIMES A DAY ORAL 06/10/19 09:00 07/10/19 08:59 06/10/19 17:49 Clonidine HCl (Catapres Tab) 0.1 mg Q2H PRN ORAL SBP>170 06/10/19 12:45 07/10/19 12:44 Dextrose (Dextrose 50%) 25 ml Q30M PRN IV Hypoglycemia 06/10/19 07:15 07/10/19 07:14 Dextrose (Dextrose 50%) 50 ml Q30M PRN IV Hypoglycemia 06/10/19 07:15 07/10/19 07:14 Diltiazem HCl (Cardizem) 10 mg EVERY HOUR PRN IV heart rate more than 120, 06/10/19 07:15 07/10/19 07:14 Enalaprilat (Vasotec) 2.5 mg Q6H PRN IV sbp more than 160 06/10/19 07:15 07/10/19 07:14 Escitalopram Oxalate (Lexapro) 5 mg DAILY ORAL 06/10/19 09:00 07/10/19 08:59 06/10/19 09:53 Gabapentin (Neurontin) 300 mg THREE TIMES A DAY ORAL 06/10/19 09:00 07/10/19 08:59 06/10/19 17:49 Heparin Sodium (Porcine) (Heparin 5000 units/ml) 5,000 units EVERY 8 HOURS SUBQ 06/10/19 14:00 07/10/19 13:59 06/11/19 05:55 Insulin Aspart (NovoLOG) BEFORE MEALS AND HS SUBQ 06/10/19 11:30 07/10/19 11:29 06/11/19 05:56 Lamotrigine (LaMICtal) 25 mg TWICE A DAY ORAL 06/10/19 09:00 07/10/19 08:59 06/10/19 17:49 Morphine Sulfate (Morphine Sulfate) 2 mg Q4H PRN IVP severe Pain (Pain Scale 7-10) 06/10/19 07:15 06/17/19 07:14 Nitroglycerin (Ntg) 0.4 mg Q5M PRN SL Prn Chest Pain 06/10/19 07:15 07/10/19 07:14 Ondansetron HCl (Zofran) 4 mg Q6H PRN IVP Nausea & Vomiting 06/10/19 07:15 07/10/19 07:14 Pantoprazole (Protonix) 40 mg DAILY ORAL 06/10/19 09:00 07/10/19 08:59 06/10/19 09:52 Polyethylene Glycol (Miralax) 17 gm DAILYPRN PRN ORAL Constipation 06/10/19 07:15 07/10/19 07:14 Temazepam (Restoril) 15 mg HSPRN PRN ORAL Insomnia 06/10/19 07:15 06/17/19 07:14 Tramadol HCl (Ultram) 50 mg Q6H PRN ORAL Severe Pain (Pain Scale 7-10) 06/10/19 07:15 06/17/19 07:14 Last 24 Hour Vital Signs Date Time Temp Pulse Resp B/P (MAP) Pulse Ox O2 Delivery O2 Flow Rate FiO2 06/11/19 04:00 97.8 70 19 144/78 (100) 98 06/11/19 04:00 74 06/11/19 00:00 73 06/11/19 00:00 97.7 68 19 131/80 (97) 97 06/10/19 21:00 Room Air 06/10/19 20:00 71 06/10/19 20:00 96.3 72 19 135/65 (88) 96 06/10/19 16:00 73 06/10/19 16:00 97.2 70 18 109/68 (82) 99 06/10/19 12:00 66 06/10/19 12:00 98.4 81 14 133/80 (97) 96 06/10/19 09:51 80 154/90 06/10/19 09:00 Room Air 06/10/19 08:00 80 06/10/19 08:00 97.4 83 16 154/90 (111) 98 06/10/19 07:45 Room Air 06/10/19 06:30 72 06/10/19 06:30 97.0 77 18 140/83 (102) 99 06/10/19 06:20 98.2 76 18 158/77 97 Room Air 06/10/19 03:15 76 18 Room Air 06/10/19 03:15 98.2 76 18 156/95 100 Room Air 06/10/19 02:38 98.2 96 18 151/89 (109) 96 Room Air Intake and Output 06/10/19 06/11/19 19:00 07:00 Intake Total 800 ml 120 ml Balance 800 ml 120 ml Intake Oral 800 ml 120 ml # Voids 3 2 Labs Test 06/10/19 03:00 06/10/19 04:29 06/10/19 13:45 06/11/19 06:20 White Blood Count 5.9 K/UL (4.8-10.8) 4.5 K/UL (4.8-10.8) Red Blood Count 3.71 M/UL (4.20-5.40) 3.45 M/UL (4.20-5.40) Hemoglobin 12.2 G/DL (12.0-16.0) 11.0 G/DL (12.0-16.0) Hematocrit 35.9 % (37.0-47.0) 34.3 % (37.0-47.0) Mean Corpuscular Volume 97 FL (80-99) 100 FL (80-99) Mean Corpuscular Hemoglobin 32.8 PG (27.0-31.0) 32.0 PG (27.0-31.0) Mean Corpuscular Hemoglobin Concent 33.8 G/DL (32.0-36.0) 32.1 G/DL (32.0-36.0) Red Cell Distribution Width 11.9 % (11.6-14.8) 12.3 % (11.6-14.8) Platelet Count 205 K/UL (150-450) 187 K/UL (150-450) Mean Platelet Volume 7.4 FL (6.5-10.1) 6.8 FL (6.5-10.1) Neutrophils (%) (Auto) 52.5 % (45.0-75.0) 50.4 % (45.0-75.0) Lymphocytes (%) (Auto) 32.1 % (20.0-45.0) 34.5 % (20.0-45.0) Monocytes (%) (Auto) 13.6 % (1.0-10.0) 13.6 % (1.0-10.0) Eosinophils (%) (Auto) 0.5 % (0.0-3.0) 0.9 % (0.0-3.0) Basophils (%) (Auto) 1.3 % (0.0-2.0) 0.6 % (0.0-2.0) Prothrombin Time 11.3 SEC (9.30-11.50) 11.3 SEC (9.30-11.50) Prothromb Time International Ratio 1.1 (0.9-1.1) 1.1 (0.9-1.1) Activated Partial Thromboplast Time 30 SEC (23-33) 33 SEC (23-33) Sodium Level 141 MMOL/L (136-145) 139 MMOL/L (136-145) Potassium Level 5.8 MMOL/L (3.5-5.1) 3.9 MMOL/L (3.5-5.1) Chloride Level 106 MMOL/L (98-107) 105 MMOL/L (98-107) Carbon Dioxide Level 24 MMOL/L (21-32) 26 MMOL/L (21-32) Anion Gap 11 mmol/L (5-15) 9 mmol/L (5-15) Blood Urea Nitrogen 20 mg/dL (7-18) 17 mg/dL (7-18) Creatinine 0.8 MG/DL (0.55-1.30) 0.8 MG/DL (0.55-1.30) Estimat Glomerular Filtration Rate mL/min (>60) mL/min (>60) Glucose Level 139 MG/DL (74-106) 127 MG/DL (74-106) Calcium Level 9.5 MG/DL (8.5-10.1) 9.2 MG/DL (8.5-10.1) Total Bilirubin 0.7 MG/DL (0.2-1.0) Aspartate Amino Transf (AST/SGOT) 106 U/L (15-37) Alanine Aminotransferase (ALT/SGPT) 66 U/L (12-78) Alkaline Phosphatase 96 U/L (46-116) Total Creatine Kinase 192 U/L (26-308) Creatine Kinase MB 0.6 NG/ML (0.0-3.6) Creatine Kinase MB Relative Index 0.3 Troponin I 0.000 ng/mL (0.000-0.056) 0.000 ng/mL (0.000-0.056) 0.000 ng/mL (0.000-0.056) 0.000 ng/mL (0.000-0.056) Pro-B-Type Natriuretic Peptide 99 pg/mL (0-125) Total Protein 8.7 G/DL (6.4-8.2) Albumin 3.4 G/DL (3.4-5.0) Globulin 5.3 g/dL Albumin/Globulin Ratio 0.6 (1.0-2.7) Lipase 124 U/L (73-393) Height (Feet): 5 Height (Inches): 4.00 Weight (Pounds): 135 Jr Loredo MD Jun 11, 2019 08:33
[2019-06-11] MEDS: Aspirin Baby 81mg ORAL SCH (08:36)
[2019-06-11] MEDS: BusPIRone 5mg Tab ORAL SCH ×3 (08:36→17:09)
[2019-06-11 08:55] LABS: CHOLESTEROL 166 MG/DL (< 200); HDL CHOLESTEROL 74 MG/DL (40-60); TRIGLYCERIDES 38 MG/DL (30-150)
[2019-06-11 09:03] LABS: % IRON SATURATION 38 % (15-50); IRON 130 ug/dL (50-175); TOTAL IRON BINDING CAPACITY 341 ug/dL (250-450)
[2019-06-11 09:16] LABS: FERRITIN 100 NG/ML (8-388)
--- NOTE | 2019-06-11 10:38 | General Progress Note ---
Assessment/Plan Problem List: (1) History of cholelithiasis ICD Codes: Z87.19 - History of cholelithiasis SNOMED: 653009566 (2) Peptic ulcer disease ICD Codes: K27.9 - Peptic ulcer disease SNOMED: 21961379 (3) Diabetes ICD Codes: E11.9 - Type 2 diabetes mellitus without complications SNOMED: 40370769 (4) UTI (urinary tract infection) ICD Codes: N39.0 - Urinary tract infection, site not specified SNOMED: 10639983 (5) HTN (hypertension) ICD Codes: I10 - Essential (primary) hypertension SNOMED: 78458471 (6) 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 ICD Codes: B18.2 - 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 SNOMED: 494789601 (7) Gram-negative bacteremia ICD Codes: R78.81 - Bacteremia SNOMED: 835288249365 (8) Degenerative arthritis of cervical spine ICD Codes: M47.812 - Spondylosis without myelopathy or radiculopathy, cervical region SNOMED: 360779101 (9) ACS (acute coronary syndrome) ICD Codes: I24.9 - Acute ischemic heart disease, unspecified SNOMED: 991536789 Status: stable, progressing Assessment/Plan: pt diet pain control cbc bmp am aru eval Subjective Constitutional: Reports: weakness Allergies: Coded Allergies: HORSERADISH (Verified Allergy, Unknown, Rash, 04/28/19) All Systems: reviewed and negative except above Subjective sleepy in bed Objective Last 24 Hour Vital Signs Date Time Temp Pulse Resp B/P (MAP) Pulse Ox O2 Delivery O2 Flow Rate FiO2 06/11/19 09:00 Room Air 06/11/19 08:36 75 125/73 06/11/19 08:00 97.0 75 21 125/73 (90) 98 06/11/19 07:43 82 06/11/19 04:00 97.8 70 19 144/78 (100) 98 06/11/19 04:00 74 06/11/19 00:00 73 06/11/19 00:00 97.7 68 19 131/80 (97) 97 06/10/19 21:00 Room Air 06/10/19 20:00 71 06/10/19 20:00 96.3 72 19 135/65 (88) 96 06/10/19 16:00 73 06/10/19 16:00 97.2 70 18 109/68 (82) 99 06/10/19 12:00 66 06/10/19 12:00 98.4 81 14 133/80 (97) 96 Intake and Output 06/10/19 06/11/19 19:00 07:00 Intake Total 800 ml 120 ml Balance 800 ml 120 ml Intake Oral 800 ml 120 ml # Voids 3 2 Laboratory Tests 06/10/19 13:45: Troponin I 0.000 06/11/19 06:20: Troponin I 0.000, White Blood Count 4.5L, Red Blood Count 3.45L, Hemoglobin 11.0L, Hematocrit 34.3L, Mean Corpuscular Volume 100H, Mean Corpuscular Hemoglobin 32.0H, Mean Corpuscular Hemoglobin Concent 32.1, Red Cell Distribution Width 12.3, Platelet Count 187, Mean Platelet Volume 6.8, Neutrophils (%) (Auto) 50.4, Lymphocytes (%) (Auto) 34.5, Monocytes (%) (Auto) 13.6H, Eosinophils (%) (Auto) 0.9, Basophils (%) (Auto) 0.6, Prothrombin Time 11.3, Prothromb Time International Ratio 1.1, Activated Partial Thromboplast Time 33, Sodium Level 144, Potassium Level 4.5, Chloride Level 108H, Carbon Dioxide Level 27, Anion Gap 9, Blood Urea Nitrogen 16, Creatinine 0.8, Estimat Glomerular Filtration Rate , Glucose Level 135H, Calcium Level 9.0, Iron Level 130, Total Iron Binding Capacity 341, Percent Iron Saturation 38, Unsaturated Iron Binding 211, Ferritin 100, C-Reactive Protein, Quantitative < 0.4, Triglycerides Level 38, Cholesterol Level 166, LDL Cholesterol 82, HDL Cholesterol 74H, Cholesterol/HDL Ratio 2.2L, Thyroid Stimulating Hormone (TSH) 0.670 Height (Feet): 5 Height (Inches): 4.00 Weight (Pounds): 135 General Appearance: lethargic EENT: normal ENT inspection Neck: normal alignment Cardiovascular: normal peripheral pulses, normal rate, regular rhythm Respiratory/Chest: chest wall non-tender, lungs clear, normal breath sounds Abdomen: normal bowel sounds, non tender, soft Extremities: normal inspection Edema: no edema noted Arm (L), no edema noted Arm (R), no edema noted Leg (L), no edema noted Leg (R), no edema noted Pedal (L), no edema noted Pedal (R), no edema noted Generalized Neurologic: motor weakness Skin: normal pigmentation, warm/dry Phan Nix DO Jun 11, 2019 10:38
--- NOTE | 2019-06-11 10:46 | CDS Physician Query ---
Clarification is required for compliance, coding accuracy, and to reflect severity of illness for this patient. Dear Jr Anaya MD Date: Malnutrition has been documented in progress notes In order to accurately code this and to reflect the appropriate severity of ilness, please clarify diagnosis. [] Mild Malnutrition [x] Moderate Malnutrition [] Severe Malnutrition [] Unknown degree [] Other: [] Clinically Undetermined Present on Admission: [] Yes [] No [] Clinically Undetermined _Jr Loredo 06/20/19 Physician signature Date Please also document in your Progress Notes and/or Discharge Summary and indicate if the condition was present on admission. BRITNEY
[2019-06-11 12:00] VITALS: BP 113/68
--- NOTE | 2019-06-11 14:20 | Cardiac Electrophysiology PN ---
Assessment/Plan Assessment/Plan 1. Atypical chest pain. Already ruled out for myocardial infarction by cardiac enzymes. The patient also undergone echocardiogram and preliminary report shows ejection fraction of 60% to 65%.Stress test Thursday 2. Hypertension. Continue amlodipine 5 mg daily. And p.r.n. p.o. clonidine. 3. Hepatitis C and cirrhosis. 4. Diabetes, on metformin. MO RN Subjective Subjective No CP or SOB. HR stable and BP ok Objective Last 24 Hour Vital Signs Date Time Temp Pulse Resp B/P (MAP) Pulse Ox O2 Delivery O2 Flow Rate FiO2 06/11/19 12:00 97.2 80 18 113/68 (83) 96 06/11/19 11:41 76 06/11/19 09:00 Room Air 06/11/19 08:36 75 125/73 06/11/19 08:00 97.0 75 21 125/73 (90) 98 06/11/19 07:43 82 06/11/19 04:00 97.8 70 19 144/78 (100) 98 06/11/19 04:00 74 06/11/19 00:00 73 06/11/19 00:00 97.7 68 19 131/80 (97) 97 06/10/19 21:00 Room Air 06/10/19 20:00 71 06/10/19 20:00 96.3 72 19 135/65 (88) 96 06/10/19 16:00 73 06/10/19 16:00 97.2 70 18 109/68 (82) 99 Intake and Output 06/10/19 06/11/19 18:59 06:59 Intake Total 800 ml 120 ml Balance 800 ml 120 ml Intake Oral 800 ml 120 ml # Voids 3 2 Laboratory Tests Test 06/11/19 06:20 White Blood Count 4.5 K/UL (4.8-10.8) L Red Blood Count 3.45 M/UL (4.20-5.40) L Hemoglobin 11.0 G/DL (12.0-16.0) L Hematocrit 34.3 % (37.0-47.0) L Mean Corpuscular Volume 100 FL (80-99) H Mean Corpuscular Hemoglobin 32.0 PG (27.0-31.0) H Mean Corpuscular Hemoglobin Concent 32.1 G/DL (32.0-36.0) Red Cell Distribution Width 12.3 % (11.6-14.8) Platelet Count 187 K/UL (150-450) Mean Platelet Volume 6.8 FL (6.5-10.1) Neutrophils (%) (Auto) 50.4 % (45.0-75.0) Lymphocytes (%) (Auto) 34.5 % (20.0-45.0) Monocytes (%) (Auto) 13.6 % (1.0-10.0) H Eosinophils (%) (Auto) 0.9 % (0.0-3.0) Basophils (%) (Auto) 0.6 % (0.0-2.0) Prothrombin Time 11.3 SEC (9.30-11.50) Prothromb Time International Ratio 1.1 (0.9-1.1) Activated Partial Thromboplast Time 33 SEC (23-33) Sodium Level 144 MMOL/L (136-145) Potassium Level 4.5 MMOL/L (3.5-5.1) Chloride Level 108 MMOL/L (98-107) H Carbon Dioxide Level 27 MMOL/L (21-32) Anion Gap 9 mmol/L (5-15) Blood Urea Nitrogen 16 mg/dL (7-18) Creatinine 0.8 MG/DL (0.55-1.30) Estimat Glomerular Filtration Rate mL/min (>60) Glucose Level 135 MG/DL (74-106) H Calcium Level 9.0 MG/DL (8.5-10.1) Iron Level 130 ug/dL (50-175) Total Iron Binding Capacity 341 ug/dL (250-450) Percent Iron Saturation 38 % (15-50) Unsaturated Iron Binding 211 ug/dL (112-346) Ferritin 100 NG/ML (8-388) Troponin I 0.000 ng/mL (0.000-0.056) C-Reactive Protein, Quantitative < 0.4 mg/dL (0.00-0.90) Triglycerides Level 38 MG/DL (30-150) Cholesterol Level 166 MG/DL (< 200) LDL Cholesterol 82 mg/dL (<100) HDL Cholesterol 74 MG/DL (40-60) H Cholesterol/HDL Ratio 2.2 (3.3-4.4) L Thyroid Stimulating Hormone (TSH) 0.670 uiU/mL (0.358-3.740) Objective HEAD AND NECK: Showed no JVD or carotid bruits. LUNGS: Clear. CARDIOVASCULAR: Shows regular, S1 and S2 with no gallop or murmur. ABDOMEN: Soft. EXTREMITIES: No pitting edema. Petey Spring MD Jun 11, 2019 14:20
[2019-06-11 16:00] VITALS: BP 123/74
[2019-06-11 20:00] VITALS: BP 100/62
[2019-06-11] MEDS: Morphine Sulfate 2mg/ml Inj(IV/IM USE ONLY) IVP PRN (21:32)
[2019-06-12 00:21] VITALS: BP 109/44
[2019-06-12 04:00] VITALS: BP 108/59
[2019-06-12] MEDS: NovoLOG Insulin Flexpen SUBQ SCH ×4 (06:12→21:11)
[2019-06-12] MEDS: Heparin 5000 units/ml inj SUBQ SCH ×3 (06:13→21:11)
[2019-06-12 07:06] LABS: BASOPHILS % (AUTO) 0.8 % (0.0-2.0); EOSINOPHILS % (AUTO) 0.8 % (0.0-3.0); HEMATOCRIT 32.5 % (37.0-47.0); HEMOGLOBIN 10.5 G/DL (12.0-16.0); LYMPHOCYTES % (AUTO) 39.4 % (20.0-45.0); MEAN CORPUSCULAR VOLUME 100 FL (80-99); MONOCYTES % (AUTO) 12.5 % (1.0-10.0); NEUTROPHILS % (AUTO) 46.5 % (45.0-75.0); PLATELET COUNT 178 K/UL (150-450); RED BLOOD COUNT 3.26 M/UL (4.20-5.40); RED CELL DISTRIBUTION WIDTH 12.2 % (11.6-14.8); WHITE BLOOD COUNT 5.9 K/UL (4.8-10.8)
[2019-06-12 07:11] LABS: ANION GAP 5 mmol/L (5-15); BLOOD UREA NITROGEN 18 mg/dL (7-18); CALCIUM 9.1 MG/DL (8.5-10.1); CARBON DIOXIDE 27 MMOL/L (21-32); CHLORIDE 109 MMOL/L (98-107); POTASSIUM 4.4 MMOL/L (3.5-5.1); SODIUM 141 MMOL/L (136-145)
[2019-06-12 08:00] VITALS: BP 113/57
[2019-06-12] MEDS: BusPIRone 5mg Tab ORAL SCH ×3 (08:29→17:14)
[2019-06-12] MEDS: Aspirin Baby 81mg ORAL SCH (08:30)
--- NOTE | 2019-06-12 10:36 | General Progress Note ---
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 ICD Codes: B18.2 - 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 SNOMED: 136507887 (7) Gram-negative bacteremia ICD Codes: R78.81 - Bacteremia SNOMED: 054123793064 (8) Degenerative arthritis of cervical spine ICD Codes: M47.812 - Spondylosis without myelopathy or radiculopathy, cervical region SNOMED: 807295226 (9) ACS (acute coronary syndrome) ICD Codes: I24.9 - Acute ischemic heart disease, unspecified SNOMED: 532742892 Status: stable, progressing Assessment/Plan: pt diet pain control cbc bmp am aru eval Subjective Constitutional: Reports: weakness Allergies: Coded Allergies: HORSERADISH (Verified Allergy, Unknown, Rash, 04/28/19) All Systems: reviewed and negative except above Subjective sleepy in bed Objective Last 24 Hour Vital Signs Date Time Temp Pulse Resp B/P (MAP) Pulse Ox O2 Delivery O2 Flow Rate FiO2 06/12/19 09:00 Room Air 06/12/19 08:30 78 113/57 06/12/19 08:00 97.5 78 18 113/57 (75) 97 06/12/19 07:03 75 16 97 Room Air 21 06/12/19 04:00 79 06/12/19 04:00 96.8 80 18 108/59 (75) 97 06/12/19 00:21 97.0 77 18 109/44 (65) 97 06/12/19 00:00 78 06/11/19 21:00 Room Air 06/11/19 20:00 84 06/11/19 20:00 97.0 86 18 100/62 (75) 95 06/11/19 19:48 85 18 98 Room Air 21 06/11/19 16:05 92 06/11/19 16:00 98.5 86 18 123/74 (90) 98 06/11/19 12:00 97.2 80 18 113/68 (83) 96 06/11/19 11:41 76 Intake and Output 06/11/19 06/12/19 19:00 07:00 Intake Total 450 ml Balance 450 ml Intake Oral 450 ml # Voids 3 2 Laboratory Tests 06/12/19 06:30: White Blood Count 5.9, Red Blood Count 3.26L, Hemoglobin 10.5L, Hematocrit 32.5L , Mean Corpuscular Volume 100H, Mean Corpuscular Hemoglobin 32.3H, Mean Corpuscular Hemoglobin Concent 32.5, Red Cell Distribution Width 12.2, Platelet Count 178, Mean Platelet Volume 6.5, Neutrophils (%) (Auto) 46.5, Lymphocytes (% ) (Auto) 39.4, Monocytes (%) (Auto) 12.5H, Eosinophils (%) (Auto) 0.8, Basophils (%) (Auto) 0.8, Sodium Level 141, Potassium Level 4.4, Chloride Level 109H, Carbon Dioxide Level 27, Anion Gap 5, Blood Urea Nitrogen 18, Creatinine 1.0, Estimat Glomerular Filtration Rate , Glucose Level 175H, Calcium Level 9.1 , Troponin I 0.007 Height (Feet): 5 Height (Inches): 4.00 Weight (Pounds): 135 General Appearance: lethargic EENT: normal ENT inspection Neck: normal alignment Cardiovascular: normal peripheral pulses, normal rate, regular rhythm Respiratory/Chest: chest wall non-tender, lungs clear, normal breath sounds Abdomen: normal bowel sounds, non tender, soft Extremities: normal inspection Edema: no edema noted Arm (L), no edema noted Arm (R), no edema noted Leg (L), no edema noted Leg (R), no edema noted Pedal (L), no edema noted Pedal (R), no edema noted Generalized Neurologic: responsive, motor weakness Skin: normal pigmentation, warm/dry Phan Nxi DO Jun 12, 2019 10:36
[2019-06-12 12:00] VITALS: BP 105/54
--- NOTE | 2019-06-12 15:22 | Cardiology Report ---
APPROVED REPORT EKG Measurement Heart [id number] Normal sinus rhythm Normal ECG
[2019-06-12 16:00] VITALS: BP 109/66
[2019-06-12] MEDS ORDERED: Lexiscan 0.4mg/5ml syringe IV PRN (16:04)
[2019-06-12] MEDS ORDERED: Tubing IV Secondary IV ONE (16:50)
--- NOTE | 2019-06-12 18:14 | Pulmonology Progress Note ---
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 Assessment/Plan no more chest pain telemetry noted monitor BP stress study ordered bp controlled Subjective Allergies: Coded Allergies: HORSERADISH (Verified Allergy, Unknown, Rash, 04/28/19) Objective Last 24 Hour Vital Signs Date Time Temp Pulse Resp B/P (MAP) Pulse Ox O2 Delivery O2 Flow Rate FiO2 06/12/19 16:00 97.7 78 21 109/66 (80) 97 06/12/19 15:20 79 06/12/19 12:00 97.5 76 22 105/54 (71) 98 06/12/19 11:42 77 06/12/19 09:00 Room Air 06/12/19 08:30 78 113/57 06/12/19 08:00 97.5 78 18 113/57 (75) 97 06/12/19 07:42 80 06/12/19 07:03 75 16 97 Room Air 21 06/12/19 04:00 79 06/12/19 04:00 96.8 80 18 108/59 (75) 97 06/12/19 00:21 97.0 77 18 109/44 (65) 97 06/12/19 00:00 78 06/11/19 21:00 Room Air 06/11/19 20:00 84 06/11/19 20:00 97.0 86 18 100/62 (75) 95 06/11/19 19:48 85 18 98 Room Air 21 Intake and Output 06/11/19 06/12/19 18:59 06:59 Intake Total 450 ml Balance 450 ml Intake Oral 450 ml # Voids 3 2 General Appearance: WD/WN HEENT: normocephalic, anicteric Respiratory/Chest: chest wall non-tender, lungs clear, normal breath sounds Breasts: no masses Cardiovascular: normal peripheral pulses Abdomen: normal bowel sounds Extremities: no cyanosis 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 Laboratory Tests 06/12/19 06:30: White Blood Count 5.9, Red Blood Count 3.26L, Hemoglobin 10.5L, Hematocrit 32.5L , Mean Corpuscular Volume 100H, Mean Corpuscular Hemoglobin 32.3H, Mean Corpuscular Hemoglobin Concent 32.5, Red Cell Distribution Width 12.2, Platelet Count 178, Mean Platelet Volume 6.5, Neutrophils (%) (Auto) 46.5, Lymphocytes (% ) (Auto) 39.4, Monocytes (%) (Auto) 12.5H, Eosinophils (%) (Auto) 0.8, Basophils (%) (Auto) 0.8, Sodium Level 141, Potassium Level 4.4, Chloride Level 109H, Carbon Dioxide Level 27, Anion Gap 5, Blood Urea Nitrogen 18, Creatinine 1.0, Estimat Glomerular Filtration Rate , Glucose Level 175H, Calcium Level 9.1 , Troponin I 0.007 Current Medications Medications (Trade) Dose Ordered Sig/Darwin Route PRN Reason Start Time Stop Time Status Last Admin Dose Admin Acetaminophen (Tylenol) 650 mg Q4H PRN ORAL FEVER 06/10/19 07:15 07/10/19 07:14 Albuterol/ Ipratropium (Albuterol/ Ipratropium) 3 ml Q4H PRN HHN Shortness of Breath 06/10/19 07:15 06/15/19 07:14 Amlodipine Besylate (Norvasc) 5 mg DAILY ORAL 06/10/19 09:00 07/10/19 08:59 06/12/19 08:30 Aspirin (ASA) 162 mg DAILY ORAL 06/10/19 09:00 07/10/19 08:59 06/12/19 08:30 Buspirone HCl (Buspar) 10 mg THREE TIMES A DAY ORAL 06/10/19 09:00 07/10/19 08:59 06/12/19 17:14 Clonidine HCl (Catapres Tab) 0.1 mg Q2H PRN ORAL SBP>170 06/10/19 12:45 07/10/19 12:44 Dextrose (Dextrose 50%) 25 ml Q30M PRN IV Hypoglycemia 06/10/19 07:15 07/10/19 07:14 Dextrose (Dextrose 50%) 50 ml Q30M PRN IV Hypoglycemia 06/10/19 07:15 07/10/19 07:14 Diltiazem HCl (Cardizem) 10 mg EVERY HOUR PRN IV heart rate more than 120, 06/10/19 07:15 07/10/19 07:14 Enalaprilat (Vasotec) 2.5 mg Q6H PRN IV sbp more than 160 06/10/19 07:15 07/10/19 07:14 Escitalopram Oxalate (Lexapro) 5 mg DAILY ORAL 06/10/19 09:00 07/10/19 08:59 06/12/19 08:30 Gabapentin (Neurontin) 300 mg THREE TIMES A DAY ORAL 06/10/19 09:00 07/10/19 08:59 06/12/19 17:14 Heparin Sodium (Porcine) (Heparin 5000 units/ml) 5,000 units EVERY 8 HOURS SUBQ 06/10/19 14:00 07/10/19 13:59 06/12/19 13:58 Insulin Aspart (NovoLOG) BEFORE MEALS AND HS SUBQ 06/10/19 11:30 07/10/19 11:29 06/12/19 16:50 Lamotrigine (LaMICtal) 25 mg TWICE A DAY ORAL 06/10/19 09:00 07/10/19 08:59 06/12/19 17:14 Morphine Sulfate (Morphine Sulfate) 2 mg Q4H PRN IVP severe Pain (Pain Scale 7-10) 06/10/19 07:15 06/17/19 07:14 06/11/19 21:32 Nitroglycerin (Ntg) 0.4 mg Q5M PRN SL Prn Chest Pain 06/10/19 07:15 07/10/19 07:14 Ondansetron HCl (Zofran) 4 mg Q6H PRN IVP Nausea & Vomiting 06/10/19 07:15 07/10/19 07:14 Pantoprazole (Protonix) 40 mg DAILY ORAL 06/10/19 09:00 07/10/19 08:59 06/12/19 08:29 Polyethylene Glycol (Miralax) 17 gm DAILYPRN PRN ORAL Constipation 06/10/19 07:15 07/10/19 07:14 Regadenoson (Lexiscan) 0.4 mg ONCE PRN IV CARDIOLOGY 06/12/19 16:04 06/13/19 23:59 Sodium Chloride 1,000 ml @ 75 mls/hr [id number] IV 06/12/19 08:30 07/12/19 08:29 06/12/19 08:30 Temazepam (Restoril) 15 mg HSPRN PRN ORAL Insomnia 06/10/19 07:15 06/17/19 07:14 Tramadol HCl (Ultram) 50 mg Q6H PRN ORAL Severe Pain (Pain Scale 7-10) 06/10/19 07:15 06/17/19 07:14 Shannon Pang MD Jun 12, 2019 18:14
--- NOTE | 2019-06-12 19:13 | Cardiac Electrophysiology PN ---
Assessment/Plan Assessment/Plan 1. Atypical chest pain. Ruled out for myocardial infarction by cardiac enzymes. Echo shows ejection fraction of 60% .Stress test tomorrow pending 2. Hypertension. Continue amlodipine 5 mg daily and p.r.n. p.o. clonidine. 3. Hepatitis C and cirrhosis. 4. Diabetes, on metformin. MO RN Subjective Subjective No CP or SOB. HR stable and BP ok. Scheduled for stress test tomorrow Objective Last 24 Hour Vital Signs Date Time Temp Pulse Resp B/P (MAP) Pulse Ox O2 Delivery O2 Flow Rate FiO2 06/12/19 16:00 97.7 78 21 109/66 (80) 97 06/12/19 15:20 79 06/12/19 12:00 97.5 76 22 105/54 (71) 98 06/12/19 11:42 77 06/12/19 09:00 Room Air 06/12/19 08:30 78 113/57 06/12/19 08:00 97.5 78 18 113/57 (75) 97 06/12/19 07:42 80 06/12/19 07:03 75 16 97 Room Air 21 06/12/19 04:00 79 06/12/19 04:00 96.8 80 18 108/59 (75) 97 06/12/19 00:21 97.0 77 18 109/44 (65) 97 06/12/19 00:00 78 06/11/19 21:00 Room Air 06/11/19 20:00 84 06/11/19 20:00 97.0 86 18 100/62 (75) 95 06/11/19 19:48 85 18 98 Room Air 21 Intake and Output 06/11/19 06/12/19 18:59 06:59 Intake Total 450 ml Balance 450 ml Intake Oral 450 ml # Voids 3 2 Laboratory Tests Test 06/12/19 06:30 White Blood Count 5.9 K/UL (4.8-10.8) Red Blood Count 3.26 M/UL (4.20-5.40) L Hemoglobin 10.5 G/DL (12.0-16.0) L Hematocrit 32.5 % (37.0-47.0) L Mean Corpuscular Volume 100 FL (80-99) H Mean Corpuscular Hemoglobin 32.3 PG (27.0-31.0) H Mean Corpuscular Hemoglobin Concent 32.5 G/DL (32.0-36.0) Red Cell Distribution Width 12.2 % (11.6-14.8) Platelet Count 178 K/UL (150-450) Mean Platelet Volume 6.5 FL (6.5-10.1) Neutrophils (%) (Auto) 46.5 % (45.0-75.0) Lymphocytes (%) (Auto) 39.4 % (20.0-45.0) Monocytes (%) (Auto) 12.5 % (1.0-10.0) H Eosinophils (%) (Auto) 0.8 % (0.0-3.0) Basophils (%) (Auto) 0.8 % (0.0-2.0) Sodium Level 141 MMOL/L (136-145) Potassium Level 4.4 MMOL/L (3.5-5.1) Chloride Level 109 MMOL/L (98-107) H Carbon Dioxide Level 27 MMOL/L (21-32) Anion Gap 5 mmol/L (5-15) Blood Urea Nitrogen 18 mg/dL (7-18) Creatinine 1.0 MG/DL (0.55-1.30) Estimat Glomerular Filtration Rate mL/min (>60) Glucose Level 175 MG/DL (74-106) H Calcium Level 9.1 MG/DL (8.5-10.1) Troponin I 0.007 ng/mL (0.000-0.056) Objective HEAD AND NECK: No JVD or carotid bruits. LUNGS: Clear. CARDIOVASCULAR: Regular, S1 and S2 with no gallop or murmur. ABDOMEN: Soft. EXTREMITIES: No pitting edema. Petey Spring MD Jun 12, 2019 19:13
[2019-06-12 20:00] VITALS: BP 119/65
[2019-06-13] VITALS: BP 116/69
[2019-06-13 04:00] VITALS: BP 120/66
[2019-06-13] MEDS: NovoLOG Insulin Flexpen SUBQ SCH ×4 (06:46→21:11)
[2019-06-13] MEDS: Heparin 5000 units/ml inj SUBQ SCH ×3 (06:49→21:12)
[2019-06-13 08:00] VITALS: BP 129/79
[2019-06-13 08:01] LABS: BASOPHILS % (AUTO) 0.5 % (0.0-2.0); EOSINOPHILS % (AUTO) 0.6 % (0.0-3.0); HEMATOCRIT 29.5 % (37.0-47.0); HEMOGLOBIN 9.3 G/DL (12.0-16.0); LYMPHOCYTES % (AUTO) 40.1 % (20.0-45.0); MEAN CORPUSCULAR VOLUME 101 FL (80-99); MONOCYTES % (AUTO) 10.4 % (1.0-10.0); NEUTROPHILS % (AUTO) 48.4 % (45.0-75.0); PLATELET COUNT 151 K/UL (150-450); RED BLOOD COUNT 2.93 M/UL (4.20-5.40); RED CELL DISTRIBUTION WIDTH 12.4 % (11.6-14.8)
[2019-06-13 08:42] LABS: ANION GAP 8 mmol/L (5-15); BLOOD UREA NITROGEN 19 mg/dL (7-18); CALCIUM 8.7 MG/DL (8.5-10.1); CARBON DIOXIDE 25 MMOL/L (21-32); CHLORIDE 109 MMOL/L (98-107); CREATININE 0.9 MG/DL (0.55-1.30); POTASSIUM 3.8 MMOL/L (3.5-5.1); SODIUM 142 MMOL/L (136-145)
[2019-06-13] MEDS: BusPIRone 5mg Tab ORAL SCH ×3 (08:45→17:23)
[2019-06-13] MEDS: Aspirin Baby 81mg ORAL SCH (08:47)
--- NOTE | 2019-06-13 09:26 | General Progress Note ---
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 ICD Codes: B18.2 - 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 SNOMED: 613530209 (7) Gram-negative bacteremia ICD Codes: R78.81 - Bacteremia SNOMED: 764600672159 (8) Degenerative arthritis of cervical spine ICD Codes: M47.812 - Spondylosis without myelopathy or radiculopathy, cervical region SNOMED: 687686660 (9) ACS (acute coronary syndrome) ICD Codes: I24.9 - Acute ischemic heart disease, unspecified SNOMED: 729234330 Status: stable, progressing Assessment/Plan: pt diet pain control cbc bmp am aru eval Subjective Constitutional: Reports: weakness Allergies: Coded Allergies: HORSERADISH (Verified Allergy, Unknown, Rash, 04/28/19) All Systems: reviewed and negative except above Subjective calm in bed awaiting stress test Objective Last 24 Hour Vital Signs Date Time Temp Pulse Resp B/P (MAP) Pulse Ox O2 Delivery O2 Flow Rate FiO2 06/13/19 08:46 71 129/79 06/13/19 08:00 97.7 71 18 129/79 (96) 98 06/13/19 04:00 77 06/13/19 04:00 98.0 88 18 120/66 (84) 97 06/13/19 00:00 81 06/13/19 00:00 98.4 82 18 116/69 (85) 95 06/12/19 21:00 Room Air 06/12/19 20:11 83 18 96 Room Air 21 06/12/19 20:00 98.1 86 18 119/65 (83) 93 06/12/19 20:00 77 06/12/19 16:00 97.7 78 21 109/66 (80) 97 06/12/19 15:20 79 06/12/19 12:00 97.5 76 22 105/54 (71) 98 06/12/19 11:42 77 Intake and Output 06/12/19 06/13/19 19:00 07:00 Intake Total 787.5 ml Balance 787.5 ml IV Total 787.5 ml # Voids 3 5 # Bowel Movements 2 Laboratory Tests 06/13/19 05:54: White Blood Count 5.0, Red Blood Count 2.93L, Hemoglobin 9.3L, Hematocrit 29.5L , Mean Corpuscular Volume 101H, Mean Corpuscular Hemoglobin 31.8H, Mean Corpuscular Hemoglobin Concent 31.6L, Red Cell Distribution Width 12.4, Platelet Count 151, Mean Platelet Volume 7.0, Neutrophils (%) (Auto) 48.4, Lymphocytes (%) (Auto) 40.1, Monocytes (%) (Auto) 10.4H, Eosinophils (%) (Auto) 0.6, Basophils (%) (Auto) 0.5, Sodium Level 142, Potassium Level 3.8, Chloride Level 109H, Carbon Dioxide Level 25, Anion Gap 8, Blood Urea Nitrogen 19H, Creatinine 0.9, Estimat Glomerular Filtration Rate , Glucose Level 186H, Calcium Level 8.7 Height (Feet): 5 Height (Inches): 4.00 Weight (Pounds): 135 General Appearance: lethargic EENT: normal ENT inspection Neck: normal alignment Cardiovascular: normal peripheral pulses, normal rate, regular rhythm Respiratory/Chest: chest wall non-tender, lungs clear, normal breath sounds Abdomen: normal bowel sounds, non tender, soft Extremities: normal inspection Edema: no edema noted Arm (L), no edema noted Arm (R), no edema noted Leg (L), no edema noted Leg (R), no edema noted Pedal (L), no edema noted Pedal (R), no edema noted Generalized Neurologic: motor weakness Skin: normal pigmentation, warm/dry Phan Nix DO Jun 13, 2019 09:26
--- NOTE | 2019-06-13 11:41 | Diagnostic Imaging Report ---
Indication: Abdominal pain Technique: Santa-scale and duplex images of the upper abdomen were obtained Comparison: none Findings: Gallbladder has been removed. Common bile duct measures 5 mm in diameter. No intrahepatic biliary ductal dilatation. Liver demonstrates normal echogenicity, no focal abnormality. It is somewhat enlarged. Portal vein and hepatic veins are patent. Pancreas is unremarkable. Spleen is unremarkable. Left kidney measures 10.3 cm in length. Right kidney measures 9 cm length. Both kidneys demonstrate normal echogenicity. There is no hydronephrosis. There is left renal cyst. Echogenic foci are seen within the right renal sinus. . Non-aneurysmal abdominal aorta . Impression: Status post cholecystectomy. Normal caliber bile ducts Borderline cardiomegaly Nonobstructive right renal calculi Incidental finding left renal cyst
--- NOTE | 2019-06-13 11:44 | Cardiac Electrophysiology PN ---
Assessment/Plan Assessment/Plan 1. Atypical chest pain. Ruled out for myocardial infarction by cardiac enzymes. Echo shows ejection fraction of 60% .Stress test today 2. Hypertension. Continue amlodipine 5 mg daily and p.r.n. p.o. clonidine. 3. Hepatitis C and cirrhosis. 4. Diabetes, on metformin. MO RN Subjective Subjective No CP or SOB. RN at bedside. Scheduled for stress test today Objective Last 24 Hour Vital Signs Date Time Temp Pulse Resp B/P (MAP) Pulse Ox O2 Delivery O2 Flow Rate FiO2 06/13/19 09:00 Room Air 06/13/19 08:46 71 129/79 06/13/19 08:00 97.7 71 18 129/79 (96) 98 06/13/19 08:00 73 06/13/19 04:00 77 06/13/19 04:00 98.0 88 18 120/66 (84) 97 06/13/19 00:00 81 06/13/19 00:00 98.4 82 18 116/69 (85) 95 06/12/19 21:00 Room Air 06/12/19 20:11 83 18 96 Room Air 21 06/12/19 20:00 98.1 86 18 119/65 (83) 93 06/12/19 20:00 77 06/12/19 16:00 97.7 78 21 109/66 (80) 97 06/12/19 15:20 79 06/12/19 12:00 97.5 76 22 105/54 (71) 98 Intake and Output 06/12/19 06/13/19 18:59 06:59 Intake Total 712.5 ml 75 ml Balance 712.5 ml 75 ml IV Total 712.5 ml 75 ml # Voids 3 5 # Bowel Movements 2 Laboratory Tests Test 06/13/19 05:54 White Blood Count 5.0 K/UL (4.8-10.8) Red Blood Count 2.93 M/UL (4.20-5.40) L Hemoglobin 9.3 G/DL (12.0-16.0) L Hematocrit 29.5 % (37.0-47.0) L Mean Corpuscular Volume 101 FL (80-99) H Mean Corpuscular Hemoglobin 31.8 PG (27.0-31.0) H Mean Corpuscular Hemoglobin Concent 31.6 G/DL (32.0-36.0) L Red Cell Distribution Width 12.4 % (11.6-14.8) Platelet Count 151 K/UL (150-450) Mean Platelet Volume 7.0 FL (6.5-10.1) Neutrophils (%) (Auto) 48.4 % (45.0-75.0) Lymphocytes (%) (Auto) 40.1 % (20.0-45.0) Monocytes (%) (Auto) 10.4 % (1.0-10.0) H Eosinophils (%) (Auto) 0.6 % (0.0-3.0) Basophils (%) (Auto) 0.5 % (0.0-2.0) Sodium Level 142 MMOL/L (136-145) Potassium Level 3.8 MMOL/L (3.5-5.1) Chloride Level 109 MMOL/L (98-107) H Carbon Dioxide Level 25 MMOL/L (21-32) Anion Gap 8 mmol/L (5-15) Blood Urea Nitrogen 19 mg/dL (7-18) H Creatinine 0.9 MG/DL (0.55-1.30) Estimat Glomerular Filtration Rate mL/min (>60) Glucose Level 186 MG/DL (74-106) H Calcium Level 8.7 MG/DL (8.5-10.1) Objective HEAD AND NECK: No JVD or carotid bruits. LUNGS: Clear. CARDIOVASCULAR: Regular, S1 and S2 with no gallop or murmur. ABDOMEN: Soft. EXTREMITIES: No pitting edema. Petey Spring MD Jun 13, 2019 11:44
--- NOTE | 2019-06-13 11:52 | Pulmonology Progress Note ---
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 doing better Allergies: Coded Allergies: HORSERADISH (Verified Allergy, Unknown, Rash, 04/28/19) Objective Last 24 Hour Vital Signs Date Time Temp Pulse Resp B/P (MAP) Pulse Ox O2 Delivery O2 Flow Rate FiO2 06/13/19 09:00 Room Air 06/13/19 08:46 71 129/79 06/13/19 08:00 97.7 71 18 129/79 (96) 98 06/13/19 08:00 73 06/13/19 04:00 77 06/13/19 04:00 98.0 88 18 120/66 (84) 97 06/13/19 00:00 81 06/13/19 00:00 98.4 82 18 116/69 (85) 95 06/12/19 21:00 Room Air 06/12/19 20:11 83 18 96 Room Air 21 06/12/19 20:00 98.1 86 18 119/65 (83) 93 06/12/19 20:00 77 06/12/19 16:00 97.7 78 21 109/66 (80) 97 06/12/19 15:20 79 06/12/19 12:00 97.5 76 22 105/54 (71) 98 Intake and Output 06/12/19 06/13/19 19:00 07:00 Intake Total 787.5 ml Balance 787.5 ml IV Total 787.5 ml # Voids 3 5 # Bowel Movements 2 General Appearance: cachetic HEENT: normocephalic, atraumatic Respiratory/Chest: chest wall non-tender, lungs clear Breasts: no masses Cardiovascular: normal peripheral pulses Abdomen: normal bowel sounds, soft, non tender Genitourinary: normal external genitalia Extremities: no cyanosis Skin: no rash 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 Lymphatic: no neck adenopathy Laboratory Tests 06/13/19 05:54: White Blood Count 5.0, Red Blood Count 2.93L, Hemoglobin 9.3L, Hematocrit 29.5L , Mean Corpuscular Volume 101H, Mean Corpuscular Hemoglobin 31.8H, Mean Corpuscular Hemoglobin Concent 31.6L, Red Cell Distribution Width 12.4, Platelet Count 151, Mean Platelet Volume 7.0, Neutrophils (%) (Auto) 48.4, Lymphocytes (%) (Auto) 40.1, Monocytes (%) (Auto) 10.4H, Eosinophils (%) (Auto) 0.6, Basophils (%) (Auto) 0.5, Sodium Level 142, Potassium Level 3.8, Chloride Level 109H, Carbon Dioxide Level 25, Anion Gap 8, Blood Urea Nitrogen 19H, Creatinine 0.9, Estimat Glomerular Filtration Rate , Glucose Level 186H, Calcium Level 8.7 Current Medications Medications (Trade) Dose Ordered Sig/Darwin Route PRN Reason Start Time Stop Time Status Last Admin Dose Admin Acetaminophen (Tylenol) 650 mg Q4H PRN ORAL FEVER 06/10/19 07:15 07/10/19 07:14 Albuterol/ Ipratropium (Albuterol/ Ipratropium) 3 ml Q4H PRN HHN Shortness of Breath 06/10/19 07:15 06/15/19 07:14 Amlodipine Besylate (Norvasc) 5 mg DAILY ORAL 06/10/19 09:00 07/10/19 08:59 06/13/19 08:46 Aspirin (ASA) 162 mg DAILY ORAL 06/10/19 09:00 07/10/19 08:59 06/13/19 08:47 Buspirone HCl (Buspar) 10 mg THREE TIMES A DAY ORAL 06/10/19 09:00 07/10/19 08:59 06/13/19 08:45 Clonidine HCl (Catapres Tab) 0.1 mg Q2H PRN ORAL SBP>170 06/10/19 12:45 07/10/19 12:44 Dextrose (Dextrose 50%) 25 ml Q30M PRN IV Hypoglycemia 06/10/19 07:15 07/10/19 07:14 Dextrose (Dextrose 50%) 50 ml Q30M PRN IV Hypoglycemia 06/10/19 07:15 07/10/19 07:14 Diltiazem HCl (Cardizem) 10 mg EVERY HOUR PRN IV heart rate more than 120, 06/10/19 07:15 07/10/19 07:14 Enalaprilat (Vasotec) 2.5 mg Q6H PRN IV sbp more than 160 06/10/19 07:15 07/10/19 07:14 Escitalopram Oxalate (Lexapro) 5 mg DAILY ORAL 06/10/19 09:00 07/10/19 08:59 06/13/19 08:46 Gabapentin (Neurontin) 300 mg THREE TIMES A DAY ORAL 06/10/19 09:00 07/10/19 08:59 06/13/19 08:47 Heparin Sodium (Porcine) (Heparin 5000 units/ml) 5,000 units EVERY 8 HOURS SUBQ 06/10/19 14:00 07/10/19 13:59 06/13/19 06:49 Insulin Aspart (NovoLOG) BEFORE MEALS AND HS SUBQ 06/10/19 11:30 07/10/19 11:29 06/13/19 06:46 Lamotrigine (LaMICtal) 25 mg TWICE A DAY ORAL 06/10/19 09:00 07/10/19 08:59 06/13/19 08:45 Morphine Sulfate (Morphine Sulfate) 2 mg Q4H PRN IVP severe Pain (Pain Scale 7-10) 06/10/19 07:15 06/17/19 07:14 06/11/19 21:32 Nitroglycerin (Ntg) 0.4 mg Q5M PRN SL Prn Chest Pain 06/10/19 07:15 07/10/19 07:14 Ondansetron HCl (Zofran) 4 mg Q6H PRN IVP Nausea & Vomiting 06/10/19 07:15 07/10/19 07:14 Pantoprazole (Protonix) 40 mg DAILY ORAL 06/10/19 09:00 07/10/19 08:59 06/13/19 08:47 Polyethylene Glycol (Miralax) 17 gm DAILYPRN PRN ORAL Constipation 06/10/19 07:15 07/10/19 07:14 Regadenoson (Lexiscan) 0.4 mg ONCE PRN IV CARDIOLOGY 06/12/19 16:04 06/13/19 23:59 Sodium Chloride 1,000 ml @ 75 mls/hr [id number] IV 06/12/19 08:30 07/12/19 08:29 06/13/19 11:43 Temazepam (Restoril) 15 mg HSPRN PRN ORAL Insomnia 06/10/19 07:15 06/17/19 07:14 Tramadol HCl (Ultram) 50 mg Q6H PRN ORAL Severe Pain (Pain Scale 7-10) 06/10/19 07:15 06/17/19 07:14 Shannon Pang MD Jun 13, 2019 11:52
[2019-06-13 12:00] VITALS: BP 127/77
[2019-06-13] MEDS: Morphine Sulfate 2mg/ml Inj(IV/IM USE ONLY) IVP PRN (14:47)
--- NOTE | 2019-06-13 14:58 | Diagnostic Imaging Report ---
Indications: Chest pain Technique: Single day single isotope protocol utilized. Initially, resting images obtained using IV administration 11 millicuries 99M technetium Myoview. Subsequently, patient underwent lexiscan stress testing. See cardiology report for details. During Lexiscan infusion, IV administration 32.8 mCi 99 M technetium Myoview. SPECT and planar images obtained. SPECT images gated to 8 phases of the cardiac cycle were also obtained, and reformatted into cine images for evaluation of ejection fraction. Comparison: none Findings: Per cardiology report, patient experienced no symptoms. Per cardiology report, resting EKG demonstrates normal sinus rhythm. Post Lexiscan ECG demonstrates new T-wave inversion in the inferior/anterolateral leads. Imaging demonstrates no fixed nor reversible poststress perfusion defects. Normal cardiac chamber size. Calculated post stress ejection fraction 86%. No focal wall motion abnormality Impression: Nonischemic clinical response to pharmacologic stress, per cardiology report Ischemic electrocardiographic response to pharmacologic stress, per cardiology report No imaging findings to suggest ischemia, at level of stress achieved. Calculated post stress ejection fraction greater than 70%
--- NOTE | 2019-06-13 15:15 | Hematology/Onc Progress Note ---
Assessment/Plan Assessment/Plan 1. Pancytopenia secondary to underlying cirrhosis. with a history of C from prior admission, hx cirrhosis again --> Does have anemia and will evaluate with potential iron deficiency (get iron panel, ferritin) --> hgb goal is >7, tranfuse as needed --> have ordered us abd, has been >6mo --> get SPEP GIVEN high PROTEIN --> trend wbc 5.9-->4.5 2. Hepatitis C. Outpatient management per the patient. Has been treated before for hepatitis C. --> outpatient management and treatment --> viral load as needed --> smear reviewed, no hemolysis --> Afp ordered as prior was elevated (2013 was high) 3. Anemia due to underlying chronic disease. --> Continue to closely monitor for improvement. Currently, stable. 4. Diabetes mellitus. A1c goal less than 7. 5. HTN with sbp goal <150 --> per cards 6. Recurrent major depressive disorder. Psychotherapy as per Psychiatry and Psychology. 7. Protein-calorie malnutrition. 8. Hepatitis C. 9. Liver cirrhosis. 10. Electrolyte abnml --> per renal The timing of this note does not necessarily reflect the time of the patient was seen. Greatly appreciate consultation. Subjective Constitutional: Denies: no symptoms, chills, fever, malaise, weakness, other HEENT: Denies: no symptoms, eye pain, blurred vision, tearing, double vision, ear pain, ear discharge, nose pain, nose congestion, throat pain, throat swelling, mouth pain, mouth swelling, other Cardiovascular: Denies: no symptoms, chest pain, edema, irregular heart rate, lightheadedness, palpitations, syncope, other Gastrointestinal/Abdominal: Denies: no symptoms, abdomen distended, abdominal pain, black stools, tarry stools, blood in stool, constipated, diarrhea, difficulty swallowing, nausea, poor appetite, poor fluid intake, rectal bleeding , vomiting, other Genitourinary: Denies: no symptoms, burning, discharge, frequency, flank pain, hematuria, incontinence, pain, urgency, other Neurologic/Psychiatric: Denies: no symptoms, anxiety, depressed, emotional problems, headache, numbness, paresthesia, pre-existing deficit, seizure, tingling, tremors, weakness, other Endocrine: Denies: no symptoms, excessive sweating, flushing, intolerance to cold, intolerance to heat, increased hunger, increased thirst, increased urine, unexplained weight gain, unexplained weight loss, other Hematologic/Lymphatic: Denies: no symptoms, anemia, easy bleeding, easy bruising, adenopathy, other Allergies: Coded Allergies: HORSERADISH (Verified Allergy, Unknown, Rash, 04/28/19) Subjective 06/11: remains somewhat lethargic, labs reviewed, wbc is lower 06/13: no events, no bleeding, no f/c, no major changes, labs have been reviewed Objective Objective Current Medications Medications (Trade) Dose Ordered Sig/Darwin Route PRN Reason Start Time Stop Time Status Last Admin Dose Admin Acetaminophen (Tylenol) 650 mg Q4H PRN ORAL FEVER 06/10/19 07:15 07/10/19 07:14 Albuterol/ Ipratropium (Albuterol/ Ipratropium) 3 ml Q4H PRN HHN Shortness of Breath 06/10/19 07:15 06/15/19 07:14 Amlodipine Besylate (Norvasc) 5 mg DAILY ORAL 06/10/19 09:00 07/10/19 08:59 06/13/19 08:46 Aspirin (ASA) 162 mg DAILY ORAL 06/10/19 09:00 07/10/19 08:59 06/13/19 08:47 Buspirone HCl (Buspar) 10 mg THREE TIMES A DAY ORAL 06/10/19 09:00 07/10/19 08:59 06/13/19 08:45 Clonidine HCl (Catapres Tab) 0.1 mg Q2H PRN ORAL SBP>170 06/10/19 12:45 07/10/19 12:44 Dextrose (Dextrose 50%) 25 ml Q30M PRN IV Hypoglycemia 06/10/19 07:15 07/10/19 07:14 Dextrose (Dextrose 50%) 50 ml Q30M PRN IV Hypoglycemia 06/10/19 07:15 07/10/19 07:14 Diltiazem HCl (Cardizem) 10 mg EVERY HOUR PRN IV heart rate more than 120, 06/10/19 07:15 07/10/19 07:14 Enalaprilat (Vasotec) 2.5 mg Q6H PRN IV sbp more than 160 06/10/19 07:15 07/10/19 07:14 Escitalopram Oxalate (Lexapro) 5 mg DAILY ORAL 06/10/19 09:00 07/10/19 08:59 06/13/19 08:46 Gabapentin (Neurontin) 300 mg THREE TIMES A DAY ORAL 06/10/19 09:00 07/10/19 08:59 06/13/19 08:47 Heparin Sodium (Porcine) (Heparin 5000 units/ml) 5,000 units EVERY 8 HOURS SUBQ 06/10/19 14:00 07/10/19 13:59 06/13/19 06:49 Insulin Aspart (NovoLOG) BEFORE MEALS AND HS SUBQ 06/10/19 11:30 07/10/19 11:29 06/13/19 12:33 Lamotrigine (LaMICtal) 25 mg TWICE A DAY ORAL 06/10/19 09:00 07/10/19 08:59 06/13/19 08:45 Morphine Sulfate (Morphine Sulfate) 2 mg Q4H PRN IVP severe Pain (Pain Scale 7-10) 06/10/19 07:15 06/17/19 07:14 06/13/19 14:47 Nitroglycerin (Ntg) 0.4 mg Q5M PRN SL Prn Chest Pain 06/10/19 07:15 07/10/19 07:14 Ondansetron HCl (Zofran) 4 mg Q6H PRN IVP Nausea & Vomiting 06/10/19 07:15 07/10/19 07:14 Pantoprazole (Protonix) 40 mg DAILY ORAL 06/10/19 09:00 07/10/19 08:59 06/13/19 08:47 Polyethylene Glycol (Miralax) 17 gm DAILYPRN PRN ORAL Constipation 06/10/19 07:15 07/10/19 07:14 Regadenoson (Lexiscan) 0.4 mg ONCE PRN IV CARDIOLOGY 06/12/19 16:04 06/13/19 23:59 06/13/19 12:21 Temazepam (Restoril) 15 mg HSPRN PRN ORAL Insomnia 06/10/19 07:15 06/17/19 07:14 Tramadol HCl (Ultram) 50 mg Q6H PRN ORAL Severe Pain (Pain Scale 7-10) 06/10/19 07:15 06/17/19 07:14 Last 24 Hour Vital Signs Date Time Temp Pulse Resp B/P (MAP) Pulse Ox O2 Delivery O2 Flow Rate FiO2 06/13/19 12:00 98.1 71 18 127/77 (94) 98 06/13/19 12:00 71 06/13/19 09:00 Room Air 06/13/19 08:46 71 129/79 06/13/19 08:00 97.7 71 18 129/79 (96) 98 06/13/19 08:00 73 06/13/19 07:15 78 16 97 Room Air 21 06/13/19 04:00 77 06/13/19 04:00 98.0 88 18 120/66 (84) 97 06/13/19 00:00 81 06/13/19 00:00 98.4 82 18 116/69 (85) 95 06/12/19 21:00 Room Air 06/12/19 20:11 83 18 96 Room Air 21 06/12/19 20:00 98.1 86 18 119/65 (83) 93 06/12/19 20:00 77 06/12/19 16:00 97.7 78 21 109/66 (80) 97 06/12/19 15:20 79 06/12/19 12:00 97.5 76 22 105/54 (71) 98 06/12/19 11:42 77 06/12/19 09:00 Room Air 06/12/19 08:30 78 113/57 06/12/19 08:00 97.5 78 18 113/57 (75) 97 06/12/19 07:42 80 06/12/19 07:03 75 16 97 Room Air 06/12/19 04:00 79 06/12/19 04:00 96.8 80 18 108/59 (75) 97 06/12/19 00:21 97.0 77 18 109/44 (65) 97 06/12/19 00:00 78 06/11/19 21:00 Room Air 06/11/19 20:00 84 06/11/19 20:00 97.0 86 18 100/62 (75) 95 06/11/19 19:48 85 18 98 Room Air 21 06/11/19 16:05 92 06/11/19 16:00 98.5 86 18 123/74 (90) 98 Intake and Output 06/12/19 06/13/19 19:00 07:00 Intake Total 787.5 ml Balance 787.5 ml IV Total 787.5 ml # Voids 3 5 # Bowel Movements 2 Labs Test 06/11/19 06:20 06/12/19 06:30 06/13/19 05:54 06/13/19 06:30 White Blood Count 4.5 K/UL (4.8-10.8) 5.9 K/UL (4.8-10.8) 5.0 K/UL (4.8-10.8) Red Blood Count 3.45 M/UL (4.20-5.40) 3.26 M/UL (4.20-5.40) 2.93 M/UL (4.20-5.40) Hemoglobin 11.0 G/DL (12.0-16.0) 10.5 G/DL (12.0-16.0) 9.3 G/DL (12.0-16.0) Hematocrit 34.3 % (37.0-47.0) 32.5 % (37.0-47.0) 29.5 % (37.0-47.0) Mean Corpuscular Volume 100 FL (80-99) 100 FL (80-99) 101 FL (80-99) Mean Corpuscular Hemoglobin 32.0 PG (27.0-31.0) 32.3 PG (27.0-31.0) 31.8 PG (27.0-31.0) Mean Corpuscular Hemoglobin Concent 32.1 G/DL (32.0-36.0) 32.5 G/DL (32.0-36.0) 31.6 G/DL (32.0-36.0) Red Cell Distribution Width 12.3 % (11.6-14.8) 12.2 % (11.6-14.8) 12.4 % (11.6-14.8) Platelet Count 187 K/UL (150-450) 178 K/UL (150-450) 151 K/UL (150-450) Mean Platelet Volume 6.8 FL (6.5-10.1) 6.5 FL (6.5-10.1) 7.0 FL (6.5-10.1) Neutrophils (%) (Auto) 50.4 % (45.0-75.0) 46.5 % (45.0-75.0) 48.4 % (45.0-75.0) Lymphocytes (%) (Auto) 34.5 % (20.0-45.0) 39.4 % (20.0-45.0) 40.1 % (20.0-45.0) Monocytes (%) (Auto) 13.6 % (1.0-10.0) 12.5 % (1.0-10.0) 10.4 % (1.0-10.0) Eosinophils (%) (Auto) 0.9 % (0.0-3.0) 0.8 % (0.0-3.0) 0.6 % (0.0-3.0) Basophils (%) (Auto) 0.6 % (0.0-2.0) 0.8 % (0.0-2.0) 0.5 % (0.0-2.0) Prothrombin Time 11.3 SEC (9.30-11.50) Prothromb Time International Ratio 1.1 (0.9-1.1) Activated Partial Thromboplast Time 33 SEC (23-33) Sodium Level 144 MMOL/L (136-145) 141 MMOL/L (136-145) 142 MMOL/L (136-145) Potassium Level 4.5 MMOL/L (3.5-5.1) 4.4 MMOL/L (3.5-5.1) 3.8 MMOL/L (3.5-5.1) Chloride Level 108 MMOL/L (98-107) 109 MMOL/L (98-107) 109 MMOL/L (98-107) Carbon Dioxide Level 27 MMOL/L (21-32) 27 MMOL/L (21-32) 25 MMOL/L (21-32) Anion Gap 9 mmol/L (5-15) 5 mmol/L (5-15) 8 mmol/L (5-15) Blood Urea Nitrogen 16 mg/dL (7-18) 18 mg/dL (7-18) 19 mg/dL (7-18) Creatinine 0.8 MG/DL (0.55-1.30) 1.0 MG/DL (0.55-1.30) 0.9 MG/DL (0.55-1.30) Estimat Glomerular Filtration Rate mL/min (>60) mL/min (>60) mL/min (>60) Glucose Level 135 MG/DL (74-106) 175 MG/DL (74-106) 186 MG/DL (74-106) Calcium Level 9.0 MG/DL (8.5-10.1) 9.1 MG/DL (8.5-10.1) 8.7 MG/DL (8.5-10.1) Iron Level 130 ug/dL (50-175) Total Iron Binding Capacity 341 ug/dL (250-450) Percent Iron Saturation 38 % (15-50) Unsaturated Iron Binding 211 ug/dL (112-346) Ferritin 100 NG/ML (8-388) Troponin I 0.000 ng/mL (0.000-0.056) 0.007 ng/mL (0.000-0.056) C-Reactive Protein, Quantitative < 0.4 mg/dL (0.00-0.90) Triglycerides Level 38 MG/DL (30-150) Cholesterol Level 166 MG/DL (< 200) LDL Cholesterol 82 mg/dL (<100) HDL Cholesterol 74 MG/DL (40-60) Cholesterol/HDL Ratio 2.2 (3.3-4.4) Thyroid Stimulating Hormone (TSH) 0.670 uiU/mL (0.358-3.740) Height (Feet): 5 Height (Inches): 4.00 Weight (Pounds): 135 Jr Loredo MD Jun 13, 2019 15:15
[2019-06-13 16:00] VITALS: BP 115/62
[2019-06-13 20:00] VITALS: BP 112/59
[2019-06-14] VITALS: BP 125/66
[2019-06-14 04:00] VITALS: BP 110/60
[2019-06-14] MEDS: NovoLOG Insulin Flexpen SUBQ SCH ×4 (05:44→16:52)
[2019-06-14] MEDS: Heparin 5000 units/ml inj SUBQ SCH (05:45)
[2019-06-14] MEDS ORDERED: Nitroglycerin Subl 0.4mg tab SL PRN (06:15)
[2019-06-14 06:55] LABS: BASOPHILS % (AUTO) 1.1 % (0.0-2.0); EOSINOPHILS % (AUTO) 1.1 % (0.0-3.0); HEMATOCRIT 30.3 % (37.0-47.0); HEMOGLOBIN 9.7 G/DL (12.0-16.0); LYMPHOCYTES % (AUTO) 30.2 % (20.0-45.0); MEAN CORPUSCULAR VOLUME 100 FL (80-99); MONOCYTES % (AUTO) 10.9 % (1.0-10.0); NEUTROPHILS % (AUTO) 56.8 % (45.0-75.0); PLATELET COUNT 153 K/UL (150-450); RED BLOOD COUNT 3.03 M/UL (4.20-5.40); RED CELL DISTRIBUTION WIDTH 12.2 % (11.6-14.8); WHITE BLOOD COUNT 5.5 K/UL (4.8-10.8)
[2019-06-14] MEDS ORDERED: dilTIAZem HCl 25mg/5ml Inj IV PRN (07:00)
[2019-06-14] MEDS ORDERED: Miralax 17gm pkt ORAL PRN (07:15)
[2019-06-14] MEDS ORDERED: traMADol 50mg tab ORAL PRN (07:15)
[2019-06-14] MEDS ORDERED: Albuterol/Ipratropium 3ml neb HHN PRN (07:15)
[2019-06-14] MEDS ORDERED: Enalaprilat 1.25mg/ml Inj IV PRN (07:15)
[2019-06-14 07:18] LABS: ANION GAP 7 mmol/L (5-15); BLOOD UREA NITROGEN 18 mg/dL (7-18); CALCIUM 8.8 MG/DL (8.5-10.1); CARBON DIOXIDE 26 MMOL/L (21-32); CHLORIDE 109 MMOL/L (98-107); CREATININE 0.9 MG/DL (0.55-1.30); POTASSIUM 3.6 MMOL/L (3.5-5.1); SODIUM 142 MMOL/L (136-145)
[2019-06-14 08:00] VITALS: BP 108/61
[2019-06-14] MEDS: BusPIRone 5mg Tab ORAL SCH ×3 (08:39→17:47)
[2019-06-14] MEDS: Morphine Sulfate 2mg/ml Inj(IV/IM USE ONLY) IVP PRN ×2 (08:40→18:19)
[2019-06-14] MEDS ORDERED: Aspirin Baby 81mg ORAL SCH (09:00)
--- NOTE | 2019-06-14 10:01 | General Progress Note ---
Assessment/Plan Assessment/Plan: 1. Pancytopenia secondary to underlying cirrhosis. with a history of C from prior admission, hx cirrhosis again --> Does have anemia and will evaluate with potential iron deficiency (get iron panel, ferritin) - results pending --> hgb goal is >7, transfuse as needed --> have ordered us abd, has been >6mo --> get SPEP GIVEN high PROTEIN - followup results outpatient --> trend wbc 5.9--> 4.5--> 5.5 2. Hepatitis C. Outpatient management per the patient. Has been treated before for hepatitis C. --> outpatient management and treatment --> viral load as needed --> smear reviewed, no hemolysis --> Afp ordered as prior was elevated (2013 was high) 3. Anemia due to underlying chronic disease. --> Continue to closely monitor for improvement. --> Currently, stable. -> hgb trend: 9.7 4. Diabetes mellitus. A1c goal less than 7. 5. HTN with sbp goal <150 --> per cards 6. Recurrent major depressive disorder. Psychotherapy as per Psychiatry and Psychology. 7. Protein-calorie malnutrition. 8. Hepatitis C. 9. Liver cirrhosis. 10. Electrolyte abnml --> per renal The timing of this note does not necessarily reflect the time of the patient was seen. Greatly appreciate consultation. Subjective Allergies: Coded Allergies: HORSERADISH (Verified Allergy, Unknown, Rash, 04/28/19) Subjective 06/11: remains somewhat lethargic, labs reviewed, wbc is lower 06/13: no events, no bleeding, no f/c, no major changes, labs have been reviewed 06/14: awake and alert, no acute events, labs reviewed, dc planning Objective Last 24 Hour Vital Signs Date Time Temp Pulse Resp B/P (MAP) Pulse Ox O2 Delivery O2 Flow Rate FiO2 06/14/19 09:10 97.9 06/14/19 08:39 72 108/61 06/14/19 08:00 97.9 72 17 108/61 (77) 99 06/14/19 07:50 72 16 97 Room Air 21 06/14/19 04:00 98.2 76 20 110/60 (77) 96 06/14/19 00:00 97.8 73 18 125/66 (85) 96 06/13/19 21:00 Room Air 06/13/19 20:00 98.4 73 19 112/59 (76) 95 06/13/19 19:44 77 18 96 Room Air 21 06/13/19 16:00 97.5 77 18 115/62 (79) 100 06/13/19 12:00 98.1 71 18 127/77 (94) 98 06/13/19 12:00 71 Intake and Output 06/13/19 06/14/19 19:00 07:00 Intake Total 840 ml 240 ml Output Total 300 ml Balance 540 ml 240 ml Intake Oral 840 ml 240 ml Output Urine Total 300 ml # Voids 2 2 # Bowel Movements 2 1 Laboratory Tests 06/14/19 06:24: White Blood Count 5.5, Red Blood Count 3.03L, Hemoglobin 9.7L, Hematocrit 30.3L , Mean Corpuscular Volume 100H, Mean Corpuscular Hemoglobin 32.2H, Mean Corpuscular Hemoglobin Concent 32.2, Red Cell Distribution Width 12.2, Platelet Count 153, Mean Platelet Volume 6.3L, Neutrophils (%) (Auto) 56.8, Lymphocytes ( %) (Auto) 30.2, Monocytes (%) (Auto) 10.9H, Eosinophils (%) (Auto) 1.1, Basophils (%) (Auto) 1.1, Sodium Level 142, Potassium Level 3.6, Chloride Level 109H, Carbon Dioxide Level 26, Anion Gap 7, Blood Urea Nitrogen 18, Creatinine 0.9, Estimat Glomerular Filtration Rate , Glucose Level 143H, Calcium Level 8.8 Height (Feet): 5 Height (Inches): 4.00 Weight (Pounds): 135 Objective Vitals: reviewed General Appearance: cachetic HEENT: normocephalic, atraumatic Respiratory/Chest: chest wall non-tender, lungs clear Breasts: no masses Cardiovascular: normal peripheral pulses Abdomen: normal bowel sounds, soft, non tender Genitourinary: normal external genitalia Extremities: no cyanosis Skin: no rash Neurologic/Psychiatric: stabber II-XII grossly normal Lymphatic: no neck adenopathy Jr Loredo MD Jun 14, 2019 10:01
--- NOTE | 2019-06-14 11:11 | Cardiac Electrophysiology PN ---
Assessment/Plan Assessment/Plan 1. Atypical chest pain. Ruled out for myocardial infarction by cardiac enzymes. Echo shows ejection fraction of 60% .Stress test was nonischemic 2. Hypertension. Continue amlodipine 5 mg daily and p.r.n. p.o. clonidine. 3. Hepatitis C and cirrhosis. 4. Diabetes, on metformin. [place] able bodied tankerman to [facility] pending Subjective Subjective No CP or SOB. RN at bedside. Stress test was nonischemic Objective Last 24 Hour Vital Signs Date Time Temp Pulse Resp B/P (MAP) Pulse Ox O2 Delivery O2 Flow Rate FiO2 06/14/19 09:10 97.9 06/14/19 09:00 Room Air 06/14/19 08:39 72 108/61 06/14/19 08:00 97.9 72 17 108/61 (77) 99 06/14/19 07:50 72 16 97 Room Air 21 06/14/19 04:00 98.2 76 20 110/60 (77) 96 06/14/19 00:00 97.8 73 18 125/66 (85) 96 06/13/19 21:00 Room Air 06/13/19 20:00 98.4 73 19 112/59 (76) 95 06/13/19 19:44 77 18 96 Room Air 21 06/13/19 16:00 97.5 77 18 115/62 (79) 100 06/13/19 12:00 98.1 71 18 127/77 (94) 98 06/13/19 12:00 71 Intake and Output 06/13/19 06/14/19 19:00 07:00 Intake Total 840 ml 240 ml Output Total 300 ml Balance 540 ml 240 ml Intake Oral 840 ml 240 ml Output Urine Total 300 ml # Voids 2 2 # Bowel Movements 2 1 Laboratory Tests Test 06/14/19 06:24 White Blood Count 5.5 K/UL (4.8-10.8) Red Blood Count 3.03 M/UL (4.20-5.40) L Hemoglobin 9.7 G/DL (12.0-16.0) L Hematocrit 30.3 % (37.0-47.0) L Mean Corpuscular Volume 100 FL (80-99) H Mean Corpuscular Hemoglobin 32.2 PG (27.0-31.0) H Mean Corpuscular Hemoglobin Concent 32.2 G/DL (32.0-36.0) Red Cell Distribution Width 12.2 % (11.6-14.8) Platelet Count 153 K/UL (150-450) Mean Platelet Volume 6.3 FL (6.5-10.1) L Neutrophils (%) (Auto) 56.8 % (45.0-75.0) Lymphocytes (%) (Auto) 30.2 % (20.0-45.0) Monocytes (%) (Auto) 10.9 % (1.0-10.0) H Eosinophils (%) (Auto) 1.1 % (0.0-3.0) Basophils (%) (Auto) 1.1 % (0.0-2.0) Sodium Level 142 MMOL/L (136-145) Potassium Level 3.6 MMOL/L (3.5-5.1) Chloride Level 109 MMOL/L (98-107) H Carbon Dioxide Level 26 MMOL/L (21-32) Anion Gap 7 mmol/L (5-15) Blood Urea Nitrogen 18 mg/dL (7-18) Creatinine 0.9 MG/DL (0.55-1.30) Estimat Glomerular Filtration Rate mL/min (>60) Glucose Level 143 MG/DL (74-106) H Calcium Level 8.8 MG/DL (8.5-10.1) Objective HEAD AND NECK: No JVD or carotid bruits. LUNGS: Clear. CARDIOVASCULAR: Regular, S1 and S2 with no gallop or murmur. ABDOMEN: Soft. EXTREMITIES: No pitting edema. Petey Spring MD Jun 14, 2019 11:11
--- NOTE | 2019-06-14 11:30 | Pulmonology Progress Note ---
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 Assessment/Plan no more chest pain telemetry noted monitor BP stress study pending bp controlled dc iv fluids might go to medical floor after stress test, which is going to be negative All medications and treatment were reviewed Subjective ROS Limited/Unobtainable: No Constitutional: Reports: no symptoms HEENT: Repors: no symptoms Allergies: Coded Allergies: HORSERADISH (Verified Allergy, Unknown, Rash, 04/28/19) Objective Last 24 Hour Vital Signs Date Time Temp Pulse Resp B/P (MAP) Pulse Ox O2 Delivery O2 Flow Rate FiO2 06/14/19 09:10 97.9 06/14/19 09:00 Room Air 06/14/19 08:39 72 108/61 06/14/19 08:00 97.9 72 17 108/61 (77) 99 06/14/19 07:50 72 16 97 Room Air 21 06/14/19 04:00 98.2 76 20 110/60 (77) 96 06/14/19 00:00 97.8 73 18 125/66 (85) 96 06/13/19 21:00 Room Air 06/13/19 20:00 98.4 73 19 112/59 (76) 95 06/13/19 19:44 77 18 96 Room Air 21 06/13/19 16:00 97.5 77 18 115/62 (79) 100 06/13/19 12:00 98.1 71 18 127/77 (94) 98 06/13/19 12:00 71 Intake and Output 06/13/19 06/14/19 19:00 07:00 Intake Total 840 ml 240 ml Output Total 300 ml Balance 540 ml 240 ml Intake Oral 840 ml 240 ml Output Urine Total 300 ml # Voids 2 2 # Bowel Movements 2 1 General Appearance: WD/WN HEENT: normocephalic, atraumatic Respiratory/Chest: chest wall non-tender, lungs clear Breasts: no masses Cardiovascular: normal peripheral pulses, normal rate, regular rhythm Abdomen: soft, non tender, no scars Extremities: no cyanosis Skin: no rash Laboratory Tests 06/14/19 06:24: White Blood Count 5.5, Red Blood Count 3.03L, Hemoglobin 9.7L, Hematocrit 30.3L , Mean Corpuscular Volume 100H, Mean Corpuscular Hemoglobin 32.2H, Mean Corpuscular Hemoglobin Concent 32.2, Red Cell Distribution Width 12.2, Platelet Count 153, Mean Platelet Volume 6.3L, Neutrophils (%) (Auto) 56.8, Lymphocytes ( %) (Auto) 30.2, Monocytes (%) (Auto) 10.9H, Eosinophils (%) (Auto) 1.1, Basophils (%) (Auto) 1.1, Sodium Level 142, Potassium Level 3.6, Chloride Level 109H, Carbon Dioxide Level 26, Anion Gap 7, Blood Urea Nitrogen 18, Creatinine 0.9, Estimat Glomerular Filtration Rate , Glucose Level 143H, Calcium Level 8.8 Current Medications Medications (Trade) Dose Ordered Sig/Darwin Route PRN Reason Start Time Stop Time Status Last Admin Dose Admin Acetaminophen (Tylenol) 650 mg Q4H PRN ORAL FEVER 06/14/19 07:15 07/10/19 07:14 Albuterol/ Ipratropium (Albuterol/ Ipratropium) 3 ml Q4H PRN HHN Shortness of Breath 06/14/19 07:15 06/15/19 07:14 Amlodipine Besylate (Norvasc) 5 mg DAILY ORAL 06/14/19 09:00 07/10/19 08:59 06/14/19 08:39 Aspirin (ASA) 162 mg DAILY ORAL 06/14/19 09:00 07/10/19 08:59 06/14/19 08:40 Buspirone HCl (Buspar) 10 mg THREE TIMES A DAY ORAL 06/14/19 09:00 07/10/19 08:59 06/14/19 08:39 Clonidine HCl (Catapres Tab) 0.1 mg Q2H PRN ORAL SBP>170 06/14/19 06:45 07/10/19 12:44 Dextrose (Dextrose 50%) 25 ml Q30M PRN IV Hypoglycemia 06/14/19 06:15 07/10/19 07:14 Dextrose (Dextrose 50%) 50 ml Q30M PRN IV Hypoglycemia 06/14/19 06:15 07/10/19 07:14 Enalaprilat (Vasotec) 2.5 mg Q6H PRN IV sbp more than 160 06/14/19 07:15 07/10/19 07:14 Escitalopram Oxalate (Lexapro) 5 mg DAILY ORAL 06/14/19 09:00 07/10/19 08:59 06/14/19 08:42 Gabapentin (Neurontin) 300 mg THREE TIMES A DAY ORAL 06/14/19 09:00 07/10/19 08:59 06/14/19 08:39 Heparin Sodium (Porcine) (Heparin 5000 units/ml) 5,000 units EVERY 8 HOURS SUBQ 06/14/19 14:00 07/10/19 13:59 Insulin Aspart (NovoLOG) BEFORE MEALS AND HS SUBQ 06/14/19 06:30 07/10/19 11:29 Lamotrigine (LaMICtal) 25 mg TWICE A DAY ORAL 06/14/19 09:00 07/10/19 08:59 06/14/19 08:42 Morphine Sulfate (Morphine Sulfate) 2 mg Q4H PRN IVP severe Pain (Pain Scale 7-10) 06/14/19 07:15 06/17/19 07:14 06/14/19 08:40 Nitroglycerin (Ntg) 0.4 mg Q5M PRN SL Prn Chest Pain 06/14/19 06:15 07/10/19 07:14 Ondansetron HCl (Zofran) 4 mg Q6H PRN IVP Nausea & Vomiting 06/14/19 07:15 07/10/19 07:14 Pantoprazole (Protonix) 40 mg DAILY ORAL 06/14/19 09:00 07/10/19 08:59 06/14/19 08:39 Polyethylene Glycol (Miralax) 17 gm DAILYPRN PRN ORAL Constipation 06/14/19 07:15 07/10/19 07:14 Temazepam (Restoril) 15 mg HSPRN PRN ORAL Insomnia 06/14/19 07:15 06/17/19 07:14 Tramadol HCl (Ultram) 50 mg Q6H PRN ORAL Severe Pain (Pain Scale 7-10) 06/14/19 07:15 06/17/19 07:14 Shannon Pang MD Jun 14, 2019 11:30
[2019-06-14 12:00] VITALS: BP_SYST 108; BP_SYST 129; BP_DIAS 59; BP_DIAS 72
[2019-06-14] MEDS ORDERED: ACETAMINOPHEN325 M1 ORAL (13:25)
[2019-06-14] MEDS ORDERED: NORVASC5 MG ORAL (13:26)
[2019-06-14] MEDS ORDERED: ASPIR 8181 MG ORAL (13:27)
[2019-06-14] MEDS ORDERED: BUSPIRONE HCL5 M2 ORAL (13:29)
[2019-06-14] MEDS ORDERED: CLONIDINE HCL0.1 MG PO ×2 (13:31→13:34)
[2019-06-14] MEDS ORDERED: ENALAPRIL1.25 MG/ML IV (13:36)
[2019-06-14] MEDS ORDERED: DUONEB 0.5-3(2.53 ML HHN (13:37)
[2019-06-14] MEDS ORDERED: NITROGLYCERIN SL (13:49)
[2019-06-14] MEDS ORDERED: MORPHINE 11 MG/1 M3 IV (13:51)
[2019-06-14] MEDS ORDERED: ZOFRAN4 M3 ORAL (13:51)
[2019-06-14] MEDS ORDERED: PROTONIX40 MG ORAL (13:51)
[2019-06-14] MEDS ORDERED: MIRALAX17 G2 ORAL (13:52)
[2019-06-14] MEDS ORDERED: TRAMADOL HCL100 M2 ORAL (13:52)
[2019-06-14] MEDS ORDERED: RESTORIL15 MG ORAL (13:53)
[2019-06-14] MEDS ORDERED: Heparin 5000 units/ml inj SUBQ SCH (14:00)
--- NOTE | 2019-06-14 14:14 | General Progress Note ---
Assessment/Plan Problem List: (1) History of cholelithiasis ICD Codes: Z87.19 - History of cholelithiasis SNOMED: 103723383 (2) Peptic ulcer disease ICD Codes: K27.9 - Peptic ulcer disease SNOMED: 63419498 (3) Diabetes ICD Codes: E11.9 - Type 2 diabetes mellitus without complications SNOMED: 35089583 (4) UTI (urinary tract infection) ICD Codes: N39.0 - Urinary tract infection, site not specified SNOMED: 28393616 (5) HTN (hypertension) ICD Codes: I10 - Essential (primary) hypertension SNOMED: 69089539 (6) 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 ICD Codes: B18.2 - 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 SNOMED: 968143093 (7) Gram-negative bacteremia ICD Codes: R78.81 - Bacteremia SNOMED: 890796653248 (8) Degenerative arthritis of cervical spine ICD Codes: M47.812 - Spondylosis without myelopathy or radiculopathy, cervical region SNOMED: 527932206 (9) ACS (acute coronary syndrome) ICD Codes: I24.9 - Acute ischemic heart disease, unspecified SNOMED: 976830357 Status: stable, progressing Assessment/Plan: pt diet pain control dc to aru Subjective Constitutional: Reports: weakness Allergies: Coded Allergies: HORSERADISH (Verified Allergy, Unknown, Rash, 04/28/19) Subjective calm in bed Objective Last 24 Hour Vital Signs Date Time Temp Pulse Resp B/P (MAP) Pulse Ox O2 Delivery O2 Flow Rate FiO2 06/14/19 12:00 98.1 67 18 108/59 (75) 99 06/14/19 09:10 97.9 06/14/19 09:00 Room Air 06/14/19 08:39 72 108/61 06/14/19 08:00 97.9 72 17 108/61 (77) 99 06/14/19 07:50 72 16 97 Room Air 21 06/14/19 04:00 98.2 76 20 110/60 (77) 96 06/14/19 00:00 97.8 73 18 125/66 (85) 96 06/13/19 21:00 Room Air 06/13/19 20:00 98.4 73 19 112/59 (76) 95 06/13/19 19:44 77 18 96 Room Air 21 06/13/19 16:00 97.5 77 18 115/62 (79) 100 Intake and Output 06/13/19 06/14/19 19:00 07:00 Intake Total 840 ml 240 ml Output Total 300 ml Balance 540 ml 240 ml Intake Oral 840 ml 240 ml Output Urine Total 300 ml # Voids 2 2 # Bowel Movements 2 1 Laboratory Tests 06/14/19 06:24: White Blood Count 5.5, Red Blood Count 3.03L, Hemoglobin 9.7L, Hematocrit 30.3L , Mean Corpuscular Volume 100H, Mean Corpuscular Hemoglobin 32.2H, Mean Corpuscular Hemoglobin Concent 32.2, Red Cell Distribution Width 12.2, Platelet Count 153, Mean Platelet Volume 6.3L, Neutrophils (%) (Auto) 56.8, Lymphocytes ( %) (Auto) 30.2, Monocytes (%) (Auto) 10.9H, Eosinophils (%) (Auto) 1.1, Basophils (%) (Auto) 1.1, Sodium Level 142, Potassium Level 3.6, Chloride Level 109H, Carbon Dioxide Level 26, Anion Gap 7, Blood Urea Nitrogen 18, Creatinine 0.9, Estimat Glomerular Filtration Rate , Glucose Level 143H, Calcium Level 8.8 Height (Feet): 5 Height (Inches): 4.00 Weight (Pounds): 135 General Appearance: alert EENT: normal ENT inspection Neck: normal alignment Cardiovascular: normal peripheral pulses, normal rate, regular rhythm Respiratory/Chest: chest wall non-tender, lungs clear, normal breath sounds Abdomen: normal bowel sounds, non tender, soft Extremities: normal inspection Edema: no edema noted Arm (L), no edema noted Arm (R), no edema noted Leg (L), no edema noted Leg (R), no edema noted Pedal (L), no edema noted Pedal (R), no edema noted Generalized Neurologic: responsive, motor weakness Skin: normal pigmentation, warm/dry Phan Nix DO Jun 14, 2019 14:14
[2019-06-14 16:00] VITALS: BP 122/70
[2019-06-14] MEDS ORDERED: 1/2 NS 1000ml IV ONE (20:44)
--- NOTE | 2019-06-15 13:32 | Discharge Summary ---
Discharge Summary Discharge Summary _ DATE OF ADMISSION: 06/10/2019 DATE OF DISCHARGE: 06/14/2019 DISCHARGED BY: REASON FOR ADMISSION: 78 years old female with past medical history of hypertension, diabetes mellitus , peptic ulcer disease, liver cirrhosis, dementia, presented with chest discomfort. Patient reported chest tightness. She denied any prior cardiac history. She denied any productive cough. No vomiting or diarrhea. No bloody stool. Upon evaluation vital signs were stable. Laboratory work-up revealed no leukocytosis, stable hemoglobin and hematocrit. Platelet count 205. AST 106 , ALT and lipase stable. Albumin 3.4. Stable electrolytes and renal parameters. Glucose 127. Troponin negative. EKG revealed sinus rhythm no acute ischemic changes. Chest x-ray demonstrated no acute cardiopulmonary pathology. Patient subsequently admitted for further management . CONSULTANTS: electrophysiology scientist Dr. Can hospitalist Dr. Pang social service assistant/oncologist Dr. Loredo [facility] COURSE: Patient admitted to telemetry floor. Serial troponin were negative. EKG revealed no acute ischemic changes. Patient was ruled out for acute myocardial infarction. Echocardiogram revealed preserved ejection fraction 60 to 65% with mild left ventricular hypertrophy. No evidence of wall motion abnormality. Right ventricular systolic pressure of 38 consistent with a mild pulmonary hypertension. Lipid panel was stable. TSH within normal limits. DVT prophylaxis provided. Patient started on antiplatelet therapy with aspirin. Blood pressure was managed with calcium channel jose. Myocardial perfusion test was nonischemic and revealed no imaging findings to suggest ischemia at the level of stress achieved. Calculated post stress ejection fraction was greater than 70%. Per electrophysiology scientist, chest pain was atypical. Pain management was addressed. GI prophylaxis provided. Home medication resumed. Blood sugar was managed with metformin and sliding scale of insulin as needed. Bowel regimen instituted. Abdominal ultrasound revealed normal caliber bile ducts. Borderline cardiomegaly. Broker In Charge followed. Hemoglobin and hematocrit were closely monitored with goal to keep hemoglobin above 7. Anemia work-up was consistent with anemia of chronic disease. Prior to discharge hemoglobin 9.7 , hematocrit 20.3. Platelet count was stable. Psychiatric medication regimen continued. Supportive care provided. Patient clinically stabilized and was ready for transfer to acute rehabilitation unit at [facility] for further management. 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 DISCHARGE INSTRUCTIONS: Patient was discharged to [facility] [place] acute rehabilitation unit. Follow-up with medical doctor at the facility. I have been assigned to dictate discharge summary for this account. I was not involved in the patient's management. Katie Rose NP Jun 15, 2019 13:32
--- NOTE | 2019-06-15 15:19 | Diagnostic Imaging Report ---
APPROVED REPORT CPT Code: 92786 Present Symptoms Comments: Pain BILATERAL: Imaging reveals a patent deep venous system bilaterally. There is no evidence of thrombus within the femoral, popliteal or tibial segments. The greater saphenous veins are also within normal limits. Doppler indicates normal spontaneous flow within these segments.
== END 2019-06-14 20:45 | disposition short-term general hospital (02) | DRG 313 ==
LOC: EMR 02:59 → EDBEDREQ 03:23 → 2E 03:51 → EDBEDREQ 05:47 → 4E 06-14 05:51
DX: R07.89 Other chest pain (principal); D61.818 Other pancytopenia; N39.0 Urinary tract infection, site not specified; E44.0 Moderate protein-calorie malnutrition; K74.60 Unspecified cirrhosis of liver; B19.20 Unspecified viral hepatitis C without hepatic coma; E11.9 Type 2 diabetes mellitus without complications; Z79.4 Long term (current) use of insulin; I10 Essential (primary) hypertension; M47.892 Other spondylosis, cervical region; F32.9 Major depressive disorder, single episode, unspecified; Z79.84 Long term (current) use of oral hypoglycemic drugs; K27.9 Peptic ulcer, site unspecified, unspecified as acute or chronic, without hemorrhage or perforation; Z68.23 Body mass index [BMI] 23.0-23.9, adult; D63.8 Anemia in other chronic diseases classified elsewhere
CPT/HCPCS: 36415; 71045; 76700; 78452; 80048; 80053; 80061; 82105; 82550; 82553; 82728; 82962; 83540; 83550; 83690; 83880; 84165; 84443; 84484; 85025; 85610; 85730; 86140; 87081; 93005; 93017; 93306; 93970; 94664; 96374; 99285; J1815; J2785

== ENCOUNTER 2019-07-15 10:27 | Inpatient (IN) | payer MEDICAID, MEDICARE ==
[~2019-07-15] VITALS: Ht 165.1 cm; Wt 64.9 kg
[2019-07-15 10:26] VITALS: BP 125/80
[~2019-07-15 10:27] MED LIST changes: +ASPIR 8181 MG ORAL; +CLONIDINE HCL0.1 MG PO; +DUONEB 0.5-3(2.53 ML HHN; +ENALAPRIL1.25 MG/ML IV; +MIRALAX17 G2 ORAL; +MORPHINE 11 MG/1 M3 IV; +NITROGLYCERIN SL; +PROTONIX40 MG ORAL; +ZOFRAN4 M3 ORAL
--- NOTE | 2019-07-15 10:45 | NUR ---
ED Nurse Note: Pt came in via [facility] unit 255 feom [place] view for hyperglycemia [id number] @ [facility] . PT was given 5 units RELAY TESTER. BS in ED was 188 ermd informed pt placed in hospital gown established blood sent to lab pt on monitor urine pending.
[2019-07-15] MEDS ORDERED: Omnipaque-300 100ml vial INJ PRN (11:00)
[2019-07-15 11:19] LABS: BASOPHILS % (AUTO) 0.8 % (0.0-2.0); EOSINOPHILS % (AUTO) 0.1 % (0.0-3.0); HEMATOCRIT 27.6 % (37.0-47.0); HEMOGLOBIN 8.8 G/DL (12.0-16.0); LYMPHOCYTES % (AUTO) 25.9 % (20.0-45.0); MEAN CORPUSCULAR VOLUME 99 FL (80-99); NEUTROPHILS % (AUTO) 61.1 % (45.0-75.0); PLATELET COUNT 200 K/UL (150-450); RED BLOOD COUNT 2.79 M/UL (4.20-5.40); RED CELL DISTRIBUTION WIDTH 12.1 % (11.6-14.8); WHITE BLOOD COUNT 5.6 K/UL (4.8-10.8)
--- NOTE | 2019-07-15 11:19 | NUR ---
ED Nurse Note: UA SENT TO LAB
[2019-07-15 11:35] LABS: APPEARANCE,URINE CLEAR; BILIRUBIN, URINE NEGATIVE (NEGATIVE); COLOR,URINE PALE YELLOW; GLUCOSE, URINE (UA) 3+ (NEGATIVE); KETONES,URINE NEGATIVE (NEGATIVE); LEUKOCYTE ESTERASE ,URINE NEGATIVE (NEGATIVE); NITRITE,URINE NEGATIVE (NEGATIVE); PH,URINE 6.5 (4.5-8.0); PROTEIN,URINE NEGATIVE (NEGATIVE); UROBILINOGEN,URINE NORMAL MG/DL (0.0-1.0)
[2019-07-15 11:35] LABS: ANION GAP 4 mmol/L (5-15); BLOOD UREA NITROGEN 10 mg/dL (7-18); CALCIUM 8.9 MG/DL (8.5-10.1); CARBON DIOXIDE 32 MMOL/L (21-32); CHLORIDE 105 MMOL/L (98-107); CREATININE 0.9 MG/DL (0.55-1.30); POTASSIUM 4.4 MMOL/L (3.5-5.1); SODIUM 141 MMOL/L (136-145)
--- NOTE | 2019-07-15 11:40 | NUR ---
ED Nurse Note: notified Dr. Coronado regarding patient's request for pain medication.
[2019-07-15] MEDS ORDERED: Morphine Sulfate 2mg/ml Inj(IV/IM USE ONLY) IVP ONE (11:45)
[2019-07-15 11:49] LABS: ALANINE AMINOTRANSFERASE 64 U/L (12-78); ALBUMIN/GLOBULIN RATIO 0.6 (1.0-2.7); ALKALINE PHOSPHATASE 145 U/L (46-116); ASPARTATE AMINO TRANSFERASE 55 U/L (15-37); BILIRUBIN,TOTAL 0.4 MG/DL (0.2-1.0); CKMB < 0.5 NG/ML (0.0-3.6); CREATINE KINASE 126 U/L (26-308); PHOSPHORUS 2.9 MG/DL (2.5-4.9)
[2019-07-15 12:22] VITALS: BP 135/85
--- NOTE | 2019-07-15 12:32 | NUR ---
ED Nurse Note: pt is down in x-ray
--- NOTE | 2019-07-15 12:42 | Diagnostic Imaging Report ---
Indication: Dyspnea Comparison: 06/10/2019 A single view chest radiograph was obtained. Findings: No definite infiltrate or pulmonary vascular congestion identified. The heart is enlarged. The aorta is mildly enlarged consistent with atherosclerotic vascular disease. There are bilateral breast calcifications about undetermined nature. The bones are osteopenic. Impression: No acute disease
--- NOTE | 2019-07-15 12:55 | NUR ---
ED Nurse Note: pt back from imaging
--- NOTE | 2019-07-15 13:11 | Diagnostic Imaging Report ---
Indication: Headache Technique: Contiguous 5 mm thick transaxial imaging of the head obtained in a Siemens Sensation [address] scanner. Soft tissue and bone windows generated. Automatic Exposure Control was utilized. Total Dose length Product (DLP): [address] Dose Index Volume (CTDIvol): 62.7 mGy Comparison: 04/28/2019 Findings: There is a 1.2 cm area of ovoid low density in the upper part of the cerebellum just right of midline. This involves the cerebellar vermis was not seen on the prior occasion. This may be an old infarct. There is other evidence of chronic small vessel disease with scattered low-attenuation involving the mostly the periventricular white matter. Please correlate clinically. MRI may be of benefit for further evaluation. Generalized atrophy of the brain is noted in keeping with the patient's age. The ventricles and basal cisterns appear normal. Calvarium and other osseous structures are unremarkable. Paranasal sinuses appear clear. IMPRESSION: Abnormal well-circumscribed 1.2 cm low-density focus in the upper cerebellar vermis not previously seen. This may be subacute to chronic lacunar infarct. Correlate clinically. Generalized atrophy of the brain. Chronic small vessel disease involving white matter tracts. The CT scanner at [facility] is accredited by the [employer] and the scans are performed using dose optimization techniques as appropriate to a performed exam including Automatic Exposure control.
--- NOTE | 2019-07-15 13:17 | Diagnostic Imaging Report ---
Indication: Abdominal pain Technique: Continuous helical transaxial imaging of the abdomen and pelvis was obtained from the lung bases to the pubic symphysis during intravenous contrast administration. Coronal 2-D reformats were also obtained. Study obtained in a Siemens sensation [address] Automatic Exposure Control was utilized. Total Dose length Product (DLP): [address] Dose Index Volume (CTDIvol): 15.3 mGy Comparison: 02/11/2018 Findings: The lung bases are clear. There is a small hiatal hernia. The stomach wall appears prominent but the stomach is completely nondistended. Pancreas has an unusual configuration. Cholecystectomy noted. The pancreatic head and uncinate process appear prominent. The adjacent body of the stomach is also prominent. Most of the body and tail the pancreas is absent. The appearance is relatively unchanged from the last CT dated 02/11/2018 The liver and spleen are unremarkable. There is a left renal cyst. Aortoiliac calcifications are present. A right hip prosthesis noted. Bowel gas pattern is nonobstructive. Previous stone in the lower pole the right kidney is not appreciated currently. There is no hydronephrosis. There is no free fluid. Moderate stool demonstrated once again in the colon. Appendix is not definitely seen but there are no secondary signs of acute appendicitis appreciated. Diverticula noted in the sigmoid colon. No definite evidence of diverticulitis. Uterus is not seen. IMPRESSION: No acute findings in the abdomen or pelvis identified. Unusual appearance of the pancreas unchanged from the last study 02/11/2018. Status post cholecystectomy. Status post hysterectomy. Atherosclerotic vascular disease. Left renal cyst. Diverticulosis of the colon The CT scanner at [facility] is accredited by the [employer] and the scans are performed using dose optimization techniques as appropriate to a performed exam including Automatic Exposure control.
--- NOTE | 2019-07-15 14:10 | NUR ---
Lacy duarte in EDM - 07/15/19 at 1413 by GALINDO ED Nurse Note: pt removed iv line and all leads from monitor. Urine sent verbal order to place indwelling cath.
--- NOTE | 2019-07-15 14:13 | NUR ---
ED Nurse Note: pt calm cooperative on monitor vss. pt waiting for tele bed . pt provided with sandwich.
[2019-07-15] MEDS ORDERED: Mylanta II UD 30ml ORAL PRN (14:15)
[2019-07-15] MEDS ORDERED: Albuterol ud Inhalation HHN PRN (14:15)
[2019-07-15] MEDS ORDERED: Nitroglycerin Subl 0.4mg tab SL PRN (14:15)
[2019-07-15] MEDS ORDERED: Ipratropium 0.02% Inh Soln 2.5ml UD HHN PRN (14:15)
[2019-07-15] MEDS ORDERED: LORazepam 1mg tab ORAL PRN (14:15)
[2019-07-15 16:00] VITALS: BP 138/86
[2019-07-15] MEDS ORDERED: Albuterol/Ipratropium 3ml neb HHN PRN (16:30)
[2019-07-15] MEDS: Enoxaparin 40mg Inj SUBQ SCH (17:54)
--- NOTE | 2019-07-15 19:00 | NUR ---
ED Nurse Note: pt up to floor with registered safety engineer and myself.
--- NOTE | 2019-07-15 19:20 | NUR ---
NURSE NOTES: Nurse report given by ER nurse. Patient's transferred by anjum, in stable condition, no s/s of distress or SOB, stated pain 7/10 generalized pain and request morphine. Bed low and locked, call light within reach, side rails x 2. equipment monitor phototypesetting is on. IV is patent, saline locked and asymptomatic. Admission orders acknowledged and carried out. Will continue to monitor.
--- NOTE | 2019-07-15 19:55 | NUR ---
HAND-OFF: Report given to MAXX Vieira. Plan of care endorsed.
--- NOTE | 2019-07-15 19:56 | NUR ---
NURSE NOTES: Received pt from MAXX Chang. Pt awake, alert, and talkative. Bed in lowest position. Call light within reach. Will continue to monitor.
[2019-07-15 20:00] VITALS: BP 128/71
--- NOTE | 2019-07-15 20:44 | Emergency Room Report ---
History of Present Illness General Chief Complaint: Abnormal Labs Source: Patient, Medical Record Present Illness HPI Patient is a 79 year old female sent in by pmd for increased blood sugar and generalized weakness. She presented with increased headache and abdominal pain. No associated vomitting. prior history of low vision to right eye which she previously been told needed removal. Off eyedrops for several days. No fever.Sugar over 400 at facility. Had been given insulin at facility. Allergies: Coded Allergies: HORSERADISH (Verified Allergy, Unknown, Rash, 04/28/19) Patient History Past Medical History: see triage record Reviewed Nursing Documentation: PMH: Agreed; PSxH: Agreed Nursing Documentation-PMH Past Medical History: No History, Except For Hx Cardiac Problems: Yes - SHORTNESS OF BREATH Hx Hypertension: Yes Hx Diabetes: Yes Hx Cancer: No Hx Gastrointestinal Problems: Yes - PEPTIC ULCER DISEASE Hx Dialysis: No - Heaptitis C., Cirrohosis of liver, Hx Neurological Problems: No Hx Dementia: Yes - UNSPECIFIED DEMENTIA WITHOUT BEHAVIORAL DISTURBANCE Hx Headaches: Yes Review of Systems All Other Systems: negative except mentioned in HPI Physical Exam Vital Signs Date Time Temp Pulse Resp B/P (MAP) Pulse Ox O2 Delivery O2 Flow Rate FiO2 07/15/19 10:23 97.7 67 18 125/80 (95) 100 Room Air Sp02 EP Interpretation: reviewed, normal General Appearance: normal inspection, well appearing, no apparent distress, alert, GCS 15 Head: atraumatic Eyes: bilateral eye other - right eye discoloration and mishapen pupil ENT: normal ENT inspection, hearing grossly normal, normal voice Neck: normal inspection, full range of motion, supple, no bony tend Respiratory: normal inspection, lungs clear, normal breath sounds, no respiratory distress, no retraction, no wheezing Cardiovascular #1: regular rate, rhythm, no edema Gastrointestinal: normal inspection, soft, no guarding, no hernia, other - healed surgical scars Genitourinary: no CVA tenderness Musculoskeletal: normal inspection, back normal, normal range of motion Neurologic: normal inspection, alert, responsive, speech normal Psychiatric: normal inspection, judgement/insight normal, mood/affect normal Skin: no rash Medical Decision Making Diagnostic Impression: Primary Impression: Abdominal pain Additional Impressions: Uncontrolled diabetes mellitus Peptic ulcer disease ER Course Patient presented for uncontrolled blood sugar. Differential diagnosis included but was not limited to pancreatitis, medication noncompliance, dietary noncompliance, myocardial infarction, sepsis, pancreatitis among others. Patient was noted to have improvement in sugar at time of arrival. Patient has epigastric abdominal pain and significant headache. CT imaging showed no evidence of acute intracranial pathology. Ct of abdomen and pelvis showed no acute identified pathology. Patient was noted to have significant pain. Dr. Phan Nix was contacted for inpatient management. Labs Test 07/15/19 11:00 07/15/19 11:14 White Blood Count 5.6 K/UL (4.8-10.8) Red Blood Count 2.79 M/UL (4.20-5.40) Hemoglobin 8.8 G/DL (12.0-16.0) Hematocrit 27.6 % (37.0-47.0) Mean Corpuscular Volume 99 FL (80-99) Mean Corpuscular Hemoglobin 31.4 PG (27.0-31.0) Mean Corpuscular Hemoglobin Concent 31.8 G/DL (32.0-36.0) Red Cell Distribution Width 12.1 % (11.6-14.8) Platelet Count 200 K/UL (150-450) Mean Platelet Volume 6.6 FL (6.5-10.1) Neutrophils (%) (Auto) 61.1 % (45.0-75.0) Lymphocytes (%) (Auto) 25.9 % (20.0-45.0) Monocytes (%) (Auto) 12.0 % (1.0-10.0) Eosinophils (%) (Auto) 0.1 % (0.0-3.0) Basophils (%) (Auto) 0.8 % (0.0-2.0) Sodium Level 141 MMOL/L (136-145) Potassium Level 4.4 MMOL/L (3.5-5.1) Chloride Level 105 MMOL/L (98-107) Carbon Dioxide Level 32 MMOL/L (21-32) Anion Gap 4 mmol/L (5-15) Blood Urea Nitrogen 10 mg/dL (7-18) Creatinine 0.9 MG/DL (0.55-1.30) Estimat Glomerular Filtration Rate mL/min (>60) Glucose Level 195 MG/DL (74-106) Lactic Acid Level 2.00 mmol/L (0.4-2.0) Calcium Level 8.9 MG/DL (8.5-10.1) Phosphorus Level 2.9 MG/DL (2.5-4.9) Magnesium Level 1.7 MG/DL (1.8-2.4) Total Bilirubin 0.4 MG/DL (0.2-1.0) Aspartate Amino Transf (AST/SGOT) 55 U/L (15-37) Alanine Aminotransferase (ALT/SGPT) 64 U/L (12-78) Alkaline Phosphatase 145 U/L (46-116) Total Creatine Kinase 126 U/L (26-308) Creatine Kinase MB < 0.5 NG/ML (0.0-3.6) Creatine Kinase MB Relative Index Troponin I 0.000 ng/mL (0.000-0.056) Total Protein 8.0 G/DL (6.4-8.2) Albumin 3.0 G/DL (3.4-5.0) Globulin 5.0 g/dL Albumin/Globulin Ratio 0.6 (1.0-2.7) Urine Color Pale yellow Urine Appearance Clear Urine pH 6.5 (4.5-8.0) Urine Specific [place] 1.015 (1.005-1.035) Urine Protein Negative (NEGATIVE) Urine Glucose (UA) 3+ (NEGATIVE) Urine Ketones Negative (NEGATIVE) Urine Blood Negative (NEGATIVE) Urine Nitrite Negative (NEGATIVE) Urine Bilirubin Negative (NEGATIVE) Urine Urobilinogen Normal MG/DL (0.0-1.0) Urine Leukocyte Esterase Negative (NEGATIVE) Last Vital Signs Date Time Temp Pulse Resp B/P (MAP) Pulse Ox O2 Delivery O2 Flow Rate FiO2 07/15/19 12:22 97.7 75 19 135/85 100 Room Air Status: unchanged Disposition: ADMITTED INPATIENT Condition: Serious Referrals: Phan Nix DO (PCP) Jon Coronado MD Jul 15, 2019 20:44
[2019-07-15] MEDS: HYDROmorphone 1mg/ml Carpuject IVP PRN (21:04)
[2019-07-16] VITALS: BP 118/61
[2019-07-16 04:00] VITALS: BP 127/70
--- NOTE | 2019-07-16 04:52 | NUR ---
NURSE NOTES: Called and left a message with Dr. Nix regarding pts request for an increase in frequency for her pain med. Awaiting call back.
[2019-07-16] MEDS: HYDROmorphone 1mg/ml Carpuject IVP PRN ×2 (05:02→15:11)
[2019-07-16] MEDS: NovoLOG Insulin Flexpen SUBQ SCH ×4 (07:11→21:47)
[2019-07-16 07:31] LABS: BASOPHILS % (AUTO) 0.7 % (0.0-2.0); EOSINOPHILS % (AUTO) 0.6 % (0.0-3.0); HEMATOCRIT 28.6 % (37.0-47.0); HEMOGLOBIN 9.3 G/DL (12.0-16.0); LYMPHOCYTES % (AUTO) 26.2 % (20.0-45.0); MEAN CORPUSCULAR VOLUME 98 FL (80-99); MONOCYTES % (AUTO) 9.3 % (1.0-10.0); NEUTROPHILS % (AUTO) 63.2 % (45.0-75.0); PLATELET COUNT 228 K/UL (150-450); RED BLOOD COUNT 2.93 M/UL (4.20-5.40); RED CELL DISTRIBUTION WIDTH 11.9 % (11.6-14.8); WHITE BLOOD COUNT 6.4 K/UL (4.8-10.8)
[2019-07-16 07:33] LABS: INR 1.1 (0.9-1.1)
--- NOTE | 2019-07-16 07:42 | NUR ---
HAND-OFF: Report given to MAXX Chang. Pt stable.
--- NOTE | 2019-07-16 07:43 | NUR ---
NURSE NOTES: Nurse report given by MAXX Vieira. Patient's awake in bed eating breakfast. Denies pain, no s/s of distress or SOB. Bed low and locked, call light within reach, side rails x 2, safety precaution is on. IV is saline locked, patent and asymptomatic. AO x 4. Will continue to monitor.
[2019-07-16 08:00] VITALS: BP 106/59
[2019-07-16 08:04] LABS: ANION GAP 7 mmol/L (5-15); BLOOD UREA NITROGEN 19 mg/dL (7-18); CARBON DIOXIDE 29 MMOL/L (21-32); CHLORIDE 103 MMOL/L (98-107); CREATININE 1.2 MG/DL (0.55-1.30); FERRITIN 34 NG/ML (8-388); POTASSIUM 3.8 MMOL/L (3.5-5.1); SODIUM 139 MMOL/L (136-145)
[2019-07-16 08:06] LABS: % IRON SATURATION 10 % (15-50); IRON 44 ug/dL (50-175); TOTAL IRON BINDING CAPACITY 442 ug/dL (250-450)
--- NOTE | 2019-07-16 08:50 | Consultation ---
History of Present Illness General Date patient seen: Jul 16, 2019 Time patient seen: 08:00 Chief Complaint: Abnormal Labs Referring physician: dr Nix Reason for Consultation: hospitalist Present Illness HPI 79 years old female, resident of shelter facility, with PMH of hypertension, diabetes mellitus, liver cirrhosis, hepatitis C, peptic ulcer disease , degenerative disc disease, dementia , presented with abdominal pain, headache, elevated blood sugar for evaluation . No nausea, no vomiting. No fevers, no chills. Blood sugar was over 400 at the facility. Patient received insulin in the facility. Patient reported that she had poor vision in the right eye and was told that she will require surgery in near future. Upon evaluation vital signs were stable. Laboratory work-up revealed no leukocytosis , hemoglobin 8.8, hematocrit 27.6, platelet count 200. Stable electrolytes and renal parameters. Lactic acid 2.0. Glucose 195. AST 55, ALT 64, alkaline phosphatase 145. Troponin negative . Albumin 3.0. Urinalysis revealed no evidence of UTI , +3 glucose . Chest x-ray revealed no acute cardiopulmonary pathology. CT of the head demonstrated abnormal well-circumscribed 1.2 cm low-density focus in the upper cerebellar vermis , not previously seen , this may be subacute to chronic lacunar infarct. Generalized atrophy of the brain. Chronic small vessel disease , involving white matter tracts noted. CT of the abdomen and pelvis revealed no acute findings in the abdomen or pelvis. Patient subsequently admitted to telemetry floor for further management. Allergies: Coded Allergies: HORSERADISH (Verified Allergy, Unknown, Rash, 04/28/19) Medication History Scheduled Amlodipine Besylate (Norvasc), 5 MG ORAL DAILY, (Reported) Ascorbic Acid* (Vitamin C*), 500 MG ORAL DAILY, (Reported) Aspirin* (Aspir 81*), 162 MG ORAL DAILY, (Reported) Buspirone HCl* (Buspirone HCl*), 10 MG ORAL THREE TIMES A DAY, (Reported) Docusate Sodium* (Colace*), 100 MG ORAL TWICE A DAY, (Reported) Escitalopram Oxalate (Lexapro), 5 MG ORAL DAILY, (Reported) Gabapentin (Neurontin), 300 MG ORAL THREE TIMES A DAY, (Reported) Lamotrigine* (Lamictal*), 25 MG ORAL TWICE A DAY, (Reported) Magnesium Hydroxide (Milk of Magnesia), 30 ML ORAL QHS, (Reported) Pantoprazole* (Protonix*), 40 MG ORAL DAILY, (Reported) Scheduled PRN Acetaminophen* (Acetaminophen 325MG Tablet*), 650 MG ORAL Q4H PRN for Pain Scale (3-5), (Reported) Clonidine Hcl (Clonidine Hcl), 0.1 MG PO EVERY 2 HOURS PRN for For High Blood Pressure, (Reported) Na Phos,M-B/Na Phos,Di-Ba* (Fleet Enema*), 133 ML RECTAL Q2 DAYS PRN PRN for Constipation, (Reported) Ondansetron* (Zofran*), 4 MG ORAL Q6H PRN for Nausea & Vomiting, (Reported) Temazepam* (Restoril*), 15 MG ORAL BEDTIME PRN for Insomnia, (Reported) [nitroglycerin 0.4], 0.4 MG SL [id number] PRN for chest pain, (Reported) Miscellaneous Medications Insulin Aspart (Novolog Flexpen), (Reported) Discontinued Medications Amlodipine Besylate (Norvasc), 5 MG ORAL DAILY, (Reported) Discontinued Reason: Pt stopped taking med Buspirone HCl* (Buspirone HCl*), 5 MG ORAL THREE TIMES A DAY, (Reported) Discontinued Reason: Pt stopped taking med Calcium Carbonate/Vitamin D3 (Calcium 500 + Vit D3 400 Tab), 1 EACH PO DAILY, ( Reported) Discontinued Reason: Therapy completed Clonidine Hcl (Clonidine Hcl), 0.1 MG PO q2 PRN for sbp>170, (Reported) Discontinued Reason: Therapy completed Cranberry Extract (Cranberry), 450 MG PO TWICE A DAY, (Reported) Discontinued Reason: Therapy completed Enalaprilat* (Enalapril*), 2.58 MG IV EVERY 6 HOURS PRN for sbp>160, (Reported) Discontinued Reason: Therapy completed Hydroxyzine Pamoate (Vistaril), 25 MG PO EVERY 6 HOURS, (Reported) Discontinued Reason: Therapy completed Ipratropium/Albuterol Sulfate (DuoNeb 0.5-3(2.5)mg/3ml), 3 ML HHN Q4HR PRN for Shortness of Breath, (Reported) Discontinued Reason: Therapy completed Metformin Hcl (Metformin Hcl Er), 500 MG ORAL DAILY, (Reported) Discontinued Reason: Therapy completed Morphine Sulfate/Pf (Morphine 1 Mg/Ml Vial P-F), 2 MG IV Q4HR PRN for Pain Scale (6-10), (Reported) Discontinued Reason: Therapy completed Polyethylene Glycol 3350* (Miralax*), 17 GM ORAL DAILY PRN for Constipation, ( Reported) Discontinued Reason: Therapy completed Timolol Maleate (Timolol Maleate), 1 DROP BOTH EYES TWICE A DAY, (Reported) Discontinued Reason: Therapy completed Tramadol Hcl (Tramadol Hcl), 50 MG ORAL Q6HR PRN for Pain Scale (3-5), (Reported ) Discontinued Reason: Therapy completed Tramadol Hcl* (Ultram*), 50 MG ORAL Q6H PRN for Severe Pain (Pain Scale 7-10), ( Reported) Discontinued Reason: Therapy completed Patient History History Provided By: Patient, Medical Record Healthcare decision maker aimee patel [phone] Resuscitation status Full Code Advanced Directive on File Past Medical/Surgical History Past Medical/Surgical History: (1) Peptic ulcer disease (2) Diabetes (3) HTN (hypertension) (4) 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 (5) Degenerative arthritis of cervical spine (6) Uncontrolled diabetes mellitus (7) UTI (urinary tract infection) Physical Exam General Appearance: no apparent distress, alert HEENT: normocephalic, atraumatic, anicteric, other - R eye blind Neck: supple Respiratory/Chest: lungs clear, no respiratory distress, no accessory muscle use Cardiovascular/Chest: normal rate Abdomen: normal bowel sounds, non tender, soft Extremities: normal range of motion, non-tender Skin Exam: warm/dry Neurologic: alert, responsive Musculoskeletal: normal muscle bulk Last 24 Hour Vital Signs Date Time Temp Pulse Resp B/P (MAP) Pulse Ox O2 Delivery O2 Flow Rate FiO2 07/16/19 04:00 98.2 69 18 127/70 (89) 98 07/16/19 04:00 71 07/16/19 03:20 Room Air 07/16/19 00:00 69 07/16/19 00:00 97.7 70 18 118/61 (80) 96 07/15/19 21:00 Room Air 07/15/19 20:00 70 07/15/19 20:00 98.0 71 16 128/71 (90) 100 07/15/19 19:03 97.7 78 19 138/86 100 Room Air 07/15/19 16:00 97.7 78 19 138/86 100 Room Air 07/15/19 12:22 97.7 75 19 135/85 100 Room Air 07/15/19 10:26 97.7 18 125/80 100 Room Air 07/15/19 10:23 97.7 67 18 125/80 (95) 100 Room Air Intake and Output 07/15/19 07/16/19 19:00 07:00 Intake Total 1000 ml Output Total 200 ml Balance 1000 ml -200 ml IV Total 1000 ml Output Urine Total 200 ml # Voids 1 # Bowel Movements 1 Laboratory Tests Test 07/15/19 11:00 07/15/19 11:14 07/16/19 06:32 White Blood Count 5.6 K/UL (4.8-10.8) 6.4 K/UL (4.8-10.8) Red Blood Count 2.79 M/UL (4.20-5.40) L 2.93 M/UL (4.20-5.40) L Hemoglobin 8.8 G/DL (12.0-16.0) L 9.3 G/DL (12.0-16.0) L Hematocrit 27.6 % (37.0-47.0) L 28.6 % (37.0-47.0) L Mean Corpuscular Volume 99 FL (80-99) 98 FL (80-99) Mean Corpuscular Hemoglobin 31.4 PG (27.0-31.0) H 31.6 PG (27.0-31.0) H Mean Corpuscular Hemoglobin Concent 31.8 G/DL (32.0-36.0) L 32.4 G/DL (32.0-36.0) Red Cell Distribution Width 12.1 % (11.6-14.8) 11.9 % (11.6-14.8) Platelet Count 200 K/UL (150-450) 228 K/UL (150-450) Mean Platelet Volume 6.6 FL (6.5-10.1) 6.3 FL (6.5-10.1) L Neutrophils (%) (Auto) 61.1 % (45.0-75.0) 63.2 % (45.0-75.0) Lymphocytes (%) (Auto) 25.9 % (20.0-45.0) 26.2 % (20.0-45.0) Monocytes (%) (Auto) 12.0 % (1.0-10.0) H 9.3 % (1.0-10.0) Eosinophils (%) (Auto) 0.1 % (0.0-3.0) 0.6 % (0.0-3.0) Basophils (%) (Auto) 0.8 % (0.0-2.0) 0.7 % (0.0-2.0) Sodium Level 141 MMOL/L (136-145) 139 MMOL/L (136-145) Potassium Level 4.4 MMOL/L (3.5-5.1) 3.8 MMOL/L (3.5-5.1) Chloride Level 105 MMOL/L (98-107) 103 MMOL/L (98-107) Carbon Dioxide Level 32 MMOL/L (21-32) 29 MMOL/L (21-32) Anion Gap 4 mmol/L (5-15) L 7 mmol/L (5-15) Blood Urea Nitrogen 10 mg/dL (7-18) 19 mg/dL (7-18) H Creatinine 0.9 MG/DL (0.55-1.30) 1.2 MG/DL (0.55-1.30) Estimat Glomerular Filtration Rate mL/min (>60) mL/min (>60) Glucose Level 195 MG/DL (74-106) H 184 MG/DL (74-106) H Lactic Acid Level 2.00 mmol/L (0.4-2.0) Calcium Level 8.9 MG/DL (8.5-10.1) 9.0 MG/DL (8.5-10.1) Phosphorus Level 2.9 MG/DL (2.5-4.9) Magnesium Level 1.7 MG/DL (1.8-2.4) L 1.7 MG/DL (1.8-2.4) L Total Bilirubin 0.4 MG/DL (0.2-1.0) Aspartate Amino Transf (AST/SGOT) 55 U/L (15-37) H Alanine Aminotransferase (ALT/SGPT) 64 U/L (12-78) Alkaline Phosphatase 145 U/L (46-116) H Total Creatine Kinase 126 U/L (26-308) Creatine Kinase MB < 0.5 NG/ML (0.0-3.6) Creatine Kinase MB Relative Index Troponin I 0.000 ng/mL (0.000-0.056) Total Protein 8.0 G/DL (6.4-8.2) Albumin 3.0 G/DL (3.4-5.0) L Globulin 5.0 g/dL Albumin/Globulin Ratio 0.6 (1.0-2.7) L Urine Color Pale yellow Urine Appearance Clear Urine pH 6.5 (4.5-8.0) Urine Specific [place] 1.015 (1.005-1.035) Urine Protein Negative (NEGATIVE) Urine Glucose (UA) 3+ (NEGATIVE) H Urine Ketones Negative (NEGATIVE) Urine Blood Negative (NEGATIVE) Urine Nitrite Negative (NEGATIVE) Urine Bilirubin Negative (NEGATIVE) Urine Urobilinogen Normal MG/DL (0.0-1.0) Urine Leukocyte Esterase Negative (NEGATIVE) Prothrombin Time 11.3 SEC (9.30-11.50) Prothromb Time International Ratio 1.1 (0.9-1.1) Hemoglobin A1c 6.6 % (4.3-6.0) H Iron Level 44 ug/dL (50-175) L Total Iron Binding Capacity 442 ug/dL (250-450) Percent Iron Saturation 10 % (15-50) L Unsaturated Iron Binding 398 ug/dL (112-346) H Ferritin 34 NG/ML (8-388) Carcinoembryonic Antigen Pending Vitamin B12 Level 356 PG/ML (193-986) Folate 17.2 NG/ML (8.6-58.9) Microbiology Date/Time Source Procedure Growth Status 07/15/19 17:45 Rectum Received Height (Feet): 5 Height (Inches): 5.00 Weight (Pounds): 120 Medications Current Medications Medications (Trade) Dose Ordered Sig/Darwin Route PRN Reason Start Time Stop Time Status Last Admin Dose Admin Acetaminophen (Tylenol) 650 mg Q4H PRN ORAL Mild Pain (Pain Scale 1-3) 07/15/19 14:15 08/14/19 14:14 Al Hydroxide/Mg Hydroxide (Mylanta II) 30 ml Q6H PRN ORAL dyspepsia 07/15/19 14:15 08/14/19 14:14 Albuterol/ Ipratropium (Albuterol/ Ipratropium) 3 ml Q6H PRN HHN Shortness of Breath 07/15/19 16:30 07/20/19 16:29 Bisacodyl (Dulcolax) 10 mg HSPRN PRN RECTAL Constipation 07/15/19 14:15 08/14/19 14:14 Dextrose (Dextrose 50%) 25 ml Q30M PRN IV Hypoglycemia 07/15/19 14:15 08/14/19 14:14 Dextrose (Dextrose 50%) 25 ml Q30M PRN IV Hypoglycemia 07/15/19 23:30 08/14/19 23:29 Dextrose (Dextrose 50%) 50 ml Q30M PRN IV Hypoglycemia 07/15/19 14:15 08/14/19 14:14 Dextrose (Dextrose 50%) 50 ml Q30M PRN IV Hypoglycemia 07/15/19 23:30 08/14/19 23:29 Diphenhydramine HCl (Benadryl) 25 mg Q6H PRN ORAL Itching/Pruritis 07/15/19 14:15 08/14/19 14:14 Enoxaparin Sodium (Lovenox) 40 mg Q24H SUBQ 07/15/19 17:00 08/14/19 16:59 07/15/19 17:54 Famotidine (Pepcid) 40 mg DAILY ORAL 07/16/19 09:00 08/15/19 08:59 Hydromorphone HCl (Dilaudid) 1 mg Q6H PRN IVP Moderate Pain (Pain Scale 4-6) 07/16/19 07:15 07/22/19 14:14 Insulin Aspart (NovoLOG) BEFORE MEALS AND HS SUBQ 07/16/19 06:30 08/15/19 06:29 07/16/19 07:11 Iohexol (OMNIPAQUE-300 100ml) 100 ml NOW PRN INJ Radiology Procedure 07/15/19 11:00 07/17/19 10:59 Lorazepam (Ativan) 1 mg Q4H PRN ORAL For Anxiety 07/15/19 14:15 07/22/19 14:14 Nitroglycerin (Ntg) 0.4 mg Q5M X 3 DOSES PRN SL Prn Chest Pain 07/15/19 14:15 08/14/19 14:14 Ondansetron HCl (Zofran) 4 mg Q6H PRN IVP Nausea & Vomiting 07/15/19 14:15 08/14/19 14:14 Assessment/Plan Assessment/Plan: ASSESSMENT DM OOC PUD Anemia Subacute to chronic lacunar infarct Hypertension Protein calorie malnutrition Hypomagnesemia Liver cirrhosis Hepatitis C Dementia PLAN OF CARE Telemetry CT of the head with evidence of subacute to chronic lacunar infarct will get MRI of the brain, consider neuro eval depending on findings O2 HHN Pulse ox stable on room air Venous duplex BLE Blood sugar management with SSI Check HgbA1c - at goal diabetic diet consider endo eval -as per primary team DVT , GI prophylaxis Anemia work-up noted monitor H&H with goal to keep hemoglobin above 7 stool OB GI follwos Dietary eval Monitor renal parameters, electrolytes , correct electrolytes as needed , avoid nephrotoxic Pain management Supportive care Dietary eval case discussed and evaluated by supervising physician Katie Rose NP Jul 16, 2019 08:50
--- NOTE | 2019-07-16 11:47 | NUR ---
CASE MANAGEMENT: INITIAL REVIEW 79 YO F RAJEEV FROM [facility] CC: ABNORMAL LABS PMHx: DEMENTIA. HTN. DM. PUD. HEP C. LIVER CIRRHOSIS. SI:ABD PAIN T 97.7 HR 67 RR 18 B/P 125/80 SATS 100% ON RA GLU 195 AST 55 ALP 145 MG 1.7 IS: MORPHINE IV X1 ZOFRAN IV X1 CXR (-) CT HEAD (IMPRESSION: Abnormal well-circumscribed 1.2 cm low-density focus in the upper cerebellar vermis not previously seen. This may be subacute to chronic lacunar infarct. Correlate clinically. Generalized atrophy of the brain. Chronic small vessel disease involving white matter tracts. CT ABD/PELVIS IMPRESSION: No acute findings in the abdomen or pelvis identified. PATIENT ADMITTED TO TELE 07/15/2019 @ 1246 DCP: PATIENT TO BE DISCHARGED TO SNF ONCE MEDICALLY CLEARED. PLAN OF CARE: VENOUS DUPLEX Addendum: 07/16/19 at 1616 by Jazmín Hill CM INTERQUAL MET
[2019-07-16 12:00] VITALS: BP 105/54
--- NOTE | 2019-07-16 13:30 | History and Physical Report ---
DATE OF ADMISSION: 07/15/2019 DATE AND TIME SEEN: 07/16/2019 at 10 a.m. CONSULTANTS: 1. Abundio Nassar M.D. 2. Juany Sullivan M.D. 3. Jr Loredo M.D. 4. Vipul Horne M.D. 5. Filemon Carvajal M.D. CHIEF COMPLAINT: Weakness, dizziness, diabetes, hyperglycemia. BRIEF HISTORY: This is a 79-year-old female, living at [facility], presented with above-mentioned diagnosis. Initial blood sugar was 455, after insulin given, came down to 422. The patient came to [place], diagnosed with the above, admitted to telemetry for further care. Currently, calm in bed, feeling little bit better. No complaint. REVIEW OF SYSTEMS: No chest pain. No shortness of breath. No nausea, vomiting, or diarrhea. PAST MEDICAL HISTORY: Hypertension, diabetes, cirrhosis liver, hepatitis C, DJD. PAST SURGICAL HISTORY: Abdominal surgery and gallbladder. MEDICATIONS: Include famotidine, Dilaudid, enoxaparin, albuterol, ipratropium, hydromorphone, bisacodyl, lorazepam. ALLERGIES: Denies. SOCIAL HISTORY: No smoking. No alcohol. No intravenous drug abuse. FAMILY HISTORY: Noncontributory. PHYSICAL EXAMINATION: GENERAL: Calm in bed, oriented x3, no acute distress. VITAL SIGNS: Temperature 98 degrees, pulse 93, respirations 18, blood pressure 106/59. CARDIOVASCULAR: No murmur. LUNGS: Poor air exchange. ABDOMEN: Bowel sounds distant. EXTREMITIES: Show no cyanosis or edema. NEUROLOGIC: The patient moves all extremities, slightly weak. LABORATORY AND DIAGNOSTIC DATA: Labs at this time show hemoglobin and hematocrit 9.3/28, otherwise CBC is normal. BMP shows BUN 19, glucose came down to 184. INR is 1.1. Urinalysis, 3+ glucose. ASSESSMENT: 1. General weakness. 2. Slight dizzy. 3. Diabetes. 4. Hyperglycemia. 5. Anemia. 6. Blindness. 7. DJD. 8. Hypertension. 9. Cirrhosis liver. 10. Hepatitis C. PLAN: 1. PT, OT, dietary followup. 2. Blood pressure, blood sugar, pain control. 3. Resume home medications. 4. We will continue to follow the patient. Phan Nix D.O. DR: RAINA JOB#: [id number] CC:
[2019-07-16] MEDS: sitaGLIPtin 50mg tab ORAL SCH (15:10)
[2019-07-16 16:00] VITALS: BP 97/46
--- NOTE | 2019-07-16 16:36 | NUR ---
PT Note PT jose completed, treatment initiated. Patient has muscle weakness and decreased postural stability, requiring assist and supervision in her mobility and gait. Patient needs PT to increase her muscle strength and balance to improve her safety in mobility. Addendum: 07/16/19 at 1637 by CARY DE LEÓN PT Amended: Links added.
--- NOTE | 2019-07-16 17:16 | Cardiology Report ---
APPROVED REPORT EKG Measurement Heart [id number] Normal sinus rhythm Nonspecific ST and T wave abnormality Abnormal ECG
[2019-07-16] MEDS: Enoxaparin 40mg Inj SUBQ SCH (17:17)
--- NOTE | 2019-07-16 19:15 | Consultation ---
DATE OF CONSULTATION: 07/16/2019 GASTROENTEROLOGY CONSULTATION CONSULTING PHYSICIAN: Vipul Horne M.D. REFERRING PHYSICIAN: Phan Nix M.D. CHIEF COMPLAINT: Abdominal pain. HISTORY OF PRESENT ILLNESS: This is a very pleasant 79-year-old female. The last time I saw her actually was in September 2013. I have done an endoscopy on her in December 2012, which revealed evidence of a small hiatal hernia, positive H. pylori, and duodenal ulceration. I do not think the patient was ever treated. She is very hard to follow. She does not follow in the office. She also has hepatitis C. I doubt if that also has ever been treated. Again, the patient is with full compliance with followup in the office. She presented to the hospital with complaint of headache and abdominal pain. PAST MEDICAL HISTORY: 1. Hepatitis C. 2. Gallstones. 3. Diabetes. 4. Right eye blindness. 5. Duodenal ulceration. 6. H. pylori gastritis. 7. Hiatal hernia. 8. Cataract. 9. Glaucoma. 10. Hypertension. 11. Anemia. 12. Diverticulosis. 13. Diabetes. ALLERGIES: No known drug allergies. MEDICATIONS: Please see medication reconciliation list. PAST SURGICAL HISTORY: 1. Hysterectomy. 2. Cholecystectomy. SOCIAL HISTORY: The patient denies any tobacco, alcohol, or IV drug abuse. FAMILY HISTORY: Noncontributory. REVIEW OF SYSTEMS: Ten-point review of systems was performed. Pertinent positives in the HPI. PHYSICAL EXAMINATION: VITAL SIGNS: Temperature 98.4, pulse 72, respiration 18, blood pressure 106/69. HEENT: Normocephalic and atraumatic. The patient is blind. NECK: Supple. No evidence of obvious lymphadenopathy. CARDIOVASCULAR: Regular rhythm. Plus S1 and S2. No obvious murmur. LUNGS: Decreased breath sounds bilaterally based on the supine exam. ABDOMEN: Soft. Bowel sounds are present. Minimal tenderness to palpation in the epigastric area. No rebound. No guarding. No peritoneal sign. EXTREMITIES: No cyanosis. No clubbing. No edema. LABORATORY DATA: White count 6.4, hemoglobin 9.3, hematocrit 28, and platelet count is 228,000. Chem-7, sodium is 139, potassium 3.8, BUN 19, creatinine 1.2. Iron saturation is low at 10%. Liver function showed AST of 55, ALT of 64, alkaline phosphatase of 145, and bilirubin 0.4. ASSESSMENT: This is an unfortunate 79-year-old female with numerous medical problems. From GI standpoint, she has evidence of iron-deficiency anemia, abdominal pain, hiatal hernia, diverticulosis, and history of duodenal ulceration. PLAN: We are going to place the patient on PPI. We will send the stool for H. pylori. The patient will benefit from endoscopy and colonoscopy for evaluation of iron-deficiency anemia given positive history of peptic ulcer disease and no recent colonoscopy at least for the last 5 years. We will discuss with the patient tomorrow and if she agrees, we will schedule it for Thursday. I want to thank Dr. Phan Nix for this kind referral. Vpiul Horne M.D. DR: Dieter JOB#: [id number] CC: Phan Nix D.O.
--- NOTE | 2019-07-16 19:48 | NUR ---
NURSE NOTES: received patient from MAXX Chang,in stable condition, AOx4, denies pain at this time, patient blind in both eyes, as per patient she can't see at all with her right eye and vision is limited in her left too, IV site on left AC, running, patent, asymptomatic, bed low&locked, side rails upx3, call light within reach , will continue to monitor and reassess
--- NOTE | 2019-07-16 19:48 | NUR ---
HAND-OFF: Report given to MAXX Pruett. Plan of care endorsed. Patient's stable.
[2019-07-16 20:00] VITALS: BP 114/63
--- NOTE | 2019-07-16 20:15 | Consultation ---
DATE OF CONSULTATION: 07/16/2019 ENDOCRINOLOGY CONSULTATION CONSULTING PHYSICIAN: Abundio Nassar M.D. REFERRING PHYSICIAN: Phan Nix D.O. REASON FOR CONSULTATION: Diabetes management. HISTORY OF PRESENT ILLNESS: The patient is a 79-year-old female who [facility]. She has history of diabetes, who presented to the hospital with elevated glucose of 455 and came down to 422. The patient is admitted for further care and started on sliding scale insulin. I was called to manage diabetes. REVIEW OF SYSTEMS: A 12-point review of systems was performed. The pertinent positives and negatives are mentioned in the history of present illness. PAST MEDICAL HISTORY: 1. Cirrhosis. 2. Diabetes. 3. Hypertension. 4. Hepatitis C. 5. DJD. PAST SURGICAL HISTORY: Cholecystectomy. MEDICATIONS: Reviewed and reconciled. ALLERGIES TO MEDICATIONS: None. SOCIAL HISTORY: No smoking, alcohol, or drug use. FAMILY HISTORY: Noncontributory. PHYSICAL EXAMINATION: GENERAL: She is awake and alert. VITAL SIGNS: Blood pressure is 110/80, pulse 72, temperature 98.2, and respiratory rate 18. HEENT: Pupils are equal and reactive to light. Sclerae anicteric. NECK: No jugular venous distention. LUNGS: Clear. HEART: Regular rate and rhythm. ABDOMEN: Positive bowel sounds. EXTREMITIES: No clubbing, cyanosis, or edema. LABORATORY DATA: A1c is 6.6. Sodium 139, potassium 3.8, chloride 102, bicarb 29, BUN 19, creatinine 1.2. DIAGNOSIS: Hyperglycemia. PLAN: 1. Start Januvia 100 mg daily. 2. NovoLog sliding scale before meals and at bedtime. 3. Consider basal insulin. If the blood glucose does not improve, I will follow her closely during hospital stay. Thank you, Dr. Nix, for the courtesy of this consultation. Abundio Nassar M.D. DR: ALL JOB#: [id number] CC: BRITNEY
[2019-07-17] VITALS: BP 115/58
--- NOTE | 2019-07-17 00:45 | Consultation ---
DATE OF CONSULTATION: 07/16/2019 CONSULTING PHYSICIAN: Juany Sullivan M.D. HISTORY OF PRESENT ILLNESS: This is a 79-year-old female patient, who came in for diabetes, urinary tract infection, failure to thrive, and hyperglycemia. The patient does have some increased anxiety and mood lability worsened by stress of her medical illness and that is basically why she was admitted to the hospital. In addition to that, she has diagnoses of generalized anxiety disorder, rule out depression, and rule out bipolar 2 disorder and so a daily psychiatric consultation requested because of this patient's increasing mood lability and altered mental status worsened by stress of her medical illness. That is why, her attending physician has requested a daily psychiatric consultation for this patient. So, I assessed this patient at bedside. She is on the current psychotropic medication regimen. She has weakness, diabetes, and hyperglycemia. She states she has basically generalized anxiety, depression, and mood lability. That is why, her attending physician has requested daily psychiatric consultation. MEDICAL HISTORY: Includes hypertension, diabetes, liver cirrhosis, and degenerative joint disease. ALLERGIES: No drug allergies. PSYCHOTROPIC MEDICATIONS ON ADMISSION: She is on current medication regimen consisting of Lexapro 5 mg a day, Lamictal 25 mg twice a day, and Ativan 1 mg every 4 hours p.r.n. anxiety and agitation. SUBSTANCE ABUSE HISTORY: Denies. PAIN ASSESSMENT: 0/10. DEVELOPMENTAL PROBLEMS: Denies. FAMILY PSYCHIATRIC HISTORY: Denies. SOCIAL HISTORY: The patient lives in [facility]. Financially supported by [employer] and Medicare. No known legal problem. PSYCHIATRIC HISTORY: History of bipolar 2. She has had previous psychiatric admissions and psychiatric interactions before. STRENGTHS: She is motivated to get better and has a place to live. WEAKNESSES: She is impulsive. Minimal support system. MENTAL STATUS EXAMINATION: This is a 79-year-old female patient. Appearance is disheveled. Attitude, irritable and agitated. Affect, guarded and restricted. Intellect is poor because she does not know current events, does not know last four presidents. Mood, depressed and anxious. Motor activity, psychomotor agitation. Attention span is poor because she cannot do serial sevens or spell world backwards. Orientation x2. Oriented to person and place, not to time and situation. Speech is low volume. Thought process is slightly disorganized. Thought content, she has some paranoid delusions. Perception is poor due to paranoid delusions. Abstract reasoning is poor because she does not understand proverbs, only has concrete thinking. Insight is poor because she does not recognize having any kind of cognitive deficit disorder. Judgment is fair. She denies any current suicidal or homicidal thoughts. Short-term memory, 0/3 of 3-word recall, so poor short-term memory. Long-term memory is intact based on knowledge of long-term events in her life such as high school that she went to. Her gait is normal. There is no abnormal movement. There is no history of abuse. There is no current abuse. PLAN OF CARE AND PROBLEMS TO BE ADDRESSED: Include mood lability. DIAGNOSES: 1. Major depressive disorder, mild, recurrent with psychotic features, rule out bipolar 2. 2. Secondary medical includes shortness of breath, cholelithiasis, urinary tract infection, diabetes, weakness, and hypoglycemia. 3. Psychosocial stressors, financial. 4. Functional impairment is mild. PLAN: My plan for this patient is to treat her with Lexapro 5 mg daily, Lamictal 25 mg daily, and Ativan 1 mg every 4 hours p.r.n. anxiety and agitation. A 20 minutes of cognitive behavioral therapy was provided to help her identify automatic negative thoughts and help to convert negative thoughts to more positive thoughts to reduce depression, anxiety, and mood lability. A 20 minutes of cognitive behavioral therapy was provided. Chart reviewed. Discussed with staff. Seen and assessed at bedside. Juany Sullivan M.D. DR: CHANEL JOB#: [id number] CC:
[2019-07-17 04:00] VITALS: BP 129/72
[2019-07-17] MEDS: sitaGLIPtin 50mg tab ORAL SCH ×2 (06:22→06:53)
--- NOTE | 2019-07-17 06:39 | General Progress Note ---
Assessment/Plan Assessment/Plan: 1. Hepatitis C. 2. Gallstones. 3. Diabetes. 4. Right eye blindness. 5. Duodenal ulceration. 6. H. pylori gastritis. 7. Hiatal hernia. 8. Cataract. 9. Glaucoma. 10. Hypertension. 11. Anemia. 12. Diverticulosis. 13. Diabetes. monitor lab EGD in am consider colonoscopy if EGd neg fu stool ob iv iron Subjective ROS Limited/Unobtainable: Yes Allergies: Coded Allergies: HORSERADISH (Verified Allergy, Unknown, Rash, 04/28/19) Objective Last 24 Hour Vital Signs Date Time Temp Pulse Resp B/P (MAP) Pulse Ox O2 Delivery O2 Flow Rate FiO2 07/17/19 04:00 72 07/17/19 04:00 98.5 78 13 129/72 (91) 97 07/17/19 00:00 97.8 68 18 115/58 (77) 97 07/17/19 00:00 66 07/16/19 21:00 Room Air 07/16/19 20:00 78 07/16/19 20:00 97.9 70 18 114/63 (80) 97 07/16/19 16:00 97.8 66 18 97/46 (63) 97 07/16/19 16:00 75 07/16/19 12:00 71 07/16/19 12:00 98.2 72 18 105/54 (71) 99 07/16/19 09:00 Room Air 07/16/19 08:00 98.4 73 18 106/59 (75) 95 07/16/19 08:00 73 Intake and Output 07/16/19 07/17/19 19:00 07:00 Intake Total 840 ml Output Total 750 ml Balance 90 ml Intake Oral 840 ml Output Urine Total 750 ml Height (Feet): 5 Height (Inches): 5.00 Weight (Pounds): 120 General Appearance: alert EENT: normal ENT inspection Neck: supple Cardiovascular: normal rate Respiratory/Chest: decreased breath sounds Abdomen: normal bowel sounds, non tender, soft Extremities: non-tender Vipul Horne MD Jul 17, 2019 06:39
[2019-07-17] MEDS: NovoLOG Insulin Flexpen SUBQ SCH ×4 (06:48→21:53)
--- NOTE | 2019-07-17 07:37 | NUR ---
HAND-OFF: Report given to MAXX Roche, Plan of care endorsed, patient stable.
--- NOTE | 2019-07-17 07:40 | NUR ---
NURSE NOTES: Received report from MAXX Pruett. Patient in bed eating breakfast with lowest, locked position and call barahona in reach. VSS and aox4.
--- NOTE | 2019-07-17 07:53 | General Progress Note ---
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 SNOMED: 931134256 (2) Uncontrolled diabetes mellitus ICD Codes: E11.65 - Type 2 diabetes mellitus with hyperglycemia SNOMED: 41452463, 246386707 Assessment/Plan: continue Januvia 50 mg daily continue NISS ac / hs Subjective Allergies: Coded Allergies: HORSERADISH (Verified Allergy, Unknown, Rash, 04/28/19) All Systems: reviewed and negative except above Subjective events noted glucose values are stable Item Value Date Time Bedside Blood Glucose 115 mg/dl 07/17/19 0648 Bedside Blood Glucose 166 mg/dl H 07/16/19 2147 Bedside Blood Glucose 113 mg/dl 07/16/19 1719 Bedside Blood Glucose 203 mg/dl H 07/16/19 1149 Bedside Blood Glucose 184 mg/dl H 07/16/19 0711 Bedside Blood Glucose 184 mg/dl H 07/16/19 0610 Objective Last 24 Hour Vital Signs Date Time Temp Pulse Resp B/P (MAP) Pulse Ox O2 Delivery O2 Flow Rate FiO2 07/17/19 04:00 72 07/17/19 04:00 98.5 78 13 129/72 (91) 97 07/17/19 00:00 97.8 68 18 115/58 (77) 97 07/17/19 00:00 66 07/16/19 21:00 Room Air 07/16/19 20:00 78 07/16/19 20:00 97.9 70 18 114/63 (80) 97 07/16/19 16:00 97.8 66 18 97/46 (63) 97 07/16/19 16:00 75 07/16/19 12:00 71 07/16/19 12:00 98.2 72 18 105/54 (71) 99 07/16/19 09:00 Room Air 07/16/19 08:00 98.4 73 18 106/59 (75) 95 07/16/19 08:00 73 Intake and Output 07/16/19 07/17/19 19:00 07:00 Intake Total 840 ml 100 ml Output Total 750 ml Balance 90 ml 100 ml Intake Oral 840 ml 100 ml Output Urine Total 750 ml # Voids 2 Height (Feet): 5 Height (Inches): 5.00 Weight (Pounds): 120 General Appearance: no apparent distress Neck: normal alignment Cardiovascular: normal rate Respiratory/Chest: lungs clear Abdomen: normal bowel sounds Objective Current Medications Medications (Trade) Dose Ordered Sig/Darwin Route PRN Reason Start Time Stop Time Status Last Admin Dose Admin Acetaminophen (Tylenol) 650 mg Q4H PRN ORAL Mild Pain (Pain Scale 1-3) 07/15/19 14:15 08/14/19 14:14 Al Hydroxide/Mg Hydroxide (Mylanta II) 30 ml Q6H PRN ORAL dyspepsia 07/15/19 14:15 08/14/19 14:14 Albuterol/ Ipratropium (Albuterol/ Ipratropium) 3 ml Q6H PRN HHN Shortness of Breath 07/15/19 16:30 07/20/19 16:29 Bisacodyl (Dulcolax) 10 mg HSPRN PRN RECTAL Constipation 07/15/19 14:15 08/14/19 14:14 Dextrose (Dextrose 50%) 25 ml Q30M PRN IV Hypoglycemia 07/15/19 14:15 08/14/19 14:14 Dextrose (Dextrose 50%) 25 ml Q30M PRN IV Hypoglycemia 07/15/19 23:30 08/14/19 23:29 Dextrose (Dextrose 50%) 50 ml Q30M PRN IV Hypoglycemia 07/15/19 14:15 08/14/19 14:14 Dextrose (Dextrose 50%) 50 ml Q30M PRN IV Hypoglycemia 07/15/19 23:30 08/14/19 23:29 Diphenhydramine HCl (Benadryl) 25 mg Q6H PRN ORAL Itching/Pruritis 07/15/19 14:15 08/14/19 14:14 Enoxaparin Sodium (Lovenox) 40 mg Q24H SUBQ 07/15/19 17:00 08/14/19 16:59 07/16/19 17:17 Escitalopram Oxalate (Lexapro) 5 mg DAILY ORAL 07/17/19 09:00 08/16/19 08:59 Famotidine (Pepcid) 40 mg DAILY ORAL 07/16/19 09:00 08/15/19 08:59 07/16/19 09:24 Hydromorphone HCl (Dilaudid) 1 mg Q6H PRN IVP Moderate Pain (Pain Scale 4-6) 07/16/19 07:15 07/22/19 14:14 07/16/19 15:11 Insulin Aspart (NovoLOG) BEFORE MEALS AND HS SUBQ 07/16/19 06:30 08/15/19 06:29 07/17/19 06:48 Iohexol (OMNIPAQUE-300 100ml) 100 ml NOW PRN INJ Radiology Procedure 07/15/19 11:00 07/17/19 10:59 Iron Sucrose 100 mg/Sodium Chloride 60 ml @ 240 mls/hr BEDTIME IV 07/17/19 21:00 07/21/19 21:14 Lamotrigine (LaMICtal) 25 mg DAILY ORAL 07/17/19 09:00 08/16/19 08:59 Lorazepam (Ativan) 1 mg Q4H PRN ORAL For Anxiety 07/15/19 14:15 07/22/19 14:14 Nitroglycerin (Ntg) 0.4 mg Q5M X 3 DOSES PRN SL Prn Chest Pain 07/15/19 14:15 08/14/19 14:14 Ondansetron HCl (Zofran) 4 mg Q6H PRN IVP Nausea & Vomiting 07/15/19 14:15 08/14/19 14:14 Sitagliptin Phosphate (Januvia) 50 mg ACBREAKFAST ORAL 07/16/19 15:30 08/15/19 15:29 07/17/19 06:53 Abundio Nassra MD Jul 17, 2019 07:53
[2019-07-17 08:00] VITALS: BP 133/69
[2019-07-17] MEDS: HYDROmorphone 1mg/ml Carpuject IVP PRN (08:08)
--- NOTE | 2019-07-17 08:36 | General Progress Note ---
Assessment/Plan Problem List: (1) Abdominal pain ICD Codes: R10.9 - Unspecified abdominal pain SNOMED: 35424486, 612872500 (2) Uncontrolled diabetes mellitus ICD Codes: E11.65 - Type 2 diabetes mellitus with hyperglycemia SNOMED: 84430669, 966026820 (3) History of cholelithiasis ICD Codes: Z87.19 - History of cholelithiasis SNOMED: 241233823 (4) Peptic ulcer disease ICD Codes: K27.9 - Peptic ulcer disease SNOMED: 23131228 (5) Diabetes ICD Codes: E11.9 - Type 2 diabetes mellitus without complications SNOMED: 72832056 (6) UTI (urinary tract infection) ICD Codes: N39.0 - Urinary tract infection, site not specified SNOMED: 46197678 (7) HTN (hypertension) ICD Codes: I10 - Essential (primary) hypertension SNOMED: 22383730 (8) 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 ICD Codes: B18.2 - 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 SNOMED: 296766182 (9) Gram-negative bacteremia ICD Codes: R78.81 - Bacteremia SNOMED: 850326571638 (10) ACS (acute coronary syndrome) ICD Codes: I24.9 - Acute ischemic heart disease, unspecified SNOMED: 107345509 (11) Degenerative arthritis of cervical spine ICD Codes: M47.812 - Spondylosis without myelopathy or radiculopathy, cervical region SNOMED: 693210087 Status: unchanged Assessment/Plan: pt diet abx gi f/u cbc bmp am aru eval Subjective Constitutional: Reports: weakness Allergies: Coded Allergies: HORSERADISH (Verified Allergy, Unknown, Rash, 04/28/19) All Systems: reviewed and negative except above Subjective calm sleepy in bed Objective Last 24 Hour Vital Signs Date Time Temp Pulse Resp B/P (MAP) Pulse Ox O2 Delivery O2 Flow Rate FiO2 07/17/19 08:00 98.2 92 17 133/69 (90) 95 07/17/19 04:00 72 07/17/19 04:00 98.5 78 13 129/72 (91) 97 07/17/19 00:00 97.8 68 18 115/58 (77) 97 07/17/19 00:00 66 07/16/19 21:00 Room Air 07/16/19 20:00 78 07/16/19 20:00 97.9 70 18 114/63 (80) 97 07/16/19 16:00 97.8 66 18 97/46 (63) 97 07/16/19 16:00 75 07/16/19 12:00 71 07/16/19 12:00 98.2 72 18 105/54 (71) 99 07/16/19 09:00 Room Air Intake and Output 07/16/19 07/17/19 19:00 07:00 Intake Total 840 ml 100 ml Output Total 750 ml Balance 90 ml 100 ml Intake Oral 840 ml 100 ml Output Urine Total 750 ml # Voids 2 Height (Feet): 5 Height (Inches): 5.00 Weight (Pounds): 120 General Appearance: lethargic EENT: normal ENT inspection Neck: normal alignment Cardiovascular: normal peripheral pulses, normal rate, regular rhythm Respiratory/Chest: chest wall non-tender, lungs clear, normal breath sounds Abdomen: normal bowel sounds, non tender, soft Extremities: normal inspection Edema: no edema noted Arm (L), no edema noted Arm (R), no edema noted Leg (L), no edema noted Leg (R), no edema noted Pedal (L), no edema noted Pedal (R), no edema noted Generalized Neurologic: motor weakness Skin: normal pigmentation, warm/dry Phan Nix DO Jul 17, 2019 08:36
[2019-07-17] MEDS ORDERED: traMADol 50mg tab ORAL PRN (08:45)
--- NOTE | 2019-07-17 08:46 | General Progress Note ---
Assessment/Plan Assessment/Plan: (1) Cervical DDD (2) Cervical Spondylosis (3) Right hip pain h/o THR Patient will be changed to Dilaudid 0.5mg IV Q4H PRN severe pain and start Tramadol 50mg PO 1 TAB Q6H PRN moderate pain D/w Dr. Carvajal and he concurred. Subjective Date patient seen: Jul 17, 2019 Time patient seen: 08:00 - am Allergies: Coded Allergies: HORSERADISH (Verified Allergy, Unknown, Rash, 04/28/19) Subjective Constitutional: Reports: weakness HEENT: Reports: no symptoms Cardiovascular: Reports: no symptoms Respiratory: Reports: no symptoms Gastrointestinal/Abdominal: Reports: no symptoms Genitourinary: Reports: no symptoms Neurologic/Psychiatric: Reports: weakness Endocrine: Reports: no symptoms Hematologic/Lymphatic: Reports: no symptoms Subjective Patient is a known patient from prior admission and has been admitted under the care of Dr. Nix. She continues to c/o neck and hip pain. started on Dilaudid 1mg IV Q6H PRN on admission. Complaining that the interval is to long between injections. Was on Tramadol 50mg in SNF. Objective Last 24 Hour Vital Signs Date Time Temp Pulse Resp B/P (MAP) Pulse Ox O2 Delivery O2 Flow Rate FiO2 07/17/19 08:00 98.2 92 17 133/69 (90) 95 07/17/19 04:00 72 07/17/19 04:00 98.5 78 13 129/72 (91) 97 07/17/19 00:00 97.8 68 18 115/58 (77) 97 07/17/19 00:00 66 07/16/19 21:00 Room Air 07/16/19 20:00 78 07/16/19 20:00 97.9 70 18 114/63 (80) 97 07/16/19 16:00 97.8 66 18 97/46 (63) 97 07/16/19 16:00 75 07/16/19 12:00 71 07/16/19 12:00 98.2 72 18 105/54 (71) 99 07/16/19 09:00 Room Air Intake and Output 07/16/19 07/17/19 19:00 07:00 Intake Total 840 ml 100 ml Output Total 750 ml Balance 90 ml 100 ml Intake Oral 840 ml 100 ml Output Urine Total 750 ml # Voids 2 Height (Feet): 5 Height (Inches): 5.00 Weight (Pounds): 120 Objective General Appearance: no apparent distress, alert EENT: normal ENT inspection Neck: non-tender, normal alignment Cardiovascular: normal rate, regular rhythm Respiratory/Chest: lungs clear, normal breath sounds Abdomen: soft, tender Extremities: non-tender Edema: trace edema Neurologic: alert, oriented x 3 Skin: normal pigmentation Kiran Diggs Jul 17, 2019 08:46
--- NOTE | 2019-07-17 08:50 | Pulmonology Progress Note ---
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 Hypertension Protein calorie malnutrition Hypomagnesemia Liver cirrhosis Hepatitis C Dementia PLAN OF CARE Telemetry CT of the head with evidence of subacute to chronic lacunar infarct will get MRI of the brain, consider neuro eval depending on findings O2 HHN Pulse ox stable on room air Venous duplex BLE Blood sugar management with SSI Check HgbA1c - at goal diabetic diet consider endo eval -as per primary team DVT , GI prophylaxis Anemia work-up noted monitor H&H with goal to keep hemoglobin above 7 stool OB GI follows EGD planned for am Dietary eval Monitor renal parameters, electrolytes , correct electrolytes as needed , avoid nephrotoxic Pain management Supportive care Dietary eval case discussed and evaluated by supervising physician Subjective Allergies: Coded Allergies: HORSERADISH (Verified Allergy, Unknown, Rash, 04/28/19) Subjective no SOB, no CP pulse ox stable on RA c/o abd pain, seen by GI Objective Last 24 Hour Vital Signs Date Time Temp Pulse Resp B/P (MAP) Pulse Ox O2 Delivery O2 Flow Rate FiO2 07/17/19 08:00 98.2 92 17 133/69 (90) 95 07/17/19 04:00 72 07/17/19 04:00 98.5 78 13 129/72 (91) 97 07/17/19 00:00 97.8 68 18 115/58 (77) 97 07/17/19 00:00 66 07/16/19 21:00 Room Air 07/16/19 20:00 78 07/16/19 20:00 97.9 70 18 114/63 (80) 97 07/16/19 16:00 97.8 66 18 97/46 (63) 97 07/16/19 16:00 75 07/16/19 12:00 71 07/16/19 12:00 98.2 72 18 105/54 (71) 99 07/16/19 09:00 Room Air Intake and Output 07/16/19 07/17/19 19:00 07:00 Intake Total 840 ml 100 ml Output Total 750 ml Balance 90 ml 100 ml Intake Oral 840 ml 100 ml Output Urine Total 750 ml # Voids 2 Objective General Appearance: no apparent distress, alert HEENT: normocephalic, atraumatic, anicteric, other - R eye blind Neck: supple Respiratory/Chest: lungs clear, no respiratory distress, no accessory muscle use Cardiovascular/Chest: normal rate Abdomen: normal bowel sounds, non tender, soft Extremities: normal range of motion, non-tender Skin Exam: warm/dry Neurologic: alert, responsive Musculoskeletal: normal muscle bulk Microbiology Date/Time Source Procedure Growth Status 07/15/19 11:00 Blood Blood Culture - Preliminary NO GROWTH AFTER 24 HOURS Resulted 07/15/19 10:55 Blood Blood Culture - Preliminary NO GROWTH AFTER 24 HOURS Resulted 07/15/19 17:45 Rectum Received Current Medications Medications (Trade) Dose Ordered Sig/Darwin Route PRN Reason Start Time Stop Time Status Last Admin Dose Admin Acetaminophen (Tylenol) 650 mg Q4H PRN ORAL Mild Pain (Pain Scale 1-3) 07/15/19 14:15 08/14/19 14:14 Al Hydroxide/Mg Hydroxide (Mylanta II) 30 ml Q6H PRN ORAL dyspepsia 07/15/19 14:15 08/14/19 14:14 Albuterol/ Ipratropium (Albuterol/ Ipratropium) 3 ml Q6H PRN HHN Shortness of Breath 07/15/19 16:30 07/20/19 16:29 Bisacodyl (Dulcolax) 10 mg HSPRN PRN RECTAL Constipation 07/15/19 14:15 08/14/19 14:14 Dextrose (Dextrose 50%) 25 ml Q30M PRN IV Hypoglycemia 07/15/19 14:15 08/14/19 14:14 Dextrose (Dextrose 50%) 25 ml Q30M PRN IV Hypoglycemia 07/15/19 23:30 08/14/19 23:29 Dextrose (Dextrose 50%) 50 ml Q30M PRN IV Hypoglycemia 07/15/19 14:15 08/14/19 14:14 Dextrose (Dextrose 50%) 50 ml Q30M PRN IV Hypoglycemia 07/15/19 23:30 08/14/19 23:29 Diphenhydramine HCl (Benadryl) 25 mg Q6H PRN ORAL Itching/Pruritis 07/15/19 14:15 08/14/19 14:14 Enoxaparin Sodium (Lovenox) 40 mg Q24H SUBQ 07/15/19 17:00 08/14/19 16:59 07/16/19 17:17 Escitalopram Oxalate (Lexapro) 5 mg DAILY ORAL 07/17/19 09:00 08/16/19 08:59 07/17/19 08:45 Famotidine (Pepcid) 40 mg DAILY ORAL 07/16/19 09:00 08/15/19 08:59 07/17/19 08:12 Hydromorphone HCl (Dilaudid) 0.5 mg Q4H PRN IVP severe pain 07/17/19 08:45 07/24/19 08:44 Insulin Aspart (NovoLOG) BEFORE MEALS AND HS SUBQ 07/16/19 06:30 08/15/19 06:29 07/17/19 06:48 Iohexol (OMNIPAQUE-300 100ml) 100 ml NOW PRN INJ Radiology Procedure 07/15/19 11:00 07/17/19 10:59 Iron Sucrose 100 mg/Sodium Chloride 60 ml @ 240 mls/hr BEDTIME IV 07/17/19 21:00 07/21/19 21:14 Lamotrigine (LaMICtal) 25 mg DAILY ORAL 07/17/19 09:00 08/16/19 08:59 07/17/19 08:45 Lorazepam (Ativan) 1 mg Q4H PRN ORAL For Anxiety 07/15/19 14:15 07/22/19 14:14 Nitroglycerin (Ntg) 0.4 mg Q5M X 3 DOSES PRN SL Prn Chest Pain 07/15/19 14:15 08/14/19 14:14 Ondansetron HCl (Zofran) 4 mg Q6H PRN IVP Nausea & Vomiting 07/15/19 14:15 08/14/19 14:14 07/17/19 08:08 Sitagliptin Phosphate (Januvia) 50 mg ACBREAKFAST ORAL 07/16/19 15:30 08/15/19 15:29 07/17/19 06:53 Tramadol HCl (Ultram) 50 mg Q6H PRN ORAL moderate pain 07/17/19 08:45 07/24/19 08:44 Katie Rose MANAGER [place] Jul 17, 2019 08:50
--- NOTE | 2019-07-17 10:35 | NUR ---
NURSE NOTES: Consent for EGD obtained per Dr Horne's order. Discussed with patient who stated " I had this done before at that hospital in [place]. It was a little over a month ago. I remember how it was. It's okay, I guess I'd better get this done again." Patient restated to this RN that will put a camera down her throat to see her stomach and she said that she understood that there was some risk, and that they might fix something surgically if they need to do so, or possibly take a sample of tissue, if needed.
[2019-07-17 10:40] LABS: BASOPHILS % (AUTO) 0.4 % (0.0-2.0); EOSINOPHILS % (AUTO) 0.3 % (0.0-3.0); HEMATOCRIT 30.6 % (37.0-47.0); HEMOGLOBIN 9.7 G/DL (12.0-16.0); LYMPHOCYTES % (AUTO) 24.5 % (20.0-45.0); MEAN CORPUSCULAR VOLUME 98 FL (80-99); MONOCYTES % (AUTO) 8.9 % (1.0-10.0); NEUTROPHILS % (AUTO) 65.9 % (45.0-75.0); PLATELET COUNT 239 K/UL (150-450); RED BLOOD COUNT 3.12 M/UL (4.20-5.40); RED CELL DISTRIBUTION WIDTH 12.1 % (11.6-14.8); WHITE BLOOD COUNT 5.1 K/UL (4.8-10.8)
--- NOTE | 2019-07-17 10:55 | NUR ---
NURSE NOTES: aox4 with occasionally anxious but pleasant and cooperative affect. Breathing easily on RA with no sign of cardiac or respiratory distress. C/O pain--reduced well with dilaudid per emar. Patient stated "pain doctor came by and changed the dose for dilaudid to .5 every 4 hours" (instead of 1mg q6Hr) in order to mitigate any side effects. Pain to abd and head. Tylenol on emar, however patient stated "I can't take tylenol because I have cirrhosis". Bed in lowest, locked position and fall risk precautions in effect including yellow socks, signage, explanation and restatement by patient to call when needing to get oob. Bed alarm on. Bedpan within reach per patient request. Call barahona in reach.
[2019-07-17 10:59] LABS: ALANINE AMINOTRANSFERASE 74 U/L (12-78); ALBUMIN/GLOBULIN RATIO 0.6 (1.0-2.7); ALKALINE PHOSPHATASE 137 U/L (46-116); ANION GAP 7 mmol/L (5-15); ASPARTATE AMINO TRANSFERASE 89 U/L (15-37); BILIRUBIN,TOTAL 0.5 MG/DL (0.2-1.0); BLOOD UREA NITROGEN 19 mg/dL (7-18); CALCIUM 8.5 MG/DL (8.5-10.1); CARBON DIOXIDE 29 MMOL/L (21-32); CHLORIDE 102 MMOL/L (98-107); CREATININE 1.1 MG/DL (0.55-1.30); POTASSIUM 3.8 MMOL/L (3.5-5.1); SODIUM 137 MMOL/L (136-145)
[2019-07-17 11:00] LABS: AMMONIA 19 umol/L (11-32)
--- NOTE | 2019-07-17 11:30 | Progress Note ---
DATE: 07/17/2019 SUBJECTIVE: The patient is a 79-year-old female with abdominal pain and uncontrolled diabetes. This patient continues to have some mood lability, confusion, urinary tract infection, diabetes, but causing her to have increased depression and mood lability worsened by stress of her medical illness as well as altered mental status. That is why, her attending has requested daily psychiatric consultation. DIAGNOSIS: Major depressive disorder, mild, recurrent with psychotic features, rule out bipolar 2. PLAN: Treat her with Lexapro 5 mg daily, mg daily, and Ativan 1 mg every 4 hours p.r.n. anxiety and agitation. Provided her with 20 minutes of cognitive behavioral therapy to help her identify automatic negative thoughts and help to convert her negative thoughts to more positive thoughts to reduce depression, anxiety, and mood lability. Chart reviewed. Discussed with staff. Seen and assessed in her room. Juany Sullivan M.D. DR: SUSAN JOB#: [id number] CC:
[2019-07-17 11:45] LABS: % IRON SATURATION 9 % (15-50); IRON 40 ug/dL (50-175); TOTAL IRON BINDING CAPACITY 468 ug/dL (250-450)
[2019-07-17 11:51] VITALS: BP 104/57
--- NOTE | 2019-07-17 13:12 | Hematology/Onc Progress Note ---
Assessment/Plan Assessment/Plan Assessment/Plan: # Pancytopenia secondary to underlying cirrhosis. with a history of C from prior admission, hx cirrhosis again --> IV iron has been started x 5 days ferritin is 34 --> hgb goal is >7, transfuse as needed --> have ordered us abd, has been >6mo --> get SPEP GIVEN high PROTEIN - followup results outpatient --> trend wbc 5.9--> 4.5--> 5.5 -->5.1 # Anemia due to gi bleed --> Continue to closely monitor for improvement. --> Currently, stable. --> hgb trend:8.8--> 9.7 -> per gi may need egd/colo # Hepatitis C. Outpatient management per the patient. Has been treated before for hepatitis C. --> outpatient management and treatment --> viral load as needed --> smear reviewed, no hemolysis --> Afp ordered as prior was elevated (2013 was high) # Diabetes mellitus. A1c goal less than 7. --> accuchecks qac and qhs # HTN with sbp goal <150 --> per cards # Recurrent major depressive disorder. Psychotherapy as per Psychiatry and Psychology. # Protein-calorie malnutrition. # Hepatitis C. # Liver cirrhosis. # Electrolyte abnml --> as per renal The timing of this note does not necessarily reflect the time of the patient was seen. Greatly appreciate consultation. Subjective HEENT: Denies: no symptoms, eye pain, blurred vision, tearing, double vision, ear pain, ear discharge, nose pain, nose congestion, throat pain, throat swelling, mouth pain, mouth swelling, other Respiratory: Denies: no symptoms, cough, shortness of breath, SOB with excertion, SOB at rest, sputum, wheezing, other Gastrointestinal/Abdominal: Denies: no symptoms, abdomen distended, abdominal pain, black stools, tarry stools, blood in stool, constipated, diarrhea, difficulty swallowing, nausea, poor appetite, poor fluid intake, rectal bleeding , vomiting, other Genitourinary: Denies: no symptoms, burning, discharge, frequency, flank pain, hematuria, incontinence, pain, urgency, other Neurologic/Psychiatric: Denies: no symptoms, anxiety, depressed, emotional problems, headache, numbness, paresthesia, pre-existing deficit, seizure, tingling, tremors, weakness, other Hematologic/Lymphatic: Denies: no symptoms, anemia, easy bleeding, easy bruising, adenopathy, other Allergies: Coded Allergies: HORSERADISH (Verified Allergy, Unknown, Rash, 04/28/19) Subjective 10.13: lowered dose of pain meds, lower dose of dilaudid, no bleeding or chills Objective Objective Current Medications Medications (Trade) Dose Ordered Sig/Darwin Route PRN Reason Start Time Stop Time Status Last Admin Dose Admin Acetaminophen (Tylenol) 650 mg Q4H PRN ORAL Mild Pain (Pain Scale 1-3) 07/15/19 14:15 08/14/19 14:14 Al Hydroxide/Mg Hydroxide (Mylanta II) 30 ml Q6H PRN ORAL dyspepsia 07/15/19 14:15 08/14/19 14:14 Albuterol/ Ipratropium (Albuterol/ Ipratropium) 3 ml Q6H PRN HHN Shortness of Breath 07/15/19 16:30 07/20/19 16:29 Bisacodyl (Dulcolax) 10 mg HSPRN PRN RECTAL Constipation 07/15/19 14:15 08/14/19 14:14 Dextrose (Dextrose 50%) 25 ml Q30M PRN IV Hypoglycemia 07/15/19 23:30 08/14/19 23:29 Dextrose (Dextrose 50%) 50 ml Q30M PRN IV Hypoglycemia 07/15/19 23:30 08/14/19 23:29 Diphenhydramine HCl (Benadryl) 25 mg Q6H PRN ORAL Itching/Pruritis 07/15/19 14:15 08/14/19 14:14 Enoxaparin Sodium (Lovenox) 40 mg Q24H SUBQ 07/15/19 17:00 08/14/19 16:59 07/16/19 17:17 Escitalopram Oxalate (Lexapro) 5 mg DAILY ORAL 07/17/19 09:00 08/16/19 08:59 07/17/19 08:45 Famotidine (Pepcid) 40 mg DAILY ORAL 07/16/19 09:00 08/15/19 08:59 07/17/19 08:12 Hydromorphone HCl (Dilaudid) 0.5 mg Q4H PRN IVP severe pain 07/17/19 08:45 07/24/19 08:44 Insulin Aspart (NovoLOG) BEFORE MEALS AND HS SUBQ 07/16/19 06:30 08/15/19 06:29 07/17/19 11:40 Iron Sucrose 100 mg/Sodium Chloride 60 ml @ 240 mls/hr BEDTIME IV 07/17/19 21:00 07/21/19 21:14 Lamotrigine (LaMICtal) 25 mg DAILY ORAL 07/17/19 09:00 08/16/19 08:59 07/17/19 08:45 Lorazepam (Ativan) 1 mg Q4H PRN ORAL For Anxiety 07/15/19 14:15 07/22/19 14:14 Nitroglycerin (Ntg) 0.4 mg Q5M X 3 DOSES PRN SL Prn Chest Pain 07/15/19 14:15 08/14/19 14:14 Ondansetron HCl (Zofran) 4 mg Q6H PRN IVP Nausea & Vomiting 07/15/19 14:15 08/14/19 14:14 07/17/19 08:08 Sitagliptin Phosphate (Januvia) 50 mg ACBREAKFAST ORAL 07/16/19 15:30 08/15/19 15:29 07/17/19 06:53 Tramadol HCl (Ultram) 50 mg Q6H PRN ORAL moderate pain 07/17/19 08:45 07/24/19 08:44 Last 24 Hour Vital Signs Date Time Temp Pulse Resp B/P (MAP) Pulse Ox O2 Delivery O2 Flow Rate FiO2 07/17/19 12:00 68 07/17/19 11:51 97.9 69 19 104/57 (73) 97 07/17/19 09:00 Room Air 07/17/19 08:48 98.5 07/17/19 08:00 76 07/17/19 08:00 98.2 92 17 133/69 (90) 95 07/17/19 04:00 72 07/17/19 04:00 98.5 78 13 129/72 (91) 97 07/17/19 00:00 97.8 68 18 115/58 (77) 97 07/17/19 00:00 66 07/16/19 21:00 Room Air 07/16/19 20:00 78 07/16/19 20:00 97.9 70 18 114/63 (80) 97 07/16/19 16:00 97.8 66 18 97/46 (63) 97 07/16/19 16:00 75 07/16/19 12:00 71 07/16/19 12:00 98.2 72 18 105/54 (71) 99 07/16/19 09:00 Room Air 07/16/19 08:00 98.4 73 18 106/59 (75) 95 07/16/19 08:00 73 07/16/19 04:00 98.2 69 18 127/70 (89) 98 07/16/19 04:00 71 07/16/19 03:20 Room Air 07/16/19 00:00 69 07/16/19 00:00 97.7 70 18 118/61 (80) 96 07/15/19 21:00 Room Air 07/15/19 20:00 70 07/15/19 20:00 98.0 71 16 128/71 (90) 100 07/15/19 19:03 97.7 78 19 138/86 100 Room Air 07/15/19 16:00 97.7 78 19 138/86 100 Room Air Intake and Output 07/16/19 07/17/19 19:00 07:00 Intake Total 840 ml 100 ml Output Total 750 ml Balance 90 ml 100 ml Intake Oral 840 ml 100 ml Output Urine Total 750 ml # Voids 2 Labs Test 07/15/19 11:00 07/15/19 11:14 07/16/19 06:32 07/17/19 10:20 White Blood Count 5.6 K/UL (4.8-10.8) 6.4 K/UL (4.8-10.8) 5.1 K/UL (4.8-10.8) Red Blood Count 2.79 M/UL (4.20-5.40) 2.93 M/UL (4.20-5.40) 3.12 M/UL (4.20-5.40) Hemoglobin 8.8 G/DL (12.0-16.0) 9.3 G/DL (12.0-16.0) 9.7 G/DL (12.0-16.0) Hematocrit 27.6 % (37.0-47.0) 28.6 % (37.0-47.0) 30.6 % (37.0-47.0) Mean Corpuscular Volume 99 FL (80-99) 98 FL (80-99) 98 FL (80-99) Mean Corpuscular Hemoglobin 31.4 PG (27.0-31.0) 31.6 PG (27.0-31.0) 31.2 PG (27.0-31.0) Mean Corpuscular Hemoglobin Concent 31.8 G/DL (32.0-36.0) 32.4 G/DL (32.0-36.0) 31.8 G/DL (32.0-36.0) Red Cell Distribution Width 12.1 % (11.6-14.8) 11.9 % (11.6-14.8) 12.1 % (11.6-14.8) Platelet Count 200 K/UL (150-450) 228 K/UL (150-450) 239 K/UL (150-450) Mean Platelet Volume 6.6 FL (6.5-10.1) 6.3 FL (6.5-10.1) 6.0 FL (6.5-10.1) Neutrophils (%) (Auto) 61.1 % (45.0-75.0) 63.2 % (45.0-75.0) 65.9 % (45.0-75.0) Lymphocytes (%) (Auto) 25.9 % (20.0-45.0) 26.2 % (20.0-45.0) 24.5 % (20.0-45.0) Monocytes (%) (Auto) 12.0 % (1.0-10.0) 9.3 % (1.0-10.0) 8.9 % (1.0-10.0) Eosinophils (%) (Auto) 0.1 % (0.0-3.0) 0.6 % (0.0-3.0) 0.3 % (0.0-3.0) Basophils (%) (Auto) 0.8 % (0.0-2.0) 0.7 % (0.0-2.0) 0.4 % (0.0-2.0) Sodium Level 141 MMOL/L (136-145) 139 MMOL/L (136-145) 137 MMOL/L (136-145) Potassium Level 4.4 MMOL/L (3.5-5.1) 3.8 MMOL/L (3.5-5.1) 3.8 MMOL/L (3.5-5.1) Chloride Level 105 MMOL/L (98-107) 103 MMOL/L (98-107) 102 MMOL/L (98-107) Carbon Dioxide Level 32 MMOL/L (21-32) 29 MMOL/L (21-32) 29 MMOL/L (21-32) Anion Gap 4 mmol/L (5-15) 7 mmol/L (5-15) 7 mmol/L (5-15) Blood Urea Nitrogen 10 mg/dL (7-18) 19 mg/dL (7-18) 19 mg/dL (7-18) Creatinine 0.9 MG/DL (0.55-1.30) 1.2 MG/DL (0.55-1.30) 1.1 MG/DL (0.55-1.30) Estimat Glomerular Filtration Rate mL/min (>60) mL/min (>60) mL/min (>60) Glucose Level 195 MG/DL (74-106) 184 MG/DL (74-106) 223 MG/DL (74-106) Lactic Acid Level 2.00 mmol/L (0.4-2.0) Calcium Level 8.9 MG/DL (8.5-10.1) 9.0 MG/DL (8.5-10.1) 8.5 MG/DL (8.5-10.1) Phosphorus Level 2.9 MG/DL (2.5-4.9) Magnesium Level 1.7 MG/DL (1.8-2.4) 1.7 MG/DL (1.8-2.4) 1.9 MG/DL (1.8-2.4) Total Bilirubin 0.4 MG/DL (0.2-1.0) 0.5 MG/DL (0.2-1.0) Aspartate Amino Transf (AST/SGOT) 55 U/L (15-37) 89 U/L (15-37) Alanine Aminotransferase (ALT/SGPT) 64 U/L (12-78) 74 U/L (12-78) Alkaline Phosphatase 145 U/L (46-116) 137 U/L (46-116) Total Creatine Kinase 126 U/L (26-308) Creatine Kinase MB < 0.5 NG/ML (0.0-3.6) Creatine Kinase MB Relative Index Troponin I 0.000 ng/mL (0.000-0.056) Total Protein 8.0 G/DL (6.4-8.2) 8.1 G/DL (6.4-8.2) Albumin 3.0 G/DL (3.4-5.0) 3.0 G/DL (3.4-5.0) Globulin 5.0 g/dL 5.1 g/dL Albumin/Globulin Ratio 0.6 (1.0-2.7) 0.6 (1.0-2.7) Urine Color Pale yellow Urine Appearance Clear Urine pH 6.5 (4.5-8.0) Urine Specific [place] 1.015 (1.005-1.035) Urine Protein Negative (NEGATIVE) Urine Glucose (UA) 3+ (NEGATIVE) Urine Ketones Negative (NEGATIVE) Urine Blood Negative (NEGATIVE) Urine Nitrite Negative (NEGATIVE) Urine Bilirubin Negative (NEGATIVE) Urine Urobilinogen Normal MG/DL (0.0-1.0) Urine Leukocyte Esterase Negative (NEGATIVE) Prothrombin Time 11.3 SEC (9.30-11.50) Prothromb Time International Ratio 1.1 (0.9-1.1) Hemoglobin A1c 6.6 % (4.3-6.0) Iron Level 44 ug/dL (50-175) 40 ug/dL (50-175) Total Iron Binding Capacity 442 ug/dL (250-450) 468 ug/dL (250-450) Percent Iron Saturation 10 % (15-50) 9 % (15-50) Unsaturated Iron Binding 398 ug/dL (112-346) 428 ug/dL (112-346) Ferritin 34 NG/ML (8-388) Vitamin B12 Level 356 PG/ML (193-986) 391 PG/ML (193-986) Folate 17.2 NG/ML (8.6-58.9) 18.0 NG/ML (8.6-58.9) Ammonia 19 umol/L (11-32) Height (Feet): 5 Height (Inches): 5.00 Weight (Pounds): 120 Objective Physical Exam: Vitals: reviewed General Appearance: NAD HEENT: normocephalic, atraumatic Neck: non-tender, normal alignment Respiratory/Chest: normal breath sounds bilaterally Cardiovascular/Chest: normal peripheral pulses, normal rate Abdomen: normal bowel sounds, soft, nontende Jr Loredo MD Jul 17, 2019 13:12
[2019-07-17] MEDS: Hydromorphone 0.5mg/0.5ml inj IVP PRN ×2 (14:10→21:00)
--- NOTE | 2019-07-17 14:21 | NUR ---
NURSE NOTES: Suppository given--no BM for 3 days. Stool sample, uncollected.
[2019-07-17 16:00] VITALS: BP 105/66
[2019-07-17] MEDS: Enoxaparin 40mg Inj SUBQ SCH (16:50)
[2019-07-17] MEDS ORDERED: Albuterol/Ipratropium 3ml neb HHN PRN (18:30)
[2019-07-17] MEDS ORDERED: Albuterol/Ipratropium 3ml neb HHN SCH (18:30)
[2019-07-17] MEDS ORDERED: Valproate Sodium INJ 500 MG in D5W 55 ML IVPB ONE (18:30)
[2019-07-17] MEDS ORDERED: HydrALAZINE 25mg tab ORAL PRN (18:30)
--- NOTE | 2019-07-17 19:40 | NUR ---
Received patient from [facility],in stable condition, AOx4, patient complains of pain 04/13, patient blind in both eyes, as per patient she can't see at all with her right eye and vision is limited in her left too, IV site on left AC, running, patent, asymptomatic, bed low&locked, side rails upx3, call light within reach , will continue to monitor and reassess
[2019-07-17 20:00] VITALS: BP 129/69
[2019-07-17] MEDS: Iron Sucrose 100 MG in NS 55 ML IV SCH (20:58)
[2019-07-17] MEDS ORDERED: Atorvastatin 20mg tab ORAL SCH (21:00)
[2019-07-18] VITALS (11 sets, daily range): BP systolic 114–152; BP diastolic 64–79
[2019-07-18] MEDS: NovoLOG Insulin Flexpen SUBQ SCH ×4 (05:59→21:48)
[2019-07-18] MEDS: sitaGLIPtin 50mg tab ORAL SCH (06:03)
--- NOTE | 2019-07-18 06:42 | General Progress Note ---
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 SNOMED: 725393412 (2) Uncontrolled diabetes mellitus ICD Codes: E11.65 - Type 2 diabetes mellitus with hyperglycemia SNOMED: 88144855, 331555667 Assessment/Plan: continue Januvia 50 mg daily continue NISS ac / hs Subjective Allergies: Coded Allergies: HORSERADISH (Verified Allergy, Unknown, Rash, 04/28/19) All Systems: reviewed and negative except above Subjective events noted glucose values are mostly stable - only one elevated value Item Value Date Time Bedside Blood Glucose 172 mg/dl H 07/18/19 0559 Bedside Blood Glucose 152 mg/dl H 07/17/19 2153 Bedside Blood Glucose 110 mg/dl 07/17/19 1635 Bedside Blood Glucose 263 mg/dl H 07/17/19 1140 Bedside Blood Glucose 115 mg/dl 07/17/19 0648 Objective Last 24 Hour Vital Signs Date Time Temp Pulse Resp B/P (MAP) Pulse Ox O2 Delivery O2 Flow Rate FiO2 07/18/19 04:00 64 07/18/19 04:00 96.8 82 16 126/72 (90) 96 07/18/19 00:00 67 07/18/19 00:00 97.5 74 16 129/70 (89) 95 07/17/19 21:00 Room Air 07/17/19 20:00 71 07/17/19 20:00 97.5 79 16 129/69 (89) 96 07/17/19 16:00 70 07/17/19 16:00 97.9 77 20 105/66 (79) 96 07/17/19 14:37 97.9 07/17/19 12:00 68 07/17/19 11:51 97.9 69 19 104/57 (73) 97 07/17/19 09:00 Room Air 07/17/19 08:48 98.5 07/17/19 08:00 76 07/17/19 08:00 98.2 92 17 133/69 (90) 95 Intake and Output 07/17/19 07/18/19 19:00 07:00 Intake Total 630 ml Output Total 150 ml Balance 480 ml Intake Oral 630 ml Output Urine Total 150 ml # Voids 2 2 Laboratory Tests 07/17/19 10:20: White Blood Count 5.1, Red Blood Count 3.12L, Hemoglobin 9.7L, Hematocrit 30.6L , Mean Corpuscular Volume 98, Mean Corpuscular Hemoglobin 31.2H, Mean Corpuscular Hemoglobin Concent 31.8L, Red Cell Distribution Width 12.1, Platelet Count 239, Mean Platelet Volume 6.0L, Neutrophils (%) (Auto) 65.9, Lymphocytes (%) (Auto) 24.5, Monocytes (%) (Auto) 8.9, Eosinophils (%) (Auto) 0.3, Basophils (%) (Auto) 0.4, Sodium Level 137, Potassium Level 3.8, Chloride Level 102, Carbon Dioxide Level 29, Anion Gap 7, Blood Urea Nitrogen 19H, Creatinine 1.1, Estimat Glomerular Filtration Rate , Glucose Level 223H, Calcium Level 8.5, Magnesium Level 1.9, Iron Level 40L, Total Iron Binding Capacity 468H, Percent Iron Saturation 9L, Unsaturated Iron Binding 428H, Total Bilirubin 0.5, Aspartate Amino Transf (AST/SGOT) 89H, Alanine Aminotransferase ( ALT/SGPT) 74, Alkaline Phosphatase 137H, Ammonia 19, Total Protein 8.1, Albumin 3.0L, Globulin 5.1, Albumin/Globulin Ratio 0.6L, Alpha Fetoprotein [Pending], Carcinoembryonic Antigen [Pending], Vitamin B12 Level 391, Folate 18.0, Hepatitis A IgM Antibody [Pending], Hepatitis B Surface Antigen [Pending], Hepatitis B Core IgM Antibody [Pending], Hepatitis C Antibody [Pending] Height (Feet): 5 Height (Inches): 5.00 Weight (Pounds): 120 General Appearance: no apparent distress Cardiovascular: normal rate Respiratory/Chest: lungs clear Abdomen: normal bowel sounds Objective Current Medications Medications (Trade) Dose Ordered Sig/Darwin Route PRN Reason Start Time Stop Time Status Last Admin Dose Admin Acetaminophen (Tylenol) 650 mg Q4H PRN ORAL Mild Pain (Pain Scale 1-3) 07/15/19 14:15 08/14/19 14:14 Al Hydroxide/Mg Hydroxide (Mylanta II) 30 ml Q6H PRN ORAL dyspepsia 07/15/19 14:15 08/14/19 14:14 Albuterol/ Ipratropium (Albuterol/ Ipratropium) 3 ml Q6H PRN HHN Shortness of Breath 07/15/19 16:30 07/20/19 16:29 Bisacodyl (Dulcolax) 10 mg HSPRN PRN RECTAL Constipation 07/15/19 14:15 08/14/19 14:14 07/17/19 14:16 Dextrose (Dextrose 50%) 25 ml Q30M PRN IV Hypoglycemia 07/15/19 23:30 08/14/19 23:29 Dextrose (Dextrose 50%) 50 ml Q30M PRN IV Hypoglycemia 07/15/19 23:30 08/14/19 23:29 Diphenhydramine HCl (Benadryl) 25 mg Q6H PRN ORAL Itching/Pruritis 07/15/19 14:15 08/14/19 14:14 Enoxaparin Sodium (Lovenox) 40 mg Q24H SUBQ 07/15/19 17:00 08/14/19 16:59 07/17/19 16:50 Escitalopram Oxalate (Lexapro) 5 mg DAILY ORAL 07/17/19 09:00 08/16/19 08:59 07/17/19 08:45 Famotidine (Pepcid) 40 mg DAILY ORAL 07/16/19 09:00 08/15/19 08:59 07/17/19 08:12 Hydromorphone HCl (Dilaudid) 0.5 mg Q4H PRN IVP severe pain 07/17/19 08:45 07/24/19 08:44 07/17/19 21:00 Insulin Aspart (NovoLOG) BEFORE MEALS AND HS SUBQ 07/16/19 06:30 08/15/19 06:29 07/17/19 21:53 Iron Sucrose 100 mg/Sodium Chloride 60 ml @ 240 mls/hr BEDTIME IV 07/17/19 21:00 07/21/19 21:14 07/17/19 20:58 Lamotrigine (LaMICtal) 25 mg DAILY ORAL 07/17/19 09:00 08/16/19 08:59 07/17/19 08:45 Lorazepam (Ativan) 1 mg Q4H PRN ORAL For Anxiety 07/15/19 14:15 07/22/19 14:14 Nitroglycerin (Ntg) 0.4 mg Q5M X 3 DOSES PRN SL Prn Chest Pain 07/15/19 14:15 08/14/19 14:14 Ondansetron HCl (Zofran) 4 mg Q6H PRN IVP Nausea & Vomiting 07/15/19 14:15 08/14/19 14:14 07/17/19 08:08 Sitagliptin Phosphate (Januvia) 50 mg ACBREAKFAST ORAL 07/16/19 15:30 08/15/19 15:29 07/17/19 06:53 Tramadol HCl (Ultram) 50 mg Q6H PRN ORAL moderate pain 07/17/19 08:45 07/24/19 08:44 Abundio Nassar MD Jul 18, 2019 06:42
--- NOTE | 2019-07-18 07:04 | NUR ---
HAND-OFF: Report given to [facility], patient in stable condition, plan of care endorsed.
[2019-07-18 07:12] LABS: BASOPHILS % (AUTO) 1.4 % (0.0-2.0); EOSINOPHILS % (AUTO) 0.3 % (0.0-3.0); HEMATOCRIT 27.9 % (37.0-47.0); HEMOGLOBIN 8.9 G/DL (12.0-16.0); LYMPHOCYTES % (AUTO) 29.3 % (20.0-45.0); MEAN CORPUSCULAR VOLUME 97 FL (80-99); MONOCYTES % (AUTO) 13.1 % (1.0-10.0); NEUTROPHILS % (AUTO) 55.9 % (45.0-75.0); PLATELET COUNT 205 K/UL (150-450); RED BLOOD COUNT 2.86 M/UL (4.20-5.40); RED CELL DISTRIBUTION WIDTH 11.9 % (11.6-14.8); WHITE BLOOD COUNT 4.9 K/UL (4.8-10.8)
[2019-07-18 07:41] LABS: ALANINE AMINOTRANSFERASE 68 U/L (12-78); ALBUMIN 2.8 G/DL (3.4-5.0); ALBUMIN/GLOBULIN RATIO 0.7 (1.0-2.7); ALKALINE PHOSPHATASE 133 U/L (46-116); ANION GAP 7 mmol/L (5-15); ASPARTATE AMINO TRANSFERASE 78 U/L (15-37); BILIRUBIN,TOTAL 0.3 MG/DL (0.2-1.0); BLOOD UREA NITROGEN 20 mg/dL (7-18); CALCIUM 8.5 MG/DL (8.5-10.1); CARBON DIOXIDE 29 MMOL/L (21-32); CHLORIDE 105 MMOL/L (98-107); CHOLESTEROL 195 MG/DL (< 200); HDL CHOLESTEROL 100 MG/DL (40-60); POTASSIUM 4.1 MMOL/L (3.5-5.1); SODIUM 141 MMOL/L (136-145); TRIGLYCERIDES 65 MG/DL (30-150)
[2019-07-18 07:43] LABS: AMMONIA 39 umol/L (11-32)
[2019-07-18] MEDS ORDERED: Atropine Inj 1mg/10ml Syr IV PRN (08:00)
[2019-07-18] MEDS ORDERED: fentaNYL 100 mcg/2 mL IV PRN (08:00)
[2019-07-18] MEDS ORDERED: DiphenhydrAMINE 50mg/ml Inj IVP PRN (08:00)
[2019-07-18] MEDS ORDERED: Midazolam 2mg/2ml Inj IVP PRN (08:00)
--- NOTE | 2019-07-18 08:19 | NUR ---
NURSE NOTES: Received report from [facility]. Patient aox4 with calm, cooperative affect. On bedpan for void at shift change. patient stated she understands she is going for an EGD this morning and has been NPO since midnight. No sign of respiratory or cardiac distress. Dr Loredo at bedside requested consult placement for anemia and stated he would like to follow/eval tomorrow's labs. Bed in lowest, locked postion and call [place] and bedpan in reach.
--- NOTE | 2019-07-18 08:28 | Hematology/Onc Progress Note ---
Assessment/Plan Assessment/Plan Assessment/Plan: # Pancytopenia secondary to underlying cirrhosis. with a history of C from prior admission, hx cirrhosis again --> IV iron has been started x 5 days ferritin is 34 --> hgb goal is >7, transfuse as needed --> have ordered us abd, has been >6mo --> get SPEP GIVEN high PROTEIN - followup results outpatient --> trend wbc 5.9--> 4.5--> 5.5 -->5.1 # Anemia due to gi bleed --> Continue to closely monitor for improvement. --> Currently, stable. --> hgb trend:8.8--> 9.7-->8.9 -> per gi may need egd/colo 07/18 # Hepatitis C. Outpatient management per the patient. Has been treated before for hepatitis C. --> outpatient management and treatment --> viral load as needed --> smear reviewed, no hemolysis --> Afp ordered as prior was elevated (2012 was high) # Diabetes mellitus. A1c goal less than 7. --> accuchecks qac and qhs # HTN with sbp goal <150 --> per cards # Recurrent major depressive disorder. Psychotherapy as per Psychiatry and Psychology. # Protein-calorie malnutrition. # Hepatitis C. # Liver cirrhosis. # Electrolyte abnml --> as per renal The timing of this note does not necessarily reflect the time of the patient was seen. Greatly appreciate consultation. Subjective Respiratory: Denies: no symptoms, cough, shortness of breath, SOB with excertion, SOB at rest, sputum, wheezing, other Genitourinary: Denies: no symptoms, burning, discharge, frequency, flank pain, hematuria, incontinence, pain, urgency, other Neurologic/Psychiatric: Denies: no symptoms, anxiety, depressed, emotional problems, headache, numbness, paresthesia, pre-existing deficit, seizure, tingling, tremors, weakness, other Endocrine: Denies: no symptoms, excessive sweating, flushing, intolerance to cold, intolerance to heat, increased hunger, increased thirst, increased urine, unexplained weight gain, unexplained weight loss, other Hematologic/Lymphatic: Denies: no symptoms, anemia, easy bleeding, easy bruising, adenopathy, other Allergies: Coded Allergies: HORSERADISH (Verified Allergy, Unknown, Rash, 04/28/19) Subjective 10.13: lowered dose of pain meds, lower dose of dilaudid, no bleeding or chills 07/18: is going for egd this am, remains npo, no events, hgb 8.9 Objective Objective Current Medications Medications (Trade) Dose Ordered Sig/Darwin Route PRN Reason Start Time Stop Time Status Last Admin Dose Admin Acetaminophen (Tylenol) 650 mg Q4H PRN ORAL Mild Pain (Pain Scale 1-3) 07/15/19 14:15 08/14/19 14:14 Acetaminophen (Tylenol) 650 mg Q4H PRN ORAL Mild Pain (Pain Scale 1-3) 07/18/19 08:00 UNV Al Hydroxide/Mg Hydroxide (Mylanta II) 30 ml Q6H PRN ORAL dyspepsia 07/15/19 14:15 08/14/19 14:14 Al Hydroxide/Mg Hydroxide (Mylanta) 15 ml Q1H PRN ORAL gi upset 07/18/19 08:00 UNV Albuterol/ Ipratropium (Albuterol/ Ipratropium) 3 ml Q6H PRN HHN Shortness of Breath 07/15/19 16:30 07/20/19 16:29 Atropine Sulfate (Atropine) 0.5 mg Q5M PRN IV bpm less than 45 07/18/19 08:00 UNV Bisacodyl (Dulcolax) 10 mg HSPRN PRN RECTAL Constipation 07/15/19 14:15 08/14/19 14:14 07/17/19 14:16 Dextrose (Dextrose 50%) 25 ml Q30M PRN IV Hypoglycemia 07/15/19 23:30 08/14/19 23:29 Dextrose (Dextrose 50%) 50 ml Q30M PRN IV Hypoglycemia 07/15/19 23:30 08/14/19 23:29 Diphenhydramine HCl (Benadryl) 25 mg Q15M PRN IVP Itching 07/18/19 08:00 UNV Diphenhydramine HCl (Benadryl) 25 mg Q6H PRN ORAL Itching/Pruritis 07/15/19 14:15 08/14/19 14:14 Enoxaparin Sodium (Lovenox) 40 mg Q24H SUBQ 07/15/19 17:00 08/14/19 16:59 07/17/19 16:50 Escitalopram Oxalate (Lexapro) 5 mg DAILY ORAL 07/17/19 09:00 08/16/19 08:59 07/17/19 08:45 Famotidine (Pepcid) 40 mg DAILY ORAL 07/16/19 09:00 08/15/19 08:59 07/17/19 08:12 Fentanyl Citrate (Sublimaze 100 mcg/2 mL) 25 mcg Q10M PRN IV Moderate Pain (Pain Scale 4-6) 07/18/19 08:00 UNV Hydralazine HCl (Apresoline) 5 mg Q30M PRN IV SBP>160 OR___/DBP>90 OR___ 07/18/19 08:00 UNV Hydromorphone HCl (Dilaudid) 0.5 mg Q4H PRN IVP severe pain 07/17/19 08:45 07/24/19 08:44 07/17/19 21:00 Insulin Aspart (NovoLOG) BEFORE MEALS AND HS SUBQ 07/16/19 06:30 08/15/19 06:29 07/17/19 21:53 Iron Sucrose 100 mg/Sodium Chloride 60 ml @ 240 mls/hr BEDTIME IV 07/17/19 21:00 07/21/19 21:14 07/17/19 20:58 Lamotrigine (LaMICtal) 25 mg DAILY ORAL 07/17/19 09:00 08/16/19 08:59 07/17/19 08:45 Lorazepam (Ativan) 1 mg Q4H PRN ORAL For Anxiety 07/15/19 14:15 07/22/19 14:14 Midazolam HCl (Versed 2mg/2ml vial) 1 mg Q15M PRN IVP For Anxiety 07/18/19 08:00 UNV Nitroglycerin (Ntg) 0.4 mg Q5M X 3 DOSES PRN SL Prn Chest Pain 07/15/19 14:15 08/14/19 14:14 Ondansetron HCl (Zofran) 4 mg Q6H PRN IVP Nausea & Vomiting 07/15/19 14:15 08/14/19 14:14 07/17/19 08:08 Sitagliptin Phosphate (Januvia) 50 mg ACBREAKFAST ORAL 07/16/19 15:30 08/15/19 15:29 07/17/19 06:53 Sodium Chloride 1,000 ml @ 10 mls/hr Q24H IVLG 07/18/19 07:50 07/18/19 09:49 UNV Tramadol HCl (Ultram) 50 mg Q6H PRN ORAL moderate pain 07/17/19 08:45 07/24/19 08:44 Last 24 Hour Vital Signs Date Time Temp Pulse Resp B/P (MAP) Pulse Ox O2 Delivery O2 Flow Rate FiO2 07/18/19 04:00 64 07/18/19 04:00 96.8 82 16 126/72 (90) 96 07/18/19 00:00 67 07/18/19 00:00 97.5 74 16 129/70 (89) 95 07/17/19 21:00 Room Air 07/17/19 20:00 71 07/17/19 20:00 97.5 79 16 129/69 (89) 96 07/17/19 16:00 70 07/17/19 16:00 97.9 77 20 105/66 (79) 96 07/17/19 14:37 97.9 07/17/19 12:00 68 07/17/19 11:51 97.9 69 19 104/57 (73) 97 07/17/19 09:00 Room Air 07/17/19 08:48 98.5 07/17/19 08:00 76 07/17/19 08:00 98.2 92 17 133/69 (90) 95 07/17/19 04:00 72 07/17/19 04:00 98.5 78 13 129/72 (91) 97 07/17/19 00:00 97.8 68 18 115/58 (77) 97 07/17/19 00:00 66 07/16/19 21:00 Room Air 07/16/19 20:00 78 07/16/19 20:00 97.9 70 18 114/63 (80) 97 07/16/19 16:00 97.8 66 18 97/46 (63) 97 07/16/19 16:00 75 07/16/19 12:00 71 07/16/19 12:00 98.2 72 18 105/54 (71) 99 07/16/19 09:00 Room Air Intake and Output 07/17/19 07/18/19 19:00 07:00 Intake Total 630 ml Output Total 150 ml Balance 480 ml Intake Oral 630 ml Output Urine Total 150 ml # Voids 2 2 Labs Test 07/15/19 11:00 07/15/19 11:14 07/16/19 06:32 07/17/19 10:20 White Blood Count 5.6 K/UL (4.8-10.8) 6.4 K/UL (4.8-10.8) 5.1 K/UL (4.8-10.8) Red Blood Count 2.79 M/UL (4.20-5.40) 2.93 M/UL (4.20-5.40) 3.12 M/UL (4.20-5.40) Hemoglobin 8.8 G/DL (12.0-16.0) 9.3 G/DL (12.0-16.0) 9.7 G/DL (12.0-16.0) Hematocrit 27.6 % (37.0-47.0) 28.6 % (37.0-47.0) 30.6 % (37.0-47.0) Mean Corpuscular Volume 99 FL (80-99) 98 FL (80-99) 98 FL (80-99) Mean Corpuscular Hemoglobin 31.4 PG (27.0-31.0) 31.6 PG (27.0-31.0) 31.2 PG (27.0-31.0) Mean Corpuscular Hemoglobin Concent 31.8 G/DL (32.0-36.0) 32.4 G/DL (32.0-36.0) 31.8 G/DL (32.0-36.0) Red Cell Distribution Width 12.1 % (11.6-14.8) 11.9 % (11.6-14.8) 12.1 % (11.6-14.8) Platelet Count 200 K/UL (150-450) 228 K/UL (150-450) 239 K/UL (150-450) Mean Platelet Volume 6.6 FL (6.5-10.1) 6.3 FL (6.5-10.1) 6.0 FL (6.5-10.1) Neutrophils (%) (Auto) 61.1 % (45.0-75.0) 63.2 % (45.0-75.0) 65.9 % (45.0-75.0) Lymphocytes (%) (Auto) 25.9 % (20.0-45.0) 26.2 % (20.0-45.0) 24.5 % (20.0-45.0) Monocytes (%) (Auto) 12.0 % (1.0-10.0) 9.3 % (1.0-10.0) 8.9 % (1.0-10.0) Eosinophils (%) (Auto) 0.1 % (0.0-3.0) 0.6 % (0.0-3.0) 0.3 % (0.0-3.0) Basophils (%) (Auto) 0.8 % (0.0-2.0) 0.7 % (0.0-2.0) 0.4 % (0.0-2.0) Sodium Level 141 MMOL/L (136-145) 139 MMOL/L (136-145) 137 MMOL/L (136-145) Potassium Level 4.4 MMOL/L (3.5-5.1) 3.8 MMOL/L (3.5-5.1) 3.8 MMOL/L (3.5-5.1) Chloride Level 105 MMOL/L (98-107) 103 MMOL/L (98-107) 102 MMOL/L (98-107) Carbon Dioxide Level 32 MMOL/L (21-32) 29 MMOL/L (21-32) 29 MMOL/L (21-32) Anion Gap 4 mmol/L (5-15) 7 mmol/L (5-15) 7 mmol/L (5-15) Blood Urea Nitrogen 10 mg/dL (7-18) 19 mg/dL (7-18) 19 mg/dL (7-18) Creatinine 0.9 MG/DL (0.55-1.30) 1.2 MG/DL (0.55-1.30) 1.1 MG/DL (0.55-1.30) Estimat Glomerular Filtration Rate mL/min (>60) mL/min (>60) mL/min (>60) Glucose Level 195 MG/DL (74-106) 184 MG/DL (74-106) 223 MG/DL (74-106) Lactic Acid Level 2.00 mmol/L (0.4-2.0) Calcium Level 8.9 MG/DL (8.5-10.1) 9.0 MG/DL (8.5-10.1) 8.5 MG/DL (8.5-10.1) Phosphorus Level 2.9 MG/DL (2.5-4.9) Magnesium Level 1.7 MG/DL (1.8-2.4) 1.7 MG/DL (1.8-2.4) 1.9 MG/DL (1.8-2.4) Total Bilirubin 0.4 MG/DL (0.2-1.0) 0.5 MG/DL (0.2-1.0) Aspartate Amino Transf (AST/SGOT) 55 U/L (15-37) 89 U/L (15-37) Alanine Aminotransferase (ALT/SGPT) 64 U/L (12-78) 74 U/L (12-78) Alkaline Phosphatase 145 U/L (46-116) 137 U/L (46-116) Total Creatine Kinase 126 U/L (26-308) Creatine Kinase MB < 0.5 NG/ML (0.0-3.6) Creatine Kinase MB Relative Index Troponin I 0.000 ng/mL (0.000-0.056) Total Protein 8.0 G/DL (6.4-8.2) 8.1 G/DL (6.4-8.2) Albumin 3.0 G/DL (3.4-5.0) 3.0 G/DL (3.4-5.0) Globulin 5.0 g/dL 5.1 g/dL Albumin/Globulin Ratio 0.6 (1.0-2.7) 0.6 (1.0-2.7) Urine Color Pale yellow Urine Appearance Clear Urine pH 6.5 (4.5-8.0) Urine Specific [place] 1.015 (1.005-1.035) Urine Protein Negative (NEGATIVE) Urine Glucose (UA) 3+ (NEGATIVE) Urine Ketones Negative (NEGATIVE) Urine Blood Negative (NEGATIVE) Urine Nitrite Negative (NEGATIVE) Urine Bilirubin Negative (NEGATIVE) Urine Urobilinogen Normal MG/DL (0.0-1.0) Urine Leukocyte Esterase Negative (NEGATIVE) Prothrombin Time 11.3 SEC (9.30-11.50) Prothromb Time International Ratio 1.1 (0.9-1.1) Hemoglobin A1c 6.6 % (4.3-6.0) Iron Level 44 ug/dL (50-175) 40 ug/dL (50-175) Total Iron Binding Capacity 442 ug/dL (250-450) 468 ug/dL (250-450) Percent Iron Saturation 10 % (15-50) 9 % (15-50) Unsaturated Iron Binding 398 ug/dL (112-346) 428 ug/dL (112-346) Ferritin 34 NG/ML (8-388) Vitamin B12 Level 356 PG/ML (193-986) 391 PG/ML (193-986) Folate 17.2 NG/ML (8.6-58.9) 18.0 NG/ML (8.6-58.9) Ammonia 19 umol/L (11-32) Test 07/18/19 05:43 White Blood Count 4.9 K/UL (4.8-10.8) Red Blood Count 2.86 M/UL (4.20-5.40) Hemoglobin 8.9 G/DL (12.0-16.0) Hematocrit 27.9 % (37.0-47.0) Mean Corpuscular Volume 97 FL (80-99) Mean Corpuscular Hemoglobin 31.0 PG (27.0-31.0) Mean Corpuscular Hemoglobin Concent 31.8 G/DL (32.0-36.0) Red Cell Distribution Width 11.9 % (11.6-14.8) Platelet Count 205 K/UL (150-450) Mean Platelet Volume 6.3 FL (6.5-10.1) Neutrophils (%) (Auto) 55.9 % (45.0-75.0) Lymphocytes (%) (Auto) 29.3 % (20.0-45.0) Monocytes (%) (Auto) 13.1 % (1.0-10.0) Eosinophils (%) (Auto) 0.3 % (0.0-3.0) Basophils (%) (Auto) 1.4 % (0.0-2.0) Sodium Level 141 MMOL/L (136-145) Potassium Level 4.1 MMOL/L (3.5-5.1) Chloride Level 105 MMOL/L (98-107) Carbon Dioxide Level 29 MMOL/L (21-32) Anion Gap 7 mmol/L (5-15) Blood Urea Nitrogen 20 mg/dL (7-18) Creatinine 1.0 MG/DL (0.55-1.30) Estimat Glomerular Filtration Rate mL/min (>60) Glucose Level 152 MG/DL (74-106) Hemoglobin A1c 6.4 % (4.3-6.0) Calcium Level 8.5 MG/DL (8.5-10.1) Phosphorus Level 3.0 MG/DL (2.5-4.9) Magnesium Level 1.9 MG/DL (1.8-2.4) Total Bilirubin 0.3 MG/DL (0.2-1.0) Aspartate Amino Transf (AST/SGOT) 78 U/L (15-37) Alanine Aminotransferase (ALT/SGPT) 68 U/L (12-78) Alkaline Phosphatase 133 U/L (46-116) Ammonia 39 umol/L (11-32) Total Protein 7.1 G/DL (6.4-8.2) Albumin 2.8 G/DL (3.4-5.0) Globulin 4.3 g/dL Albumin/Globulin Ratio 0.7 (1.0-2.7) Triglycerides Level 65 MG/DL (30-150) Cholesterol Level 195 MG/DL (< 200) LDL Cholesterol 79 mg/dL (<100) HDL Cholesterol 100 MG/DL (40-60) Cholesterol/HDL Ratio 2.0 (3.3-4.4) Thyroid Stimulating Hormone (TSH) 2.256 uiU/mL (0.358-3.740) Height (Feet): 5 Height (Inches): 5.00 Weight (Pounds): 120 Objective Physical Exam: Vitals: reviewed General Appearance: NAD HEENT: normocephalic, atraumatic Neck: non-tender, normal alignment Respiratory/Chest: normal breath sounds bilaterally Cardiovascular/Chest: normal peripheral pulses, normal rate Abdomen: normal bowel sounds, soft, nontende Jr Loredo MD Jul 18, 2019 08:28
--- NOTE | 2019-07-18 08:59 | General Progress Note ---
Assessment/Plan Problem List: (1) Abdominal pain ICD Codes: R10.9 - Unspecified abdominal pain SNOMED: 96628302, 869690428 (2) Uncontrolled diabetes mellitus ICD Codes: E11.65 - Type 2 diabetes mellitus with hyperglycemia SNOMED: 38735427, 184937717 (3) History of cholelithiasis ICD Codes: Z87.19 - History of cholelithiasis SNOMED: 025645634 (4) Peptic ulcer disease ICD Codes: K27.9 - Peptic ulcer disease SNOMED: 49459768 (5) Diabetes ICD Codes: E11.9 - Type 2 diabetes mellitus without complications SNOMED: 74619087 (6) UTI (urinary tract infection) ICD Codes: N39.0 - Urinary tract infection, site not specified SNOMED: 66768840 (7) HTN (hypertension) ICD Codes: I10 - Essential (primary) hypertension SNOMED: 18663801 (8) 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 ICD Codes: B18.2 - 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 SNOMED: 450421876 (9) Gram-negative bacteremia ICD Codes: R78.81 - Bacteremia SNOMED: 113361918844 (10) ACS (acute coronary syndrome) ICD Codes: I24.9 - Acute ischemic heart disease, unspecified SNOMED: 251886103 (11) Degenerative arthritis of cervical spine ICD Codes: M47.812 - Spondylosis without myelopathy or radiculopathy, cervical region SNOMED: 795829380 Status: stable, progressing Assessment/Plan: pt diet abx gi f/u cbc bmp am aru eval Subjective Constitutional: Reports: weakness Allergies: Coded Allergies: HORSERADISH (Verified Allergy, Unknown, Rash, 04/28/19) All Systems: reviewed and negative except above Subjective calm sleepy in bed Objective Last 24 Hour Vital Signs Date Time Temp Pulse Resp B/P (MAP) Pulse Ox O2 Delivery O2 Flow Rate FiO2 07/18/19 04:00 64 07/18/19 04:00 96.8 82 16 126/72 (90) 96 07/18/19 00:00 67 07/18/19 00:00 97.5 74 16 129/70 (89) 95 07/17/19 21:00 Room Air 07/17/19 20:00 71 07/17/19 20:00 97.5 79 16 129/69 (89) 96 07/17/19 16:00 70 07/17/19 16:00 97.9 77 20 105/66 (79) 96 07/17/19 14:37 97.9 07/17/19 12:00 68 07/17/19 11:51 97.9 69 19 104/57 (73) 97 07/17/19 09:00 Room Air Intake and Output 07/17/19 07/18/19 19:00 07:00 Intake Total 630 ml Output Total 150 ml Balance 480 ml Intake Oral 630 ml Output Urine Total 150 ml # Voids 2 2 Laboratory Tests 07/17/19 10:20: White Blood Count 5.1, Red Blood Count 3.12L, Hemoglobin 9.7L, Hematocrit 30.6L , Mean Corpuscular Volume 98, Mean Corpuscular Hemoglobin 31.2H, Mean Corpuscular Hemoglobin Concent 31.8L, Red Cell Distribution Width 12.1, Platelet Count 239, Mean Platelet Volume 6.0L, Neutrophils (%) (Auto) 65.9, Lymphocytes (%) (Auto) 24.5, Monocytes (%) (Auto) 8.9, Eosinophils (%) (Auto) 0.3, Basophils (%) (Auto) 0.4, Sodium Level 137, Potassium Level 3.8, Chloride Level 102, Carbon Dioxide Level 29, Anion Gap 7, Blood Urea Nitrogen 19H, Creatinine 1.1, Estimat Glomerular Filtration Rate , Glucose Level 223H, Calcium Level 8.5, Magnesium Level 1.9, Iron Level 40L, Total Iron Binding Capacity 468H, Percent Iron Saturation 9L, Unsaturated Iron Binding 428H, Total Bilirubin 0.5, Aspartate Amino Transf (AST/SGOT) 89H, Alanine Aminotransferase ( ALT/SGPT) 74, Alkaline Phosphatase 137H, Ammonia 19, Total Protein 8.1, Albumin 3.0L, Globulin 5.1, Albumin/Globulin Ratio 0.6L, Alpha Fetoprotein [Pending], Carcinoembryonic Antigen [Pending], Vitamin B12 Level 391, Folate 18.0, Hepatitis A IgM Antibody [Pending], Hepatitis B Surface Antigen [Pending], Hepatitis B Core IgM Antibody [Pending], Hepatitis C Antibody [Pending] 07/18/19 05:43: White Blood Count 4.9, Red Blood Count 2.86L, Hemoglobin 8.9L, Hematocrit 27.9L , Mean Corpuscular Volume 97, Mean Corpuscular Hemoglobin 31.0, Mean Corpuscular Hemoglobin Concent 31.8L, Red Cell Distribution Width 11.9, Platelet Count 205, Mean Platelet Volume 6.3L, Neutrophils (%) (Auto) 55.9, Lymphocytes (%) (Auto) 29.3, Monocytes (%) (Auto) 13.1H, Eosinophils (%) (Auto) 0.3, Basophils (%) (Auto) 1.4, Sodium Level 141, Potassium Level 4.1, Chloride Level 105, Carbon Dioxide Level 29, Anion Gap 7, Blood Urea Nitrogen 20H, Creatinine 1.0, Estimat Glomerular Filtration Rate , Glucose Level 152H, Calcium Level 8.5, Magnesium Level 1.9, Total Bilirubin 0.3, Aspartate Amino Transf (AST/SGOT) 78H, Alanine Aminotransferase (ALT/SGPT) 68, Alkaline Phosphatase 133H, Ammonia 39H, Total Protein 7.1, Albumin 2.8L, Globulin 4.3, Albumin/Globulin Ratio 0.7L, Hemoglobin A1c 6.4H, Phosphorus Level 3.0, Triglycerides Level 65, Cholesterol Level 195, LDL Cholesterol 79, HDL Cholesterol 100H, Cholesterol/HDL Ratio 2.0L, Thyroid Stimulating Hormone (TSH) 2.256 Height (Feet): 5 Height (Inches): 5.00 Weight (Pounds): 120 General Appearance: lethargic EENT: normal ENT inspection Neck: normal alignment Cardiovascular: normal peripheral pulses, normal rate, regular rhythm Respiratory/Chest: chest wall non-tender, lungs clear, normal breath sounds Abdomen: normal bowel sounds, non tender, soft Extremities: normal inspection Edema: no edema noted Arm (L), no edema noted Arm (R), no edema noted Leg (L), no edema noted Leg (R), no edema noted Pedal (L), no edema noted Pedal (R), no edema noted Generalized Neurologic: motor weakness Skin: normal pigmentation, warm/dry Phan Nix DO Jul 18, 2019 08:59
[2019-07-18] MEDS ORDERED: Docusate 250mg cap ORAL SCH (09:00)
[2019-07-18] MEDS ORDERED: Xarelto 10mg tab ORAL SCH (09:00)
[2019-07-18] MEDS ORDERED: Lisinopril 20mg tab ORAL SCH (09:00)
[2019-07-18] MEDS ORDERED: Aspirin Baby 81mg NG SCH (09:00)
--- NOTE | 2019-07-18 09:25 | NUR ---
NURSE NOTES: EGD transport arrived at 915am to take patient to EGD. Tele remained on. VSS.
--- NOTE | 2019-07-18 09:28 | Pre-Procedure Note/Attestation ---
Pre-Procedure Note/Attestation Complete Prior to Procedure Planned Procedure: not applicable Procedure Narrative: egd Indications for Procedure Pre-Operative Diagnosis: anemia Attestation I attest that I discussed the nature of the procedure; its benefits; risks and complications; and alternatives (and the risks and benefits of such alternatives ), prior to the procedure, with the patient (or the patient's legal sales representative door to door). I attest that, if there was a reasonable possibility of needing a blood transfusion, the patient (or the patient's legal sales representative door to door) was given the [facility] standardized written summary, pursuant to the [place] Blood Safety Act ([place] Health and Safety Code # 1645, as amended). I attest that I re-evaluated the patient just prior to the surgery and that there has been no change in the patient's H&P, except as documented below: Vipul Horne MD Jul 18, 2019 09:28
[2019-07-18] MEDS ORDERED: Propofol 200mg/20ml IV ONE (09:30)
[2019-07-18] MEDS ORDERED: Lidocaine 1% MPF 10mg/ml 5ml ONE (09:30)
[2019-07-18] MEDS ORDERED: NS 500ML IVPB ONE (09:31)
--- NOTE | 2019-07-18 09:31 | General Progress Note ---
Assessment/Plan Status: stable, progressing Assessment/Plan: 1. Hepatitis C. 2. Gallstones. 3. Diabetes. 4. Right eye blindness. 5. Duodenal ulceration. 6. H. pylori gastritis. 7. Hiatal hernia. 8. Cataract. 9. Glaucoma. 10. Hypertension. 11. Anemia. 12. Diverticulosis. 13. Diabetes. monitor lab EGD for today consider colonoscopy if EGd neg fu stool ob iv iron Subjective ROS Limited/Unobtainable: Yes Allergies: Coded Allergies: HORSERADISH (Verified Allergy, Unknown, Rash, 04/28/19) Objective Last 24 Hour Vital Signs Date Time Temp Pulse Resp B/P (MAP) Pulse Ox O2 Delivery O2 Flow Rate FiO2 07/18/19 08:00 98.5 75 18 135/70 (91) 96 07/18/19 04:00 64 07/18/19 04:00 96.8 82 16 126/72 (90) 96 07/18/19 00:00 67 07/18/19 00:00 97.5 74 16 129/70 (89) 95 07/17/19 21:00 Room Air 07/17/19 20:00 71 07/17/19 20:00 97.5 79 16 129/69 (89) 96 07/17/19 16:00 70 07/17/19 16:00 97.9 77 20 105/66 (79) 96 07/17/19 14:37 97.9 07/17/19 12:00 68 07/17/19 11:51 97.9 69 19 104/57 (73) 97 Intake and Output 07/17/19 07/18/19 19:00 07:00 Intake Total 630 ml Output Total 150 ml Balance 480 ml Intake Oral 630 ml Output Urine Total 150 ml # Voids 2 2 Laboratory Tests 07/17/19 10:20: White Blood Count 5.1, Red Blood Count 3.12L, Hemoglobin 9.7L, Hematocrit 30.6L , Mean Corpuscular Volume 98, Mean Corpuscular Hemoglobin 31.2H, Mean Corpuscular Hemoglobin Concent 31.8L, Red Cell Distribution Width 12.1, Platelet Count 239, Mean Platelet Volume 6.0L, Neutrophils (%) (Auto) 65.9, Lymphocytes (%) (Auto) 24.5, Monocytes (%) (Auto) 8.9, Eosinophils (%) (Auto) 0.3, Basophils (%) (Auto) 0.4, Sodium Level 137, Potassium Level 3.8, Chloride Level 102, Carbon Dioxide Level 29, Anion Gap 7, Blood Urea Nitrogen 19H, Creatinine 1.1, Estimat Glomerular Filtration Rate , Glucose Level 223H, Calcium Level 8.5, Magnesium Level 1.9, Iron Level 40L, Total Iron Binding Capacity 468H, Percent Iron Saturation 9L, Unsaturated Iron Binding 428H, Total Bilirubin 0.5, Aspartate Amino Transf (AST/SGOT) 89H, Alanine Aminotransferase ( ALT/SGPT) 74, Alkaline Phosphatase 137H, Ammonia 19, Total Protein 8.1, Albumin 3.0L, Globulin 5.1, Albumin/Globulin Ratio 0.6L, Alpha Fetoprotein [Pending], Carcinoembryonic Antigen [Pending], Vitamin B12 Level 391, Folate 18.0, Hepatitis A IgM Antibody [Pending], Hepatitis B Surface Antigen [Pending], Hepatitis B Core IgM Antibody [Pending], Hepatitis C Antibody [Pending] 07/18/19 05:43: White Blood Count 4.9, Red Blood Count 2.86L, Hemoglobin 8.9L, Hematocrit 27.9L , Mean Corpuscular Volume 97, Mean Corpuscular Hemoglobin 31.0, Mean Corpuscular Hemoglobin Concent 31.8L, Red Cell Distribution Width 11.9, Platelet Count 205, Mean Platelet Volume 6.3L, Neutrophils (%) (Auto) 55.9, Lymphocytes (%) (Auto) 29.3, Monocytes (%) (Auto) 13.1H, Eosinophils (%) (Auto) 0.3, Basophils (%) (Auto) 1.4, Sodium Level 141, Potassium Level 4.1, Chloride Level 105, Carbon Dioxide Level 29, Anion Gap 7, Blood Urea Nitrogen 20H, Creatinine 1.0, Estimat Glomerular Filtration Rate , Glucose Level 152H, Calcium Level 8.5, Magnesium Level 1.9, Total Bilirubin 0.3, Aspartate Amino Transf (AST/SGOT) 78H, Alanine Aminotransferase (ALT/SGPT) 68, Alkaline Phosphatase 133H, Ammonia 39H, Total Protein 7.1, Albumin 2.8L, Globulin 4.3, Albumin/Globulin Ratio 0.7L, Hemoglobin A1c 6.4H, Phosphorus Level 3.0, Triglycerides Level 65, Cholesterol Level 195, LDL Cholesterol 79, HDL Cholesterol 100H, Cholesterol/HDL Ratio 2.0L, Thyroid Stimulating Hormone (TSH) 2.256 Height (Feet): 5 Height (Inches): 5.00 Weight (Pounds): 120 General Appearance: alert EENT: normal ENT inspection Neck: supple Cardiovascular: normal rate Respiratory/Chest: decreased breath sounds Abdomen: normal bowel sounds, non tender, soft Extremities: non-tender Vipul Horne MD Jul 18, 2019 09:31
--- NOTE | 2019-07-18 09:34 | Endoscopy Procedure Note ---
Endoscopy Procedure Note General Indication for Procedure: anemia Procedures Performed: EGD Operative Findings/Diagnosis: gastritis Specimen: yes Pt Tolerated Procedure Well: Yes Estimated Blood Loss: none Anesthesia Anesthesiologist: tramaine Anesthesia: MAC Inserted Devices Implant(s) used?: No GI Core Measures 50 yrs or older w/o bx or poly: Not Applicable 10yrs. F/U recommended: Not Applicable Vipul Horne MD Jul 18, 2019 09:34
--- NOTE | 2019-07-18 10:49 | NUR ---
CASE MANAGEMENT: REVIEW 07/18/2019 SI:ABD PAIN T 98.4 HR 68 RR 17 B/P 134/76 SATS 100% ON 3L/NC BUN 20 GLU 152 HA1C 6.4 AST 78 ALP 133 AMMONIA 39 IS: IVF @ 75 mL/HR VENOFER IV QHS PEPCID PO QD LEXAPRO PO QD LAMICTAL PO QD INSULIN ASPART SUBQ AC/HS TELE STATUS DCP: PATIENT TO BE DISCHARGED TO SNF ONCE MEDICALLY CLEARED. PLAN OF CARE: VENOUS DUPLEX >>RESULTS PENDING COLONOSCOPY CLD EGD= GASTRITIS
--- NOTE | 2019-07-18 11:03 | NUR ---
DISCHARGE PLANNING: NOTE CLINICALS FAXED TO SUSHIL ANDUJAR FOR REVIEW Addendum: 07/18/19 at 1426 by Jazmín Hill CM ADOLPH DA [facility] PATIENT IS NOT MEETING CON CRITERIA. DR BOOTH IS AWARE.
--- NOTE | 2019-07-18 11:30 | NUR ---
MRI BRAIN W/O COMPLETED.
--- NOTE | 2019-07-18 13:45 | Anethesia Preoperative Eval ---
Anesthesia Pre-op PMH/ROS General Date of Evaluation: Jul 18, 2019 Time of Evaluation: 09:31 Anesthesiologist: tramaine ASA Score: ASA 4 Mallampati Score Class I : Soft palate, uvula, fauces, pillars visible Class II: Soft palate, uvula, fauces visible Class III: Soft palate, base of uvula visible Class IV: Only hard plate visible Mallampati Classification: Class II Surgeon: maria l Diagnosis: anemia Surgical Procedure: egd w/bx Anesthesia History: none Family History: no anesthesia problems Allergies: Coded Allergies: HORSERADISH (Verified Allergy, Unknown, Rash, 04/28/19) Medications: see eMAR Patient NPO?: Yes Past Medical History Cardiovascular: Reports: HTN, other - acute coronary syndrome Gastrointestinal/Genitourinary: Reports: other - hepatitis c Endocrine: Reports: DM Anesthesia Pre-op Phys. Exam Physician Exam Last Vital Signs Date Time Temp Pulse Resp B/P (MAP) Pulse Ox O2 Delivery O2 Flow Rate FiO2 07/18/19 12:00 68 07/18/19 12:00 98.0 18 152/79 (103) 98 07/18/19 10:20 Nasal Cannula 3 Constitutional: NAD Neurologic: CN 2-12 intact Cardiovascular: RRR Respiratory: CTA Gastrointestinal: S/NT/ND Airway Exam Mallampati Score: Class II MO: limited Neck: flexible TMD: 2fb ROM: limited Anesthesia Pre-op A/P Labs Hematology Test 07/18/19 05:43 White Blood Count 4.9 K/UL (4.8-10.8) Red Blood Count 2.86 M/UL (4.20-5.40) L Hemoglobin 8.9 G/DL (12.0-16.0) L Hematocrit 27.9 % (37.0-47.0) L Mean Corpuscular Volume 97 FL (80-99) Mean Corpuscular Hemoglobin 31.0 PG (27.0-31.0) Mean Corpuscular Hemoglobin Concent 31.8 G/DL (32.0-36.0) L Red Cell Distribution Width 11.9 % (11.6-14.8) Platelet Count 205 K/UL (150-450) Mean Platelet Volume 6.3 FL (6.5-10.1) L Neutrophils (%) (Auto) 55.9 % (45.0-75.0) Lymphocytes (%) (Auto) 29.3 % (20.0-45.0) Monocytes (%) (Auto) 13.1 % (1.0-10.0) H Eosinophils (%) (Auto) 0.3 % (0.0-3.0) Basophils (%) (Auto) 1.4 % (0.0-2.0) Chemistry Test 07/18/19 05:43 Sodium Level 141 MMOL/L (136-145) Potassium Level 4.1 MMOL/L (3.5-5.1) Chloride Level 105 MMOL/L (98-107) Carbon Dioxide Level 29 MMOL/L (21-32) Anion Gap 7 mmol/L (5-15) Blood Urea Nitrogen 20 mg/dL (7-18) H Creatinine 1.0 MG/DL (0.55-1.30) Estimat Glomerular Filtration Rate mL/min (>60) Glucose Level 152 MG/DL (74-106) H Hemoglobin A1c 6.4 % (4.3-6.0) H Calcium Level 8.5 MG/DL (8.5-10.1) Phosphorus Level 3.0 MG/DL (2.5-4.9) Magnesium Level 1.9 MG/DL (1.8-2.4) Total Bilirubin 0.3 MG/DL (0.2-1.0) Aspartate Amino Transf (AST/SGOT) 78 U/L (15-37) H Alanine Aminotransferase (ALT/SGPT) 68 U/L (12-78) Alkaline Phosphatase 133 U/L (46-116) H Ammonia 39 umol/L (11-32) H Total Protein 7.1 G/DL (6.4-8.2) Albumin 2.8 G/DL (3.4-5.0) L Globulin 4.3 g/dL Albumin/Globulin Ratio 0.7 (1.0-2.7) L Triglycerides Level 65 MG/DL (30-150) Cholesterol Level 195 MG/DL (< 200) LDL Cholesterol 79 mg/dL (<100) HDL Cholesterol 100 MG/DL (40-60) H Cholesterol/HDL Ratio 2.0 (3.3-4.4) L Thyroid Stimulating Hormone (TSH) 2.256 uiU/mL (0.358-3.740) Risk Assessment & Plan Assessment: asa4 Plan: mac Status Change Before Surgery: No Pre-Antibiotics Drug: Kaylah Hayden MD Jul 18, 2019 13:45
--- NOTE | 2019-07-18 13:47 | Immediate Post-Op Evaluation ---
Immediate Post-Op Evalulation Immediate Post-Op Evalulation Procedure: egd w/bx Date of Evaluation: Jul 18, 2019 Time of Evaluation: 10:03 IV Fluids: 200ml 0.9ns Blood Products: none Estimated Blood Loss: negligible Blood Pressure Systolic: 115 Blood Pressure Diastolic: 68 Pulse Rate: 66 Respiratory Rate: 18 O2 Sat by Pulse Oximetry: 100 Temperature (Fahrenheit): 98.1 Pain Score (1-10): 0 Nausea: No Vomiting: No Complications none Patient Status: awake, reacts, patent Hydration Status: adequate Drug: Kaylah Hayden MD Jul 18, 2019 13:47
--- NOTE | 2019-07-18 13:49 | 48 Hour Post Anesthesia Eval ---
Post Anesthesia Evaluation Procedure: egd w/bx Date of Evaluation: Jul 18, 2019 Time of Evaluation: 10:05 Blood Pressure Systolic: 118 0: 67 Pulse Rate: 65 Respiratory Rate: 18 Temperature (Fahrenheit): 98.1 O2 Sat by Pulse Oximetry: 100 Airway: patent Nausea: No Vomiting: No Pain Intensity: 0 Hydration Status: adequate Cardiopulmonary Status: stable Mental Status/LOC: patient returned to baseline Post-Anesthesia Complications: none Follow-up care needed: N/A Kaylah Moreno MD Jul 18, 2019 13:49
[2019-07-18] MEDS ORDERED: Polyethylene Glycol 238gm bottle ORAL SCH (14:00)
[2019-07-18] MEDS: Hydromorphone 0.5mg/0.5ml inj IVP PRN ×2 (15:00→18:50)
--- NOTE | 2019-07-18 15:06 | Diagnostic Imaging Report ---
Indication: Right eye blindness, dementia, possible acute versus subacute infarct on recent CT scan Technique: sagittal T1 fast spin echo, axial T1 FLAIR, axial T2 FLAIR, axial T2 FS PROPELLER, axial T2* GRE, axial diffusion weighted images. ADC and exponential ADC maps generated Comparison: Brain CT dated 07/15/2019 Findings: There is an area of abnormal signal in the cerebellum. This is within or adjacent to the superior vermis just to the right of midline, and corresponds to the area of hypoattenuation described on the recent CT scan. This demonstrates high diffusion signal. It demonstrates susceptibility artifact on the T2*images, and demonstrates mostly high signal on the T1, T2, and T2 FLAIR images. It does demonstrate a thin rim of decreased signal intensity on all sequences, although this is not well appreciated on the sagittal T1-weighted images. This measures approximately 14 mm long axis dimension. No other foci of restricted diffusion are demonstrated. No other foci of hemorrhage are demonstrated.. No mass effect nor midline shift. There is mild age-related enlargement of the ventricles and extra axial CSF spaces. There is periventricular deep white matter high T2 signal. The vascular flow voids are preserved. There is evidence of prior cataract surgery on the left. The visualized sinuses are clear. Visualized orbits and sinuses are unremarkable. Impression: 14 mm lesion within the cerebellum, within and/or adjacent to the vermis to the right of midline, as described. This corresponds to the abnormality described on recent CT scan. Given the findings of susceptibility artifact on the T2*images as well as the signal characteristics on the other sequences, this is consistent with a late subacute hemorrhage. Note, however, that no hematoma is evident on the prior CT scan and the diffusion signal abnormality is unusually strong. Therefore, other differential considerations should be considered , including a small hemorrhagic infarct and a cavernous malformation with recent hemorrhage Chronic and age-related changes, as described
[2019-07-18] MEDS ORDERED: Bisacodyl EC 5mg tab ORAL SCH (16:00)
--- NOTE | 2019-07-18 16:00 | Procedure Note ---
SURGEON: Vipul Horne M.D. PROCEDURE: Upper endoscopy with biopsy. ANESTHESIA: Per Dr. Morrison. INSTRUMENT: Olympus adult flexible upper endoscope. INDICATION: Profound anemia. REASON FOR PROCEDURE: The procedure, risks, benefits, and possible consequences, including hemorrhage, aspiration, perforation and infection, and alternative treatments, were explained to the patient/legal guardian by Dr. Vipul Horne and the patient/legal guardian understood and accepted these risks. DESCRIPTION OF PROCEDURE: After informed consent was obtained and the patient was adequately sedated, Olympus upper endoscope was advanced from mouth into the second portion of duodenum and retroflexion performed in the stomach. The patient had evidence of portal hypertensive gastropathy. Diffuse mild gastritis. In the duodenum, there was evidence of few diverticulum in the second portion of the duodenum. No obvious active upper GI bleeding at this time. Biopsy from the antrum and body was obtained for evaluation of gastritis. The patient tolerated procedure well without complication. SUMMARY OF FINDINGS: 1. Possible portal hypertensive gastropathy status post biopsy. 2. Gastritis, status post biopsy. 3. Duodenal diverticulum. RECOMMENDATIONS: 1. Followup path and treat accordingly. 2. Given this profound anemia without any obvious source of upper GI bleeding, we will recommend colonoscopy, we will schedule for tomorrow. I want to thank, Dr. Chisholm, for this kind referral. Vipul Horne M.D. DR: Nacho JOB#: [id number] CC: Phan Nix D.O.
--- NOTE | 2019-07-18 16:15 | Procedure Note ---
DATE OF PROCEDURE: 07/18/2019 SURGEON: Vipul Horne M.D. PROCEDURE: Upper endoscopy with biopsy. ANESTHESIA: Per Dr. Morrison. INSTRUMENT: Olympus adult flexible upper endoscope. INDICATION: Profound anemia. REASON FOR PROCEDURE: The procedure, risks, benefits, and possible consequences, including hemorrhage, aspiration, perforation and infection, and alternative treatments, were explained to the patient/legal guardian by Dr. Vipul Horne and the patient/legal guardian understood and accepted these risks. DESCRIPTION OF PROCEDURE: After informed consent was obtained and the patient was adequately sedated, Olympus upper endoscope was advanced from mouth into the second portion of duodenum and retroflexion performed in the stomach. The patient had evidence of portal hypertensive gastropathy. Diffuse mild gastritis. In the duodenum, there was evidence of few diverticulum in the second portion of the duodenum. No obvious active upper GI bleeding at this time. Biopsy from the antrum and body was obtained for evaluation of gastritis. The patient tolerated procedure well without any complication. SUMMARY OF FINDINGS: 1. Possible portal hypertensive gastropathy status post biopsy. 2. Gastritis, status post biopsy. 3. Duodenal diverticulum. RECOMMENDATIONS: 1. Followup path and treat accordingly. 2. Given this profound anemia without any obvious source of upper GI bleeding, we will recommend colonoscopy, we will schedule for tomorrow. I want to thank, Dr. Chisholm, for this kind referral. Vipul Horne M.D. DR: Nacho JOB#: [id number] CC: Phan Nix D.O.
[2019-07-18] MEDS: D5 1/2NS w/KCl 20mEq 1,000 ML IV SCH (16:19)
[2019-07-18] MEDS: Enoxaparin 40mg Inj SUBQ SCH (16:31)
--- NOTE | 2019-07-18 19:30 | Progress Note ---
DATE: 07/18/2019 SUBJECTIVE: The patient is a 79-year-old female with abdominal pain and uncontrolled diabetes. she has got uncontrolled diabetes, abdominal pain, but she does have some altered mental status worsened by stress of her medical illness. MENTAL STATUS EXAMINATION: This is a 79-year-old female. Appearance is disheveled. Attitude, irritable and agitated. Affect, guarded and restricted. Intellect, poor. Mood, depressed and anxious. Motor activity, psychomotor agitation. Attention span is poor. Insight and judgment is poor. DIAGNOSIS: Major depressive disorder, mild, recurrent with psychotic features, rule out dementia with psychosis. PLAN: Treat her with medication to clear disorganized thought process. Provided with 20 minutes of cognitive behavioral therapy to help identify automatic negative thoughts and help to convert her negative thoughts to more positive thoughts to reduce depression, anxiety, mood lability. Chart reviewed. Discussed with staff. Seen and assessed at bedside. Juany Sullivan M.D. DR: Leif JOB#: [id number] CC:
--- NOTE | 2019-07-18 19:52 | NUR ---
NURSE NOTES: Report given to MAXX Lyles. Patient had 2 BMS today after drinking all ordered laxatives. AOX4 and no sign of cardiac or respratory distress. Bed in lowest, locked postion with call [place] and bedpan in reach. Consent for colonscopy in chart for tomorrow's procedure. Addendum: 07/18/19 at 2002 by Nikko Pate RN Endorsed to david LILLY that patient still has solid BMs and may need further bowel prep tonite. Currently clears, with NPO at midnite for colonoscopy.
--- NOTE | 2019-07-18 19:54 | NUR ---
NURSE NOTES: Pt alert and oriented x4 with no acute s/s of distress noted. IV site asymptomatic and patent on L ac 20g, running to prescribed IV fluids. Bed in lowest position, bed alarm on. Call light and belongings within reach.
[2019-07-18] MEDS: Iron Sucrose 100 MG in NS 55 ML IV SCH (21:37)
--- NOTE | 2019-07-18 22:25 | NUR ---
NURSE NOTES: Endorsed to Dr. Horne that pt has finished bowel prep this afternoon but pt still does not have clear stools. Pt had x1 BM on BSC, liquid medium brown stool. Addendum: 07/18/19 at 2230 by Rafal Aguilar RN Received call back from Dr. Horne - "give tap water enema tomorrow AM 07/19/2019 at 0800". Will carry out orders.
[2019-07-19] VITALS (10 sets, daily range): BP systolic 99–123; BP diastolic 49–81
[2019-07-19] MEDS: D5 1/2NS w/KCl 20mEq 1,000 ML IV SCH ×2 (05:20→17:01)
[2019-07-19] MEDS: sitaGLIPtin 50mg tab ORAL SCH (05:41)
[2019-07-19] MEDS: NovoLOG Insulin Flexpen SUBQ SCH ×4 (05:42→21:00)
--- NOTE | 2019-07-19 06:43 | General Progress Note ---
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 SNOMED: 913114962 (2) Uncontrolled diabetes mellitus ICD Codes: E11.65 - Type 2 diabetes mellitus with hyperglycemia SNOMED: 54163103, 002130305 Status: stable, progressing Assessment/Plan: continue Januvia 50 mg daily continue NISS ac / hs Subjective Allergies: Coded Allergies: HORSERADISH (Verified Allergy, Unknown, Rash, 04/28/19) All Systems: reviewed and negative except above Subjective events noted glucose values are stable Item Value Date Time Bedside Blood Glucose 108 mg/dl 07/19/19 0542 Bedside Blood Glucose 154 mg/dl H 07/18/19 2148 Bedside Blood Glucose 129 mg/dl H 07/18/19 1710 Bedside Blood Glucose 166 mg/dl H 07/18/19 1228 Bedside Blood Glucose 172 mg/dl H 07/18/19 0559 Objective Last 24 Hour Vital Signs Date Time Temp Pulse Resp B/P (MAP) Pulse Ox O2 Delivery O2 Flow Rate FiO2 07/19/19 04:00 98.0 71 18 122/66 (84) 98 07/19/19 04:00 72 07/19/19 00:00 65 07/19/19 00:00 98.2 70 18 120/64 (82) 97 07/18/19 21:00 Room Air 07/18/19 20:00 68 07/18/19 20:00 98.4 63 18 115/64 (81) 98 07/18/19 19:54 66 18 97 Room Air 21 07/18/19 19:52 97.4 07/18/19 16:00 62 07/18/19 16:00 97.4 71 18 127/71 (89) 98 07/18/19 13:49 65 18 100 07/18/19 13:47 66 18 100 07/18/19 12:00 68 07/18/19 12:00 98.0 73 18 152/79 (103) 98 07/18/19 10:20 98.4 68 17 134/76 100 Nasal Cannula 3 07/18/19 10:10 68 21 114/66 100 Nasal Cannula 3 07/18/19 10:01 65 17 118/67 100 Nasal Cannula 3 07/18/19 09:56 67 14 116/65 100 Nasal Cannula 3 07/18/19 09:51 98.1 66 18 115/68 100 Nasal Cannula 3 07/18/19 09:00 Room Air 07/18/19 08:00 69 07/18/19 08:00 98.5 75 18 135/70 (91) 96 Intake and Output 07/18/19 07/19/19 19:00 07:00 Intake Total 250 ml 225 ml Balance 250 ml 225 ml IV Total 250 ml 225 ml # Voids 3 # Bowel Movements 2 2 Laboratory Tests 07/18/19 13:00: Stool Occult Blood [Pending] Height (Feet): 5 Height (Inches): 5.00 Weight (Pounds): 120 General Appearance: no apparent distress Neck: normal alignment Cardiovascular: normal rate Respiratory/Chest: lungs clear Abdomen: normal bowel sounds Pelvis: normal external exam Objective Current Medications Medications (Trade) Dose Ordered Sig/Darwin Route PRN Reason Start Time Stop Time Status Last Admin Dose Admin Acetaminophen (Tylenol) 650 mg Q4H PRN ORAL Mild Pain (Pain Scale 1-3) 07/15/19 14:15 08/14/19 14:14 Al Hydroxide/Mg Hydroxide (Mylanta II) 30 ml Q6H PRN ORAL dyspepsia 07/15/19 14:15 08/14/19 14:14 Albuterol/ Ipratropium (Albuterol/ Ipratropium) 3 ml Q6H PRN HHN Shortness of Breath 07/15/19 16:30 07/20/19 16:29 Bisacodyl (Dulcolax) 10 mg HSPRN PRN RECTAL Constipation 07/15/19 14:15 08/14/19 14:14 07/17/19 14:16 Dextrose (Dextrose 50%) 25 ml Q30M PRN IV Hypoglycemia 07/15/19 23:30 08/14/19 23:29 Dextrose (Dextrose 50%) 50 ml Q30M PRN IV Hypoglycemia 07/15/19 23:30 08/14/19 23:29 Dextrose/ Electrolytes 1,000 ml @ 75 mls/hr [id number] IV 07/18/19 16:00 08/17/19 15:59 07/18/19 16:19 Diphenhydramine HCl (Benadryl) 25 mg Q6H PRN ORAL Itching/Pruritis 07/15/19 14:15 08/14/19 14:14 Enoxaparin Sodium (Lovenox) 40 mg Q24H SUBQ 07/15/19 17:00 08/14/19 16:59 07/18/19 16:31 Escitalopram Oxalate (Lexapro) 5 mg DAILY ORAL 07/17/19 09:00 08/16/19 08:59 07/18/19 12:28 Famotidine (Pepcid) 40 mg DAILY ORAL 07/16/19 09:00 08/15/19 08:59 07/18/19 10:54 Hydromorphone HCl (Dilaudid) 0.5 mg Q4H PRN IVP severe pain 07/17/19 08:45 07/24/19 08:44 07/18/19 18:50 Insulin Aspart (NovoLOG) BEFORE MEALS AND HS SUBQ 07/16/19 06:30 08/15/19 06:29 07/18/19 21:48 Iron Sucrose 100 mg/Sodium Chloride 60 ml @ 240 mls/hr BEDTIME IV 07/17/19 21:00 07/21/19 21:14 07/18/19 21:37 Lamotrigine (LaMICtal) 25 mg DAILY ORAL 07/17/19 09:00 08/16/19 08:59 07/18/19 10:54 Lorazepam (Ativan) 1 mg Q4H PRN ORAL For Anxiety 07/15/19 14:15 07/22/19 14:14 Nitroglycerin (Ntg) 0.4 mg Q5M X 3 DOSES PRN SL Prn Chest Pain 07/15/19 14:15 08/14/19 14:14 Ondansetron HCl (Zofran) 4 mg Q6H PRN IVP Nausea & Vomiting 07/15/19 14:15 08/14/19 14:14 07/17/19 08:08 Sitagliptin Phosphate (Januvia) 50 mg ACBREAKFAST ORAL 07/16/19 15:30 08/15/19 15:29 07/17/19 06:53 Tramadol HCl (Ultram) 50 mg Q6H PRN ORAL moderate pain 07/17/19 08:45 07/24/19 08:44 Abundio Nassar MD Jul 19, 2019 06:43
[2019-07-19 07:20] LABS: ANION GAP 6 mmol/L (5-15); BASOPHILS % (AUTO) 0.4 % (0.0-2.0); BLOOD UREA NITROGEN 12 mg/dL (7-18); CALCIUM 8.8 MG/DL (8.5-10.1); CARBON DIOXIDE 27 MMOL/L (21-32); CHLORIDE 107 MMOL/L (98-107); CREATININE 0.8 MG/DL (0.55-1.30); EOSINOPHILS % (AUTO) 0.3 % (0.0-3.0); HEMATOCRIT 27.7 % (37.0-47.0); HEMOGLOBIN 8.9 G/DL (12.0-16.0); LYMPHOCYTES % (AUTO) 32.6 % (20.0-45.0); MEAN CORPUSCULAR VOLUME 96 FL (80-99); MONOCYTES % (AUTO) 13.4 % (1.0-10.0); NEUTROPHILS % (AUTO) 53.3 % (45.0-75.0); PLATELET COUNT 200 K/UL (150-450); POTASSIUM 3.6 MMOL/L (3.5-5.1); RED BLOOD COUNT 2.87 M/UL (4.20-5.40); RED CELL DISTRIBUTION WIDTH 12.1 % (11.6-14.8); SODIUM 140 MMOL/L (136-145); WHITE BLOOD COUNT 5.1 K/UL (4.8-10.8)
--- NOTE | 2019-07-19 07:35 | NUR ---
HAND-OFF: Report given to MAXX Venegas. Plan of care endorsed.
[2019-07-19] MEDS: Hydromorphone 0.5mg/0.5ml inj IVP PRN (08:11)
--- NOTE | 2019-07-19 08:23 | NUR ---
NURSE NOTES: Patient received from Rafal ILLLY. Patient laying in bed crying in pain. Dilaudid 0.5 given. Patient refusing enema now due to pain. Will try to administer once pain has been addressed. NSR, AOx4. RR even and unlabored on RA. Side rails up x2, bed low and locked. Will continue to monitor.
--- NOTE | 2019-07-19 10:43 | NUR ---
NURSE NOTES: Enema administered. Clear return visualized. Pain improved and was also able to sit at edge of bed with PT.
--- NOTE | 2019-07-19 11:20 | Hematology/Onc Progress Note ---
Assessment/Plan Assessment/Plan Assessment/Plan: # Pancytopenia secondary to underlying cirrhosis. with a history of C from prior admission, hx cirrhosis again --> IV iron has been started x 5 days ferritin is 34 --> hgb goal is >7, transfuse as needed --> have ordered us abd, has been >6mo --> get SPEP GIVEN high PROTEIN - followup results outpatient --> trend wbc 5.9--> 4.5--> 5.5 -->5.1 # Anemia due to gi bleed --> Continue to closely monitor for improvement. --> Currently, stable. --> hgb trend:8.8--> 9.7-->8.9 -> per gi may need egd/colo 07/18 # Hepatitis C. Outpatient management per the patient. Has been treated before for hepatitis C. --> outpatient management and treatment --> viral load as needed --> smear reviewed, no hemolysis --> Afp ordered as prior was elevated (2012 was high) # Diabetes mellitus. A1c goal less than 7. --> accuchecks qac and qhs # HTN with sbp goal <150 --> per cards # Recurrent major depressive disorder. Psychotherapy as per Psychiatry and Psychology. # Protein-calorie malnutrition. # Hepatitis C. # Liver cirrhosis. # Electrolyte abnml --> as per renal The timing of this note does not necessarily reflect the time of the patient was seen. Greatly appreciate consultation. Subjective HEENT: Denies: no symptoms, eye pain, blurred vision, tearing, double vision, ear pain, ear discharge, nose pain, nose congestion, throat pain, throat swelling, mouth pain, mouth swelling, other Cardiovascular: Denies: no symptoms, chest pain, edema, irregular heart rate, lightheadedness, palpitations, syncope, other Respiratory: Denies: no symptoms, cough, shortness of breath, SOB with excertion, SOB at rest, sputum, wheezing, other Gastrointestinal/Abdominal: Denies: no symptoms, abdomen distended, abdominal pain, black stools, tarry stools, blood in stool, constipated, diarrhea, difficulty swallowing, nausea, poor appetite, poor fluid intake, rectal bleeding , vomiting, other Genitourinary: Denies: no symptoms, burning, discharge, frequency, flank pain, hematuria, incontinence, pain, urgency, other Neurologic/Psychiatric: Denies: no symptoms, anxiety, depressed, emotional problems, headache, numbness, paresthesia, pre-existing deficit, seizure, tingling, tremors, weakness, other Endocrine: Denies: no symptoms, excessive sweating, flushing, intolerance to cold, intolerance to heat, increased hunger, increased thirst, increased urine, unexplained weight gain, unexplained weight loss, other Allergies: Coded Allergies: HORSERADISH (Verified Allergy, Unknown, Rash, 04/28/19) Subjective 10.13: lowered dose of pain meds, lower dose of dilaudid, no bleeding or chills 07/18: is going for egd this am, remains npo, no events, hgb 8.9 07/19: getting pt/ot, slightly agitated, no events Objective Objective Current Medications Medications (Trade) Dose Ordered Sig/Darwin Route PRN Reason Start Time Stop Time Status Last Admin Dose Admin Acetaminophen (Tylenol) 650 mg Q4H PRN ORAL Mild Pain (Pain Scale 1-3) 07/15/19 14:15 08/14/19 14:14 Al Hydroxide/Mg Hydroxide (Mylanta II) 30 ml Q6H PRN ORAL dyspepsia 07/15/19 14:15 08/14/19 14:14 Albuterol/ Ipratropium (Albuterol/ Ipratropium) 3 ml Q6H PRN HHN Shortness of Breath 07/15/19 16:30 07/20/19 16:29 Bisacodyl (Dulcolax) 10 mg HSPRN PRN RECTAL Constipation 07/15/19 14:15 08/14/19 14:14 07/17/19 14:16 Dextrose (Dextrose 50%) 25 ml Q30M PRN IV Hypoglycemia 07/15/19 23:30 08/14/19 23:29 Dextrose (Dextrose 50%) 50 ml Q30M PRN IV Hypoglycemia 07/15/19 23:30 08/14/19 23:29 Dextrose/ Electrolytes 1,000 ml @ 75 mls/hr [id number] IV 07/18/19 16:00 08/17/19 15:59 07/18/19 16:19 Diphenhydramine HCl (Benadryl) 25 mg Q6H PRN ORAL Itching/Pruritis 07/15/19 14:15 08/14/19 14:14 Enoxaparin Sodium (Lovenox) 40 mg Q24H SUBQ 07/15/19 17:00 08/14/19 16:59 07/18/19 16:31 Escitalopram Oxalate (Lexapro) 5 mg DAILY ORAL 07/17/19 09:00 08/16/19 08:59 07/19/19 08:03 Famotidine (Pepcid) 40 mg DAILY ORAL 07/16/19 09:00 08/15/19 08:59 07/19/19 08:03 Hydromorphone HCl (Dilaudid) 0.5 mg Q4H PRN IVP severe pain 07/17/19 08:45 07/24/19 08:44 07/19/19 08:11 Insulin Aspart (NovoLOG) BEFORE MEALS AND HS SUBQ 07/16/19 06:30 08/15/19 06:29 07/18/19 21:48 Iron Sucrose 100 mg/Sodium Chloride 60 ml @ 240 mls/hr BEDTIME IV 07/17/19 21:00 07/21/19 21:14 07/18/19 21:37 Lamotrigine (LaMICtal) 25 mg DAILY ORAL 07/17/19 09:00 08/16/19 08:59 07/19/19 08:03 Lorazepam (Ativan) 1 mg Q4H PRN ORAL For Anxiety 07/15/19 14:15 07/22/19 14:14 07/19/19 08:32 Nitroglycerin (Ntg) 0.4 mg Q5M X 3 DOSES PRN SL Prn Chest Pain 07/15/19 14:15 08/14/19 14:14 Ondansetron HCl (Zofran) 4 mg Q6H PRN IVP Nausea & Vomiting 07/15/19 14:15 08/14/19 14:14 07/17/19 08:08 Sitagliptin Phosphate (Januvia) 50 mg ACBREAKFAST ORAL 07/16/19 15:30 08/15/19 15:29 07/17/19 06:53 Tramadol HCl (Ultram) 50 mg Q6H PRN ORAL moderate pain 07/17/19 08:45 07/24/19 08:44 07/19/19 08:32 Last 24 Hour Vital Signs Date Time Temp Pulse Resp B/P (MAP) Pulse Ox O2 Delivery O2 Flow Rate FiO2 07/19/19 09:41 98.0 07/19/19 09:41 98.0 07/19/19 09:00 Room Air 07/19/19 09:00 70 07/19/19 08:49 77 20 98 Room Air 21 07/19/19 07:56 98.0 68 18 111/60 (77) 97 07/19/19 04:00 98.0 71 18 122/66 (84) 98 07/19/19 04:00 72 07/19/19 00:00 65 07/19/19 00:00 98.2 70 18 120/64 (82) 97 07/18/19 21:00 Room Air 07/18/19 20:00 68 07/18/19 20:00 98.4 63 18 115/64 (81) 98 07/18/19 19:54 66 18 97 Room Air 21 07/18/19 16:00 62 07/18/19 16:00 97.4 71 18 127/71 (89) 98 07/18/19 13:49 65 18 100 07/18/19 13:47 66 18 100 07/18/19 12:00 68 07/18/19 12:00 98.0 73 18 152/79 (103) 98 07/18/19 10:20 98.4 68 17 134/76 100 Nasal Cannula 3 07/18/19 10:10 68 21 114/66 100 Nasal Cannula 3 07/18/19 10:01 65 17 118/67 100 Nasal Cannula 3 07/18/19 09:56 67 14 116/65 100 Nasal Cannula 3 07/18/19 09:51 98.1 66 18 115/68 100 Nasal Cannula 3 07/18/19 09:00 Room Air 07/18/19 08:00 69 07/18/19 08:00 98.5 75 18 135/70 (91) 96 07/18/19 04:00 64 07/18/19 04:00 96.8 82 16 126/72 (90) 96 07/18/19 00:00 67 07/18/19 00:00 97.5 74 16 129/70 (89) 95 07/17/19 21:00 Room Air 07/17/19 20:00 71 07/17/19 20:00 97.5 79 16 129/69 (89) 96 07/17/19 16:00 70 07/17/19 16:00 97.9 77 20 105/66 (79) 96 07/17/19 12:00 68 07/17/19 11:51 97.9 69 19 104/57 (73) 97 Intake and Output 07/18/19 07/19/19 19:00 07:00 Intake Total 250 ml 425 ml Balance 250 ml 425 ml Intake Oral 200 ml IV Total 250 ml 225 ml # Voids 3 4 # Bowel Movements 2 3 Labs Test 07/17/19 10:20 07/18/19 05:43 07/18/19 13:00 07/19/19 06:15 White Blood Count 5.1 K/UL (4.8-10.8) 4.9 K/UL (4.8-10.8) 5.1 K/UL (4.8-10.8) Red Blood Count 3.12 M/UL (4.20-5.40) 2.86 M/UL (4.20-5.40) 2.87 M/UL (4.20-5.40) Hemoglobin 9.7 G/DL (12.0-16.0) 8.9 G/DL (12.0-16.0) 8.9 G/DL (12.0-16.0) Hematocrit 30.6 % (37.0-47.0) 27.9 % (37.0-47.0) 27.7 % (37.0-47.0) Mean Corpuscular Volume 98 FL (80-99) 97 FL (80-99) 96 FL (80-99) Mean Corpuscular Hemoglobin 31.2 PG (27.0-31.0) 31.0 PG (27.0-31.0) 31.2 PG (27.0-31.0) Mean Corpuscular Hemoglobin Concent 31.8 G/DL (32.0-36.0) 31.8 G/DL (32.0-36.0) 32.3 G/DL (32.0-36.0) Red Cell Distribution Width 12.1 % (11.6-14.8) 11.9 % (11.6-14.8) 12.1 % (11.6-14.8) Platelet Count 239 K/UL (150-450) 205 K/UL (150-450) 200 K/UL (150-450) Mean Platelet Volume 6.0 FL (6.5-10.1) 6.3 FL (6.5-10.1) 6.3 FL (6.5-10.1) Neutrophils (%) (Auto) 65.9 % (45.0-75.0) 55.9 % (45.0-75.0) 53.3 % (45.0-75.0) Lymphocytes (%) (Auto) 24.5 % (20.0-45.0) 29.3 % (20.0-45.0) 32.6 % (20.0-45.0) Monocytes (%) (Auto) 8.9 % (1.0-10.0) 13.1 % (1.0-10.0) 13.4 % (1.0-10.0) Eosinophils (%) (Auto) 0.3 % (0.0-3.0) 0.3 % (0.0-3.0) 0.3 % (0.0-3.0) Basophils (%) (Auto) 0.4 % (0.0-2.0) 1.4 % (0.0-2.0) 0.4 % (0.0-2.0) Sodium Level 137 MMOL/L (136-145) 141 MMOL/L (136-145) 140 MMOL/L (136-145) Potassium Level 3.8 MMOL/L (3.5-5.1) 4.1 MMOL/L (3.5-5.1) 3.6 MMOL/L (3.5-5.1) Chloride Level 102 MMOL/L (98-107) 105 MMOL/L (98-107) 107 MMOL/L (98-107) Carbon Dioxide Level 29 MMOL/L (21-32) 29 MMOL/L (21-32) 27 MMOL/L (21-32) Anion Gap 7 mmol/L (5-15) 7 mmol/L (5-15) 6 mmol/L (5-15) Blood Urea Nitrogen 19 mg/dL (7-18) 20 mg/dL (7-18) 12 mg/dL (7-18) Creatinine 1.1 MG/DL (0.55-1.30) 1.0 MG/DL (0.55-1.30) 0.8 MG/DL (0.55-1.30) Estimat Glomerular Filtration Rate mL/min (>60) mL/min (>60) mL/min (>60) Glucose Level 223 MG/DL (74-106) 152 MG/DL (74-106) 126 MG/DL (74-106) Calcium Level 8.5 MG/DL (8.5-10.1) 8.5 MG/DL (8.5-10.1) 8.8 MG/DL (8.5-10.1) Magnesium Level 1.9 MG/DL (1.8-2.4) 1.9 MG/DL (1.8-2.4) Iron Level 40 ug/dL (50-175) Total Iron Binding Capacity 468 ug/dL (250-450) Percent Iron Saturation 9 % (15-50) Unsaturated Iron Binding 428 ug/dL (112-346) Total Bilirubin 0.5 MG/DL (0.2-1.0) 0.3 MG/DL (0.2-1.0) Aspartate Amino Transf (AST/SGOT) 89 U/L (15-37) 78 U/L (15-37) Alanine Aminotransferase (ALT/SGPT) 74 U/L (12-78) 68 U/L (12-78) Alkaline Phosphatase 137 U/L (46-116) 133 U/L (46-116) Ammonia 19 umol/L (11-32) 39 umol/L (11-32) Total Protein 8.1 G/DL (6.4-8.2) 7.1 G/DL (6.4-8.2) Albumin 3.0 G/DL (3.4-5.0) 2.8 G/DL (3.4-5.0) Globulin 5.1 g/dL 4.3 g/dL Albumin/Globulin Ratio 0.6 (1.0-2.7) 0.7 (1.0-2.7) Alpha Fetoprotein 15.6 ng/mL (0.0-8.3) Carcinoembryonic Antigen 3.8 ng/mL (0.0-4.7) Vitamin B12 Level 391 PG/ML (193-986) Folate 18.0 NG/ML (8.6-58.9) Hepatitis A IgM Antibody Negative (Negative) Hepatitis B Surface Antigen Negative (Negative) Hepatitis B Core IgM Antibody Negative (Negative) Hepatitis C Antibody >11.0 s/co ratio Hemoglobin A1c 6.4 % (4.3-6.0) Phosphorus Level 3.0 MG/DL (2.5-4.9) Triglycerides Level 65 MG/DL (30-150) Cholesterol Level 195 MG/DL (< 200) LDL Cholesterol 79 mg/dL (<100) HDL Cholesterol 100 MG/DL (40-60) Cholesterol/HDL Ratio 2.0 (3.3-4.4) Thyroid Stimulating Hormone (TSH) 2.256 uiU/mL (0.358-3.740) Stool Occult Blood Negative (NEGATIVE) Height (Feet): 5 Height (Inches): 5.00 Weight (Pounds): 120 Objective Physical Exam: Vitals: reviewed General Appearance: NAD HEENT: normocephalic, atraumatic Neck: non-tender, normal alignment Respiratory/Chest: normal breath sounds bilaterally Cardiovascular/Chest: normal peripheral pulses, normal rate Abdomen: normal bowel sounds, soft, nontende Jr Loredo MD Jul 19, 2019 11:20
[2019-07-19] MEDS ORDERED: Propofol 200mg/20ml IV ONE (12:00)
[2019-07-19] MEDS ORDERED: Lidocaine 1% MPF 10mg/ml 5ml ONE (12:00)
[2019-07-19] MEDS ORDERED: Atropine Sulfate 0.4mg/ml inj ONE (12:00)
--- NOTE | 2019-07-19 12:00 | NUR ---
NURSE NOTES: Patient taken for colonoscopy.
[2019-07-19] MEDS ORDERED: NS 500ML IVPB ONE (12:15)
--- NOTE | 2019-07-19 12:24 | Pre-Procedure Note/Attestation ---
Pre-Procedure Note/Attestation Complete Prior to Procedure Planned Procedure: not applicable Procedure Narrative: colonoscopy Indications for Procedure Pre-Operative Diagnosis: anemia Attestation I attest that I discussed the nature of the procedure; its benefits; risks and complications; and alternatives (and the risks and benefits of such alternatives ), prior to the procedure, with the patient (or the patient's legal account development representative). I attest that, if there was a reasonable possibility of needing a blood transfusion, the patient (or the patient's legal account development representative) was given the [facility] standardized written summary, pursuant to the Lit [place] Blood Safety Act ([place] Health and Safety Code # 1645, as amended). I attest that I re-evaluated the patient just prior to the surgery and that there has been no change in the patient's H&P, except as documented below: Vipul Horne MD Jul 19, 2019 12:24
--- NOTE | 2019-07-19 12:47 | Endoscopy Procedure Note ---
Endoscopy Procedure Note General Indication for Procedure: anemia Procedures Performed: colonoscopy Operative Findings/Diagnosis: 2 polyps Specimen: yes Pt Tolerated Procedure Well: Yes Estimated Blood Loss: none Anesthesia Anesthesiologist: cesar da silva Anesthesia: MAC Inserted Devices Implant(s) used?: No Quality Quality of Bowel Preparation: Good Did scope reach the cecum?: Yes Was there any complications?: No GI Core Measures 50 yrs or older w/o bx or poly: No 10yrs. F/U recommended: Yes If not recommended, why?: Above average risk 18 years or older w/prev. colo: Yes <3yrs. since last colonoscopy: No Vipul Horne MD Jul 19, 2019 12:47
--- NOTE | 2019-07-19 13:09 | NUR ---
NURSE NOTES: Patient received from colonoscopy. Patient stable.
--- NOTE | 2019-07-19 13:19 | CDS Physician Query ---
Clarification is required for compliance, coding accuracy, and to reflect severity of illness for this patient Dear Dr. Jr Loredo M.D. Date: 07/19/2019 Community Relations Manager/CDS Name: Mauricio Forrest This is a 79-year-old female, living at [facility], presented with above-mentioned diagnosis. Initial blood sugar was 455, after insulin given, came down to 422. The patient came to [facility], diagnosed with the above, admitted to telemetry for further care. Currently, calm in bed, feeling little bit better. No complaint. CHIEF COMPLAINT: Weakness, dizziness, diabetes, hyperglycemia. on last progress notes under Assessment/Plan: Protein caloric malnutrition Alb: 3.0-->2.8 Please select the severity of Protein caloric malnutrition option: [] Protein/Calorie Malnutrition [] Mild [] Moderate [] Severe [] Hypoalbuminemia [] Cachexia [] Underweight [] Intestinal malabsorption [] Other [] Unable to determine [] Not Applicable Present on Admission: [] Yes [] No [] Clinically Undetermined Physician signature Date Please also document in your Progress Notes and/or Discharge Summary and indicate if the condition was present on admission. MTDD
--- NOTE | 2019-07-19 13:28 | General Progress Note ---
Assessment/Plan Problem List: (1) Abdominal pain ICD Codes: R10.9 - Unspecified abdominal pain SNOMED: 69041174, 610370588 (2) Uncontrolled diabetes mellitus ICD Codes: E11.65 - Type 2 diabetes mellitus with hyperglycemia SNOMED: 37211231, 500575347 (3) History of cholelithiasis ICD Codes: Z87.19 - History of cholelithiasis SNOMED: 486275656 (4) Peptic ulcer disease ICD Codes: K27.9 - Peptic ulcer disease SNOMED: 93149218 (5) Diabetes ICD Codes: E11.9 - Type 2 diabetes mellitus without complications SNOMED: 04039600 (6) UTI (urinary tract infection) ICD Codes: N39.0 - Urinary tract infection, site not specified SNOMED: 36451617 (7) HTN (hypertension) ICD Codes: I10 - Essential (primary) hypertension SNOMED: 90016735 (8) 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 ICD Codes: B18.2 - 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 SNOMED: 637510282 (9) Gram-negative bacteremia ICD Codes: R78.81 - Bacteremia SNOMED: 054899578413 (10) ACS (acute coronary syndrome) ICD Codes: I24.9 - Acute ischemic heart disease, unspecified SNOMED: 880063060 (11) Degenerative arthritis of cervical spine ICD Codes: M47.812 - Spondylosis without myelopathy or radiculopathy, cervical region SNOMED: 354610813 Status: stable, progressing Assessment/Plan: pt diet abx gi f/u cbc bmp am Subjective Constitutional: Reports: weakness Allergies: Coded Allergies: HORSERADISH (Verified Allergy, Unknown, Rash, 04/28/19) All Systems: reviewed and negative except above Subjective calm sleepy in bed Objective Last 24 Hour Vital Signs Date Time Temp Pulse Resp B/P (MAP) Pulse Ox O2 Delivery O2 Flow Rate FiO2 07/19/19 12:57 73 15 100/57 100 Nasal Cannula 3 07/19/19 12:52 97.3 75 18 99/49 100 Nasal Cannula 3 07/19/19 12:00 74 07/19/19 12:00 97.8 77 20 118/69 (85) 97 07/19/19 09:41 98.0 07/19/19 09:41 98.0 07/19/19 09:00 Room Air 07/19/19 09:00 70 07/19/19 08:49 77 20 98 Room Air 21 07/19/19 07:56 98.0 68 18 111/60 (77) 97 07/19/19 04:00 98.0 71 18 122/66 (84) 98 07/19/19 04:00 72 07/19/19 00:00 65 07/19/19 00:00 98.2 70 18 120/64 (82) 97 07/18/19 21:00 Room Air 07/18/19 20:00 68 07/18/19 20:00 98.4 63 18 115/64 (81) 98 07/18/19 19:54 66 18 97 Room Air 21 07/18/19 16:00 62 07/18/19 16:00 97.4 71 18 127/71 (89) 98 07/18/19 13:49 65 18 100 07/18/19 13:47 66 18 100 Intake and Output 07/18/19 07/19/19 19:00 07:00 Intake Total 250 ml 425 ml Balance 250 ml 425 ml Intake Oral 200 ml IV Total 250 ml 225 ml # Voids 3 4 # Bowel Movements 2 3 Laboratory Tests 07/19/19 06:15: White Blood Count 5.1, Red Blood Count 2.87L, Hemoglobin 8.9L, Hematocrit 27.7L , Mean Corpuscular Volume 96, Mean Corpuscular Hemoglobin 31.2H, Mean Corpuscular Hemoglobin Concent 32.3, Red Cell Distribution Width 12.1, Platelet Count 200, Mean Platelet Volume 6.3L, Neutrophils (%) (Auto) 53.3, Lymphocytes ( %) (Auto) 32.6, Monocytes (%) (Auto) 13.4H, Eosinophils (%) (Auto) 0.3, Basophils (%) (Auto) 0.4, Sodium Level 140, Potassium Level 3.6, Chloride Level 107, Carbon Dioxide Level 27, Anion Gap 6, Blood Urea Nitrogen 12, Creatinine 0.8, Estimat Glomerular Filtration Rate , Glucose Level 126H, Calcium Level 8.8 Height (Feet): 5 Height (Inches): 5.00 Weight (Pounds): 120 General Appearance: lethargic EENT: normal ENT inspection Neck: normal alignment Cardiovascular: normal peripheral pulses, normal rate, regular rhythm Respiratory/Chest: chest wall non-tender, lungs clear, normal breath sounds Abdomen: normal bowel sounds, non tender, soft Extremities: normal inspection Edema: no edema noted Arm (L), no edema noted Arm (R), no edema noted Leg (L), no edema noted Leg (R), no edema noted Pedal (L), no edema noted Pedal (R), no edema noted Generalized Neurologic: motor weakness Skin: normal pigmentation, warm/dry Phan Nix DO Jul 19, 2019 13:28
--- NOTE | 2019-07-19 14:34 | Anethesia Preoperative Eval ---
Anesthesia Pre-op PMH/ROS General Date of Evaluation: Jul 19, 2019 Time of Evaluation: 12:00 Anesthesiologist: tramaine ASA Score: ASA 4 Mallampati Score Class I : Soft palate, uvula, fauces, pillars visible Class II: Soft palate, uvula, fauces visible Class III: Soft palate, base of uvula visible Class IV: Only hard plate visible Mallampati Classification: Class II Surgeon: maria l Diagnosis: anemia Surgical Procedure: colonoscopy w/bx Anesthesia History: none Social History: smoking - nonsmoker Family History: no anesthesia problems Allergies: Coded Allergies: HORSERADISH (Verified Allergy, Unknown, Rash, 04/28/19) Medications: see eMAR Patient NPO?: Yes Past Medical History Cardiovascular: Reports: HTN, arrhythmia, other - chf, cardiomyopathy, heart murmur Gastrointestinal/Genitourinary: Reports: ESRD, other - uterine cancer, cirrhosis, hepatitis Endocrine: Reports: DM HEENT: Reports: cataract (L), cataract (R), glaucoma Musculoskeletal/Integumentary: Reports: OA Anesthesia Pre-op Phys. Exam Physician Exam Last Vital Signs Date Time Temp Pulse Resp B/P (MAP) Pulse Ox O2 Delivery O2 Flow Rate FiO2 07/19/19 12:57 73 15 100/57 100 Nasal Cannula 3 07/19/19 12:52 97.3 07/19/19 08:49 21 Constitutional: NAD Neurologic: CN 2-12 intact Cardiovascular: RRR Respiratory: CTA Gastrointestinal: S/NT/ND Airway Exam Mallampati Score: Class II MO: limited Neck: flexible TMD: 2fb ROM: limited Anesthesia Pre-op A/P Labs Hematology Test 07/19/19 06:15 White Blood Count 5.1 K/UL (4.8-10.8) Red Blood Count 2.87 M/UL (4.20-5.40) L Hemoglobin 8.9 G/DL (12.0-16.0) L Hematocrit 27.7 % (37.0-47.0) L Mean Corpuscular Volume 96 FL (80-99) Mean Corpuscular Hemoglobin 31.2 PG (27.0-31.0) H Mean Corpuscular Hemoglobin Concent 32.3 G/DL (32.0-36.0) Red Cell Distribution Width 12.1 % (11.6-14.8) Platelet Count 200 K/UL (150-450) Mean Platelet Volume 6.3 FL (6.5-10.1) L Neutrophils (%) (Auto) 53.3 % (45.0-75.0) Lymphocytes (%) (Auto) 32.6 % (20.0-45.0) Monocytes (%) (Auto) 13.4 % (1.0-10.0) H Eosinophils (%) (Auto) 0.3 % (0.0-3.0) Basophils (%) (Auto) 0.4 % (0.0-2.0) Chemistry Test 07/19/19 06:15 Sodium Level 140 MMOL/L (136-145) Potassium Level 3.6 MMOL/L (3.5-5.1) Chloride Level 107 MMOL/L (98-107) Carbon Dioxide Level 27 MMOL/L (21-32) Anion Gap 6 mmol/L (5-15) Blood Urea Nitrogen 12 mg/dL (7-18) Creatinine 0.8 MG/DL (0.55-1.30) Estimat Glomerular Filtration Rate mL/min (>60) Glucose Level 126 MG/DL (74-106) H Calcium Level 8.8 MG/DL (8.5-10.1) Risk Assessment & Plan Assessment: asa4 Plan: mac Status Change Before Surgery: No Pre-Antibiotics Drug: Kaylah Hayden MD Jul 19, 2019 14:34
--- NOTE | 2019-07-19 14:36 | Immediate Post-Op Evaluation ---
Immediate Post-Op Evalulation Immediate Post-Op Evalulation Procedure: colonoscopy w/bx Date of Evaluation: Jul 19, 2019 Time of Evaluation: 13:04 IV Fluids: 250ml 0.9ns Blood Products: none Estimated Blood Loss: negligible Blood Pressure Systolic: 99 Blood Pressure Diastolic: 49 Pulse Rate: 75 Respiratory Rate: 18 O2 Sat by Pulse Oximetry: 100 Temperature (Fahrenheit): 97.3 Pain Score (1-10): 0 Nausea: No Vomiting: No Complications none Patient Status: awake, reacts, patent Hydration Status: adequate Drug: Kaylah Hayden MD Jul 19, 2019 14:36
--- NOTE | 2019-07-19 14:37 | 48 Hour Post Anesthesia Eval ---
Post Anesthesia Evaluation Procedure: colonoscopy w/bx Date of Evaluation: Jul 19, 2019 Time of Evaluation: 13:06 Blood Pressure Systolic: 100 0: 57 Pulse Rate: 73 Respiratory Rate: 18 Temperature (Fahrenheit): 97.3 Airway: patent Nausea: No Vomiting: No Pain Intensity: 0 Hydration Status: adequate Cardiopulmonary Status: stable Mental Status/LOC: patient returned to baseline Post-Anesthesia Complications: none Follow-up care needed: N/A Kaylah Moreno MD Jul 19, 2019 14:37
[2019-07-19] MEDS ORDERED: DiphenhydrAMINE 50mg/ml Inj IVP PRN (14:45)
[2019-07-19] MEDS ORDERED: Atropine Inj 1mg/10ml Syr IV PRN (14:45)
[2019-07-19] MEDS ORDERED: Midazolam 2mg/2ml Inj IVP PRN (14:45)
[2019-07-19] MEDS ORDERED: fentaNYL 100 mcg/2 mL IV PRN (14:45)
--- NOTE | 2019-07-19 15:30 | Progress Note ---
DATE: 07/19/2019 SUBJECTIVE: This is a 79-year-old female. She is seen to have some mood lability, altered mental status, and confusion. She has diabetes, urinary tract infection, cholelithiasis, and . This causing her to have increased mood lability. MENTAL STATUS EXAMINATION: This is a female patient. She is uncooperative. No psychomotor agitation. . Denies auditory or visual hallucinations. Denies suicidal or homicidal thoughts. Insight and judgment is fair. DIAGNOSIS: Bipolar 2. PLAN: Treat her with Lexapro 5 mg daily, Lamictal 25 mg twice a day, and Ativan 1 mg every 4 hours p.r.n. anxiety and agitation. A 20 minutes of cognitive behavioral therapy provided to help identify automatic negative thoughts and help to convert her negative thoughts to more positive thoughts to reduce depression, anxiety, and mood lability. Chart reviewed. Discussed with staff. Seen and assessed in her room. Juany Sullivan M.D. DR: SUSAN JOB#: [id number] CC:
--- NOTE | 2019-07-19 16:30 | Procedure Note ---
DATE OF PROCEDURE: 07/19/2019 SURGEON: Vipul Horne M.D. PROCEDURE: Colonoscopy with biopsy. ANESTHESIA: Per Dr. Morrison. INSTRUMENT: Olympus adult flexible colonoscope. INDICATION: Anemia. REASON FOR PROCEDURE: The procedure, risks, benefits, and possible consequences, including hemorrhage, aspiration, perforation and infection, and alternative treatments, were explained to the patient/legal guardian by Dr. Vipul Horne and the patient/legal guardian understood and accepted these risks. PROCEDURE IN DETAIL: After informed consent was obtained and the patient was adequately sedated, first rectal exam was performed, which was positive for internal hemorrhoids. Then, the scope was advanced from the rectum into the cecum documented by appendiceal orifice, ileocecal valve, and right upper quadrant palpation. Quality of prep was very good. The patient had two diminutive polyp in the rectosigmoid area, both removed with cold biopsy forceps technique. Otherwise the rest of the colonoscopy examination grossly looked within normal limit. Retroflexion of rectum showed evidence of medium-sized nonbleeding internal hemorrhoids. SUMMARY OF FINDINGS: 1. Internal hemorrhoids. 2. Two colonic polyps removed, see above for details. RECOMMENDATIONS: 1. Follow path. 2. Recommend repeat colonoscopy in 5 years given 2 polyps. 3. Resume diet. I want to thank, Dr. Phan Nix, for this kind referral. Vipul Horne M.D. DR: Nacho JOB#: [id number] CC: Phan Nix D.O.
[2019-07-19] MEDS: Enoxaparin 40mg Inj SUBQ SCH (16:53)
--- NOTE | 2019-07-19 19:48 | NUR ---
HAND-OFF: Report given to Nitish Gray. Patient stable.
--- NOTE | 2019-07-19 19:52 | NUR ---
NURSE NOTES: Received report from Bharti Cotto RN.patient in bed AAO X3-4 with no complaints of acute pain or discomfort at this time. Kept clean, dry, and comfortable in bed. IV line intact and patent SL. Placed on continuous cardiac monitoring per protocol. On bedrest for weakness and on purewick external catheter. Safety precaution in place; siderails X3 up, call light within reach, bed in lowest position, brakes and alarm on at all times. Needs and wants anticipated and attended, will continue plan of care and monitor for any changes.
[2019-07-19] MEDS: Iron Sucrose 100 MG in NS 55 ML IV SCH (21:14)
[2019-07-20] VITALS: BP 118/68
[2019-07-20] MEDS: Hydromorphone 0.5mg/0.5ml inj IVP PRN ×4 (00:28→16:01)
[2019-07-20 04:00] VITALS: BP 126/75
[2019-07-20] MEDS: sitaGLIPtin 50mg tab ORAL SCH (06:38)
[2019-07-20] MEDS: D5 1/2NS w/KCl 20mEq 1,000 ML IV SCH (06:38)
[2019-07-20] MEDS: NovoLOG Insulin Flexpen SUBQ SCH ×2 (06:39→11:31)
--- NOTE | 2019-07-20 07:06 | General Progress Note ---
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 SNOMED: 982166699 (2) Uncontrolled diabetes mellitus ICD Codes: E11.65 - Type 2 diabetes mellitus with hyperglycemia SNOMED: 31828271, 665471732 Status: stable, progressing Assessment/Plan: continue Januvia 50 mg daily continue NISS ac / hs Subjective Allergies: Coded Allergies: HORSERADISH (Verified Allergy, Unknown, Rash, 04/28/19) All Systems: reviewed and negative except above Subjective events noted glucose values are stable Item Value Date Time Bedside Blood Glucose 122 mg/dl H 07/20/19 0639 Bedside Blood Glucose 105 mg/dl 07/19/19 2100 Bedside Blood Glucose 168 mg/dl H 07/19/19 1653 Bedside Blood Glucose 108 mg/dl 07/19/19 0630 Objective Last 24 Hour Vital Signs Date Time Temp Pulse Resp B/P (MAP) Pulse Ox O2 Delivery O2 Flow Rate FiO2 07/20/19 04:00 97.7 75 19 126/75 (92) 96 07/20/19 04:00 70 07/20/19 00:00 97.5 69 20 118/68 (85) 95 07/20/19 00:00 68 07/19/19 21:00 Room Air 07/19/19 20:02 67 20 98 Room Air 21 07/19/19 20:00 82 07/19/19 20:00 98.2 72 20 123/81 (95) 98 07/19/19 16:00 97.5 71 18 117/58 (77) 100 07/19/19 16:00 68 07/19/19 14:37 73 18 07/19/19 14:36 75 18 100 07/19/19 13:10 98.0 71 18 101/57 100 Nasal Cannula 3 07/19/19 13:02 71 16 100/56 100 Nasal Cannula 3 07/19/19 12:57 73 15 100/57 100 Nasal Cannula 3 07/19/19 12:52 97.3 75 18 99/49 100 Nasal Cannula 3 07/19/19 12:00 74 07/19/19 12:00 97.8 77 20 118/69 (85) 97 07/19/19 09:41 98.0 07/19/19 09:41 98.0 07/19/19 09:00 Room Air 07/19/19 09:00 70 07/19/19 08:49 77 20 98 Room Air 21 07/19/19 07:56 98.0 68 18 111/60 (77) 97 Intake and Output 07/19/19 07/20/19 18:59 06:59 Intake Total 490 ml 120 ml Balance 490 ml 120 ml Intake Oral 240 ml 120 ml IV Total 250 ml # Voids 3 2 Height (Feet): 5 Height (Inches): 5.00 Weight (Pounds): 120 General Appearance: no apparent distress Neck: normal alignment Cardiovascular: normal rate Respiratory/Chest: lungs clear Abdomen: normal bowel sounds Objective Current Medications Medications (Trade) Dose Ordered Sig/Darwin Route PRN Reason Start Time Stop Time Status Last Admin Dose Admin Acetaminophen (Tylenol) 650 mg Q4H PRN ORAL Mild Pain (Pain Scale 1-3) 07/15/19 14:15 08/14/19 14:14 Al Hydroxide/Mg Hydroxide (Mylanta II) 30 ml Q6H PRN ORAL dyspepsia 07/15/19 14:15 08/14/19 14:14 Albuterol/ Ipratropium (Albuterol/ Ipratropium) 3 ml Q6H PRN HHN Shortness of Breath 07/15/19 16:30 07/20/19 16:29 Bisacodyl (Dulcolax) 10 mg HSPRN PRN RECTAL Constipation 07/15/19 14:15 08/14/19 14:14 07/17/19 14:16 Dextrose (Dextrose 50%) 25 ml Q30M PRN IV Hypoglycemia 07/15/19 23:30 08/14/19 23:29 Dextrose (Dextrose 50%) 50 ml Q30M PRN IV Hypoglycemia 07/15/19 23:30 08/14/19 23:29 Dextrose/ Electrolytes 1,000 ml @ 75 mls/hr [id number] IV 07/18/19 16:00 08/17/19 15:59 07/20/19 06:38 Diphenhydramine HCl (Benadryl) 25 mg Q6H PRN ORAL Itching/Pruritis 07/15/19 14:15 08/14/19 14:14 Enoxaparin Sodium (Lovenox) 40 mg Q24H SUBQ 07/15/19 17:00 08/14/19 16:59 07/19/19 16:53 Escitalopram Oxalate (Lexapro) 5 mg DAILY ORAL 07/17/19 09:00 08/16/19 08:59 07/19/19 08:03 Famotidine (Pepcid) 40 mg DAILY ORAL 07/16/19 09:00 08/15/19 08:59 07/19/19 08:03 Hydromorphone HCl (Dilaudid) 0.5 mg Q4H PRN IVP severe pain 07/17/19 08:45 07/24/19 08:44 07/20/19 06:40 Insulin Aspart (NovoLOG) BEFORE MEALS AND HS SUBQ 07/16/19 06:30 08/15/19 06:29 07/20/19 06:39 Iron Sucrose 100 mg/Sodium Chloride 60 ml @ 240 mls/hr BEDTIME IV 07/17/19 21:00 07/21/19 21:14 07/19/19 21:14 Lamotrigine (LaMICtal) 25 mg DAILY ORAL 07/17/19 09:00 08/16/19 08:59 07/19/19 08:03 Lorazepam (Ativan) 1 mg Q4H PRN ORAL For Anxiety 07/15/19 14:15 07/22/19 14:14 07/19/19 08:32 Nitroglycerin (Ntg) 0.4 mg Q5M X 3 DOSES PRN SL Prn Chest Pain 07/15/19 14:15 08/14/19 14:14 Ondansetron HCl (Zofran) 4 mg Q6H PRN IVP Nausea & Vomiting 07/15/19 14:15 08/14/19 14:14 07/17/19 08:08 Sitagliptin Phosphate (Januvia) 50 mg ACBREAKFAST ORAL 07/16/19 15:30 08/15/19 15:29 07/20/19 06:38 Tramadol HCl (Ultram) 50 mg Q6H PRN ORAL moderate pain 07/17/19 08:45 07/24/19 08:44 07/19/19 08:32 Abundio Nassar MD Jul 20, 2019 07:06
[2019-07-20 07:34] LABS: BASOPHILS % (AUTO) 0.5 % (0.0-2.0); HEMATOCRIT 26.5 % (37.0-47.0); HEMOGLOBIN 8.4 G/DL (12.0-16.0); LYMPHOCYTES % (AUTO) 34.2 % (20.0-45.0); MEAN CORPUSCULAR VOLUME 97 FL (80-99); MONOCYTES % (AUTO) 10.6 % (1.0-10.0); NEUTROPHILS % (AUTO) 54.7 % (45.0-75.0); PLATELET COUNT 184 K/UL (150-450); RED BLOOD COUNT 2.73 M/UL (4.20-5.40); RED CELL DISTRIBUTION WIDTH 12.3 % (11.6-14.8); WHITE BLOOD COUNT 5.5 K/UL (4.8-10.8)
--- NOTE | 2019-07-20 07:49 | NUR ---
HAND-OFF: Report given to Sarah Pabon RN. Patient in bed AAO X4 with no S/S of distress. Endorsed plan of care. Addendum: 07/20/19 at 0751 by MONTRELL VASQUEZ RN Endorsed to Dave Pate RN
[2019-07-20 08:00] VITALS: BP 129/70
[2019-07-20 08:01] LABS: ANION GAP 5 mmol/L (5-15); BLOOD UREA NITROGEN 16 mg/dL (7-18); CALCIUM 8.3 MG/DL (8.5-10.1); CARBON DIOXIDE 26 MMOL/L (21-32); CHLORIDE 105 MMOL/L (98-107); CREATININE 0.8 MG/DL (0.55-1.30); POTASSIUM 3.8 MMOL/L (3.5-5.1); SODIUM 136 MMOL/L (136-145)
--- NOTE | 2019-07-20 08:07 | NUR ---
NURSE NOTES: Received report from MAXX Talbert. Patient aox4 with calm,cooperative affect. No sign of confusion. Breathing easily on RA with no sign of cardiac distress. Patient is up eating breakfast and no c/o pain currently , though she stated "Well, it's always alittle bit". Bed in lowest locked position. Toileting offered and refused. Bed in lowest,locked position with call [place] and bedpan in reach.
--- NOTE | 2019-07-20 08:44 | General Progress Note ---
Assessment/Plan Status: stable, progressing Assessment/Plan: 1. Hepatitis C. 2. Gallstones. 3. Diabetes. 4. Right eye blindness. 5. Duodenal ulceration. 6. H. pylori gastritis. 7. Hiatal hernia. 8. Cataract. 9. Glaucoma. 10. Hypertension. 11. Anemia. 12. Diverticulosis. 13. Diabetes. monitor lab s/p EGD and colonoscopy no acute finding ok to dc GI stand point needs out patient fu for hep c treatment Subjective ROS Limited/Unobtainable: Yes Allergies: Coded Allergies: HORSERADISH (Verified Allergy, Unknown, Rash, 04/28/19) Objective Last 24 Hour Vital Signs Date Time Temp Pulse Resp B/P (MAP) Pulse Ox O2 Delivery O2 Flow Rate FiO2 07/20/19 04:00 97.7 75 19 126/75 (92) 96 07/20/19 04:00 70 07/20/19 00:00 97.5 69 20 118/68 (85) 95 07/20/19 00:00 68 07/19/19 21:00 Room Air 07/19/19 20:02 67 20 98 Room Air 21 07/19/19 20:00 82 07/19/19 20:00 98.2 72 20 123/81 (95) 98 07/19/19 16:00 97.5 71 18 117/58 (77) 100 07/19/19 16:00 68 07/19/19 14:37 73 18 07/19/19 14:36 75 18 100 07/19/19 13:10 98.0 71 18 101/57 100 Nasal Cannula 3 07/19/19 13:02 71 16 100/56 100 Nasal Cannula 3 07/19/19 12:57 73 15 100/57 100 Nasal Cannula 3 07/19/19 12:52 97.3 75 18 99/49 100 Nasal Cannula 3 07/19/19 12:00 74 07/19/19 12:00 97.8 77 20 118/69 (85) 97 07/19/19 09:41 98.0 07/19/19 09:41 98.0 07/19/19 09:00 Room Air 07/19/19 09:00 70 07/19/19 08:49 77 20 98 Room Air 21 Intake and Output 07/19/19 07/20/19 18:59 06:59 Intake Total 490 ml 120 ml Balance 490 ml 120 ml Intake Oral 240 ml 120 ml IV Total 250 ml # Voids 3 2 Laboratory Tests 07/20/19 05:48: White Blood Count 5.5, Red Blood Count 2.73L, Hemoglobin 8.4L, Hematocrit 26.5L , Mean Corpuscular Volume 97, Mean Corpuscular Hemoglobin 31.0, Mean Corpuscular Hemoglobin Concent 31.8L, Red Cell Distribution Width 12.3, Platelet Count 184, Mean Platelet Volume 7.1, Neutrophils (%) (Auto) 54.7, Lymphocytes (%) (Auto) 34.2, Monocytes (%) (Auto) 10.6H, Eosinophils (%) (Auto) 0.0, Basophils (%) (Auto) 0.5, Sodium Level 136, Potassium Level 3.8, Chloride Level 105, Carbon Dioxide Level 26, Anion Gap 5, Blood Urea Nitrogen 16, Creatinine 0.8, Estimat Glomerular Filtration Rate , Glucose Level 127H, Calcium Level 8.3L Height (Feet): 5 Height (Inches): 5.00 Weight (Pounds): 143 General Appearance: alert EENT: normal ENT inspection Neck: supple Cardiovascular: normal rate Respiratory/Chest: decreased breath sounds Abdomen: normal bowel sounds, non tender, soft Extremities: non-tender Vipul Horne MD Jul 20, 2019 08:44
--- NOTE | 2019-07-20 08:55 | Hematology/Onc Progress Note ---
Assessment/Plan Assessment/Plan Assessment/Plan: # Pancytopenia secondary to underlying cirrhosis. with a history of C from prior admission, hx cirrhosis again --> IV iron has been started x 5 days ferritin is 34 --> hgb goal is >7, transfuse as needed --> have ordered us abd, has been >6mo --> get SPEP GIVEN high PROTEIN - followup results outpatient --> trend wbc 5.9--> 4.5--> 5.5 -->5.1 # Anemia due to gi bleed --> Continue to closely monitor for improvement. --> Currently, stable. --> hgb trend:8.8--> 9.7-->8.9-->8.4 -> per gi may need egd/colo 07/18 # Hepatitis C. Outpatient management per the patient. Has been treated before for hepatitis C. --> outpatient management and treatment --> viral load as needed --> smear reviewed, no hemolysis --> Afp ordered as prior was elevated (2012 was high) # Diabetes mellitus. A1c goal less than 7. --> accuchecks qac and qhs # HTN with sbp goal <150 --> per cards # Recurrent major depressive disorder. Psychotherapy as per Psychiatry and Psychology. # Severe Protein-calorie malnutrition on admission # Hepatitis C. # Liver cirrhosis. # Electrolyte abnml --> as per renal The timing of this note does not necessarily reflect the time of the patient was seen. Greatly appreciate consultation. Subjective Constitutional: Denies: no symptoms, chills, fever, malaise, weakness, other HEENT: Denies: no symptoms, eye pain, blurred vision, tearing, double vision, ear pain, ear discharge, nose pain, nose congestion, throat pain, throat swelling, mouth pain, mouth swelling, other Cardiovascular: Denies: no symptoms, chest pain, edema, irregular heart rate, lightheadedness, palpitations, syncope, other Gastrointestinal/Abdominal: Denies: no symptoms, abdomen distended, abdominal pain, black stools, tarry stools, blood in stool, constipated, diarrhea, difficulty swallowing, nausea, poor appetite, poor fluid intake, rectal bleeding , vomiting, other Genitourinary: Denies: no symptoms, burning, discharge, frequency, flank pain, hematuria, incontinence, pain, urgency, other Allergies: Coded Allergies: HORSERADISH (Verified Allergy, Unknown, Rash, 04/28/19) Subjective 10.13: lowered dose of pain meds, lower dose of dilaudid, no bleeding or chills 07/18: is going for egd this am, remains npo, no events, hgb 8.9 07/19: getting pt/ot, slightly agitated, no events 07/20: dw gi, reviewed results, no bleeding noted, labs reviewed Objective Objective Current Medications Medications (Trade) Dose Ordered Sig/Darwin Route PRN Reason Start Time Stop Time Status Last Admin Dose Admin Acetaminophen (Tylenol) 650 mg Q4H PRN ORAL Mild Pain (Pain Scale 1-3) 07/15/19 14:15 08/14/19 14:14 Al Hydroxide/Mg Hydroxide (Mylanta II) 30 ml Q6H PRN ORAL dyspepsia 07/15/19 14:15 08/14/19 14:14 Albuterol/ Ipratropium (Albuterol/ Ipratropium) 3 ml Q6H PRN HHN Shortness of Breath 07/15/19 16:30 07/20/19 16:29 Bisacodyl (Dulcolax) 10 mg HSPRN PRN RECTAL Constipation 07/15/19 14:15 08/14/19 14:14 07/17/19 14:16 Dextrose (Dextrose 50%) 25 ml Q30M PRN IV Hypoglycemia 07/15/19 23:30 08/14/19 23:29 Dextrose (Dextrose 50%) 50 ml Q30M PRN IV Hypoglycemia 07/15/19 23:30 08/14/19 23:29 Dextrose/ Electrolytes 1,000 ml @ 75 mls/hr [id number] IV 07/18/19 16:00 08/17/19 15:59 07/20/19 06:38 Diphenhydramine HCl (Benadryl) 25 mg Q6H PRN ORAL Itching/Pruritis 07/15/19 14:15 08/14/19 14:14 Enoxaparin Sodium (Lovenox) 40 mg Q24H SUBQ 07/15/19 17:00 08/14/19 16:59 07/19/19 16:53 Escitalopram Oxalate (Lexapro) 5 mg DAILY ORAL 07/17/19 09:00 08/16/19 08:59 07/20/19 08:20 Famotidine (Pepcid) 40 mg DAILY ORAL 07/16/19 09:00 08/15/19 08:59 07/20/19 08:20 Hydromorphone HCl (Dilaudid) 0.5 mg Q4H PRN IVP severe pain 07/17/19 08:45 07/24/19 08:44 07/20/19 06:40 Insulin Aspart (NovoLOG) BEFORE MEALS AND HS SUBQ 07/16/19 06:30 08/15/19 06:29 07/20/19 06:39 Iron Sucrose 100 mg/Sodium Chloride 60 ml @ 240 mls/hr BEDTIME IV 07/17/19 21:00 07/21/19 21:14 07/19/19 21:14 Lamotrigine (LaMICtal) 25 mg DAILY ORAL 07/17/19 09:00 08/16/19 08:59 07/20/19 08:20 Lorazepam (Ativan) 1 mg Q4H PRN ORAL For Anxiety 07/15/19 14:15 07/22/19 14:14 07/19/19 08:32 Nitroglycerin (Ntg) 0.4 mg Q5M X 3 DOSES PRN SL Prn Chest Pain 07/15/19 14:15 08/14/19 14:14 Ondansetron HCl (Zofran) 4 mg Q6H PRN IVP Nausea & Vomiting 07/15/19 14:15 08/14/19 14:14 07/17/19 08:08 Sitagliptin Phosphate (Januvia) 50 mg ACBREAKFAST ORAL 07/16/19 15:30 08/15/19 15:29 07/20/19 06:38 Tramadol HCl (Ultram) 50 mg Q6H PRN ORAL moderate pain 07/17/19 08:45 07/24/19 08:44 07/19/19 08:32 Last 24 Hour Vital Signs Date Time Temp Pulse Resp B/P (MAP) Pulse Ox O2 Delivery O2 Flow Rate FiO2 07/20/19 04:00 97.7 75 19 126/75 (92) 96 07/20/19 04:00 70 07/20/19 00:00 97.5 69 20 118/68 (85) 95 07/20/19 00:00 68 07/19/19 21:00 Room Air 07/19/19 20:02 67 20 98 Room Air 21 07/19/19 20:00 82 07/19/19 20:00 98.2 72 20 123/81 (95) 98 07/19/19 16:00 97.5 71 18 117/58 (77) 100 07/19/19 16:00 68 07/19/19 14:37 73 18 07/19/19 14:36 75 18 100 07/19/19 13:10 98.0 71 18 101/57 100 Nasal Cannula 3 07/19/19 13:02 71 16 100/56 100 Nasal Cannula 3 07/19/19 12:57 73 15 100/57 100 Nasal Cannula 3 07/19/19 12:52 97.3 75 18 99/49 100 Nasal Cannula 3 07/19/19 12:00 74 07/19/19 12:00 97.8 77 20 118/69 (85) 97 07/19/19 09:41 98.0 07/19/19 09:41 98.0 07/19/19 09:00 Room Air 07/19/19 09:00 70 07/19/19 08:49 77 20 98 Room Air 21 07/19/19 07:56 98.0 68 18 111/60 (77) 97 07/19/19 04:00 98.0 71 18 122/66 (84) 98 07/19/19 04:00 72 07/19/19 00:00 65 07/19/19 00:00 98.2 70 18 120/64 (82) 97 07/18/19 21:00 Room Air 07/18/19 20:00 68 07/18/19 20:00 98.4 63 18 115/64 (81) 98 07/18/19 19:54 66 18 97 Room Air 21 07/18/19 16:00 62 07/18/19 16:00 97.4 71 18 127/71 (89) 98 07/18/19 13:49 65 18 100 07/18/19 13:47 66 18 100 07/18/19 12:00 68 07/18/19 12:00 98.0 73 18 152/79 (103) 98 07/18/19 10:20 98.4 68 17 134/76 100 Nasal Cannula 3 07/18/19 10:10 68 21 114/66 100 Nasal Cannula 3 07/18/19 10:01 65 17 118/67 100 Nasal Cannula 3 07/18/19 09:56 67 14 116/65 100 Nasal Cannula 3 07/18/19 09:51 98.1 66 18 115/68 100 Nasal Cannula 3 07/18/19 09:00 Room Air Intake and Output 07/19/19 07/20/19 18:59 06:59 Intake Total 490 ml 120 ml Balance 490 ml 120 ml Intake Oral 240 ml 120 ml IV Total 250 ml # Voids 3 2 Labs Test 07/17/19 10:20 07/18/19 05:43 07/18/19 13:00 07/19/19 06:15 White Blood Count 5.1 K/UL (4.8-10.8) 4.9 K/UL (4.8-10.8) 5.1 K/UL (4.8-10.8) Red Blood Count 3.12 M/UL (4.20-5.40) 2.86 M/UL (4.20-5.40) 2.87 M/UL (4.20-5.40) Hemoglobin 9.7 G/DL (12.0-16.0) 8.9 G/DL (12.0-16.0) 8.9 G/DL (12.0-16.0) Hematocrit 30.6 % (37.0-47.0) 27.9 % (37.0-47.0) 27.7 % (37.0-47.0) Mean Corpuscular Volume 98 FL (80-99) 97 FL (80-99) 96 FL (80-99) Mean Corpuscular Hemoglobin 31.2 PG (27.0-31.0) 31.0 PG (27.0-31.0) 31.2 PG (27.0-31.0) Mean Corpuscular Hemoglobin Concent 31.8 G/DL (32.0-36.0) 31.8 G/DL (32.0-36.0) 32.3 G/DL (32.0-36.0) Red Cell Distribution Width 12.1 % (11.6-14.8) 11.9 % (11.6-14.8) 12.1 % (11.6-14.8) Platelet Count 239 K/UL (150-450) 205 K/UL (150-450) 200 K/UL (150-450) Mean Platelet Volume 6.0 FL (6.5-10.1) 6.3 FL (6.5-10.1) 6.3 FL (6.5-10.1) Neutrophils (%) (Auto) 65.9 % (45.0-75.0) 55.9 % (45.0-75.0) 53.3 % (45.0-75.0) Lymphocytes (%) (Auto) 24.5 % (20.0-45.0) 29.3 % (20.0-45.0) 32.6 % (20.0-45.0) Monocytes (%) (Auto) 8.9 % (1.0-10.0) 13.1 % (1.0-10.0) 13.4 % (1.0-10.0) Eosinophils (%) (Auto) 0.3 % (0.0-3.0) 0.3 % (0.0-3.0) 0.3 % (0.0-3.0) Basophils (%) (Auto) 0.4 % (0.0-2.0) 1.4 % (0.0-2.0) 0.4 % (0.0-2.0) Sodium Level 137 MMOL/L (136-145) 141 MMOL/L (136-145) 140 MMOL/L (136-145) Potassium Level 3.8 MMOL/L (3.5-5.1) 4.1 MMOL/L (3.5-5.1) 3.6 MMOL/L (3.5-5.1) Chloride Level 102 MMOL/L (98-107) 105 MMOL/L (98-107) 107 MMOL/L (98-107) Carbon Dioxide Level 29 MMOL/L (21-32) 29 MMOL/L (21-32) 27 MMOL/L (21-32) Anion Gap 7 mmol/L (5-15) 7 mmol/L (5-15) 6 mmol/L (5-15) Blood Urea Nitrogen 19 mg/dL (7-18) 20 mg/dL (7-18) 12 mg/dL (7-18) Creatinine 1.1 MG/DL (0.55-1.30) 1.0 MG/DL (0.55-1.30) 0.8 MG/DL (0.55-1.30) Estimat Glomerular Filtration Rate mL/min (>60) mL/min (>60) mL/min (>60) Glucose Level 223 MG/DL (74-106) 152 MG/DL (74-106) 126 MG/DL (74-106) Calcium Level 8.5 MG/DL (8.5-10.1) 8.5 MG/DL (8.5-10.1) 8.8 MG/DL (8.5-10.1) Magnesium Level 1.9 MG/DL (1.8-2.4) 1.9 MG/DL (1.8-2.4) Iron Level 40 ug/dL (50-175) Total Iron Binding Capacity 468 ug/dL (250-450) Percent Iron Saturation 9 % (15-50) Unsaturated Iron Binding 428 ug/dL (112-346) Total Bilirubin 0.5 MG/DL (0.2-1.0) 0.3 MG/DL (0.2-1.0) Aspartate Amino Transf (AST/SGOT) 89 U/L (15-37) 78 U/L (15-37) Alanine Aminotransferase (ALT/SGPT) 74 U/L (12-78) 68 U/L (12-78) Alkaline Phosphatase 137 U/L (46-116) 133 U/L (46-116) Ammonia 19 umol/L (11-32) 39 umol/L (11-32) Total Protein 8.1 G/DL (6.4-8.2) 7.1 G/DL (6.4-8.2) Albumin 3.0 G/DL (3.4-5.0) 2.8 G/DL (3.4-5.0) Globulin 5.1 g/dL 4.3 g/dL Albumin/Globulin Ratio 0.6 (1.0-2.7) 0.7 (1.0-2.7) Alpha Fetoprotein 15.6 ng/mL (0.0-8.3) Carcinoembryonic Antigen 3.8 ng/mL (0.0-4.7) Vitamin B12 Level 391 PG/ML (193-986) Folate 18.0 NG/ML (8.6-58.9) Hepatitis A IgM Antibody Negative (Negative) Hepatitis B Surface Antigen Negative (Negative) Hepatitis B Core IgM Antibody Negative (Negative) Hepatitis C Antibody >11.0 s/co ratio Hemoglobin A1c 6.4 % (4.3-6.0) Phosphorus Level 3.0 MG/DL (2.5-4.9) Triglycerides Level 65 MG/DL (30-150) Cholesterol Level 195 MG/DL (< 200) LDL Cholesterol 79 mg/dL (<100) HDL Cholesterol 100 MG/DL (40-60) Cholesterol/HDL Ratio 2.0 (3.3-4.4) Thyroid Stimulating Hormone (TSH) 2.256 uiU/mL (0.358-3.740) Stool Occult Blood Negative (NEGATIVE) Test 07/20/19 05:48 White Blood Count 5.5 K/UL (4.8-10.8) Red Blood Count 2.73 M/UL (4.20-5.40) Hemoglobin 8.4 G/DL (12.0-16.0) Hematocrit 26.5 % (37.0-47.0) Mean Corpuscular Volume 97 FL (80-99) Mean Corpuscular Hemoglobin 31.0 PG (27.0-31.0) Mean Corpuscular Hemoglobin Concent 31.8 G/DL (32.0-36.0) Red Cell Distribution Width 12.3 % (11.6-14.8) Platelet Count 184 K/UL (150-450) Mean Platelet Volume 7.1 FL (6.5-10.1) Neutrophils (%) (Auto) 54.7 % (45.0-75.0) Lymphocytes (%) (Auto) 34.2 % (20.0-45.0) Monocytes (%) (Auto) 10.6 % (1.0-10.0) Eosinophils (%) (Auto) 0.0 % (0.0-3.0) Basophils (%) (Auto) 0.5 % (0.0-2.0) Sodium Level 136 MMOL/L (136-145) Potassium Level 3.8 MMOL/L (3.5-5.1) Chloride Level 105 MMOL/L (98-107) Carbon Dioxide Level 26 MMOL/L (21-32) Anion Gap 5 mmol/L (5-15) Blood Urea Nitrogen 16 mg/dL (7-18) Creatinine 0.8 MG/DL (0.55-1.30) Estimat Glomerular Filtration Rate mL/min (>60) Glucose Level 127 MG/DL (74-106) Calcium Level 8.3 MG/DL (8.5-10.1) Height (Feet): 5 Height (Inches): 5.00 Weight (Pounds): 143 Objective Physical Exam: Vitals: reviewed General Appearance: NAD HEENT: normocephalic, atraumatic Neck: non-tender, normal alignment Respiratory/Chest: normal breath sounds bilaterally Cardiovascular/Chest: normal peripheral pulses, normal rate Abdomen: normal bowel sounds, soft, nontende Jr Loredo MD Jul 20, 2019 08:55
--- NOTE | 2019-07-20 09:29 | General Progress Note ---
Assessment/Plan Problem List: (1) Abdominal pain ICD Codes: R10.9 - Unspecified abdominal pain SNOMED: 95778257, 202147405 (2) Uncontrolled diabetes mellitus ICD Codes: E11.65 - Type 2 diabetes mellitus with hyperglycemia SNOMED: 61439997, 051997011 (3) History of cholelithiasis ICD Codes: Z87.19 - History of cholelithiasis SNOMED: 367211088 (4) Peptic ulcer disease ICD Codes: K27.9 - Peptic ulcer disease SNOMED: 84070078 (5) Diabetes ICD Codes: E11.9 - Type 2 diabetes mellitus without complications SNOMED: 23489732 (6) UTI (urinary tract infection) ICD Codes: N39.0 - Urinary tract infection, site not specified SNOMED: 99770842 (7) HTN (hypertension) ICD Codes: I10 - Essential (primary) hypertension SNOMED: 75672445 (8) 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 ICD Codes: B18.2 - 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 SNOMED: 066315179 (9) Gram-negative bacteremia ICD Codes: R78.81 - Bacteremia SNOMED: 734691266270 (10) ACS (acute coronary syndrome) ICD Codes: I24.9 - Acute ischemic heart disease, unspecified SNOMED: 416821285 (11) Degenerative arthritis of cervical spine ICD Codes: M47.812 - Spondylosis without myelopathy or radiculopathy, cervical region SNOMED: 864796864 Status: stable, progressing Assessment/Plan: pt diet abx gi f/u cbc bmp am dc if clear Subjective Constitutional: Reports: weakness Allergies: Coded Allergies: HORSERADISH (Verified Allergy, Unknown, Rash, 04/28/19) All Systems: reviewed and negative except above Subjective calm sleepy in bed Objective Last 24 Hour Vital Signs Date Time Temp Pulse Resp B/P (MAP) Pulse Ox O2 Delivery O2 Flow Rate FiO2 07/20/19 04:00 97.7 75 19 126/75 (92) 96 07/20/19 04:00 70 07/20/19 00:00 97.5 69 20 118/68 (85) 95 07/20/19 00:00 68 07/19/19 21:00 Room Air 07/19/19 20:02 67 20 98 Room Air 21 07/19/19 20:00 82 07/19/19 20:00 98.2 72 20 123/81 (95) 98 07/19/19 16:00 97.5 71 18 117/58 (77) 100 07/19/19 16:00 68 07/19/19 14:37 73 18 07/19/19 14:36 75 18 100 07/19/19 13:10 98.0 71 18 101/57 100 Nasal Cannula 3 07/19/19 13:02 71 16 100/56 100 Nasal Cannula 3 07/19/19 12:57 73 15 100/57 100 Nasal Cannula 3 07/19/19 12:52 97.3 75 18 99/49 100 Nasal Cannula 3 07/19/19 12:00 74 07/19/19 12:00 97.8 77 20 118/69 (85) 97 07/19/19 09:41 98.0 07/19/19 09:41 98.0 Intake and Output 07/19/19 07/20/19 18:59 06:59 Intake Total 490 ml 120 ml Balance 490 ml 120 ml Intake Oral 240 ml 120 ml IV Total 250 ml # Voids 3 2 Laboratory Tests 07/20/19 05:48: White Blood Count 5.5, Red Blood Count 2.73L, Hemoglobin 8.4L, Hematocrit 26.5L , Mean Corpuscular Volume 97, Mean Corpuscular Hemoglobin 31.0, Mean Corpuscular Hemoglobin Concent 31.8L, Red Cell Distribution Width 12.3, Platelet Count 184, Mean Platelet Volume 7.1, Neutrophils (%) (Auto) 54.7, Lymphocytes (%) (Auto) 34.2, Monocytes (%) (Auto) 10.6H, Eosinophils (%) (Auto) 0.0, Basophils (%) (Auto) 0.5, Sodium Level 136, Potassium Level 3.8, Chloride Level 105, Carbon Dioxide Level 26, Anion Gap 5, Blood Urea Nitrogen 16, Creatinine 0.8, Estimat Glomerular Filtration Rate , Glucose Level 127H, Calcium Level 8.3L Height (Feet): 5 Height (Inches): 5.00 Weight (Pounds): 143 General Appearance: lethargic EENT: normal ENT inspection Neck: normal alignment Cardiovascular: normal peripheral pulses, normal rate, regular rhythm Respiratory/Chest: chest wall non-tender, lungs clear, normal breath sounds Abdomen: normal bowel sounds, non tender, soft Extremities: normal inspection Edema: no edema noted Arm (L), no edema noted Arm (R), no edema noted Leg (L), no edema noted Leg (R), no edema noted Pedal (L), no edema noted Pedal (R), no edema noted Generalized Neurologic: responsive, motor weakness Skin: normal pigmentation, warm/dry Phan Nix DO Jul 20, 2019 09:29
--- NOTE | 2019-07-20 11:37 | NUR ---
RD ASSESSMENT & RECOMMENDATIONS SEE CARE ACTIVITY FOR COMPLETE ASSESSMENT DAILY ESTIMATED NEEDS: Needs based on cirrhosis, DM/ 61kg 25-30 kcals/kg 5307-6655 total kcals 1-1.5 g protein/kg 61-91 g total protein 25-30 mL/kg 3036-4932 total fluid mLs NUTRITION DIAGNOSIS: * Altered nutrition related lab values R/T h/o DM, cirrhosis, clinical condition as evidenced by elev POC glu (122 105 108 154), A1C of 6.4, U glu 2+, elev AST, elev NH3. CURRENT DIET:CCHO LOW PO DIET RECOMMENDATIONS: Low Na, CCHO MED/ texture as tolerated ADDITIONAL RECOMMENDATIONS: * Standing wt or calibrated bedscale wt as able for accurate CBW * 1 carb/ high prot snacks BID in b/w meals * Monitor BGs closely: per notes, 459 @ [facility], now improved
--- NOTE | 2019-07-20 11:40 | General Progress Note ---
Assessment/Plan Assessment/Plan: (1) Cervical DDD (2) Cervical Spondylosis (3) Right hip pain h/o THR Patient will be continued on Dilaudid and Tramadol D/w Dr. Carvajal and he concurred. Subjective Date patient seen: Jul 20, 2019 Time patient seen: 11:15 - am Allergies: Coded Allergies: HORSERADISH (Verified Allergy, Unknown, Rash, 04/28/19) Subjective Constitutional: Reports: weakness HEENT: Reports: no symptoms Cardiovascular: Reports: no symptoms Respiratory: Reports: no symptoms Gastrointestinal/Abdominal: Reports: no symptoms Genitourinary: Reports: no symptoms Neurologic/Psychiatric: Reports: weakness Endocrine: Reports: no symptoms Hematologic/Lymphatic: Reports: no symptoms Subjective Patient is in bed and reports pain has been tolerated on the Dilaudid. She has moderate pain at this time. With no new complaints. Objective Last 24 Hour Vital Signs Date Time Temp Pulse Resp B/P (MAP) Pulse Ox O2 Delivery O2 Flow Rate FiO2 07/20/19 08:00 75 07/20/19 08:00 65 18 96 Room Air 21 07/20/19 08:00 97.0 67 21 129/70 (89) 95 07/20/19 04:00 97.7 75 19 126/75 (92) 96 07/20/19 04:00 70 07/20/19 00:00 97.5 69 20 118/68 (85) 95 07/20/19 00:00 68 07/19/19 21:00 Room Air 07/19/19 20:02 67 20 98 Room Air 21 07/19/19 20:00 82 07/19/19 20:00 98.2 72 20 123/81 (95) 98 07/19/19 16:00 97.5 71 18 117/58 (77) 100 07/19/19 16:00 68 07/19/19 14:37 73 18 07/19/19 14:36 75 18 100 07/19/19 13:10 98.0 71 18 101/57 100 Nasal Cannula 3 07/19/19 13:02 71 16 100/56 100 Nasal Cannula 3 07/19/19 12:57 73 15 100/57 100 Nasal Cannula 3 07/19/19 12:52 97.3 75 18 99/49 100 Nasal Cannula 3 07/19/19 12:00 74 07/19/19 12:00 97.8 77 20 118/69 (85) 97 Intake and Output 07/19/19 07/20/19 18:59 06:59 Intake Total 490 ml 120 ml Balance 490 ml 120 ml Intake Oral 240 ml 120 ml IV Total 250 ml # Voids 3 2 Laboratory Tests 07/20/19 05:48: White Blood Count 5.5, Red Blood Count 2.73L, Hemoglobin 8.4L, Hematocrit 26.5L , Mean Corpuscular Volume 97, Mean Corpuscular Hemoglobin 31.0, Mean Corpuscular Hemoglobin Concent 31.8L, Red Cell Distribution Width 12.3, Platelet Count 184, Mean Platelet Volume 7.1, Neutrophils (%) (Auto) 54.7, Lymphocytes (%) (Auto) 34.2, Monocytes (%) (Auto) 10.6H, Eosinophils (%) (Auto) 0.0, Basophils (%) (Auto) 0.5, Sodium Level 136, Potassium Level 3.8, Chloride Level 105, Carbon Dioxide Level 26, Anion Gap 5, Blood Urea Nitrogen 16, Creatinine 0.8, Estimat Glomerular Filtration Rate , Glucose Level 127H, Calcium Level 8.3L Height (Feet): 5 Height (Inches): 5.00 Weight (Pounds): 143 Objective General Appearance: no apparent distress, alert EENT: normal ENT inspection Neck: non-tender, normal alignment Cardiovascular: normal rate, regular rhythm Respiratory/Chest: lungs clear, normal breath sounds Abdomen: soft, tender Extremities: non-tender Edema: trace edema Neurologic: alert, oriented x 3 Skin: normal pigmentation Kiran Diggs Jul 20, 2019 11:40
[2019-07-20 12:00] VITALS: BP 123/64
--- NOTE | 2019-07-20 15:22 | NUR ---
DISCHARGE PLANNING DISCHARGE ORDER NOTED Patient has been accepted to; [facility] [address] [place] [address] Bed:33-B Skilled [phone] for Nurse to Nurse report [facility] ETA for transportation: 16:15
--- NOTE | 2019-07-20 15:30 | NUR ---
NURSE NOTES: Dr. Loredo cleared pt for DC. No neuro consult on case, notified Dr. Nix no neuro on case. Dr. Nix stated to proceed with DC.
[2019-07-20 16:00] VITALS: BP 127/71
--- NOTE | 2019-07-20 17:00 | NUR ---
NURSE NOTES: DC orders reviewed with patient. Patient has no further questions at this time. Attempted to call Mauricio (son) but unable to connect (no answer and no voicemail). Patient able to call her other son (Wicho) who was told of her transport back to [facility]. This RN spoke with Kelsie at [facility] to give report. Kelsie stated she understood patient will need bl sugar check upon arrival and will save dinner for patient (since transport time is at dinner time). VSS at dc per EMS check at bedside prior to ambulance transport. Patient aox4 with calm, cooperative affect-stated she is eager to go home. Verified all belongings with patient at time of dc. Removed tele pack and removed IV.
[2019-07-20] MEDS ORDERED: NS 275ml ONE (17:09)
[2019-07-20] MEDS ORDERED: Tubing IV Secondary IV ONE (17:09)
--- NOTE | 2019-07-20 18:15 | Progress Note ---
DATE: 07/20/2019 ADDENDUM The patient is a 79-year-old female patient with abdominal pain. 20 minutes of cognitive behavioral therapy to help her identify automatic negative thoughts, help her convert negative thoughts to more positive thoughts to reduce depression, anxiety, and mood lability. 20 minutes of cognitive behavioral therapy. Juany Sullivan M.D. DR: LACHO JOB#: [id number] CC:
--- NOTE | 2019-07-20 21:45 | Progress Note ---
DATE: 07/20/2019 SUBJECTIVE: This is a 79-year-old female patient with abdominal pain. The patient continues to have some mood lability, confusion, agitation, irritability. She has altered mental status, no logical plan for her own self-care. As far as the patient's reason why she is in the hospital is because of abdominal pain, but she does have altered mental status, confusion, worsened by stress of her medical illness. MENTAL STATUS EXAMINATION: This is a 79-year-old female. Appearance is disheveled. Attitude, irritable and agitated. Affect, guarded and restricted. Intellect poor. Mood, depressed and anxious. Motor activity, psychomotor agitation. Attention span is . Thought process, disorganized and illogical. Insight and judgment is poor. DIAGNOSIS: Major depressive disorder, mild, recurrent with psychotic features, rule out dementia with psychosis. PLAN: Treat her with Lexapro 5 daily, Lamictal 25 mg twice a day and also treat with Ativan 1 mg every 4 hours p.r.n. anxiety and agitation. Provided with 20 minutes of reality-based supportive psychotherapy. Chart reviewed. Discussed with staff. Seen and assessed in the room. Juany Sullivan M.D. DR: Leif JOB#: [id number] CC:
--- NOTE | 2019-07-20 23:27 | Diagnostic Imaging Report ---
APPROVED REPORT CPT Code: 56077 Present Symptoms Shortness of breath BILATERAL: Imaging reveals a patent deep venous system bilaterally. There is no evidence of thrombus within the common femoral, superficial femoral, popliteal or tibial segments. The greater saphenous veins are within normal limits. Doppler indicates normal spontaneous flow within these segments.
--- NOTE | 2019-07-21 13:07 | Discharge Summary ---
Discharge Summary Discharge Summary _ DATE OF ADMISSION: 07/15/2019 DATE OF DISCHARGE: 07/20/2019 DISCHARGED BY: Dr. Nix REASON FOR ADMISSION: 79 years old female, resident of alf facility, with past medical history of hypertension, diabetes mellitus, liver cirrhosis, hepatitis C, peptic ulcer disease, degenerative disc disease, dementia, presented with complain of abdominal pain, headache and elevated blood sugar. No nausea or vomiting. No fevers or chills. Blood sugar was over 400 at the facility. Patient received insulin in the facility. Patient reported that she had poor vision in the right eye, and was told that she will require surgery in the near future. Upon evaluation vital signs were stable. Laboratory work-up revealed no leukocytosis, hemoglobin 8.8, hematocrit 27.6, platelet count 200. Stable electrolytes and renal parameters. Lactic acid 2.0. Glucose 195. AST 55, ALT 64, alkaline phosphatase 145. Troponin negative. Albumin 3.0. Urinalysis revealed no evidence of UTI, +3 glucose. Chest x-ray revealed no acute cardiopulmonary pathology. CT of the abdomen and pelvis revealed no acute findings in the abdomen or pelvis. CT of the head demonstrated abnormal well-circumscribed 1.2 cm low-density focus in the upper cerebellar vermis , not previously seen, this may be subacute to chronic lacunar infarct. Generalized atrophy of the brain noted. Chronic small vessel disease, involving white matter tracts noted. Patient subsequently admitted to telemetry floor for further management. CONSULTANTS: hospitalist Dr. Pang GI specialist Dr. Horne poster/oncologist Dr. Loredo interpreter deaf Dr. Nassar psychiatrist Dr. Sullivan pain specialist Dr. Carvajal HOSPITAL COURSE: Patient initially admitted to telemetry floor. CT of the head revealed evidence of subacute to chronic lacunar infarcts. Patient subsequently undergone MRI of the brain , which revealed 14 mm lesion within the cerebellum, within and/or adjacent to the vermis to the right of midline, which corresponds to the abnormality described on recent CT scan.Likely late subacute hemorrhage. However, given that no hematoma was evident on the CT scan and the diffusion signal abnormality was unusually strong, other differential considerations should be considered , including a small hemorrhagic infarct and a cavernous malformation with recent hemorrhage. Unfortunately unable to obtain neurology evaluation on this admission. Patient remained neurologically stable, no focal deficit. Outpatient follow-up with neurologist be arranged. Supplemental oxygen provided and titrated to keep pulse oximetry above 92%. Pulse oximetry was stable on room air. Handheld nebulizing treatment with bronchodilator was on board as needed. Venous duplex bilateral lower extremity revealed no evidence of acute DVT. Hemoglobin A1c at goal. Blood sugar was managed as per interpreter deaf recommendation with Januvia and sliding scale of insulin. Blood sugar improved. Patient was counseled on compliance with diabetic diet and medication. Patient was complaining of abdominal pain. Patient noted to be anemic. tool for occult blood was negative. Patient subsequently undergone on 07/18 upper endoscopy with biopsy, which revealed possible portal hypertensive gastropathy, status post biopsy; gastritis status post biopsy and duodenal diverticulum. Pathology of gastric antrum revealed active chronic H. pylori gastritis. Pathology of gastric body biopsy also revealed active H. pylori gastritis. Treatment for H. pylori will be initiated at the facility. Patient subsequently undergone colonoscopy on 07/19 , which revealed internal hemorrhoids and two colonic polyps, status post biopsy. Colonoscopy was recommended to repeat in 5 years, given findings of 2 polyps. Pathology of sigmoid colon polyp revealed hyperplastic polyp , no evidence of dysplasia or malignancy. Diet was slowly resumed as tolerated. Patient was able to tolerate diet. Pain management was addressed as per pain specialist recommendation. Lipid panel was stable. DVT and GI prophylaxis provided. Blood culture were negative. Hemoglobin and hematocrit were closely monitored with goal to keep hemoglobin above 7. Prior to discharge hemoglobin 8.4 , hematocrit 26.5. Stool for occult blood was negative. CEA was within normal limits. Alpha-fetoprotein elevated- 15.6. Stable LFT . Per poster , anemia was probably due to GI bleeding. Patient also had pancytopenia , likely secondary to underlying cirrhosis patient and history of hepatitis C. Patient was on IV iron for 5 days. Patient was recommended outpatient treatment for hepatitis C. Psychiatrist followed. Psychiatric medication regimen was optimized. Reality-based supportive psychotherapy provided. Patient clinically stabilized and was ready for transfer to alf facility for continuation of care. FINAL DIAGNOSES: Diabetes mellitus [id number] Peptic ulcer disease Status post EGD with biopsy 07/18 and colonoscopy with biopsy 07/19 Active chronic H. pylori gastritis Subacute to chronic lacunar infarct Pancytopenia ,secondary to underlying liver cirrhosis due to hepatitis C Anemia due to GI bleeding Hypertension Protein calorie malnutrition Hypomagnesemia Dementia Cervical DDD Cervical spondylosis Right hip pain with history of total hip replacement Major depressive disorder, mild, recurrent with psychotic features DISCHARGE MEDICATIONS: See Medication Reconciliation list. DISCHARGE INSTRUCTIONS: Patient was discharged to the alf facility. Follow up with medical doctor at the facility. I have been assigned to dictate discharge summary for this account. I was not involved in the patient's management. Katie Rose NP Jul 21, 2019 13:07
== END 2019-07-20 17:10 | DRG 637 ==
LOC: EDBD 10:27 → EMR 12:03 → 2E 12:46 → EDBEDREQ 15:48 → 2E 20:15
DX: E11.65 Type 2 diabetes mellitus with hyperglycemia (principal); I63.81 Other cerebral infarction due to occlusion or stenosis of small artery; K29.01 Acute gastritis with bleeding; D61.818 Other pancytopenia; F33.0 Major depressive disorder, recurrent, mild; K76.6 Portal hypertension; E46 Unspecified protein-calorie malnutrition; B19.20 Unspecified viral hepatitis C without hepatic coma; R10.9 Unspecified abdominal pain; D50.0 Iron deficiency anemia secondary to blood loss (chronic); I10 Essential (primary) hypertension; M19.90 Unspecified osteoarthritis, unspecified site; K27.9 Peptic ulcer, site unspecified, unspecified as acute or chronic, without hemorrhage or perforation; B96.81 Helicobacter pylori [H. pylori] as the cause of diseases classified elsewhere; K57.10 Diverticulosis of small intestine without perforation or abscess without bleeding; Z86.19 Personal history of other infectious and parasitic diseases; K74.69 Other cirrhosis of liver; F03.90 Unspecified dementia, unspecified severity, without behavioral disturbance, psychotic disturbance, mood disturbance, and anxiety; M50.30 Other cervical disc degeneration, unspecified cervical region; M47.892 Other spondylosis, cervical region; M25.551 Pain in right hip; Z96.641 Presence of right artificial hip joint; Z79.4 Long term (current) use of insulin; H54.61 Unqualified visual loss, right eye, normal vision left eye; Z90.49 Acquired absence of other specified parts of digestive tract; K31.89 Other diseases of stomach and duodenum; K63.5 Polyp of colon; K64.8 Other hemorrhoids; K44.9 Diaphragmatic hernia without obstruction or gangrene; Z68.24 Body mass index [BMI] 24.0-24.9, adult
CPT/HCPCS: 36415; 70450; 70551; 71045; 74177; 80048; 80053; 80061; 81003; 82105; 82140; 82270; 82378; 82550; 82553; 82607; 82728; 82746; 82962; 83036; 83540; 83550; 83605; 83735; 84100; 84443; 84484; 85025; 85610; 86705; 86709; 86803; 87040; 87081; 87340; 93005; 93970; 94003; 94150; 94664; 96374; 96375; 99285; J1815; J2405; J7030